=== PATIENT | male | born 1955 | race Caucasian/White ===

== ENCOUNTER 2023-02-15 09:54 | Inpatient (IN) | payer MEDICARE, MEDICAID, SELFPAY ==
[2023-02-15] VITALS (31 sets, daily range): BP systolic 85–123; BP diastolic 54–87; PULSE 64–79; RESP 14–20; TEMP 36.3–36.4; O2SAT 95–100; BMI 30.7
--- NOTE | ~2023-02-15 | CT_ITS ---
EXAMINATION: CT abdomen pelvis w con DATE: 02/15/2023 12:35 INDICATION: Sacral decubitus ulcer. TECHNIQUE: Computed tomography (CT) of the abdomen and pelvis was performed with 100 mL Omnipaque 350 intravenous contrast. Automated exposure control and iterative reconstruction technique were employe d. The dose-length product was 895.47 mGy-cm. COMPARISON: None. FINDINGS: The visualized portions of the lung bases demonstrate mild atelectasis. No pleural effusion . The heart size is normal. There are coronary artery calcifications. No pericardial effusion. There is bilateral gynecomastia. Calcifications in the liver and spleen are consistent with old granulomato us disease. The gallbladder, pancreas, and adrenal glands are normal. There is cortical thinning of t he kidneys. There are two 3 mm stones in right kidney. There is diffuse bladder wall thickening. The bladder is compressed by a Gardiner catheter. The prostate is mildly enlarged. There is a sacral decubit us ulcer. There are erosions of the sacrum, consistent with osteomyelitis. There are chronic compress ion fractures of L1, L2, on L3. There is mild lumbar spondylosis. IMPRESSION: 1. Sacral decubitus ulcer. Sacral osteomyelitis. 2. Diffuse bladder wall thickening, consistent with cystitis. Reviewed, dictated and finalized at location A.
--- NOTE | ~2023-02-15 | XR_ITS ---
EXAMINATION: XR tibia fibula LT 2V, XR tibia fibula RT 2V DATE: 02/15/2023 11:35 INDICATION: Stump wound and a left msaca-lde-yakz amputation TECHNIQUE: 1. Anteroposterior and lateral views of the left tibia and fibula were obtained. 2. Anteroposterior and lateral views of the right tibia and fibula were obtained. COMPARISON: None. FINDINGS: Diffuse osteopenia. Bilateral hcyvp-nsl-gpmo amputations. On the right there is a wound with irregula r margins overlying the distal tibial osteotomy margin. A portion of the anteromedial margin of the t ibial osteotomy appears exposed, projecting beyond the overlying soft tissues. There is a lucent gas tracking deeper into the soft tissues along the osteotomy. The osteotomy margins appear to remain rel atively sharp with no evident erosion/osteolysis. On the left the osteotomy margin projects to within 2-3 mm of the surface of the overlying soft tissu es. There appears be a small focus of osteolysis along the surface of the immediately underlying the anteromedial margin of the osteotomy which is suspicious for developing osteomyelitis. IMPRESSION: 1. Left ypykw-xxp-yomn amputation with small region of osteolysis along the anteromedial margin of th e left tibial osteotomy suspicious for developing osteomyelitis. 2. Right ulbwl-cwm-khjz amputation with likely exposure of a small portion of the anteromedial tibial osteotomy margin which raises concern for osteomyelitis however no definitive erosion/osteolysis jaimie dent to more specifically suggest this. Reviewed, dictated and finalized at location A. IMPRESSION: 1. Left chnis-hqh-tkze amputation with small region of osteolysis along the ant eromedial margin of the left tibial osteotomy suspicious for developing osteomy elitis. 2. Right gjnen-kgq-ggxt amputation with likely exposure of a small portion of t he anteromedial tibial osteotomy margin which raises concern for osteomyelitis however no definitive erosion/osteolysis evident to more specifically suggest t his. IMPRESSION: 1. Left utiks-uqp-ldgg amputation with small region of osteolysis along the ant eromedial margin of the left tibial osteotomy suspicious for developing osteomy elitis. 2. Right oythc-ioz-pbnt amputation with likely exposure of a small portion of t [place] anteromedial tibial osteotomy margin which raises concern for osteomyelitis however no definitive erosion/osteolysis evident to more specifically suggest t his.
--- NOTE | ~2023-02-15 | XR_ITS ---
EXAMINATION: XR chest 1V portable DATE: 02/15/2023 11:35 INDICATION: Weakness. TECHNIQUE: A single frontal view of the chest was obtained on 2 radiographs. COMPARISON: None. FINDINGS: The patient is rotated to his left. There is no pneumonia, pleural effusion, or pneumothora x. The heart size is normal. There are changes of posterior fusion procedure in cervicothoracic spine . IMPRESSION: 1. No acute cardiopulmonary disease. Reviewed, dictated and finalized at location A.
--- NOTE | 2023-02-15 11:10 | PC.NURSE ---
Pt catheter bag emptied to be able to obtain fresh urine sample.
[2023-02-15 11:17] LABS: Basophils Percent Auto 0.3 % (0.2-1.2); Eosinophils Absolute Auto 0.3 K/mm3 (0-0.3); Hematocrit 34.9 % (42.0-52.0); Hemoglobin 11.1 g/dL (14.0-18.0); Immature Granulocyte Absolute 0.04 K/mm3 (0.00-0.031); Immature Granulocyte Percent A 0.4 % (0-0.5); Lymphocytes Absolute Auto 1.91 K/mm3 (0.9-3.2); Lymphocytes Percent Auto 18.1 % (18.3-44.2); Mean Corpuscular HGB Conc 31.8 g/dl (32-36); Mean Corpuscular Hemoglobin 30.1 pg (26-34); Mean Corpuscular Volume 94.6 fl (80-100); Mean Platelet Volume 9.6 fl (7.4-10.4); Monocytes Absolute Auto 0.9 K/mm3 (0.1-0.6); Monocytes Percent Auto 8.4 % (2.6-8.5); Neutrophils Absolute Auto 7.4 K/mm3 (1.3-6.7); Neutrophils Percent Auto 69.8 % (45.5-73.1); Platelet Count Result 297 k/mm3 (150-375); Red Blood Count 3.69 M/mm3 (4.6-6.20); Red Cell Distribution Width 14.2 % (11.5-14.5); White Blood Count 10.5 K/mm3 (4.5-10.0)
[2023-02-15 11:26] LABS: Lactic Acid Reflex 1.2 mmol/L (0.7-2.0)
[2023-02-15 11:30] LABS: Alanine Aminotransferase 29 U/L (6-50); Albumin Level 3.9 g/dL (3.5-5.1); Alkaline Phosphatase 57 U/L (38-126); Anion Gap 9 mmol/L (8-16); Aspartate Amino Transferase 39 U/L (17-59); Bilirubin,Total 1.1 mg/dL (0.2-1.3); Blood Urea Nitrogen 33 mg/dL (9-20); CRP 8.4 mg/dL (<1.0); Calcium 9.5 mg/dL (8.4-10.2); Carbon Dioxide 26 mmol/L (22-30); Chloride 97 mmol/L (98-107); Estimated CRCL calculation 74 ml/min; Estimated Glomerular Filt Rate > 60; Glucose 76 mg/dL (65-110); Potassium 4.7 mmol/L (3.4-5.0); Sodium 132 mmol/L (137-145)
[2023-02-15 11:33] LABS: INR 1.3; Prothrombin Time 16.6 Seconds (11.1-14.7)
[2023-02-15 12:06] LABS: Appearance Urine Turbid (Clear); Bacteria Urine 4+ /hpf; Bilirubin Urine Negative (Negative); Blood Urine 2+ (Negative); Color Urine Yellow (Yellow); Glucose Urine UA Negative (Negative); Ketones Urine Negative (Negative); Leukocyte Esterase Ur 3+ LEU/UL (Negative); Need Manual Microscopic Reviewed; Nitrate Urine Negative (Negative); Protein Urine 1+ mg/dL (Negative); RBC Urine 21-50 /hpf (0-2); Specific Grav Ur 1.018 (1.001-1.035); Squamous Epithelial Cell Urine None seen /hpf (Few); WBC Urine >100 /hpf
[2023-02-15 12:08] LABS: Add Urine Microscopic? YES
[2023-02-15] MEDS: PIPERACILLN/TAZ 3.375GM/NS50ML 3.375 GM/50 ML BAG IVPB ×2 (12:09→19:17)
[2023-02-15] MEDS: SODIUM CHLORIDE 0.9% IV 1,000 ML 999 ML IV CONT ×2 (12:10→15:13)
--- NOTE | 2023-02-15 13:45 | ED.WOUNDLAC ---
HPI - Wound/Laceration General Chief Complaint: Wound/Laceration Stated Complaint: wounds to bilat BKA Time Seen by Provider: 02/15/23 10:03 Source: patient, EMS, RN notes reviewed and old records reviewed Mode of arrival: EMS Limitations: no limitations History of Present Illness HPI narrative: This is a 67 year old male who presents from [facility] [facility] for evaluation of sacral decubitus wounds and bilateral BKA wounds. Patient is oriented x 4 but he is unsure of when he had his surgeries and where. According to his records, he was admitted to hospital November 23, 2022. He had bilateral below the knee amputations on December 04 for osteomyelitis. He completed 2 weeks of IV antibiotics. Patient 's son got patient discharged to him so he could bring him to shelter care facility in [place] 1 months. Today EMS reports, his nurses reports odor from his sacral decubits and wounds so he was sent to ER for evaluation. Patient denies chest pain, shortness of breath, nausea, vomiting or fever. She reports pain at site of his wounds on his legs and his decubitus ulcer on his sacrum Related Data Allergies Allergy/AdvReac Type Severity Reaction Status Date / Time No Known Allergies Allergy Verified 02/15/23 10:13 Review of Systems Constitutional: Constitutional: Denies weakness Cardiovascular: Cardiovascular: Denies syncope, Denies rapid heart rate, Denies irregular heart rhythm, Denies leg edema and Denies dyspnea Respiratory: Respiratory: Denies chest congestion, Denies hemoptysis, Denies excessive phlegm production and Denies dyspnea Gastrointestinal: Gastrointestinal: Denies abdominal pain, Denies hematochezia, Denies diarrhea and Denies vomiting Genitourinary: Genitourinary: Denies hematuria, Denies dysuria, Denies penile discharge and Denies testicular pain Musculoskeletal: Musculoskeletal: Denies joint swelling, Denies loss of height and Denies muscle weakness Integumentary/Breasts: Skin/Breast: Reports skin ulcer Neurologic: Denies syncope, Denies focal weakness and Denies weakness PMFSH Past Medical History Medical History Anxiety Chronic indwelling Gardiner catheter Gastroesophageal reflux disease Heart failure with preserved ejection fraction Echo 12/19 showed an EF of 55 to 65%. Hypotension On midodrine. Mild cognitive impairment Osteomyelitis Peripheral arterial disease CT angiogram for 11/17/2022 showed occlusion of anterior tibial arteries bilaterally. Schizoaffective disorder Traumatic brain injury Surgical History Surgical History (Updated 02/15/23 @ 16:23 by Daina Cho PA-C) History of below-knee amputation of both lower extremities (12/04/22) For osteomyelitis. Family History Family History (Updated 02/15/23 @ 16:23 by Daina Cho PA-C) Other Family history unknown Social History Social History Social History: Recently moved to the area from a long-time care facility in [place]. Served in the during [place]. Denies alcohol, tobacco, illicit substance use. Healthcare power of tax associate attorney: Jose Enrique Barba, son. Code status: Full code. Exam Const: General: no acute distress and alert Nutritional Appearance: well nourished Orientation/consciousness: patient oriented x3 HENMT: Head: normal to inspection Mouth: Yes Normal oral and palatal mucosa present, Yes lip normal and Yes moist mucous membranes Eyes: EOM: EOMs intact bilaterally Chest: Chest palpation & inspection: normal inspection of the chest Resp: Effort & Inspection: normal respiratory effort Auscultation: clear to auscultation bilaterally Cardio: Rate: regular rate Rhythm: regular rhythm Heart sounds: no murmurs GI: GI Palp: Yes Soft to palpation, No Tenderness to palpation present (GI), No Guarding due to palpation present (GI) and No Rigid due to palpation Auscultation: normal
--- NOTE | 2023-02-15 15:55 | PM.IMHP ---
H&P: HPI History of Present Illness Date/Time: 02/15/23 13:45 Chief Complaint: Concerns for wound infection. Narrative: This is a 67-year-old male with history of traumatic brain injury with cognitive impairment, congestive heart failure, peripheral arterial disease, schizoaffective disorder, anxiety, and osteomyelitis status post bilateral sjhhb-hhk-qyst amputation who presented to the emergency department via EMS from [facility] with concerns for wound infection. The patient is alert and oriented x4 however he is not a great historian due to the fact that he deviates off task quite frequently to share stories. As such, a majority of the following history is supplemented via a review of the triage in ED physician noted as well as review of paperwork that accompanied him. This is his 1st visit to this facility and is my understanding that he was recently moved to the area from [place] to be closer to family. According to a recent discharge summary, he was admitted to an outside facility on November 23, 2022 with encephalopathy and wound infections of the lower extremities and sacrum. He underwent bilateral uhqkv-ifx-zogk amputations on January 03 for osteomyelitis treated with long-term antibiotics. He was admitted to [facility] on 01/18/2023. He was sent in today as staff members were concerned for new wound infections. On arrival to the ED his blood pressures were a bit soft but he is on midodrine and this is likely a chronic finding. He was afebrile. Blood cell count was a bit elevated 10.5 and CRP was 8.4. Urine was abnormal with 3+ leukocyte esterase, greater than 100 WBC, and 4+ bacteria though he does have an indwelling Gardiner catheter. CT of the abdomen and pelvis showed a sacral decubitus ulcer with underlying osteomyelitis and diffuse bladder wall thickening consistent with cystitis. Radiographs of the lower legs showed finding suspicious for osteomyelitis at the site of bilateral dnyyh-glo-ugep amputations. In addition to IV fluids he was given a dose of vancomycin and Zosyn in the ED and he is being admitted in this setting for further treatment and surgery consultation. Review of Systems Review of Systems: Twelve systems were reviewed. No headache or neck ache. He denies fever, chills, and sweats. His appetite has not been great but he is hungry for a turkey sandwich at this time. No sinus congestion, sore throat, or cough. He denies chest pain shortness a breath. No abdominal pain, nausea, vomiting, or diarrhea. Denies low back pain but does complain of discomfort in the sacrum at the site of an ulcer. He does not have any pain in his legs at rest is but complains of pain with movement of the legs. Except as documented, all other systems were reviewed and are negative PMFSH Past Medical History Medical History (Updated 02/15/23 @ 16:36 by Daina Cho PA-C) Anxiety Chronic indwelling Gardiner catheter Gastroesophageal reflux disease Heart failure with preserved ejection fraction Echo 12/19 showed an EF of 55 to 65%. Hypotension On midodrine. Mild cognitive impairment Osteomyelitis Peripheral arterial disease CT angiogram for 11/17/2022 showed occlusion of anterior tibial arteries bilaterally. Schizoaffective disorder Traumatic brain injury Surgical History Surgical History (Updated 02/15/23 @ 16:23 by Daina Cho PA-C) History of below-knee amputation of both lower extremities (12/04/22) For osteomyelitis. Family History Family History (Updated 02/15/23 @ 16:23 by Daina Cho PA-C) Other Family history unknown Social History Social History (Updated 02/15/23 @ 16:26 by Daina Cho PA-C) Social History: Recently moved to the area from a long-time care facility in [place]. Served in the during [place]. Denies alcohol, tobacco, illicit substance use. Healthcare power of prosthetic assistant: Jose Enrique Barba, son. Code status: Full code. Meds Home Medications and Aller
--- NOTE | 2023-02-15 16:34 | PC.NURSE ---
Reg dinner diet ordered
--- NOTE | 2023-02-15 17:16 | PC.NURSE ---
Patient asked this RN to help him get a drink with a straw. I attempted to assist patient with getting a drink and he states put the straw in deeper and he then said that is what the girls say . I told patient that that kind of talk was not going to be tolerated and it was inappropriate. This RN left the room and spoke with chargeback specialist about situation.
[2023-02-15] MEDS: MIDODRINE HCL 10 MG TABLET PO (19:05)
--- NOTE | 2023-02-15 20:55 | ADMGEN ---
This patient, Jose Barba, was admitted to IMU Room 203-01. Patient/family oriented to hospital policies and general routines including ID bracelet, bed and alarms, visiting hours, pain management, procedures, bathroom and other care routines, personal items, smoking policy, room service/diet, and visiting hours. Information on how to activate the Rapid Response Team has been discussed. Patient/Family are encouraged to report perceived risks to care and to ask questions if they do not understand what they are told or what they should do.
[2023-02-15] MEDS: SODIUM CHLORIDE 0.9% IV 1,000 ML 125 ML IV CONT (21:51)
[2023-02-16] VITALS (12 sets, daily range): BP systolic 83–109; BP diastolic 42–60; PULSE 57–80; RESP 20; TEMP 36–37.2; O2SAT 94–100
[2023-02-16] MEDS: PIPERACILLN/TAZ 3.375GM/NS50ML 3.375 GM/50 ML BAG IVPB ×5 (00:32→23:38)
[2023-02-16] MEDS: oxyCODONE HCL (*CRX) 5 MG TAB IR PO ×2 (01:52→09:26)
[2023-02-16 05:13] LABS: Basophils Percent Auto 0.2 % (0.2-1.2); Eosinophils Absolute Auto 0.4 K/mm3 (0-0.3); Hematocrit 28.9 % (42.0-52.0); Hemoglobin 9.1 g/dL (14.0-18.0); Immature Granulocyte Absolute 0.03 K/mm3 (0.00-0.031); Immature Granulocyte Percent A 0.3 % (0-0.5); Lymphocytes Absolute Auto 1.53 K/mm3 (0.9-3.2); Lymphocytes Percent Auto 16.9 % (18.3-44.2); Mean Corpuscular HGB Conc 31.5 g/dl (32-36); Mean Corpuscular Hemoglobin 29.3 pg (26-34); Mean Corpuscular Volume 92.9 fl (80-100); Mean Platelet Volume 9.6 fl (7.4-10.4); Monocytes Absolute Auto 0.8 K/mm3 (0.1-0.6); Monocytes Percent Auto 8.3 % (2.6-8.5); Neutrophils Absolute Auto 6.4 K/mm3 (1.3-6.7); Neutrophils Percent Auto 70.3 % (45.5-73.1); Platelet Count Result 276 k/mm3 (150-375); Red Blood Count 3.11 M/mm3 (4.6-6.20); Red Cell Distribution Width 14.3 % (11.5-14.5); White Blood Count 9.1 K/mm3 (4.5-10.0)
[2023-02-16 05:25] LABS: Alanine Aminotransferase 23 U/L (6-50); Albumin Level 2.9 g/dL (3.5-5.1); Alkaline Phosphatase 48 U/L (38-126); Anion Gap 10 mmol/L (8-16); Aspartate Amino Transferase 28 U/L (17-59); Bilirubin,Total 0.6 mg/dL (0.2-1.3); Blood Urea Nitrogen 23 mg/dL (9-20); Calcium 8.1 mg/dL (8.4-10.2); Carbon Dioxide 19 mmol/L (22-30); Chloride 101 mmol/L (98-107); Estimated Glomerular Filt Rate > 60; Glucose 102 mg/dL (65-110); Magnesium 1.6 mg/dL (1.6-2.3); Potassium 3.9 mmol/L (3.4-5.0); Sodium 130 mmol/L (137-145)
[2023-02-16] MEDS: HEPARIN SODIUM 5,000 UNITS/ML VIAL 5000 UNITS SUB-Q ×3 (05:57→21:06)
[2023-02-16] MEDS: VANCOMYCIN 1,250 MG/NS 250 ML 1,250 MG/250 ML BAG 166.67 MG IVPB (06:28)
[2023-02-16 08:18] LABS: Glucose Point of Care 93 mg/dl (65-105)
--- NOTE | 2023-02-16 09:20 | PM.IMPN ---
Progress Note: A&P Assessment and Plan (1) Sacral osteomyelitis: Code(s): M46.28 - Osteomyelitis of vertebra, sacral and sacrococcygeal region Status: Acute (2) Osteomyelitis of tibia: Code(s): M86.9 - Osteomyelitis, unspecified Status: Acute (3) Mild dehydration: Code(s): E86.0 - Dehydration Status: Acute (4) Abnormal urinalysis: Code(s): R82.90 - Unspecified abnormal findings in urine Status: Acute (5) Chronic indwelling Gardiner catheter: Code(s): Z97.8 - Presence of other specified devices Status: Acute (6) Heart failure with preserved ejection fraction: Code(s): I50.30 - Unspecified diastolic (congestive) heart failure Status: Acute (7) Psychiatric illness: Code(s): F99 - Mental disorder, not otherwise specified Status: Acute Plan Tibia osteomyelitis And sacral osteomyelitis The patient presented to the emergency department for evaluation of suspected wound infection He is status post bilateral zajrt-dxc-amof amputations in November 2022 and he has open wounds at the stump as well as an open wound on the sacrum. CT reveals Sacral decubitus ulcer. Sacral osteomyelitis. XR reveals 1. Left nkupl-gkg-jshz amputation with small region of osteolysis along the anteromedial margin of the left tibial osteotomy suspicious for developing osteomyelitis. 2. Right caxfy-iug-jgri amputation with likely exposure of a small portion of the anteromedial tibial osteotomy margin which raises concern for osteomyelitis however no definitive erosion/osteolysis evident to more specifically suggest this. started on empiric Zosyn and vancomycin. Surgery has been consulted for their opinion. Complicated UTI CT reveals ?Diffuse bladder wall thickening, consistent with cystitis. His urine is abnormal has indwelling Gardiner catheter abx see above UTI. Urine culture is pending Hypovolemic hypotension, hyponatremia Likely secondary to dehydration Sodium 130, BUN 33/cr 0.8 . He does not appear toxic or septic though blood cultures have been obtained. Start fluid resuscitation with normal saline Sepsis Patient has hypothermia, leukocytosis, tachycardia tachypnea Antibiotics see above Continue fluid resuscitation Blood culture grew Gram-positive cocci Psychiatric disorders history of schizoaffective disorder, anxiety, and cognitive impair from prior traumatic brain injury. c/w home medications . Subjective Date/time seen: 02/16/23 09:20 Interval history: I saw and examined patient today. Patient still has uncontrolled pain bilateral lower extremities at amputation stumps. Blood culture grows Gram-positive cocci cluster. Patient has hypothermia, leukocytosis, tachycardia tachypnea Exam Narrative: General: Chronically ill-appearing gentleman supine in bed. Weight: 69.3 kg. BMI: 21.3. HEENT: PERRL, EOMI. Sclera anicteric. Tacky mucous membranes. Poor dental hygiene and dentition. Neck: Supple. Respiratory: Lungs are clear to auscultation anteriorly. Cardiovascular: Regular rate and rhythm with S1-S2. Gastrointestinal: Abdomen is soft, nontender, and nondistended with positive bowel sounds. Skin: Warm and dry. There are areas of breakdown on the stumps. The stage 5 sacral ulcer with erythema, some devitalized tissue with slough, and purulent, malodorous drainage. Extremities: No cyanosis or clubbing. Status post bilateral ulraz-ctr-xbhc amputation without edema. Radial pulses intact. Neurological: Alert and oriented x4. Cranial nerves 2-12 are grossly intact. Speech is clear. No facial asymmetry. Noted to move upper extremities without obvious limitations. He made no attempts to move his legs as he reports pain with that. Psychiatric: Pleasant and in good spirits, likes to share stories. Cooperative. Circumstantial speech. Objective Data Vital Signs Vital Signs: Vital Signs - 24 hr 02/15/23 09:54 02/15/23 11:27 02/15/23 12:10 Temperature
[2023-02-16] MEDS: ZINC SULFATE 220 MG CAPSULE PO (09:23)
[2023-02-16] MEDS: polyethylene glycoL 3350 17 GM POWD.PACK PO (09:23)
[2023-02-16] MEDS: SPIRONOLACTONE 25 MG TABLET PO (09:23)
[2023-02-16] MEDS: metroNIDAZOLE 250 MG TABLET 1000 MG XX (09:24)
[2023-02-16] MEDS: lisinopriL 2.5 MG TABLET PO (09:24)
[2023-02-16] MEDS: THERAPEUTIC MULTIVITAMINS/MINERALS TAB (*BKC) 1 TABLET PO (09:24)
[2023-02-16] MEDS: PARoxetine 20 MG TABLET PO (09:24)
[2023-02-16] MEDS: LORATADINE 10 MG TABLET PO (09:24)
[2023-02-16] MEDS: PANTOPRAZOLE 40 MG TABLET PO (09:24)
[2023-02-16] MEDS: CLOPIDOGREL BISULFATE 75 MG TABLET PO (09:25)
[2023-02-16] MEDS: carvediloL 3.125 MG TABLET PO (09:25)
[2023-02-16] MEDS: ASCORBIC ACID 500 MG TABLET 1000 MG PO (09:25)
[2023-02-16] MEDS: BACLOFEN 5 MG TABLET PO ×2 (09:25→17:43)
[2023-02-16] MEDS: ASPIRIN 81 MG CHEWABLE TABLET PO (09:25)
[2023-02-16] MEDS: GABAPENTIN 100 MG CAPSULE PO ×3 (09:25→17:43)
[2023-02-16] MEDS: FLUTICASONE PROPIONATE 0.05% NA SPR 16 GM BTL (*BKC) 1 SPRAY NASAL ×2 (09:25→17:43)
[2023-02-16 13:47] LABS: Glucose Point of Care 101 mg/dl (65-105)
--- NOTE | 2023-02-16 16:47 | PM.CNGS ---
Assessment and Plan Assessment and plan (1) Below-knee amputation of left lower extremity with complication: Code(s): S88.112A - Complete traumatic amputation at level between knee and ankle, left lower leg, initial encounter Status: Chronic Assessment and Plan: Both BK amputations have complications of the stump due to severe flexion contractures of each knee. Below-knee amputations will never heal appropriately with flexion contracture of the knee. There is no salvaging either of these amputations with anything less than bilateral above knee amputation being performed. I explained this to the patient. He seemed to understand but he also is confused. At present, he is agreeable to proceeding with bilateral above knee amputations. He expressed interest in a prosthesis but I explained to him that he cannot move his legs and therefore cannot walk. I will stop his clopidogrel. If proper consent can be obtained, we could go ahead with this sometime this week. There is no sepsis associated with this. The surgery will also alleviate any osteomyelitis associated with the existing tibial stumps. Long-term antibiotic treatment will not be needed. (2) Below-knee amputation of right lower extremity with complication: Code(s): S88.111A - Complete traumatic amputation at level between knee and ankle, right lower leg, initial encounter Status: Chronic Assessment and Plan: Please see above. (3) Sacral decubitus ulcer, stage IV: Code(s): L89.154 - Pressure ulcer of sacral region, stage 4 Status: Chronic Assessment and Plan: The sacral decubitus is pink and granulating. It is healing well. Will add silver gel to the wound care. Imaging always suggests osteomyelitis for these deep decubiti. Continued local care will be all that is needed, no long-term IV antibiotic use. 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 (5) Flexion contracture of joint of right lower leg: Code(s): M24.561 - Contracture, right knee Status: Chronic (6) Psychiatric illness: Code(s): F99 - Mental disorder, not otherwise specified Status: Chronic History of Present Illness Consult details Consult date: 02/16/23 Reason for consult: other (Wounds and possible osteomyelitis bilateral BKA and sacrum) Requesting physician: Genoveva Luz MD Narrative: The patient is a 67-year-old man who has a history of mental illness and traumatic brain injury. He came to our emergency room yesterday due to possible wound infections of bilateral below knee amputations as well as a sacral decubitus. Patient is really not a historian and thinks he is in an automobile repair facility. He would not believe me that this was a hospital. He states he had the amputations done 3 years ago at [facility] in [place]. Records suggest that he had the bilateral below knee amputations done January 03. At the [facility] there was noted to be a large sacral decubitus as well as open wounds at the end of each amputation. He was sent to the emergency room due to these concerns. There is no history of fever chills. Records suggest the amputations were done in response to osteomyelitis and peripheral vascular disease of both lower extremities. He is seen now in consultation regarding his sacral decubitus as well as bilateral below-knee amputations and wounds associated with each amputation. Plain films of the amputation wounds suggest incisional breakdown on 1 limb and osteomyelitis on the other limb. Sacral osteomyelitis was also suggested. Review of Systems Review of Systems: ROS unobtainable: Yes unobtainable due to mental status PMFSH Past Medical History Medical History Anxiety Chronic indwelling Gardiner catheter Gastroesophageal ref
[2023-02-16 17:23] LABS: Glucose Point of Care 137 mg/dl (65-105)
[2023-02-16] MEDS: MIDODRINE HCL 10 MG TABLET PO (17:45)
[2023-02-16 20:17] LABS: Glucose Point of Care 134 mg/dl (65-105)
[2023-02-16] MEDS: SIMVASTATIN 20 MG TABLET PO (21:06)
[2023-02-16] MEDS: QUEtiapine FUMARATE 25 MG TABLET PO (21:06)
[2023-02-17] VITALS (10 sets, daily range): BP systolic 89–110; BP diastolic 48–70; PULSE 55–77; RESP 16–22; TEMP 36–36.9; O2SAT 95–100
[2023-02-17 00:25] LABS: Vancomycin Trough 17.7 ug/mL (10.0-20.0)
[2023-02-17] MEDS: VANCOMYCIN 1,250 MG/NS 250 ML 1,250 MG/250 ML BAG 166.67 MG IVPB (00:58)
[2023-02-17] MEDS: oxyCODONE HCL (*CRX) 5 MG TAB IR PO (02:09)
[2023-02-17 05:58] LABS: Estimated Glomerular Filt Rate > 60
[2023-02-17] MEDS: HEPARIN SODIUM 5,000 UNITS/ML VIAL 5000 UNITS SUB-Q ×3 (06:09→21:48)
[2023-02-17] MEDS: PIPERACILLN/TAZ 3.375GM/NS50ML 3.375 GM/50 ML BAG IVPB ×3 (06:09→17:53)
[2023-02-17 08:38] LABS: Glucose Point of Care 105 mg/dl (65-105)
--- NOTE | 2023-02-17 09:00 | PM.IMPN ---
Progress Note: A&P Assessment and Plan (1) Sacral osteomyelitis: Code(s): M46.28 - Osteomyelitis of vertebra, sacral and sacrococcygeal region Status: Acute (2) Osteomyelitis of tibia: Code(s): M86.9 - Osteomyelitis, unspecified Status: Acute (3) Mild dehydration: Code(s): E86.0 - Dehydration Status: Acute (4) Abnormal urinalysis: Code(s): R82.90 - Unspecified abnormal findings in urine Status: Acute (5) Chronic indwelling Gardiner catheter: Code(s): Z97.8 - Presence of other specified devices Status: Acute (6) Heart failure with preserved ejection fraction: Code(s): I50.30 - Unspecified diastolic (congestive) heart failure Status: Acute (7) Psychiatric illness: Code(s): F99 - Mental disorder, not otherwise specified Status: Chronic Plan Tibia osteomyelitis And sacral osteomyelitis The patient presented to the emergency department for evaluation of suspected wound infection He is status post bilateral lrayj-auv-bxdr amputations in November 2022 and he has open wounds at the stump as well as an open wound on the sacrum. CT reveals Sacral decubitus ulcer. Sacral osteomyelitis. XR reveals 1. Left sngbv-qlt-gshx amputation with small region of osteolysis along the anteromedial margin of the left tibial osteotomy suspicious for developing osteomyelitis. 2. Right fobnh-kmq-pkzh amputation with likely exposure of a small portion of the anteromedial tibial osteotomy margin which raises concern for osteomyelitis however no definitive erosion/osteolysis evident to more specifically suggest this. started on empiric Zosyn and vancomycin. Surgery has been consulted for their opinion. Appreciate general surgical consultation. Plan above knee amputation, the patient is agreeable to proceeding with bilateral above knee amputations. Hx of PVD hold plavis now for the scheduled scheduled procedure Complicated UTI CT reveals ?Diffuse bladder wall thickening, consistent with cystitis. His urine is abnormal has indwelling Gardiner catheter abx see above UTI. Urine culture grows Pseudomonas aeruginosa, patient is on Zosyn, follow-up with susceptibility Hypovolemic hypotension, hyponatremia Likely secondary to dehydration Sodium 130, BUN 33/cr 0.8 He does not appear toxic or septic though blood cultures have been obtained. 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 c/w home medications . Subjective Date/time seen: 02/17/23 09:00 Interval history: I saw and examined patient today. Patient feels pain is controlled, patient is afebrile, hemodynamically stable, no new events or issue over the night. Urine culture grows Pseudomonas aeruginosa Exam Narrative: General: Chronically ill-appearing gentleman supine in bed. Weight: 69.3 kg. BMI: 21.3. HEENT: PERRL, EOMI. Sclera anicteric. Tacky mucous membranes. Poor dental hygiene and dentition. Neck: Supple. Respiratory: Lungs are clear to auscultation anteriorly. Cardiovascular: Regular rate and rhythm with S1-S2. Gastrointestinal: Abdomen is soft, nontender, and nondistended with positive bowel sounds. Skin: Warm and dry. There are areas of breakdown on the stumps. The stage 5 sacral ulcer with erythema, some devitalized tissue with slough, and purulent, malodorous drainage. Extremities: No cyanosis or clubbing. Status post bilateral zseof-fab-lngp amputation without edema. Radial pulses intact. Neurological: Alert and oriented x4. Cranial nerves 2-12 are grossly intact. Speech is clear. No facial asymmetry. Noted to move upper extremities without ob
[2023-02-17] MEDS: ZINC SULFATE 220 MG CAPSULE PO (09:50)
[2023-02-17] MEDS: SPIRONOLACTONE 25 MG TABLET PO (09:50)
[2023-02-17] MEDS: carvediloL 3.125 MG TABLET PO (09:51)
[2023-02-17] MEDS: polyethylene glycoL 3350 17 GM POWD.PACK PO (09:51)
[2023-02-17] MEDS: PANTOPRAZOLE 40 MG TABLET PO (09:51)
[2023-02-17] MEDS: FLUTICASONE PROPIONATE 0.05% NA SPR 16 GM BTL (*BKC) 1 SPRAY NASAL ×2 (09:51→17:16)
[2023-02-17] MEDS: SILVERGEL (ELTA) 45 ML 1 APPLIC TOPICAL (09:51)
[2023-02-17] MEDS: GABAPENTIN 100 MG CAPSULE PO ×3 (09:51→17:16)
[2023-02-17] MEDS: THERAPEUTIC MULTIVITAMINS/MINERALS TAB (*BKC) 1 TABLET PO (09:51)
[2023-02-17] MEDS: LORATADINE 10 MG TABLET PO (09:51)
[2023-02-17] MEDS: PARoxetine 20 MG TABLET PO (09:51)
[2023-02-17] MEDS: ASPIRIN 81 MG CHEWABLE TABLET PO (09:52)
[2023-02-17] MEDS: ASCORBIC ACID 500 MG TABLET 1000 MG PO (09:52)
[2023-02-17] MEDS: BACLOFEN 5 MG TABLET PO ×2 (09:52→17:54)
[2023-02-17 09:57] LABS: Basophils Percent Auto 0.5 % (0.2-1.2); Eosinophils Absolute Auto 0.5 K/mm3 (0-0.3); Eosinophils Percent Auto 6.1 % (0-4.4); Hematocrit 30.8 % (42.0-52.0); Hemoglobin 9.7 g/dL (14.0-18.0); Immature Granulocyte Absolute 0.02 K/mm3 (0.00-0.031); Immature Granulocyte Percent A 0.2 % (0-0.5); Mean Corpuscular HGB Conc 31.5 g/dl (32-36); Mean Corpuscular Volume 95.4 fl (80-100); Mean Platelet Volume 10.1 fl (7.4-10.4); Monocytes Absolute Auto 0.7 K/mm3 (0.1-0.6); Neutrophils Absolute Auto 5.1 K/mm3 (1.3-6.7); Neutrophils Percent Auto 62.2 % (45.5-73.1); Platelet Count Result 269 k/mm3 (150-375); Red Blood Count 3.23 M/mm3 (4.6-6.20); Red Cell Distribution Width 14.5 % (11.5-14.5); White Blood Count 8.3 K/mm3 (4.5-10.0)
[2023-02-17 10:08] LABS: Anion Gap 8 mmol/L (8-16); Blood Urea Nitrogen 21 mg/dL (9-20); Calcium 8.4 mg/dL (8.4-10.2); Carbon Dioxide 21 mmol/L (22-30); Chloride 104 mmol/L (98-107); Estimated Glomerular Filt Rate > 60; Glucose 111 mg/dL (65-110); Sodium 133 mmol/L (137-145)
[2023-02-17] MEDS: VANCOMYCIN 1,250 MG/NS 250 ML 1,250 MG/250 ML BAG 250 MG IVPB (17:16)
[2023-02-17] MEDS: SIMVASTATIN 20 MG TABLET PO (21:48)
[2023-02-17] MEDS: QUEtiapine FUMARATE 25 MG TABLET PO (21:48)
[2023-02-18] MEDS: PIPERACILLN/TAZ 3.375GM/NS50ML 3.375 GM/50 ML BAG IVPB ×2 (00:26→06:28)
[2023-02-18 05:55] VITALS: BP 92/77; PULSE 79; RESP 18; TEMP 36; O2SAT 99
[2023-02-18] MEDS: HEPARIN SODIUM 5,000 UNITS/ML VIAL 5000 UNITS SUB-Q ×3 (06:28→21:35)
[2023-02-18 07:05] LABS: Basophils Percent Auto 0.3 % (0.2-1.2); Eosinophils Absolute Auto 0.4 K/mm3 (0-0.3); Eosinophils Percent Auto 5.8 % (0-4.4); Hematocrit 31.7 % (42.0-52.0); Hemoglobin 9.7 g/dL (14.0-18.0); Immature Granulocyte Absolute 0.03 K/mm3 (0.00-0.031); Immature Granulocyte Percent A 0.4 % (0-0.5); Lymphocytes Absolute Auto 1.65 K/mm3 (0.9-3.2); Mean Corpuscular HGB Conc 30.6 g/dl (32-36); Mean Corpuscular Volume 94.9 fl (80-100); Mean Platelet Volume 9.7 fl (7.4-10.4); Monocytes Absolute Auto 0.5 K/mm3 (0.1-0.6); Monocytes Percent Auto 6.8 % (2.6-8.5); Neutrophils Absolute Auto 4.6 K/mm3 (1.3-6.7); Neutrophils Percent Auto 63.7 % (45.5-73.1); Platelet Count Result 262 k/mm3 (150-375); Red Blood Count 3.34 M/mm3 (4.6-6.20); Red Cell Distribution Width 14.4 % (11.5-14.5); White Blood Count 7.2 K/mm3 (4.5-10.0)
[2023-02-18 07:17] LABS: Anion Gap 11 mmol/L (8-16); Blood Urea Nitrogen 19 mg/dL (9-20); Calcium 8.7 mg/dL (8.4-10.2); Carbon Dioxide 18 mmol/L (22-30); Chloride 104 mmol/L (98-107); Estimated Glomerular Filt Rate > 60; Glucose 159 mg/dL (65-110); Potassium 3.5 mmol/L (3.4-5.0); Sodium 133 mmol/L (137-145)
--- NOTE | 2023-02-18 07:43 | PCWOUND ---
WOCN NOTE Received a nurse driven consult dated 02-16-23. patient is being followed by a surgeon and has wound care orders for sacrum wound and plain for surgery for both stump wounds.
--- NOTE | 2023-02-18 08:32 | PM.IMPN ---
Progress Note: A&P Assessment and Plan (1) Sacral osteomyelitis: Code(s): M46.28 - Osteomyelitis of vertebra, sacral and sacrococcygeal region Status: Acute (2) Osteomyelitis of tibia: Code(s): M86.9 - Osteomyelitis, unspecified Status: Acute (3) Mild dehydration: Code(s): E86.0 - Dehydration Status: Acute (4) Abnormal urinalysis: Code(s): R82.90 - Unspecified abnormal findings in urine Status: Acute (5) Chronic indwelling Gardiner catheter: Code(s): Z97.8 - Presence of other specified devices Status: Acute (6) Heart failure with preserved ejection fraction: Code(s): I50.30 - Unspecified diastolic (congestive) heart failure Status: Acute (7) Psychiatric illness: Code(s): F99 - Mental disorder, not otherwise specified Status: Chronic Plan Tibia osteomyelitis And sacral osteomyelitis The patient presented to the emergency department for evaluation of suspected wound infection He is status post bilateral nhnfa-url-qxlv amputations in November 2022 and he has open wounds at the stump as well as an open wound on the sacrum. CT reveals Sacral decubitus ulcer. Sacral osteomyelitis. XR reveals 1. Left bdcyr-dcs-jopc amputation with small region of osteolysis along the anteromedial margin of the left tibial osteotomy suspicious for developing osteomyelitis. 2. Right qnipb-oeb-vhnj amputation with likely exposure of a small portion of the anteromedial tibial osteotomy margin which raises concern for osteomyelitis however no definitive erosion/osteolysis evident to more specifically suggest this. started on empiric Zosyn and vancomycin. Surgery has been consulted for their opinion. Appreciate general surgical consultation. Plan above knee amputation, the patient is agreeable to proceeding with bilateral above knee amputations. Hx of PVD hold plavis now for the scheduled scheduled procedure Complicated UTI CT reveals ?Diffuse bladder wall thickening, consistent with cystitis. His urine is abnormal has indwelling Gardiner catheter abx see above UTI. Urine culture grows Pseudomonas aeruginosa, patient is on Zosyn, follow-up with susceptibility Hypovolemic hypotension, hyponatremia Likely secondary to dehydration Sodium 130, BUN 33/cr 0.8 He does not appear toxic or septic though blood cultures have been obtained. 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 c/w home medications . Subjective Date/time seen: 02/18/23 08:32 Interval history: I saw and examined patient today. Patient has no complaints, patient is afebrile, hemodynamically stable, no new events or issue over the night. I reviewed labs today Exam Narrative: GENERAL: Ill-appearing in no acute distress. Well-nourished. - EYES: EOMI. Anicteric. - HENT: Moist mucous membranes. - LUNGS: Clear to auscultation bilaterally, no wheezing, rhonchi, or rales. - CARDIOVASCULAR: Regular rate and rhythm. No murmur. No JVD. - ABDOMEN: Soft, non-tender and non-distended. No palpable masses. - EXTREMITIES: No edema. Peripheral pulses 2+. Non-tender. - NEUROLOGIC: No focal neurological deficits. CN II-XII grossly intact. - PSYCHIATRIC: Awake, Alert and oriented x 3. Appropriate mood and affect. - SKIN: No rashes or lesions. Warm. - LYMPH: No cervical lymphadenopathy. Objective Data Vital Signs Vital Signs: Vital Signs - 24 hr 02/17/23 09:51 02/17/23 12:00 02/17/23 10:00 Temperature 97.4 F L Pulse Rate 61 66 65 Respiratory Rate 16 Bloo
[2023-02-18] MEDS: THERAPEUTIC MULTIVITAMINS/MINERALS TAB (*BKC) 1 TABLET PO (08:41)
[2023-02-18] MEDS: SPIRONOLACTONE 25 MG TABLET PO (08:41)
[2023-02-18] MEDS: BACLOFEN 5 MG TABLET PO ×2 (08:41→16:48)
[2023-02-18] MEDS: PARoxetine 20 MG TABLET PO (08:41)
[2023-02-18] MEDS: SILVERGEL (ELTA) 45 ML 1 APPLIC TOPICAL (08:41)
[2023-02-18] MEDS: ASCORBIC ACID 500 MG TABLET 1000 MG PO (08:41)
[2023-02-18] MEDS: GABAPENTIN 100 MG CAPSULE PO ×3 (08:42→16:48)
[2023-02-18] MEDS: ZINC SULFATE 220 MG CAPSULE PO (08:42)
[2023-02-18] MEDS: LORATADINE 10 MG TABLET PO (08:42)
[2023-02-18] MEDS: polyethylene glycoL 3350 17 GM POWD.PACK PO (08:42)
[2023-02-18] MEDS: PANTOPRAZOLE 40 MG TABLET PO (08:42)
[2023-02-18] MEDS: FLUTICASONE PROPIONATE 0.05% NA SPR 16 GM BTL (*BKC) 1 SPRAY NASAL ×2 (08:42→16:48)
[2023-02-18] MEDS: ASPIRIN 81 MG CHEWABLE TABLET PO (08:42)
--- NOTE | 2023-02-18 10:10 | P.CDI_ITS ---
CDI Query Clarification Request Urine culture from 02/15/23 grew > 100,000 pseudomonas aeruginosa. Chronic indwelling Frank catheter documented. Patient started on Zosyn 3.375 gm Q 6 hours IV. Clarification request - UTI has been documented, chronic indwelling frank catheter documented. Please clarify if UTI is: * due to/associated with chronic indwelling frank catheter * not due to/associated with chronic indwelling frank catheter * unable to determine <Shweta Edgar RN - Last Filed: 02/18/23 10:14> Clarified Diagnosis Clarified Diagnosis: UTI has been documented, chronic indwelling frank catheter UTI is associated with chronic indwelling frank catheter <Keysha Tavares MD - Last Filed: 02/18/23 13:11>
[2023-02-18 11:12] VITALS: BMI 32.6
[2023-02-18] MEDS: VANCOMYCIN 1,250 MG/NS 250 ML 1,250 MG/250 ML BAG 166 MG IVPB (12:03)
[2023-02-18] MEDS: metroNIDAZOLE 500 MG/ISO 100ML 500 MG/100 ML BAG 100 MG IVPB ×2 (12:25→21:35)
[2023-02-18] MEDS: CEFEPIME 2 GM/NS 50 ML 2 GM/50 ML BAG IVPB ×2 (12:25→23:48)
[2023-02-18] MEDS: oxyCODONE HCL (*CRX) 5 MG TAB IR PO ×2 (12:25→16:57)
[2023-02-18 14:00] VITALS: BP 126/80; PULSE 87; RESP 16; TEMP 36.9; O2SAT 100
[2023-02-18] MEDS: QUEtiapine FUMARATE 25 MG TABLET PO (21:30)
[2023-02-18] MEDS: SIMVASTATIN 20 MG TABLET PO (21:35)
[2023-02-18 22:00] VITALS: BP 120/81; PULSE 100; RESP 12; TEMP 36; O2SAT 91
[2023-02-19] MEDS: MELATONIN 3 MG TABLET PO ×2 (00:19→21:26)
[2023-02-19] MEDS: oxyCODONE HCL (*CRX) 5 MG TAB IR PO ×3 (00:19→19:56)
[2023-02-19] MEDS: metroNIDAZOLE 500 MG/ISO 100ML 500 MG/100 ML BAG 100 MG IVPB ×3 (05:28→21:26)
[2023-02-19] MEDS: HEPARIN SODIUM 5,000 UNITS/ML VIAL 5000 UNITS SUB-Q ×3 (05:28→21:26)
[2023-02-19 06:00] VITALS: BP 135/91; PULSE 90; RESP 14; TEMP 36.1; O2SAT 97
[2023-02-19] MEDS: VANCOMYCIN 1,250 MG/NS 250 ML 1,250 MG/250 ML BAG 166 MG IVPB (06:18)
[2023-02-19 06:23] LABS: Basophils Percent Auto 0.3 % (0.2-1.2); Eosinophils Absolute Auto 0.2 K/mm3 (0-0.3); Eosinophils Percent Auto 1.6 % (0-4.4); Hematocrit 33.4 % (42.0-52.0); Hemoglobin 10.3 g/dL (14.0-18.0); Immature Granulocyte Absolute 0.05 K/mm3 (0.00-0.031); Immature Granulocyte Percent A 0.4 % (0-0.5); Lymphocytes Absolute Auto 1.73 K/mm3 (0.9-3.2); Lymphocytes Percent Auto 14.7 % (18.3-44.2); Mean Corpuscular HGB Conc 30.8 g/dl (32-36); Mean Corpuscular Hemoglobin 28.9 pg (26-34); Mean Corpuscular Volume 93.6 fl (80-100); Mean Platelet Volume 9.5 fl (7.4-10.4); Monocytes Absolute Auto 0.6 K/mm3 (0.1-0.6); Monocytes Percent Auto 5.3 % (2.6-8.5); Neutrophils Absolute Auto 9.2 K/mm3 (1.3-6.7); Neutrophils Percent Auto 77.7 % (45.5-73.1); Platelet Count Result 301 k/mm3 (150-375); Red Blood Count 3.57 M/mm3 (4.6-6.20); Red Cell Distribution Width 14.4 % (11.5-14.5); White Blood Count 11.8 K/mm3 (4.5-10.0)
[2023-02-19 06:34] LABS: Anion Gap 10 mmol/L (8-16); Blood Urea Nitrogen 18 mg/dL (9-20); Calcium 8.8 mg/dL (8.4-10.2); Carbon Dioxide 21 mmol/L (22-30); Chloride 103 mmol/L (98-107); Estimated Glomerular Filt Rate > 60; Glucose 115 mg/dL (65-110); Potassium 3.5 mmol/L (3.4-5.0); Sodium 134 mmol/L (137-145)
[2023-02-19] MEDS: THERAPEUTIC MULTIVITAMINS/MINERALS TAB (*BKC) 1 TABLET PO (08:08)
[2023-02-19] MEDS: GABAPENTIN 100 MG CAPSULE PO ×3 (08:08→18:17)
[2023-02-19] MEDS: SPIRONOLACTONE 25 MG TABLET PO (08:08)
[2023-02-19] MEDS: BACLOFEN 5 MG TABLET PO ×2 (08:08→18:17)
[2023-02-19] MEDS: ASPIRIN 81 MG CHEWABLE TABLET PO (08:08)
[2023-02-19] MEDS: ZINC SULFATE 220 MG CAPSULE PO (08:08)
[2023-02-19] MEDS: ASCORBIC ACID 500 MG TABLET 1000 MG PO (08:08)
[2023-02-19] MEDS: FLUTICASONE PROPIONATE 0.05% NA SPR 16 GM BTL (*BKC) 1 SPRAY NASAL ×2 (08:09→18:17)
[2023-02-19] MEDS: PARoxetine 20 MG TABLET PO (08:09)
[2023-02-19] MEDS: LORATADINE 10 MG TABLET PO (08:10)
[2023-02-19] MEDS: PANTOPRAZOLE 40 MG TABLET PO (08:10)
[2023-02-19] MEDS: SILVERGEL (ELTA) 45 ML 1 APPLIC TOPICAL (08:12)
[2023-02-19] MEDS: polyethylene glycoL 3350 17 GM POWD.PACK PO (08:17)
[2023-02-19] MEDS: CEFEPIME 2 GM/NS 50 ML 2 GM/50 ML BAG IVPB (11:51)
--- NOTE | 2023-02-19 13:54 | PM.IMPN ---
Progress Note: A&P Assessment and Plan (1) Sacral osteomyelitis: Code(s): M46.28 - Osteomyelitis of vertebra, sacral and sacrococcygeal region Status: Acute (2) Osteomyelitis of tibia: Code(s): M86.9 - Osteomyelitis, unspecified Status: Acute (3) Mild dehydration: Code(s): E86.0 - Dehydration Status: Acute (4) Abnormal urinalysis: Code(s): R82.90 - Unspecified abnormal findings in urine Status: Acute (5) Chronic indwelling Gardiner catheter: Code(s): Z97.8 - Presence of other specified devices Status: Acute (6) Heart failure with preserved ejection fraction: Code(s): I50.30 - Unspecified diastolic (congestive) heart failure Status: Acute (7) Psychiatric illness: Code(s): F99 - Mental disorder, not otherwise specified Status: Chronic Plan Tibia osteomyelitis And sacral osteomyelitis The patient presented to the emergency department for evaluation of suspected wound infection He is status post bilateral wzihv-awv-qcuq amputations in November 2022 and he has open wounds at the stump as well as an open wound on the sacrum. CT reveals Sacral decubitus ulcer. Sacral osteomyelitis. XR reveals 1. Left kwqfa-ajm-yeyu amputation with small region of osteolysis along the anteromedial margin of the left tibial osteotomy suspicious for developing osteomyelitis. 2. Right mvcjw-xaj-hsoi amputation with likely exposure of a small portion of the anteromedial tibial osteotomy margin which raises concern for osteomyelitis however no definitive erosion/osteolysis evident to more specifically suggest this. started on empiric Zosyn and vancomycin. Surgery has been consulted for their opinion. Appreciate general surgical consultation. Plan above knee amputation, the patient is agreeable to proceeding with bilateral above knee amputations. Hx of PVD hold plavis now for the scheduled scheduled procedure Complicated UTI CT reveals ?Diffuse bladder wall thickening, consistent with cystitis. His urine is abnormal has indwelling Gardiner catheter abx see above UTI. Urine culture grows Pseudomonas aeruginosa, patient is on Zosyn, follow-up with susceptibility Hypovolemic hypotension, hyponatremia Likely secondary to dehydration Sodium 130, BUN 33/cr 0.8 He does not appear toxic or septic though blood cultures have been obtained. 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 c/w home medications . Subjective Date/time seen: 02/19/23 13:54 Interval history: 67-year-old male with history of traumatic brain injury with cognitive impairment, congestive heart failure, peripheral arterial? disease, schizoaffective disorder, anxiety, and osteomyelitis status post bilateral kvavh-kce-thgs amputation who presented to the emergency department via EMS from [facility] with concerns for wound infection.? Pt needs BL revision of stumps and most likely above knee amputations Some bleeding from a heparin injection site Review of Systems Review of Systems: No specific complaints Exam Narrative: GENERAL: Ill-appearing in no acute distress. Well-nourished. - EYES: EOMI. Anicteric. - HENT: Moist mucous membranes. - LUNGS: Clear to auscultation bilaterally, no wheezing, rhonchi, or rales. - CARDIOVASCULAR: Regular rate and rhythm. No murmur. No JVD. - ABDOMEN: Soft, non-tender and non-distended. No palpable masses. - EXTREMITIES: No edema. Peripheral pulses 2+. Non-tender. - NEUROLOGIC: No focal neurological defic
[2023-02-19 15:45] VITALS: BP 94/66; PULSE 87; RESP 18; TEMP 36.2; O2SAT 94
[2023-02-19] MEDS: ACETAMINOPHEN 325 MG TABLET 650 MG PO (19:57)
[2023-02-19] MEDS: QUEtiapine FUMARATE 25 MG TABLET PO (21:26)
[2023-02-19] MEDS: SIMVASTATIN 20 MG TABLET PO (21:26)
[2023-02-19 21:34] VITALS: BP 99/74; PULSE 90; RESP 16; TEMP 35.9; O2SAT 100
[2023-02-19 21:44] VITALS: BMI 48.7
[2023-02-20 00:05] LABS: Vancomycin Trough 27.8 ug/mL (10.0-20.0)
[2023-02-20] MEDS: CEFEPIME 2 GM/NS 50 ML 2 GM/50 ML BAG IVPB ×2 (00:11→11:50)
[2023-02-20] MEDS: oxyCODONE HCL (*CRX) 5 MG TAB IR PO ×2 (02:04→20:20)
[2023-02-20 05:15] VITALS: BP 95/64; PULSE 84; RESP 16; TEMP 36.1; O2SAT 98
[2023-02-20] MEDS: metroNIDAZOLE 500 MG/ISO 100ML 500 MG/100 ML BAG 100 MG IVPB ×3 (05:36→20:57)
[2023-02-20] MEDS: HEPARIN SODIUM 5,000 UNITS/ML VIAL 5000 UNITS SUB-Q ×3 (05:41→20:56)
[2023-02-20 06:40] LABS: Hematocrit 29.4 % (42.0-52.0); Mean Corpuscular HGB Conc 30.6 g/dl (32-36); Mean Corpuscular Hemoglobin 29.2 pg (26-34); Mean Corpuscular Volume 95.5 fl (80-100); Mean Platelet Volume 9.8 fl (7.4-10.4); Platelet Count Result 280 k/mm3 (150-375); Red Blood Count 3.08 M/mm3 (4.6-6.20); Red Cell Distribution Width 14.4 % (11.5-14.5); White Blood Count 9.5 K/mm3 (4.5-10.0)
[2023-02-20 06:54] LABS: Anion Gap 7 mmol/L (8-16); Blood Urea Nitrogen 21 mg/dL (9-20); Carbon Dioxide 22 mmol/L (22-30); Chloride 103 mmol/L (98-107); Potassium 3.8 mmol/L (3.4-5.0); Sodium 132 mmol/L (137-145)
[2023-02-20 06:55] LABS: Calcium 8.4 mg/dL (8.4-10.2); Estimated Glomerular Filt Rate > 60; Glucose 120 mg/dL (65-110)
[2023-02-20 08:00] VITALS: PULSE 99; RESP 17; O2SAT 96
[2023-02-20] MEDS: PARoxetine 20 MG TABLET PO (08:31)
[2023-02-20] MEDS: THERAPEUTIC MULTIVITAMINS/MINERALS TAB (*BKC) 1 TABLET PO (08:31)
[2023-02-20] MEDS: ASCORBIC ACID 500 MG TABLET 1000 MG PO (08:31)
[2023-02-20] MEDS: LORATADINE 10 MG TABLET PO (08:31)
[2023-02-20] MEDS: BACLOFEN 5 MG TABLET PO ×2 (08:31→17:19)
[2023-02-20] MEDS: VANCOMYCIN 1,000 MG/NS 250 ML 1,000 MG/250 ML BAG 250 MG IVPB (08:31)
[2023-02-20] MEDS: ZINC SULFATE 220 MG CAPSULE PO (08:31)
[2023-02-20] MEDS: ASPIRIN 81 MG CHEWABLE TABLET PO (08:31)
[2023-02-20] MEDS: PANTOPRAZOLE 40 MG TABLET PO (08:31)
[2023-02-20] MEDS: SPIRONOLACTONE 25 MG TABLET PO (08:31)
[2023-02-20] MEDS: GABAPENTIN 100 MG CAPSULE PO ×3 (08:31→17:19)
[2023-02-20] MEDS: FLUTICASONE PROPIONATE 0.05% NA SPR 16 GM BTL (*BKC) 1 SPRAY NASAL ×2 (08:32→17:19)
[2023-02-20] MEDS: polyethylene glycoL 3350 17 GM POWD.PACK PO (08:32)
[2023-02-20] MEDS: SILVERGEL (ELTA) 45 ML 1 APPLIC TOPICAL (08:32)
[2023-02-20 09:30] VITALS: O2SAT 95
[2023-02-20 14:00] VITALS: BP 123/67; PULSE 99; RESP 17; TEMP 36.3; O2SAT 96
--- NOTE | 2023-02-20 15:36 | PM.IMPN ---
Progress Note: A&P Assessment and Plan (1) Sacral osteomyelitis: Code(s): M46.28 - Osteomyelitis of vertebra, sacral and sacrococcygeal region Status: Acute (2) Osteomyelitis of tibia: Code(s): M86.9 - Osteomyelitis, unspecified Status: Acute (3) Mild dehydration: Code(s): E86.0 - Dehydration Status: Acute (4) Abnormal urinalysis: Code(s): R82.90 - Unspecified abnormal findings in urine Status: Acute (5) Chronic indwelling Gardiner catheter: Code(s): Z97.8 - Presence of other specified devices Status: Acute (6) Heart failure with preserved ejection fraction: Code(s): I50.30 - Unspecified diastolic (congestive) heart failure Status: Acute (7) Psychiatric illness: Code(s): F99 - Mental disorder, not otherwise specified Status: Chronic Plan Tibia osteomyelitis And sacral osteomyelitis The patient presented to the emergency department for evaluation of suspected wound infection He is status post bilateral qofzs-vqi-czey amputations in November 2022 and he has open wounds at the stump as well as an open wound on the sacrum. CT reveals Sacral decubitus ulcer. Sacral osteomyelitis. XR reveals 1. Left auyiw-vlb-jmdo amputation with small region of osteolysis along the anteromedial margin of the left tibial osteotomy suspicious for developing osteomyelitis. 2. Right ozcde-cuu-sxnn amputation with likely exposure of a small portion of the anteromedial tibial osteotomy margin which raises concern for osteomyelitis however no definitive erosion/osteolysis evident to more specifically suggest this. started on empiric Zosyn and vancomycin. Surgery has been consulted for their opinion. Appreciate general surgical consultation. Plan above knee amputation, the patient is agreeable to proceeding with bilateral above knee amputations. Hx of PVD hold plavis now for the scheduled scheduled procedure Complicated UTI CT reveals ?Diffuse bladder wall thickening, consistent with cystitis. His urine is abnormal has indwelling Gardiner catheter abx see above UTI. Urine culture grows Pseudomonas aeruginosa, patient is on Zosyn, follow-up with susceptibility Hypovolemic hypotension, hyponatremia Likely secondary to dehydration Sodium 130, BUN 33/cr 0.8 He does not appear toxic or septic though blood cultures have been obtained. 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 c/w home medications . Subjective Date/time seen: 02/20/23 15:36 Interval history: 67-year-old male with history of traumatic brain injury with cognitive impairment, congestive heart failure, peripheral arterial? disease, schizoaffective disorder, anxiety, and osteomyelitis status post bilateral bumec-nqy-yqox amputation who presented to the emergency department via EMS from [facility] with concerns for wound infection.? Pt needs BL revision of stumps and most likely above knee amputations on Review of Systems Review of Systems: No specific complaints Exam Narrative: GENERAL: Ill-appearing in no acute distress. Well-nourished. - EYES: EOMI. Anicteric. - HENT: Moist mucous membranes. - LUNGS: Clear to auscultation bilaterally, no wheezing, rhonchi, or rales. - CARDIOVASCULAR: Regular rate and rhythm. No murmur. No JVD. - ABDOMEN: Soft, non-tender and non-distended. No palpable masses. - EXTREMITIES: No edema. Peripheral pulses 2+. Non-tender. - NEUROLOGIC: No focal neurological deficits. CN II-XII grossly intact.
[2023-02-20] MEDS: SIMVASTATIN 20 MG TABLET PO (20:20)
[2023-02-20] MEDS: QUEtiapine FUMARATE 25 MG TABLET PO (20:20)
[2023-02-20] MEDS: MELATONIN 3 MG TABLET PO (20:21)
[2023-02-20 22:00] VITALS: BP 126/74; PULSE 96; RESP 18; TEMP 36.8; O2SAT 97
[2023-02-21] VITALS (14 sets, daily range): BP systolic 107–138; BP diastolic 57–87; PULSE 67–94; RESP 10–20; TEMP 36.1–37.1; O2SAT 97–100
[2023-02-21] MEDS: CEFEPIME 2 GM/NS 50 ML 2 GM/50 ML BAG IVPB ×2 (00:28→12:00)
[2023-02-21] MEDS: oxyCODONE HCL (*CRX) 5 MG TAB IR PO ×2 (00:30→04:28)
[2023-02-21] MEDS: HEPARIN SODIUM 5,000 UNITS/ML VIAL 5000 UNITS SUB-Q (06:17)
[2023-02-21] MEDS: metroNIDAZOLE 500 MG/ISO 100ML 500 MG/100 ML BAG 100 MG IVPB ×3 (06:18→22:36)
--- NOTE | 2023-02-21 06:52 | PC.NURSE ---
Called [facility] to verify when catheter was changed, per their protocol there is no longer a 30 day requirement of changes, he was admitted january 18, 2023, and it hasnt been changed there.
[2023-02-21] MEDS: VANCOMYCIN 1,000 MG/NS 250 ML 1,000 MG/250 ML BAG 250 MG IVPB (08:15)
[2023-02-21] MEDS: SILVERGEL (ELTA) 45 ML 1 APPLIC TOPICAL (10:12)
--- NOTE | 2023-02-21 11:00 | PC.NURSE ---
To OR via bed. Patient states he can't lay on white sheets it wheeler his skin.
--- NOTE | 2023-02-21 11:21 | WPDANESEPPF ---
Anes - Initial Pre Proc Eval Procedure: Operation Date: 02/21/23 12:00 Proposed Procedures p Bilateral Above Knee Amputation - Leandro Dwyer MD Date/Time: 02/21/23 11:21 Surgeon: Giovanni Bonilla MD Pre Op Diagnosis: Sacral Osteomyelitis/Tibial Osteomyelitis/Infected Patient Data Age: 67 Gender: M Height: 1.22 m Weight: 76.3 kg Last Vital Signs Temp 36.7 C 02/21/23 06:00 Pulse 94 02/21/23 06:00 Resp 16 02/21/23 06:00 BP 130/76 02/21/23 06:00 Pulse Ox 97 02/21/23 06:00 O2 Del Method Room Air 02/21/23 08:15 Allergies Allergy/AdvReac Type Severity Reaction Status Date / Time codeine Allergy Unknown Verified 02/15/23 22:42 lidocaine Allergy Unknown Verified 02/15/23 22:42 Home Medications Medication Instructions Recorded Confirmed Type acetaminophen 325 mg tablet 650 mg PO Q4H PRN Pain (Scale 02/15/23 02/15/23 History Score 1-3) albuterol sulfate 2.5 mg/3 mL 2.5 mg inhalation Q6H PRN sob 02/15/23 02/15/23 History (0.083 %) solution for nebulization ascorbic acid (vitamin C) 1,000 mg 1 g PO DAILY 02/15/23 02/15/23 History tablet aspirin 81 mg chewable tablet 81 mg PO DAILY 02/15/23 02/15/23 History (Katelyn Chewable Low Dose Aspirin) baclofen 5 mg tablet 5 mg PO BID 02/15/23 02/15/23 History carvedilol 3.125 mg tablet 3.125 mg PO DAILY 02/15/23 02/15/23 History clopidogrel 75 mg tablet 75 mg PO DAILY 02/15/23 02/15/23 History fluticasone propionate 50 1 spray intranasal BID 02/15/23 02/15/23 History mcg/actuation nasal spray,suspension gabapentin 100 mg capsule 100 mg PO TID 02/15/23 02/15/23 History heparin (porcine) 5,000 unit/mL 5,000 unit subcut Q8H 02/15/23 02/15/23 History injection solution lisinopril 2.5 mg tablet 2.5 mg PO DAILY 02/15/23 02/15/23 History loratadine 10 mg tablet (Claritin) 10 mg PO DAILY 02/15/23 02/15/23 History melatonin 3 mg tablet 3 mg PO HS PRN Sleep 02/15/23 02/15/23 History metronidazole 500 mg tablet See Rx Instructions .Route .COMPLEX 02/15/23 02/15/23 History midodrine 10 mg tablet 10 mg PO BID PRN Hypotension 02/15/23 02/15/23 History wmaotboh-fxi-SP 200 mcg-vit K 100 1 cap PO DAILY 02/15/23 02/15/23 History mcg-lycop 500 [id number] capsule (Daily Multivitamin) ondansetron 4 mg disintegrating 4 mg PO Q4H PRN Nausea 02/15/23 02/15/23 History tablet oxycodone 5 mg tablet 5 mg PO Q4H PRN Pain (Scale Score 02/15/23 02/15/23 History 4-6) pantoprazole 40 mg tablet,delayed 40 mg PO QAM 02/15/23 02/15/23 History release paroxetine HCl 20 mg tablet 20 mg PO DAILY 02/15/23 02/15/23 History polyethylene glycol 3350 17 gram 17 g PO DAILY 02/15/23 02/15/23 History oral powder packet (Miralax) quetiapine 25 mg tablet 25 mg PO QHS 02/15/23 02/15/23 History simvastatin 20 mg tablet 20 mg PO QHS 02/15/23 02/15/23 History spironolactone 25 mg tablet 25 mg PO DAILY 02/15/23 02/15/23 History zinc gluconate 50 mg tablet 50 mg PO DAILY 02/15/23 02/15/23 History Patient hx anesthesia problems: none Family hx anesthesia problems: none Results Review: All pre-operative results and documents have been reviewed as part of the pre-operative evaluation. [facility] Past Medical History Medical History Anxiety Chronic indwelling Gardiner catheter Gastroesophageal reflux disease Heart failure with preserved ejection fraction Echo 12/19 showed an EF of 55 to 65%. Hypotension On midodrine. Mild cognitive impairment Osteomyelitis Peripheral arterial disease CT angiogram for 11/17/2022 showed occlusion of anterior tibial arteries bilaterally. Schizoaffective disorder Traumatic brain injury Surgical History Surgical History History of below-knee amputation of both lower extremities (12/04/22) For osteomyelitis. Family History Family History Other
--- NOTE | 2023-02-21 11:45 | WPDHPUPDATE1 ---
History and Physical Update Update Date/Time: 02/21/23 11:45 History and Physical has been reviewed, including an updated exam of the patient. There are NO changes in the patient's condition. Risks, benefits, and alternatives have been discussed and questions answered. Patient agrees to proceed with procedure.
[2023-02-21] MEDS: LACTATED RINGERS 1,000 ML 30 ML IV CONT ×2 (12:00→14:59)
--- NOTE | 2023-02-21 13:08 | PC.NURSE ---
To OR via bed. Patient states can not lie on white sheets it wheeler his skin.
--- NOTE | 2023-02-21 14:45 | PM.IMPN ---
Progress Note: A&P Assessment and Plan (1) Sacral osteomyelitis: Code(s): M46.28 - Osteomyelitis of vertebra, sacral and sacrococcygeal region Status: Acute (2) Osteomyelitis of tibia: Code(s): M86.9 - Osteomyelitis, unspecified Status: Acute (3) Mild dehydration: Code(s): E86.0 - Dehydration Status: Acute (4) Abnormal urinalysis: Code(s): R82.90 - Unspecified abnormal findings in urine Status: Acute (5) Chronic indwelling Gardiner catheter: Code(s): Z97.8 - Presence of other specified devices Status: Acute (6) Heart failure with preserved ejection fraction: Code(s): I50.30 - Unspecified diastolic (congestive) heart failure Status: Acute (7) Psychiatric illness: Code(s): F99 - Mental disorder, not otherwise specified Status: Chronic Plan Tibia osteomyelitis And sacral osteomyelitis The patient presented to the emergency department for evaluation of suspected wound infection He is status post bilateral gajsn-jpk-bswk amputations in November 2022 and he has open wounds at the stump as well as an open wound on the sacrum. CT reveals Sacral decubitus ulcer. Sacral osteomyelitis. XR reveals 1. Left qlrpx-auf-hook amputation with small region of osteolysis along the anteromedial margin of the left tibial osteotomy suspicious for developing osteomyelitis. 2. Right zynmd-xcx-mlcj amputation with likely exposure of a small portion of the anteromedial tibial osteotomy margin which raises concern for osteomyelitis however no definitive erosion/osteolysis evident to more specifically suggest this. started on empiric cefepime and vancomycin. Surgery has been consulted for their opinion. Appreciate general surgical consultation. Plan above knee amputation, the patient is agreeable to proceeding with bilateral above knee amputations. Hx of PVD hold plavis now for the scheduled scheduled procedure Complicated UTI CT reveals ?Diffuse bladder wall thickening, consistent with cystitis. His urine is abnormal has indwelling Gardinre catheter abx see above UTI. Urine culture grows Pseudomonas aeruginosa, patient is on cefepime and metronidazole Hypovolemic hypotension, hyponatremia Likely secondary to dehydration Sodium 130, BUN 33/cr 0.8 He does not appear toxic or septic though blood cultures have been obtained. Start fluid resuscitation with normal saline History of hypertension cont lisinopril and carvedilol Sepsis Patient has hypothermia, leukocytosis, tachycardia tachypnea Antibiotics see above Continue fluid resuscitation Blood culture grew Gram-positive cocci Patient is afebrile, blood pressure stable now, hypothermia resolves Psychiatric disorders history of schizoaffective disorder, anxiety, and cognitive impair from prior traumatic brain injury. c/w home medications . Subjective Date/time seen: 02/21/23 14:46 Interval history: 67-year-old male with history of traumatic brain injury with cognitive impairment, congestive heart failure, peripheral arterial? disease, schizoaffective disorder, anxiety, and osteomyelitis status post bilateral irjbk-mno-unkx amputation who presented to the emergency department via EMS from [facility] with concerns for wound infection.? Pt needs BL revision of stumps and most likely above knee amputations today pt is ready Review of Systems Review of Systems: No specific complaints Exam Narrative: GENERAL: Ill-appearing in no acute distress. Well-nourished. - EYES: EOMI. Anicteric. - HENT: Moist mucous membranes. - LUNGS: Clear to auscultation bilaterally, no wheezing, rhonchi, or rales. - CARDIOVASCULAR: Regular rate and rhythm. No murmur. No JVD. - ABDOMEN: Soft, non-tender and non-distended. No palpable masses. - EXTREMITIES: No edema. Peripheral pulses 2+. Non-tender. - NEUROLOGIC: No focal neurological deficits. CN II-XII grossly intact. - PSYCHIATRIC: Awake, Alert and
[2023-02-21] MEDS: fentaNYL CITRATE INJ (*CRX) 100 MCG/2 ML VIAL 25 MCG IV PUSH ×4 (16:06→16:26)
--- NOTE | 2023-02-21 16:34 | W.PM.PROC2 ---
Procedure Note - Detailed Date of Procedure 02/21/23 Pre-op Diagnosis Flexion contractures, tibial osteomyelitis bilateral below knee amputations Post-op Diagnosis Same Procedure Performed Bilateral above knee amputations Surgeon Leandro Dwyer MD [employer] Shweta Davila, [facility] Anesthesia General Indications Patient is a 67-year-old man with cognitive impairment and schizophrenia. He had bilateral below-knee amputations apparently for peripheral vascular disease at an outside hospital. He presented here with severe flexion contractures of both knees as well as evidence of tibial osteomyelitis at the amputation wounds of both legs. He is taken to surgery now for bilateral above knee amputations. Findings Patient had excellent blood supply to both the right and the left leg. He had excessive oozing most likely from a affect of Plavix. Both amputation wounds are expected to heal well. Patient had quite a bit of oozing of blood and blood loss was 600 cc. 2 units of packed red blood cells were transfused during the surgery. Description of Procedure Patient was taken to surgery and induced into general anesthesia. Both the right and the left legs including the amputation stump wounds were prepped and draped. The amputation wounds were wrapped so that the wounds were not in the field but the entire leg was sterile unable to be moved. We started with the patient's right leg. A fishmouth type incision was marked on the skin. Incision was then made and dissection was carried down through the subcutaneous. It was immediately evident that there was excessive small vessel oozing almost certainly due to the anti thrombotic affects of having taken Plavix before. Cautery was used and hemostasis was achieved to adequate degree. We continued dissection through the musculature on each side. Larger vessels were doubly clamped divided and ligated. The superficial femoral artery and vein were dissected and each were doubly clamped divided and ligated with 2-0 Vicryl. There was a lot of muscular oozing of blood even using cautery for dissection. The procedure took longer as we had to stop and cauterize over and over to achieve adequate hemostasis. This was true of the left leg later in the surgery as well. With the patient being anemic prior to the surgery and the blood loss we were experiencing, I ordered a transfusion of 2 units of packed cells during the surgery. We dissected down to the femur. I then dissected around the femur. We used the periosteal elevator to expose the bone of the femur. I then used the oscillating saw and divided the femur. We then divided the posterior flap with the amputation knife. The lower leg was passed off as a specimen. We exposed both of the flaps and used cautery to achieve hemostasis particularly on the posterior flap. In putting the 2 flaps together, it seemed we had more femur than would be suitable. I used the periosteal elevator and exposed additional, more proximal, femur. I then used the oscillating saw again and divided the femur more proximally. I then use the rasp and dull the edges of the bone all around the femur. With the femur having been shortened, the flaps came together easily with no protrusion of the femoral stump. We irrigated both flaps and inspected for hemostasis which was now adequate. Interrupted 2-0 Vicryl suture were used to suture the subcutaneous fascia of the posterior and anterior flaps together. These were placed such that there was no more than a cm between suture. The skin was then closed with vertical mattress sutures of 3-0 Prolene. All looked good on the right side. We turned our attention to the left side. Similarly a fishmouth type incision was drawn on the skin. Incision was made through the skin down into the subcutaneous over the area that had been drawn. I dissected in the anterior aspect and divided the lower thigh musculature down to the femur again. This was done
--- NOTE | 2023-02-21 16:45 | PC.NURSE ---
Back from OR via bed.
[2023-02-21] MEDS: FLUTICASONE PROPIONATE 0.05% NA SPR 16 GM BTL (*BKC) 1 SPRAY NASAL (17:15)
[2023-02-21] MEDS: PARoxetine 20 MG TABLET PO (17:16)
[2023-02-21] MEDS: GABAPENTIN 100 MG CAPSULE PO ×2 (17:16→20:31)
[2023-02-21] MEDS: PANTOPRAZOLE 40 MG TABLET PO (17:16)
[2023-02-21] MEDS: SPIRONOLACTONE 25 MG TABLET PO (17:16)
[2023-02-21] MEDS: BACLOFEN 5 MG TABLET PO (17:16)
[2023-02-21] MEDS: oxyCODONE/ACETAMINOPHEN (*CRX) 5-325 MG TABLET 1 TABLET PO (17:21)
[2023-02-21] MEDS: MORPHINE SULFATE (*CRX) 2 MG/ML INJ IV PUSH (18:54)
[2023-02-21] MEDS: SIMVASTATIN 20 MG TABLET PO (20:31)
[2023-02-21] MEDS: QUEtiapine FUMARATE 25 MG TABLET PO (20:31)
[2023-02-21] MEDS: oxyCODONE/ACETAMINOPHEN (*CRX) 10-325 MG TABLET 1 TAB PO (20:32)
[2023-02-22] MEDS: CEFEPIME 2 GM/NS 50 ML 2 GM/50 ML BAG IVPB ×2 (00:14→12:11)
[2023-02-22 02:23] VITALS: BP 112/62; PULSE 99; RESP 16; TEMP 36.4; O2SAT 97
[2023-02-22] MEDS: metroNIDAZOLE 500 MG/ISO 100ML 500 MG/100 ML BAG 100 MG IVPB ×2 (05:45→13:43)
[2023-02-22 06:14] LABS: Hematocrit 31.6 % (42.0-52.0); Hemoglobin 9.5 g/dL (14.0-18.0); Mean Corpuscular HGB Conc 30.1 g/dl (32-36); Mean Corpuscular Hemoglobin 29.1 pg (26-34); Mean Corpuscular Volume 96.9 fl (80-100); Mean Platelet Volume 9.7 fl (7.4-10.4); Platelet Count Result 227 k/mm3 (150-375); Red Blood Count 3.26 M/mm3 (4.6-6.20); Red Cell Distribution Width 14.6 % (11.5-14.5); White Blood Count 12.4 K/mm3 (4.5-10.0)
[2023-02-22 06:23] LABS: Anion Gap 2 mmol/L (8-16); Blood Urea Nitrogen 17 mg/dL (9-20); Calcium 8.1 mg/dL (8.4-10.2); Carbon Dioxide 24 mmol/L (22-30); Chloride 105 mmol/L (98-107); Estimated Glomerular Filt Rate > 60; Glucose 86 mg/dL (65-110); Sodium 131 mmol/L (137-145)
[2023-02-22] MEDS: oxyCODONE/ACETAMINOPHEN (*CRX) 10-325 MG TABLET 1 TAB PO ×3 (06:25→20:54)
[2023-02-22 07:00] VITALS: BP 91/55; PULSE 82; RESP 16; TEMP 36.4; O2SAT 100
--- NOTE | 2023-02-22 07:29 | PM.PNGS ---
Progress Note: A&P Assessment and Plan (1) Status post bilateral above knee amputation: Code(s): Z89.611 - Acquired absence of right leg above knee; Z89.612 - Acquired absence of left leg above knee Status: Acute Assessment and Plan: Dressings dry and intact. Okay for patient to be up in chair. Pain well controlled. Leave dressings in place. (2) Below-knee amputation of right lower extremity with complication: Code(s): S88.111A - Complete traumatic amputation at level between knee and ankle, right lower leg, initial encounter Status: Chronic (3) Below-knee amputation of left lower extremity with complication: Code(s): S88.112A - Complete traumatic amputation at level between knee and ankle, left lower leg, initial encounter Status: Chronic Subjective Subjective Date/Time Seen: 02/22/23 07:29 Post Op day: 1 Patient reports: no new complaints and pain is less Exam Extrem: General: other (Dressings dry and intact to bilateral above knee amputation stumps.) Objective Data Vital Signs Vital Signs: Vital Signs - 24 hr 02/21/23 08:15 02/21/23 14:59 02/21/23 15:10 Temperature 37.1 C Pulse Rate 91 91 Respiratory Rate 12 12 Blood Pressure 130/87 135/77 Pulse Oximetry 100 100 Oxygen Delivery Room Air Simple Face Mask Simple Face Mask Oxygen Flow Rate 6 8 02/21/23 15:15 02/21/23 15:30 02/21/23 15:45 Temperature Pulse Rate 88 86 84 Respiratory Rate 12 10 L 12 Blood Pressure 137/77 117/86 125/87 Pulse Oximetry 100 97 100 Oxygen Delivery Simple Face Mask Room Air Room Air Oxygen Flow Rate 8 02/21/23 16:00 02/21/23 16:15 02/21/23 16:30 Temperature Pulse Rate 82 81 75 Respiratory Rate 12 12 14 Blood Pressure 107/78 138/82 109/76 Pulse Oximetry 98 97 100 Oxygen Delivery Room Air Room Air Room Air Oxygen Flow Rate 02/21/23 16:45 02/21/23 17:00 02/21/23 17:30 Temperature 36.4 C 36.5 C 36.6 C Pulse Rate 76 74 84 Respiratory Rate 18 18 20 Blood Pressure 126/80 136/79 115/80 Pulse Oximetry 100 100 100 Oxygen Delivery Oxygen Flow Rate 02/21/23 18:30 02/21/23 22:23 02/22/23 02:23 Temperature 36.1 C L 36.7 C 36.4 C L Pulse Rate 75 67 99 Respiratory Rate 20 18 16 Blood Pressure 115/59 L 118/57 L 112/62 Pulse Oximetry 100 100 97 Oxygen Delivery Oxygen Flow Rate Intake/Output Intake/Output: Intake & Output 02/19/23 02/20/23 02/21/23 02/22/23 23:59 23:59 23:59 23:59 Intake Total 2510 1983 2950 150 Output Total 9063 552 5474 950 Balance 1460 1333 1925 -800 Meds/Results Medications: Active Medications Generic Name Dose Route Start Last Admin Trade Name Freq PRN Reason Stop Dose Admin Acetaminophen 500 mg 02/21/23 16:38 Acetaminophen 500 Mg Tablet PO Q6H PRN Mild Pain (1-3) or Fever Albuterol 2.5 mg 02/16/23 00:08 Albuterol Sulfate Neb 2.5 Mg/3 Ml Inh INHALATION Q6H PRN sob Ascorbic Acid 1,000 mg 02/16/23 09:00 02/21/23 09:00 Ascorbic Acid 500 Mg Tablet PO Not Given DAILY BAKARI Aspirin 81 mg 02/16/23 09:00 02/21/23 09:00 Aspirin 81 Mg Chewable Tablet PO Not Given DAILY BAKARI Baclofen 5 mg 02/16/23 09:00 02/21/23 17:16 Baclofen 5 Mg Tablet PO 5 mg BID BAKARI Administration Carvedilol 3.125 mg 02/16/23 09:00 02/17/23 09:51 Carvedilol 3.125 Mg Tablet PO 3.125 mg DAILY BAKARI Administration Enoxaparin Sodium 40 mg 02/22/23 09:00 Enoxaparin 40 Mg/0.4 Ml Syringe SUB-Q DAILY BAKARI Fluticasone Propionate 1 spray 02/16/23 09:00 02/21/23 17:15 Fluticasone Propionate 0.05% Na Spr 16 Gm Btl (*Bkc) NASAL 1 spray BID BAKARI Administration Gabapentin 100 mg 02/16/23 09:00 02/21/23 20:31 Gabapentin 100 Mg Capsule PO 100 mg TID BAKARI Administration Metronidazole 500 mg in 100 mls @ 100 mls/hr 02/18/23 14:00 02/22/23 05:45 Flagyl 500 Mg/Iso Soln 100 Ml IVPB 100 mls/hr Q8HR BAKARI Administration Cefepime HCl 2 gm in 5
[2023-02-22] MEDS: FLUTICASONE PROPIONATE 0.05% NA SPR 16 GM BTL (*BKC) 1 SPRAY NASAL ×2 (08:42→16:56)
[2023-02-22] MEDS: ASCORBIC ACID 500 MG TABLET 1000 MG PO (08:49)
[2023-02-22] MEDS: LORATADINE 10 MG TABLET PO (08:50)
[2023-02-22] MEDS: THERAPEUTIC MULTIVITAMINS/MINERALS TAB (*BKC) 1 TABLET PO (08:50)
[2023-02-22] MEDS: PARoxetine 20 MG TABLET PO (08:50)
[2023-02-22] MEDS: ZINC SULFATE 220 MG CAPSULE PO (08:50)
[2023-02-22] MEDS: PANTOPRAZOLE 40 MG TABLET PO (08:50)
[2023-02-22] MEDS: BACLOFEN 5 MG TABLET PO ×2 (08:50→16:56)
[2023-02-22] MEDS: SPIRONOLACTONE 25 MG TABLET PO (08:50)
[2023-02-22] MEDS: ASPIRIN 81 MG CHEWABLE TABLET PO (08:51)
[2023-02-22] MEDS: polyethylene glycoL 3350 17 GM POWD.PACK PO (08:51)
[2023-02-22] MEDS: SILVERGEL (ELTA) 45 ML 1 APPLIC TOPICAL (08:52)
[2023-02-22] MEDS: ENOXAPARIN 40 MG/0.4 ML SYRINGE SUB-Q (08:56)
--- NOTE | 2023-02-22 09:12 | PM.IMPN ---
Progress Note: A&P Assessment and Plan (1) Sacral osteomyelitis: Code(s): M46.28 - Osteomyelitis of vertebra, sacral and sacrococcygeal region Status: Acute Assessment and Plan: Antibiotics transitioned to PO Daily dressing changes with silver gel Surgery consulted and rec's appreciated (2) Osteomyelitis of tibia: Code(s): M86.9 - Osteomyelitis, unspecified Status: Acute Assessment and Plan: POD 1 bilateral AKA Source control achieved (3) Abnormal urinalysis: Code(s): R82.90 - Unspecified abnormal findings in urine Status: Acute Assessment and Plan: Urine culture with MRSA and pseudomonas Continue doxycycline and Levaquin through 03/07 chronic frank last exchanged January 18. Bedside nurse Meaghan will exchange today. (4) Heart failure with preserved ejection fraction: Qualifiers: Heart failure chronicity: chronic Qualified Code(s): I50.32 - Chronic diastolic (congestive) heart failure Code(s): I50.30 - Unspecified diastolic (congestive) heart failure Status: Acute Assessment and Plan: stable. Continue home medications (5) Psychiatric illness: Code(s): F99 - Mental disorder, not otherwise specified Status: Chronic Assessment and Plan: history of schizoaffective disorder, anxiety, and cognitive impair from prior traumatic brain injury. c/w home medications . Plan Will plan [facility]-2 days Subjective Date/time seen: 02/22/23 09:12 Interval history: 67-year-old male with history of traumatic brain injury with cognitive impairment, congestive heart failure, peripheral arterial? disease, schizoaffective disorder, anxiety, and osteomyelitis status post bilateral etovu-gge-rwyh amputation in 12/2022 who presented to the emergency department via EMS from [facility] with concerns for wound infection.?Imaging shows acute osteomyelitis to bilateral tibial osteotomy as well as sacral osteomyelitis. General surgery is consulted and preformed bilateral AKA on 02/21. Interval history: 02/22: Patient seen in bed eating lunch. He frequently goes off on tangents but says that his pain to his bilateral lower sometimes is well controlled. He has some lower back pain which he says it improves with position changes. He is complaining of pain to the back of his head and per his bedside nurse says he does have concerns were pressure injury to his occiput. Wound care consult was done in the note areas blanchable then dried. It appears this is a chronic issue with various stages of healing. Recommendation was to offload with a towel. Patient lost IV access and he is a difficult stick. Surgery was completed yesterday for source control. Will transition to p.o. antibiotics today. Continue wound care to the coccyx with Santyl dressing daily and p.r.n. as needed. Review of Systems Review of Systems: All systems reviewed & are unremarkable except as noted in HPI and below Exam Narrative: General: well-nourished, well-appearing 67-year-old male, sitting up in bed, comfortable, NARD Neuro: awake, alert and oriented x3, speech clear, no focal neuro deficits noted HEENMT: normocephalic, atraumatic, EOMI, sclerae anicteric, moist oral mucosa, pink and tender area to occiput Respiratory: Clear to auscultation bilaterally without crackles, rhonchi or wheezes, nonlabored breathing Cardio: regular rate, regular rhythm with S1-S2 Abdomen: nondistended, normoactive bowel sounds, soft, nontender to palpation Extremities: Bilateral AKA with CHASITY wraps clean, dry, and intact. Stumps elevated without edema. Femoral pulses +2 Skin: flushed, dry, and surgical incisions to bilateral stumps present but unable to visualize due to CHASITY bandage. Also has coccyx ulcer which is being dressed daily with santyl. Psych: Mood and affect seem appropriate, tangental with conversation Objective Data
[2023-02-22] MEDS: VANCOMYCIN 1,000 MG/NS 250 ML 1,000 MG/250 ML BAG 250 MG IVPB (09:26)
[2023-02-22 12:00] VITALS: BP 92/56; PULSE 82; RESP 16; TEMP 36.4; O2SAT 100
[2023-02-22] MEDS: GABAPENTIN 100 MG CAPSULE PO ×2 (12:11→16:56)
--- NOTE | 2023-02-22 13:46 | WPDANESPN ---
Anes - Prog Note Post-Op Date/Time: 02/22/23 13:46 Cardiovascular status: normal Respiratory status: normal Airway patency: baseline Mental status: baseline Post-Op hydration status: normal Vital Signs: Last Vital Signs Temp 97.6 F 02/22/23 07:00 Pulse 82 02/22/23 07:00 Resp 16 02/22/23 07:00 BP 91/55 L 02/22/23 07:00 Pulse Ox 100 02/22/23 07:00 O2 Del Method Room Air 02/21/23 16:30 O2 Flow Rate 8 02/21/23 15:15 Pain Score (VAS): denies I/O: Intake & Output 02/21/23 02/22/23 02/22/23 23:59 07:59 15:59 Intake Total 600 250 240 Output Total 950 Balance 600 -700 240 Laboratory Tests 02/22/23 05:45 02/22/23 05:45 02/19/23 02/22/23 07:49 05:45 WBC 12.4 H RBC 3.26 L Hgb 9.5 L Hct 31.6 L MCV 96.9 MCH 29.1 MCHC 30.1 L RDW 14.6 H Plt Count 227 MPV 9.7 Sodium 131 L Potassium 5.0 Chloride 105 Carbon Dioxide 24 Anion Gap 2 L BUN 17 Creatinine 0.80 Estim Creat Clear Calc Not Reportable Estimated GFR > 60 Glucose 86 Calcium 8.1 L Crossmatch See Detail Microbiology 02/15/23 11:08 Blood Blood Culture - Final Staphylococcus epidermidis 02/15/23 11:08 Blood Blood Culture - Final Staphylococcus haemolytics Post-procedural complaints: none Patient Feedback: Patient satisfied with anesthetic care.
--- NOTE | 2023-02-22 15:08 | PCNFU ---
Nutrition Follow-Up: Last recorded weight is 77.2 kg. Weight up 7.9 kg x 1 week. Bowel Motility: BM: 02/21/23. GI: WNL. Labs Reviewed: Hgb 9.5, Hct 31.6, Na 131 Meds Noted: vitamin C, Flagyl, morphine, MVI with Ca, Zofran, Percocet, Protonix, MiraLAX, Aldactone Skin: posterior head wound, coccyx pressure ulcer unstageable, bilateral leg surgical incisions Edema: none noted; on Aldactone Additional Notes: Patient POD #1 s/p bilateral above the knee amputation. Patient reports a fair appetite. He reports nausea/vomiting this am 2/2 too much Pepsi. Intake has been variable ranging from 10-90% of meals. Patient denies diarrhea/constipation. Poor dentition noted. Patient ok with Ensure Compact but prefers cold. Communicated preference to nursing. Patient reported weight loss; however, per UBW of 160 lbs, patient is up 10 lbs. Pt current nutrition is regular diet/ONS - Ensure Compact/Mil[place] BID. Increased nutrient needs related to altered skin integrity as evidenced by pressure injuries. (Continue) Goal: PO intake 75% of meals and supplements Nutrition recommendation: 1. Continue with a regular diet. 2. Ensure compact/Milan BID. 3. Daily weights. 4. Monitor need for 1500mL fluid. Monitor intake, weight, labs, skin status. Follow up in 5 days
[2023-02-22 16:00] VITALS: BP 94/58; PULSE 84; RESP 16; TEMP 36.4; O2SAT 100
[2023-02-22] MEDS: QUEtiapine FUMARATE 25 MG TABLET PO (20:54)
[2023-02-22] MEDS: DOXYCYCLINE HYCLATE 100 MG TABLET PO (20:54)
[2023-02-22] MEDS: levoFLOXacin 750 MG TABLET PO (20:55)
[2023-02-22] MEDS: SIMVASTATIN 20 MG TABLET PO (20:55)
[2023-02-22] MEDS: MELATONIN 3 MG TABLET PO (20:55)
[2023-02-22 22:50] VITALS: TEMP 36.4
[2023-02-22 23:00] VITALS: BP 95/59; PULSE 94; RESP 18; TEMP 37.1; O2SAT 99
[2023-02-23] MEDS: oxyCODONE/ACETAMINOPHEN (*CRX) 10-325 MG TABLET 1 TAB PO ×3 (05:23→22:52)
[2023-02-23 05:59] LABS: Basophils Percent Auto 0.2 % (0.2-1.2); Eosinophils Absolute Auto 0.3 K/mm3 (0-0.3); Eosinophils Percent Auto 2.3 % (0-4.4); Hematocrit 26.6 % (42.0-52.0); Hemoglobin 8.3 g/dL (14.0-18.0); Immature Granulocyte Absolute 0.06 K/mm3 (0.00-0.031); Immature Granulocyte Percent A 0.5 % (0-0.5); Lymphocytes Absolute Auto 1.78 K/mm3 (0.9-3.2); Lymphocytes Percent Auto 13.8 % (18.3-44.2); Mean Corpuscular HGB Conc 31.2 g/dl (32-36); Mean Corpuscular Hemoglobin 29.3 pg (26-34); Mean Platelet Volume 9.6 fl (7.4-10.4); Monocytes Absolute Auto 1.4 K/mm3 (0.1-0.6); Monocytes Percent Auto 10.8 % (2.6-8.5); Neutrophils Absolute Auto 9.3 K/mm3 (1.3-6.7); Neutrophils Percent Auto 72.4 % (45.5-73.1); Platelet Count Result 206 k/mm3 (150-375); Red Blood Count 2.83 M/mm3 (4.6-6.20); Red Cell Distribution Width 14.7 % (11.5-14.5); White Blood Count 12.9 K/mm3 (4.5-10.0)
[2023-02-23 06:00] VITALS: BP 86/52; PULSE 85; RESP 18; TEMP 37.6; O2SAT 97
[2023-02-23 06:12] LABS: Alanine Aminotransferase 16 U/L (6-50); Albumin Level 2.5 g/dL (3.5-5.1); Alkaline Phosphatase 34 U/L (38-126); Anion Gap 1 mmol/L (8-16); Aspartate Amino Transferase 18 U/L (17-59); Bilirubin,Total 0.5 mg/dL (0.2-1.3); Blood Urea Nitrogen 15 mg/dL (9-20); Calcium 7.5 mg/dL (8.4-10.2); Carbon Dioxide 23 mmol/L (22-30); Chloride 101 mmol/L (98-107); Estimated Glomerular Filt Rate > 60; Glucose 117 mg/dL (65-110); Magnesium 1.7 mg/dL (1.6-2.3); Potassium 3.7 mmol/L (3.4-5.0); Sodium 125 mmol/L (137-145)
--- NOTE | 2023-02-23 08:49 | PM.IMPN ---
Progress Note: A&P Assessment and Plan (1) Sacral osteomyelitis: Code(s): M46.28 - Osteomyelitis of vertebra, sacral and sacrococcygeal region Status: Acute Assessment and Plan: Antibiotics transitioned to PO Daily dressing changes with silver gel Surgery consulted and rec's appreciated (2) Osteomyelitis of tibia: Code(s): M86.9 - Osteomyelitis, unspecified Status: Acute Assessment and Plan: POD 2 bilateral AKA Source control achieved (3) Abnormal urinalysis: Code(s): R82.90 - Unspecified abnormal findings in urine Status: Acute Assessment and Plan: Urine culture with MRSA and pseudomonas Continue doxycycline and Levaquin through 03/07 chronic frank last exchanged January 18. Bedside nurse Meaghan will exchange today(02/22). (4) Heart failure with preserved ejection fraction: Qualifiers: Heart failure chronicity: chronic Qualified Code(s): I50.32 - Chronic diastolic (congestive) heart failure Code(s): I50.30 - Unspecified diastolic (congestive) heart failure Status: Acute Assessment and Plan: stable. Continue home medications (5) Psychiatric illness: Code(s): F99 - Mental disorder, not otherwise specified Status: Chronic Assessment and Plan: history of schizoaffective disorder, anxiety, and cognitive impair from prior traumatic brain injury. c/w home medications . Plan Continue postoperative care. Monitor H and H and blood pressure. Patient was tearful whenever I told him that his family is planning for him to return to [facility]. He wishes to speak with his children about this decision. Subjective Date/time seen: 02/23/23 08:49 Interval history: 67-year-old male with history of traumatic brain injury with cognitive impairment, congestive heart failure, peripheral arterial? disease, schizoaffective disorder, anxiety, and osteomyelitis status post bilateral gotmj-bnu-qpny amputation in 12/2022 who presented to the emergency department via EMS from [facility] with concerns for wound infection.?Imaging shows acute osteomyelitis to bilateral tibial osteotomy as well as sacral osteomyelitis. General surgery is consulted and preformed bilateral AKA on 02/21. Interval history: 02/22: Patient seen in bed eating lunch. He frequently goes off on tangents but says that his pain to his bilateral lower sometimes is well controlled. He has some lower back pain which he says it improves with position changes. He is complaining of pain to the back of his head and per his bedside nurse says he does have concerns were pressure injury to his occiput. Wound care consult was done in the note areas blanchable then dried. It appears this is a chronic issue with various stages of healing. Recommendation was to offload with a towel. Patient lost IV access and he is a difficult stick. Surgery was completed yesterday for source control. Will transition to p.o. antibiotics today. Continue wound care to the coccyx with Santyl dressing daily and p.r.n. as needed. 02/23: No acute events overnight. Slightly elevated temperature of 99.7? and white count remains at 12. Could be related to the potential atelectasis, will write for IS. Otherwise he seems to be recovering as expected. He denies pain to his bilateral stumps and says that most of his pain is to his lower back. It is controlled with his p.o. Percocet. His documented blood pressures were low overnight the patient denies dizziness or lightheadedness. He did receive 10 mg of p.o. Percocet twice through the mouth evening this could be responsible. Blood pressure this morning 100/60 mm hg. Slight decrease in his hemoglobin from 9.5 and 8.3, related to surgery. Will transfuse if less than 7. Review of Systems Review of Systems: All systems reviewed & are unremarkable except as noted in HPI and below Exam Narrative: General: well-nourish
--- NOTE | 2023-02-23 08:56 | PCPTNOTE ---
Attempted to see for physical therapy evaluation, pt states to transfer in/out of bed the nursing staff use a mechanical lift or use multiple people to lift him OOB. Going to d/c orders as physical therapy is not a skilled need.
--- NOTE | 2023-02-23 09:05 | PCOTNOTE ---
Attempted to see for occupational therapy evaluation, pt states to transfer in/out of bed the nursing staff use a mechanical lift or use multiple people to lift him OOB. Pt states [facility], they complete for him. Going to d/c orders as occupational therapy is not a skilled need.
--- NOTE | 2023-02-23 09:17 | PM.PNGS ---
Progress Note: A&P Assessment and Plan (1) Status post bilateral above knee amputation: Code(s): Z89.611 - Acquired absence of right leg above knee; Z89.612 - Acquired absence of left leg above knee Status: Acute Assessment and Plan: Patient is doing well. Both amputation stumps will need to be evaluated prior to discharge from the hospital to care facility. Will not plan on taking the dressings down until Saturday morning. Continue supportive management. Subjective Subjective Date/Time Seen: 02/23/23 09:17 Post Op day: 2 (Status post bilateral above knee amputations.) Interval history: Patient clinically stable. No new complaints. Sitting up and eating breakfast. Denies have any significant pain in the bilateral amputation stumps. Exam Extrem: Other: Bilateral lower extremity amputation stumps above the knee are dressed in both dressings are dry. Objective Data Vital Signs Vital Signs: Vital Signs - 24 hr 02/22/23 12:00 02/22/23 16:00 02/22/23 22:50 Temperature 36.4 C 36.4 C 36.4 C Pulse Rate 82 84 Respiratory Rate 16 16 Blood Pressure 92/56 L 94/58 L Pulse Oximetry 100 100 02/22/23 23:00 02/23/23 06:00 Temperature 37.1 C 37.6 C H Pulse Rate 94 85 Respiratory Rate 18 18 Blood Pressure 95/59 L 86/52 L Pulse Oximetry 99 97 Intake/Output Intake/Output: Intake & Output 02/20/23 02/21/23 02/22/23 02/23/23 23:59 23:59 23:59 23:59 Intake Total 1983 2950 2290 880 Output Total 650 1025 1750 1850 Balance 1333 1925 540 -970 Meds/Results Medications: Active Medications Generic Name Dose Route Start Last Admin Trade Name Freq PRN Reason Stop Dose Admin Acetaminophen 500 mg 02/21/23 16:38 Acetaminophen 500 Mg Tablet PO Q6H PRN Mild Pain (1-3) or Fever Albuterol 2.5 mg 02/16/23 00:08 Albuterol Sulfate Neb 2.5 Mg/3 Ml Inh INHALATION Q6H PRN sob Ascorbic Acid 1,000 mg 02/16/23 09:00 02/22/23 08:49 Ascorbic Acid 500 Mg Tablet PO 1,000 mg DAILY BAKRAI Administration Aspirin 81 mg 02/16/23 09:00 02/22/23 08:51 Aspirin 81 Mg Chewable Tablet PO 81 mg DAILY BAKARI Administration Baclofen 5 mg 02/16/23 09:00 02/22/23 16:56 Baclofen 5 Mg Tablet PO 5 mg BID BAKARI Administration Carvedilol 3.125 mg 02/16/23 09:00 02/17/23 09:51 Carvedilol 3.125 Mg Tablet PO 3.125 mg DAILY BAKARI Administration Doxycycline Hyclate 100 mg 02/22/23 21:00 02/22/23 20:54 Doxycycline Hyclate 100 Mg Tablet PO 03/07/23 23:59 100 mg Q12HR BAKARI Administration Enoxaparin Sodium 40 mg 02/22/23 09:00 02/22/23 08:56 Enoxaparin 40 Mg/0.4 Ml Syringe SUB-Q 40 mg DAILY BAKARI Administration Fluticasone Propionate 1 spray 02/16/23 09:00 02/22/23 16:56 Fluticasone Propionate 0.05% Na Spr 16 Gm Btl (*Bkc) NASAL 1 spray BID BAKARI Administration Gabapentin 100 mg 02/16/23 09:00 02/22/23 16:56 Gabapentin 100 Mg Capsule PO 100 mg TID BAKARI Administration Sodium Chloride 1,000 mls @ 999 mls/hr 02/23/23 08:55 Normal Saline Iv IV CONT 02/23/23 09:55 .Q1H1M ONE Levofloxacin 750 mg 02/22/23 21:00 02/22/23 20:55 Levofloxacin 750 Mg Tablet PO 03/07/23 23:59 750 mg DAILY@2100 BAKARI Administration Lisinopril 2.5 mg 02/16/23 09:00 02/16/23 09:24 Lisinopril 2.5 Mg Tablet PO 2.5 mg DAILY BAKARI Administration Loratadine 10 mg 02/16/23 09:00 02/22/23 08:50 Loratadine 10 Mg Tablet PO 10 mg DAILY BAKARI Administration Melatonin 3 mg 02/16/23 00:08 02/22/23 20:55 Melatonin 3 Mg Tablet PO 3 mg HS PRN Administration Sleep Midodrine 10 mg 02/16/23 00:08 02/16/23 17:45 Midodrine Hcl 10 Mg Tablet PO 10 mg BID PRN Administration Hypotension Morphine Sulfate 2 mg 02/21/23 16:38 02/21/23 18:54 Morphine Sulfate (*Crx) 2 Mg/Ml Inj IV PUSH 2 mg Q2H PRN Administration Pain Rated 4-6 Morphine Sulfate 4 mg 02/21/23 16:38 Morphine Sulfate (*Crx)
[2023-02-23 09:23] VITALS: BP 100/60; PULSE 95; RESP 16; TEMP 37; O2SAT 98
[2023-02-23] MEDS: polyethylene glycoL 3350 17 GM POWD.PACK PO (09:25)
[2023-02-23] MEDS: ZINC SULFATE 220 MG CAPSULE PO (09:25)
[2023-02-23] MEDS: ASCORBIC ACID 500 MG TABLET 1000 MG PO (09:25)
[2023-02-23] MEDS: FLUTICASONE PROPIONATE 0.05% NA SPR 16 GM BTL (*BKC) 1 SPRAY NASAL ×2 (09:25→17:09)
[2023-02-23] MEDS: GABAPENTIN 100 MG CAPSULE PO ×3 (09:26→17:09)
[2023-02-23] MEDS: BACLOFEN 5 MG TABLET PO ×2 (09:26→17:09)
[2023-02-23] MEDS: THERAPEUTIC MULTIVITAMINS/MINERALS TAB (*BKC) 1 TABLET PO (09:28)
[2023-02-23] MEDS: PANTOPRAZOLE 40 MG TABLET PO (09:29)
[2023-02-23] MEDS: LORATADINE 10 MG TABLET PO (09:29)
[2023-02-23] MEDS: DOXYCYCLINE HYCLATE 100 MG TABLET PO ×2 (09:29→21:00)
[2023-02-23] MEDS: ASPIRIN 81 MG CHEWABLE TABLET PO (09:29)
[2023-02-23] MEDS: PARoxetine 20 MG TABLET PO (09:29)
[2023-02-23] MEDS: ENOXAPARIN 40 MG/0.4 ML SYRINGE SUB-Q (09:29)
[2023-02-23] MEDS: SILVERGEL (ELTA) 45 ML 1 APPLIC TOPICAL (09:31)
[2023-02-23 14:00] VITALS: BP 104/55; PULSE 104; RESP 20; TEMP 36.7; O2SAT 99
[2023-02-23] MEDS: levoFLOXacin 750 MG TABLET PO (21:00)
[2023-02-23] MEDS: SIMVASTATIN 20 MG TABLET PO (21:00)
[2023-02-23] MEDS: QUEtiapine FUMARATE 25 MG TABLET PO (21:00)
[2023-02-23] MEDS: MORPHINE SULFATE (*CRX) 2 MG/ML INJ IV PUSH (21:06)
[2023-02-23 21:30] VITALS: BP 103/54; PULSE 89; RESP 14; TEMP 36.3; O2SAT 98
[2023-02-23] MEDS: MELATONIN 3 MG TABLET PO (22:53)
[2023-02-24] VITALS (7 sets, daily range): BP systolic 90–124; BP diastolic 52–79; PULSE 83–91; RESP 14–18; TEMP 32.7–37.2; O2SAT 100
[2023-02-24 05:59] LABS: Basophils Percent Auto 0.2 % (0.2-1.2); Eosinophils Absolute Auto 0.3 K/mm3 (0-0.3); Eosinophils Percent Auto 2.4 % (0-4.4); Hemoglobin 7.8 g/dL (14.0-18.0); Immature Granulocyte Absolute 0.09 K/mm3 (0.00-0.031); Immature Granulocyte Percent A 0.7 % (0-0.5); Lymphocytes Absolute Auto 2.52 K/mm3 (0.9-3.2); Lymphocytes Percent Auto 19.8 % (18.3-44.2); Mean Corpuscular HGB Conc 31.2 g/dl (32-36); Mean Corpuscular Hemoglobin 29.5 pg (26-34); Mean Corpuscular Volume 94.7 fl (80-100); Monocytes Absolute Auto 1.4 K/mm3 (0.1-0.6); Monocytes Percent Auto 10.7 % (2.6-8.5); Neutrophils Absolute Auto 8.4 K/mm3 (1.3-6.7); Neutrophils Percent Auto 66.2 % (45.5-73.1); Platelet Count Result 219 k/mm3 (150-375); Red Blood Count 2.64 M/mm3 (4.6-6.20); Red Cell Distribution Width 15.2 % (11.5-14.5); White Blood Count 12.7 K/mm3 (4.5-10.0)
[2023-02-24 06:05] LABS: Alanine Aminotransferase 14 U/L (6-50); Albumin Level 2.5 g/dL (3.5-5.1); Alkaline Phosphatase 35 U/L (38-126); Anion Gap 0 mmol/L (8-16); Aspartate Amino Transferase 19 U/L (17-59); Bilirubin,Total 0.4 mg/dL (0.2-1.3); Blood Urea Nitrogen 18 mg/dL (9-20); Calcium 7.6 mg/dL (8.4-10.2); Carbon Dioxide 26 mmol/L (22-30); Chloride 99 mmol/L (98-107); Estimated Glomerular Filt Rate > 60; Glucose 83 mg/dL (65-110); Magnesium 1.9 mg/dL (1.6-2.3); Phosphorus 2.1 mg/dL (2.5-4.5); Potassium 4.2 mmol/L (3.4-5.0); Sodium 125 mmol/L (137-145)
--- NOTE | 2023-02-24 06:59 | PM.IMPN ---
Progress Note: A&P Assessment and Plan (1) Sacral osteomyelitis: Code(s): M46.28 - Osteomyelitis of vertebra, sacral and sacrococcygeal region Status: Acute Assessment and Plan: Antibiotics transitioned to PO Daily dressing changes with silver gel Surgery consulted and rec's appreciated (2) Osteomyelitis of tibia: Code(s): M86.9 - Osteomyelitis, unspecified Status: Acute Assessment and Plan: POD 3 bilateral AKA Source control achieved WBC continues to remain at 12.7 (3) Abnormal urinalysis: Code(s): R82.90 - Unspecified abnormal findings in urine Status: Acute Assessment and Plan: Urine culture with MRSA and pseudomonas Continue doxycycline and Levaquin through 03/07 chronic frank last exchanged January 18. Bedside nurse Meaghan will exchange today(02/22). (4) Heart failure with preserved ejection fraction: Qualifiers: Heart failure chronicity: chronic Qualified Code(s): I50.32 - Chronic diastolic (congestive) heart failure Code(s): I50.30 - Unspecified diastolic (congestive) heart failure Status: Acute Assessment and Plan: stable. Continue home medications (5) Psychiatric illness: Code(s): F99 - Mental disorder, not otherwise specified Status: Chronic Assessment and Plan: history of schizoaffective disorder, anxiety, and cognitive impair from prior traumatic brain injury. c/w home medications . Plan Continue postoperative care. Monitor H and H and blood pressure. Patient was tearful whenever I told him that his family is planning for him to return to [facility]. He wishes to speak with his children about this decision. Subjective Date/time seen: 02/24/23 06:59 Interval history: 67-year-old male with history of traumatic brain injury with cognitive impairment, congestive heart failure, peripheral arterial? disease, schizoaffective disorder, anxiety, and osteomyelitis status post bilateral [id number] amputation in 12/2022 who presented to the emergency department via EMS from [facility] with concerns for wound infection.?Imaging shows acute osteomyelitis to bilateral tibial osteotomy as well as sacral osteomyelitis. General surgery is consulted and preformed bilateral AKA on 02/21. Interval history: 02/22: Patient seen in bed eating lunch. He frequently goes off on tangents but says that his pain to his bilateral lower sometimes is well controlled. He has some lower back pain which he says it improves with position changes. He is complaining of pain to the back of his head and per his bedside nurse says he does have concerns were pressure injury to his occiput. Wound care consult was done in the note areas blanchable then dried. It appears this is a chronic issue with various stages of healing. Recommendation was to offload with a towel. Patient lost IV access and he is a difficult stick. Surgery was completed yesterday for source control. Will transition to p.o. antibiotics today. Continue wound care to the coccyx with Santyl dressing daily and p.r.n. as needed. 02/23: No acute events overnight. Slightly elevated temperature of 99.7? and white count remains at 12. Could be related to the potential atelectasis, will write for IS. Otherwise he seems to be recovering as expected. He denies pain to his bilateral stumps and says that most of his pain is to his lower back. It is controlled with his p.o. Percocet. His documented blood pressures were low overnight the patient denies dizziness or lightheadedness. He did receive 10 mg of p.o. Percocet twice through the mouth evening this could be responsible. Blood pressure this morning 100/60 mm hg. Slight decrease in his hemoglobin from 9.5 and 8.3, related to surgery. Will transfuse if less than 7. 02/24: NAEON. Resting comfortably this morning. His sodium remains low at 125. Will add salt tablets BID. His WBC continues to
--- NOTE | 2023-02-24 11:54 | PC.NURSE ---
Patient awakes to touch and name but wants to sleep more.
[2023-02-24] MEDS: SODIUM CHLORIDE 1 GM TABLET PO ×2 (12:37→20:37)
[2023-02-24] MEDS: BACLOFEN 5 MG TABLET PO (12:37)
[2023-02-24] MEDS: DOXYCYCLINE HYCLATE 100 MG TABLET PO ×2 (12:37→20:37)
[2023-02-24] MEDS: PANTOPRAZOLE 40 MG TABLET PO (12:38)
[2023-02-24] MEDS: GABAPENTIN 100 MG CAPSULE PO ×2 (12:38→17:04)
[2023-02-24] MEDS: PARoxetine 20 MG TABLET PO (12:38)
[2023-02-24] MEDS: ENOXAPARIN 40 MG/0.4 ML SYRINGE SUB-Q (12:38)
[2023-02-24] MEDS: ASPIRIN 81 MG CHEWABLE TABLET PO (12:43)
[2023-02-24] MEDS: ASCORBIC ACID 500 MG TABLET 1000 MG PO (12:43)
[2023-02-24] MEDS: ZINC SULFATE 220 MG CAPSULE PO (12:44)
[2023-02-24] MEDS: LORATADINE 10 MG TABLET PO (12:44)
[2023-02-24] MEDS: THERAPEUTIC MULTIVITAMINS/MINERALS TAB (*BKC) 1 TABLET PO (12:44)
[2023-02-24] MEDS: FLUTICASONE PROPIONATE 0.05% NA SPR 16 GM BTL (*BKC) 1 SPRAY NASAL ×2 (12:44→20:37)
[2023-02-24] MEDS: SILVERGEL (ELTA) 45 ML 1 APPLIC TOPICAL (13:00)
[2023-02-24] MEDS: SIMVASTATIN 20 MG TABLET PO (20:36)
[2023-02-24] MEDS: levoFLOXacin 750 MG TABLET PO (20:37)
[2023-02-24] MEDS: ACETAMINOPHEN 500 MG TABLET PO (20:42)
--- NOTE | 2023-02-24 21:17 | PC.NURSE ---
pt continue to display inappropriate behaviors to female staff. Informed insulation cupola charger Chana of patient behavior. Pt did not want this RN in room due to asking patient not to talk sexually or inappropriate to female staff and to use call light correctly and not yell out.
--- NOTE | 2023-02-24 21:36 | PC.NURSE ---
Jason Littlejohn AIRPLANE DISPATCHER to assess and review pt chart
[2023-02-24] MEDS: SULFAMETHOXAZOLE/TRIMETHOPRIM 800/160 MG DS TABLET 1 TAB PO (22:36)
[2023-02-24] MEDS: SODIUM CHLORIDE 0.9% IV 500 ML 100 ML IV CONT (22:36)
[2023-02-24] MEDS: KETOROLAC 15 MG/ML VIAL (*BKC) IV PUSH (22:37)
--- NOTE | 2023-02-24 23:12 | PC.NURSE ---
sepsis alert reported to MAURILIO Littlejohn pt started on Bactrim PO q12hr and continued on other po abt by provider. NS 500ml ordered at 100ml/hr x1 bag r/t soft bp's 90/52. Toradol given 15 mg IV given for pain x1 dose per MAURILIO Littlejohn.
[2023-02-24] MEDS: MIDODRINE HCL 10 MG TABLET PO (23:50)
--- NOTE | 2023-02-25 00:04 | P.PNCROSS_ITS ---
Event Note Event Note Event Note: I was notified that patient triggered a sepsis alert based on blood pressure, h eart rate and WBC count. RN stated patient complained of pain all over but BP was too low for pain medication. I reviewed prior cultures. Patient on doxycycline and levofloxacin oral currently. Through combination of cultured infections, some would be covered by levofloxacin, some by doxycycline but MRSA in urine as well. Added Bactrim to complete coverage of already cultured organisms. Patient noted to run 90-100/50-60 BPs since surgery for bilateral AKA. Ordered 500 mL NS over 5 hours to support blood pressure. Also ordered single dose of ketorolac for pain.
[2023-02-25 01:45] VITALS: BP 98/60; PULSE 88; RESP 18; TEMP 36.6; O2SAT 100
--- NOTE | 2023-02-25 01:45 | PC.NURSE ---
pt c/o itching Benadryl ordered po 25mg once
[2023-02-25 01:52] VITALS: BP 98/60
[2023-02-25] MEDS: diphenhydrAMINE HCl CAP 25 MG CAPSULE PO (01:57)
[2023-02-25] MEDS: MORPHINE SULFATE (*CRX) 4 MG/ML INJ IV PUSH (01:58)
[2023-02-25 06:00] VITALS: BP 98/62; PULSE 63; RESP 20; TEMP 36.5; O2SAT 100
[2023-02-25 06:35] LABS: Basophils Percent Auto 0.3 % (0.2-1.2); Eosinophils Absolute Auto 0.6 K/mm3 (0-0.3); Eosinophils Percent Auto 4.6 % (0-4.4); Hemoglobin 7.5 g/dL (14.0-18.0); Immature Granulocyte Absolute 0.09 K/mm3 (0.00-0.031); Immature Granulocyte Percent A 0.8 % (0-0.5); Lymphocytes Absolute Auto 2.55 K/mm3 (0.9-3.2); Lymphocytes Percent Auto 21.5 % (18.3-44.2); Mean Corpuscular HGB Conc 31.3 g/dl (32-36); Mean Corpuscular Hemoglobin 29.5 pg (26-34); Mean Corpuscular Volume 94.5 fl (80-100); Monocytes Absolute Auto 1.1 K/mm3 (0.1-0.6); Neutrophils Absolute Auto 7.6 K/mm3 (1.3-6.7); Neutrophils Percent Auto 63.8 % (45.5-73.1); Platelet Count Result 254 k/mm3 (150-375); Red Blood Count 2.54 M/mm3 (4.6-6.20); Red Cell Distribution Width 15.2 % (11.5-14.5); White Blood Count 11.9 K/mm3 (4.5-10.0)
[2023-02-25 06:48] LABS: Alanine Aminotransferase 15 U/L (6-50); Albumin Level 2.5 g/dL (3.5-5.1); Alkaline Phosphatase 37 U/L (38-126); Anion Gap 3 mmol/L (8-16); Aspartate Amino Transferase 23 U/L (17-59); Bilirubin,Total 0.4 mg/dL (0.2-1.3); Blood Urea Nitrogen 15 mg/dL (9-20); Calcium 7.4 mg/dL (8.4-10.2); Carbon Dioxide 25 mmol/L (22-30); Chloride 98 mmol/L (98-107); Estimated Glomerular Filt Rate > 60; Glucose 76 mg/dL (65-110); Magnesium 1.7 mg/dL (1.6-2.3); Potassium 4.3 mmol/L (3.4-5.0); Sodium 126 mmol/L (137-145)
--- NOTE | 2023-02-25 08:35 | PM.IMPN ---
Progress Note: A&P Assessment and Plan (1) Sacral osteomyelitis: Code(s): M46.28 - Osteomyelitis of vertebra, sacral and sacrococcygeal region Status: Acute Assessment and Plan: Antibiotics transitioned to PO Daily dressing changes with silver gel Surgery consulted and rec's appreciated (2) Osteomyelitis of tibia: Code(s): M86.9 - Osteomyelitis, unspecified Status: Acute Assessment and Plan: POD 3 bilateral AKA Source control achieved WBC continues to remain at 12.7 (3) Abnormal urinalysis: Code(s): R82.90 - Unspecified abnormal findings in urine Status: Acute Assessment and Plan: Urine culture with MRSA and pseudomonas On Bactrim an Blood cultures with Staph epidermidis and staph haemolytics present. chronic frank last exchanged January 18. Bedside nurse Meaghan will exchange today(02/22). (4) Heart failure with preserved ejection fraction: Qualifiers: Heart failure chronicity: chronic Qualified Code(s): I50.32 - Chronic diastolic (congestive) heart failure Code(s): I50.30 - Unspecified diastolic (congestive) heart failure Status: Acute Assessment and Plan: stable. Continue home medications Blood pressures have been on the lower side since surgery. 500 ml bolus given overnight with no change. Antibiotic coverage has been adjusted. scheduled midodrine 10 mg t.i.d. (5) Psychiatric illness: Code(s): F99 - Mental disorder, not otherwise specified Status: Chronic Assessment and Plan: history of schizoaffective disorder, anxiety, and cognitive impair from prior traumatic brain injury. c/w home medications . Plan Continue postoperative care. Monitor H and H and blood pressure. Patient was tearful whenever I told him that his family is planning for him to return to [facility]. He wishes to speak with his children about this decision. Subjective Date/time seen: 02/25/23 08:35 Interval history: 67-year-old male with history of traumatic brain injury with cognitive impairment, congestive heart failure, peripheral arterial? disease, schizoaffective disorder, anxiety, and osteomyelitis status post bilateral [id number] amputation in 12/2022 who presented to the emergency department via EMS from [facility] with concerns for wound infection.?Imaging shows acute osteomyelitis to bilateral tibial osteotomy as well as sacral osteomyelitis. General surgery is consulted and preformed bilateral AKA on 02/21. Interval history: 02/22: Patient seen in bed eating lunch. He frequently goes off on tangents but says that his pain to his bilateral lower sometimes is well controlled. He has some lower back pain which he says it improves with position changes. He is complaining of pain to the back of his head and per his bedside nurse says he does have concerns were pressure injury to his occiput. Wound care consult was done in the note areas blanchable then dried. It appears this is a chronic issue with various stages of healing. Recommendation was to offload with a towel. Patient lost IV access and he is a difficult stick. Surgery was completed yesterday for source control. Will transition to p.o. antibiotics today. Continue wound care to the coccyx with Santyl dressing daily and p.r.n. as needed. 02/23: No acute events overnight. Slightly elevated temperature of 99.7? and white count remains at 12. Could be related to the potential atelectasis, will write for IS. Otherwise he seems to be recovering as expected. He denies pain to his bilateral stumps and says that most of his pain is to his lower back. It is controlled with his p.o. Percocet. His documented blood pressures were low overnight the patient denies dizziness or lightheadedness. He did receive 10 mg of p.o. Percocet twice through the mouth evening this could be responsible. Blood pressure this morning 100/60 mm hg. Slight decre
[2023-02-25] MEDS: GABAPENTIN 100 MG CAPSULE PO ×3 (09:35→16:55)
[2023-02-25] MEDS: polyethylene glycoL 3350 17 GM POWD.PACK PO (09:35)
[2023-02-25] MEDS: LORATADINE 10 MG TABLET PO (09:35)
[2023-02-25] MEDS: BACLOFEN 5 MG TABLET PO ×2 (09:35→16:55)
[2023-02-25] MEDS: SODIUM CHLORIDE 1 GM TABLET PO ×2 (09:36→16:55)
[2023-02-25] MEDS: THERAPEUTIC MULTIVITAMINS/MINERALS TAB (*BKC) 1 TABLET PO (09:36)
[2023-02-25] MEDS: ASPIRIN 81 MG CHEWABLE TABLET PO (09:36)
[2023-02-25] MEDS: ZINC SULFATE 220 MG CAPSULE PO (09:36)
[2023-02-25] MEDS: ASCORBIC ACID 500 MG TABLET 1000 MG PO (09:37)
[2023-02-25] MEDS: PANTOPRAZOLE 40 MG TABLET PO (09:37)
[2023-02-25] MEDS: SULFAMETHOXAZOLE/TRIMETHOPRIM 800/160 MG DS TABLET 1 TAB PO ×2 (09:37→21:33)
[2023-02-25] MEDS: PARoxetine 20 MG TABLET PO (09:37)
[2023-02-25] MEDS: FLUTICASONE PROPIONATE 0.05% NA SPR 16 GM BTL (*BKC) 1 SPRAY NASAL (09:38)
[2023-02-25] MEDS: ENOXAPARIN 40 MG/0.4 ML SYRINGE SUB-Q (09:39)
[2023-02-25] MEDS: SILVERGEL (ELTA) 45 ML 1 APPLIC TOPICAL (09:39)
[2023-02-25] MEDS: oxyCODONE/ACETAMINOPHEN (*CRX) 10-325 MG TABLET 1 TAB PO (09:41)
[2023-02-25] MEDS: MIDODRINE HCL 10 MG TABLET PO ×2 (12:09→16:55)
[2023-02-25 14:00] VITALS: BP 121/65; PULSE 83; RESP 16; TEMP 36.4; O2SAT 100
--- NOTE | 2023-02-25 16:27 | PM.PNGS ---
Progress Note: A&P Assessment and Plan (1) Status post bilateral above knee amputation: Code(s): Z89.611 - Acquired absence of right leg above knee; Z89.612 - Acquired absence of left leg above knee Status: Acute Assessment and Plan: Patient overall doing well. Dressings removed today and both stumps appear to be healing well with no signs of infection. His blood pressures have been slightly low and he was started on midodrine scheduled. He is surgically stable to discharge back to [facility] once medically stable. We will have him follow-up with Dr. Dwyer for suture removal after discharge. Plan I have discussed the patient's case and plan of care with Dr. Sevilla. Subjective Subjective Date/Time Seen: 02/25/23 10:27 Post Op day: 4 (Bilateral above knee amputations) Patient reports: no new complaints and afebrile Interval history: This is a 67-year-old man with cognitive impairment and schizophrenia, has had bilateral below-knee amputations previously for peripheral vascular disease at an outside hospital. He presented here with severe flexion contractures of both knees as well as evidence of tibial osteomyelitis at the amputation wounds of both legs. He was taken for bilateral above knee amputations on 02/21/2023. Patient now seen with nurse at the bedside. He appears comfortable. His white blood cell count is down slightly to 11,000 today. He is afebrile. He has been transitioned to oral antibiotics. Review of Systems Review of Systems: ROS unobtainable: Yes unobtainable due to mental status Exam Const: General: comfortable and no acute distress Urinary Catheter: Urinary Catheter: patent and draining Extrem: General: amputation noted Above the knee: bilateral Other: Right AKA stump with sutures in place, healing well with some swelling of the distal stump, no erythema or purulent drainage, edges well approximated. Left AKA stump also healing well with some swelling of the distal stump and two small clear fluid-filled blisters on the mid anterior distal stump, no erythema or purulent drainage, edges well approximated. Objective Data Vital Signs Vital Signs: Vital Signs - 24 hr 02/24/23 20:40 02/24/23 20:42 02/24/23 23:19 Temperature 99.0 F 99.0 F Pulse Rate 91 Respiratory Rate 18 Blood Pressure 90/52 L 94/60 L Pulse Oximetry 100 Oxygen Delivery 02/24/23 20:00 02/25/23 01:52 02/25/23 01:45 Temperature 97.8 F Pulse Rate 88 Respiratory Rate 18 Blood Pressure 98/60 L 98/60 L Pulse Oximetry 100 100 Oxygen Delivery Room Air Room Air 02/24/23 21:17 02/25/23 06:00 02/25/23 08:00 Temperature 91 F L 97.7 F Pulse Rate 88 63 Respiratory Rate 18 20 Blood Pressure 90/52 L 98/62 L Pulse Oximetry 100 100 Oxygen Delivery Room Air Room Air 02/25/23 14:00 Temperature 97.5 F L Pulse Rate 83 Respiratory Rate 16 Blood Pressure 121/65 Pulse Oximetry 100 Oxygen Delivery Intake/Output Intake/Output: Intake & Output 02/22/23 02/23/23 02/24/23 02/25/23 23:59 23:59 23:59 23:59 Intake Total 2290 1820 1490 920 Output Total 1750 3250 2400 200 Balance 540 -0536 -100 720 Meds/Results Medications: Active Medications Generic Name Dose Route Start Last Admin Trade Name Freq PRN Reason Stop Dose Admin Acetaminophen 500 mg 02/21/23 16:38 02/24/23 20:42 Acetaminophen 500 Mg Tablet PO 500 mg Q6H PRN Administration Mild Pain (1-3) or Fever Albuterol 2.5 mg 02/16/23 00:08 Albuterol Sulfate Neb 2.5 Mg/3 Ml Inh INHALATION Q6H PRN sob Ascorbic Acid 1,000 mg 02/16/23 09:00 02/25/23 09:37 Ascorbic Acid 500 Mg Tablet PO 1,000 mg DAILY BAKARI Administration Aspirin 81 mg 02/16/23 09:00 02/25/23 09:36 Aspirin 81 Mg Chewable Tablet PO 81 mg DAILY BAKARI Administration Baclofen 5 mg 02/16/23 09:00 02/25/23 09:35 Baclofen 5 Mg Tablet PO 5 mg BID BAKARI Administration Carvedilol 3.125 mg
[2023-02-25] MEDS: QUEtiapine FUMARATE 25 MG TABLET PO (21:33)
[2023-02-25] MEDS: levoFLOXacin 750 MG TABLET PO (21:33)
[2023-02-25] MEDS: SIMVASTATIN 20 MG TABLET PO (21:33)
[2023-02-25] MEDS: oxyCODONE/ACETAMINOPHEN (*CRX) 5-325 MG TABLET 1 TABLET PO (21:33)
[2023-02-25] MEDS: MELATONIN 3 MG TABLET PO (21:35)
[2023-02-25 22:00] VITALS: BP 105/82; PULSE 69; RESP 16; TEMP 36.6; O2SAT 100
[2023-02-26] MEDS: oxyCODONE/ACETAMINOPHEN (*CRX) 5-325 MG TABLET 1 TABLET PO ×2 (05:54→12:17)
[2023-02-26 06:00] VITALS: BP 110/77; PULSE 81; RESP 16; TEMP 36.2; O2SAT 99
[2023-02-26 06:32] LABS: Basophils Percent Auto 0.2 % (0.2-1.2); Eosinophils Absolute Auto 0.6 K/mm3 (0-0.3); Eosinophils Percent Auto 5.4 % (0-4.4); Hematocrit 25.9 % (42.0-52.0); Hemoglobin 8.1 g/dL (14.0-18.0); Immature Granulocyte Absolute 0.05 K/mm3 (0.00-0.031); Immature Granulocyte Percent A 0.5 % (0-0.5); Lymphocytes Percent Auto 20.4 % (18.3-44.2); Mean Corpuscular HGB Conc 31.3 g/dl (32-36); Mean Corpuscular Hemoglobin 29.9 pg (26-34); Mean Corpuscular Volume 95.6 fl (80-100); Mean Platelet Volume 9.9 fl (7.4-10.4); Monocytes Absolute Auto 0.9 K/mm3 (0.1-0.6); Monocytes Percent Auto 8.7 % (2.6-8.5); Neutrophils Absolute Auto 6.7 K/mm3 (1.3-6.7); Neutrophils Percent Auto 64.8 % (45.5-73.1); Platelet Count Result 306 k/mm3 (150-375); Red Blood Count 2.71 M/mm3 (4.6-6.20); Red Cell Distribution Width 15.5 % (11.5-14.5); White Blood Count 10.3 K/mm3 (4.5-10.0)
[2023-02-26 06:44] LABS: Alanine Aminotransferase 18 U/L (6-50); Albumin Level 2.7 g/dL (3.5-5.1); Alkaline Phosphatase 48 U/L (38-126); Anion Gap 23 mmol/L (8-16); Aspartate Amino Transferase 30 U/L (17-59); Bilirubin,Total 0.3 mg/dL (0.2-1.3); Blood Urea Nitrogen 19 mg/dL (9-20); Calcium 7.8 mg/dL (8.4-10.2); Carbon Dioxide 24 mmol/L (22-30); Chloride 85 mmol/L (98-107); Estimated Glomerular Filt Rate > 60; Glucose 99 mg/dL (65-110); Potassium 4.6 mmol/L (3.4-5.0); Sodium 132 mmol/L (137-145)
--- NOTE | 2023-02-26 08:53 | PM.DS ---
DS: Admitting Diagnosis Discharge Date SaturdayFebruary 26 Admitting Diagnosis Osteomyelitis DS: Discharge Diagnosis Discharge Diagnosis (1) Sacral osteomyelitis: Code(s): M46.28 - Osteomyelitis of vertebra, sacral and sacrococcygeal region Status: Acute Assessment and Plan: Antibiotics transitioned to PO Daily dressing changes with silver gel Surgery consulted and rec's appreciated (2) Osteomyelitis of tibia: Code(s): M86.9 - Osteomyelitis, unspecified Status: Acute Assessment and Plan: POD 3 bilateral AKA Source control achieved WBC continues to remain at 12.7 (3) Abnormal urinalysis: Code(s): R82.90 - Unspecified abnormal findings in urine Status: Acute Assessment and Plan: Urine culture with MRSA and pseudomonas On Bactrim an Blood cultures with Staph epidermidis and staph haemolytics present. chronic frank last exchanged January 18. Bedside nurse Meaghan will exchange today(02/22). (4) Heart failure with preserved ejection fraction: Qualifiers: Heart failure chronicity: chronic Qualified Code(s): I50.32 - Chronic diastolic (congestive) heart failure Code(s): I50.30 - Unspecified diastolic (congestive) heart failure Status: Acute Assessment and Plan: stable. Continue home medications Blood pressures have been on the lower side since surgery. 500 ml bolus given overnight with no change. Antibiotic coverage has been adjusted. scheduled midodrine 10 mg t.i.d. (5) Psychiatric illness: Code(s): F99 - Mental disorder, not otherwise specified Status: Chronic Assessment and Plan: history of schizoaffective disorder, anxiety, and cognitive impair from prior traumatic brain injury. c/w home medications . Plan Continue postoperative care. Monitor H and H and blood pressure. Patient was tearful whenever I told him that his family is planning for him to return to [facility]. He wishes to speak with his children about this decision. DS: Summary Hospital Course Hospital Course: 67-year-old male with history of traumatic brain injury with cognitive impairment, congestive heart failure, peripheral arterial? disease, schizoaffective disorder, anxiety, and osteomyelitis status post bilateral [id number] amputation in 12/2022 who presented to the emergency department via EMS from [facility] with concerns for wound infection.?Imaging shows acute osteomyelitis to bilateral tibial osteotomy as well as sacral osteomyelitis. General surgery is consulted and preformed bilateral AKA on 02/21. Interval history: 02/22:? Patient seen in bed eating lunch.? He frequently goes off on tangents but says that his pain to his bilateral lower sometimes is well controlled.? He has some lower back pain which he says it improves with position changes.? He is complaining of pain to the back of his head and per his bedside nurse says he does have concerns were pressure injury to his occiput.? Wound care consult was done in the note areas blanchable then dried.? It appears this is a chronic issue with various stages of healing.? Recommendation was to offload with a towel.? Patient lost IV access and he is a difficult stick.? Surgery was completed yesterday for source control.? Will transition to p.o. antibiotics today.? Continue wound care to the coccyx with Santyl dressing daily and p.r.n. as needed. 02/23:? No acute events overnight. Slightly elevated temperature of 99.7? and white count remains at 12.? Could be related to the potential atelectasis, will write for IS.? Otherwise he seems to be recovering as expected.? He denies pain to his bilateral stumps and says that most of his pain is to his lower back.? It is controlled with his p.o. Percocet.? His documented blood pressures were low overnight the patient denies dizziness or lightheadedness.? He did receive 10 mg of p.o. Percocet twice through the mouth evening th
[2023-02-26] MEDS: BACLOFEN 5 MG TABLET PO (09:28)
[2023-02-26] MEDS: ENOXAPARIN 40 MG/0.4 ML SYRINGE SUB-Q (09:28)
[2023-02-26] MEDS: MIDODRINE HCL 10 MG TABLET PO ×2 (09:28→12:15)
[2023-02-26] MEDS: SODIUM CHLORIDE 1 GM TABLET PO (09:28)
[2023-02-26] MEDS: polyethylene glycoL 3350 17 GM POWD.PACK PO (09:28)
[2023-02-26] MEDS: ASCORBIC ACID 500 MG TABLET 1000 MG PO (09:29)
[2023-02-26] MEDS: SULFAMETHOXAZOLE/TRIMETHOPRIM 800/160 MG DS TABLET 1 TAB PO (09:29)
[2023-02-26] MEDS: FLUTICASONE PROPIONATE 0.05% NA SPR 16 GM BTL (*BKC) 1 SPRAY NASAL (09:29)
[2023-02-26] MEDS: GABAPENTIN 100 MG CAPSULE PO ×2 (09:29→12:15)
[2023-02-26] MEDS: THERAPEUTIC MULTIVITAMINS/MINERALS TAB (*BKC) 1 TABLET PO (09:29)
[2023-02-26] MEDS: PANTOPRAZOLE 40 MG TABLET PO (09:30)
[2023-02-26] MEDS: PARoxetine 20 MG TABLET PO (09:30)
[2023-02-26] MEDS: ZINC SULFATE 220 MG CAPSULE PO (09:30)
[2023-02-26] MEDS: LORATADINE 10 MG TABLET PO (09:30)
[2023-02-26] MEDS: ASPIRIN 81 MG CHEWABLE TABLET PO (09:30)
[2023-02-26] MEDS: SILVERGEL (ELTA) 45 ML 1 APPLIC TOPICAL (09:31)
[2023-02-26 11:23] LABS: SARS-CoV-2 RNA PCR Negative (Negative)
--- NOTE | 2023-02-26 12:40 | PCNFU ---
Nutrition Follow-Up Complete: Increased nutrient needs related to altered skin integrity as evidenced by pressure injuries Goal:PO intake 75% of meals and supplements Pt current nutrition is Regular, Ensure compact BID. Nutrition recommendation: continue with current plan of care Last recorded weight is 66.6 kg. Bowel Motility: +BM 02/22 Labs Reviewed: Hgb:8.1, CHT:25.6, Alb:2.7, NA:132 Meds Noted: zofran, protonix Skin: unstageable to coccyx, surgical wounds BLE s/p Gabriel BKAs Additional Notes: Pt continues on a regular diet, intake 50-100%, Ensure compact BID in place. Discharge possible today. Monitor intake, wt, labs, skin. Follow up in 7 days
[2023-02-26 14:00] VITALS: BP 120/69; PULSE 84; RESP 17; TEMP 36.8; O2SAT 99
--- NOTE | 2023-02-26 14:38 | PM.PNGS ---
Progress Note: A&P Assessment and Plan (1) Status post bilateral above knee amputation: Code(s): Z89.611 - Acquired absence of right leg above knee; Z89.612 - Acquired absence of left leg above knee Status: Acute Assessment and Plan: Patient healing well status post bilateral above knee amputation. Incisions healing well. Will switch to 4 x 4 gauze dressings and have the wound care nurses get the patient's stump socks to be applied over bilateral stumps instead of the Jet wraps. Okay from our standpoint for discharge today back to [facility]. Follow-up with Dr. Dwyer in 2 weeks for suture removal. Plan I have discussed the patient's case and plan of care with Dr. Sevilla. Subjective Subjective Date/Time Seen: 02/26/23 12:38 Post Op day: 5 (bilateral AKA) Patient reports: no new complaints and afebrile Interval history: Patient seen with the nurse at the bedside. He appears comfortable and no specific complaints at this time. Review of Systems Review of Systems: ROS unobtainable: Yes unobtainable due to mental status Exam Narrative: Bilateral above-knee amputation stumps with incision healing well, sutures in place and edges well approximated, no drainage or erythema. Small serous-filled blister just above the midportion of the left AKA incision unchanged from yesterday. Mild distal edema, but no proximal edema. Objective Data Vital Signs Vital Signs: Vital Signs - 24 hr 02/25/23 20:00 02/25/23 22:00 02/26/23 06:00 Temperature 97.8 F 97.2 F L Pulse Rate 69 81 Respiratory Rate 16 16 Blood Pressure 105/82 110/77 Pulse Oximetry 100 99 Oxygen Delivery Room Air 02/26/23 09:30 Temperature Pulse Rate Respiratory Rate Blood Pressure Pulse Oximetry Oxygen Delivery Room Air Intake/Output Intake/Output: Intake & Output 02/23/23 02/24/23 02/25/23 02/26/23 23:59 23:59 23:59 23:59 Intake Total 1820 1490 1280 1837 Output Total 3250 2400 800 1700 Balance -1430 -910 480 137 Meds/Results Medications: Active Medications Generic Name Dose Route Start Last Admin Trade Name Freq PRN Reason Stop Dose Admin Acetaminophen 500 mg 02/21/23 16:38 02/24/23 20:42 Acetaminophen 500 Mg Tablet PO 500 mg Q6H PRN Administration Mild Pain (1-3) or Fever Albuterol 2.5 mg 02/16/23 00:08 Albuterol Sulfate Neb 2.5 Mg/3 Ml Inh INHALATION Q6H PRN sob Ascorbic Acid 1,000 mg 02/16/23 09:00 02/26/23 09:29 Ascorbic Acid 500 Mg Tablet PO 1,000 mg DAILY BAKARI Administration Aspirin 81 mg 02/16/23 09:00 02/26/23 09:30 Aspirin 81 Mg Chewable Tablet PO 81 mg DAILY BAKARI Administration Baclofen 5 mg 02/16/23 09:00 02/26/23 09:28 Baclofen 5 Mg Tablet PO 5 mg BID BAKARI Administration Carvedilol 3.125 mg 02/16/23 09:00 02/17/23 09:51 Carvedilol 3.125 Mg Tablet PO 3.125 mg DAILY BAKARI Administration Enoxaparin Sodium 40 mg 02/22/23 09:00 02/26/23 09:28 Enoxaparin 40 Mg/0.4 Ml Syringe SUB-Q 40 mg DAILY BAKARI Administration Fluticasone Propionate 1 spray 02/16/23 09:00 02/26/23 09:29 Fluticasone Propionate 0.05% Na Spr 16 Gm Btl (*Bkc) NASAL 1 spray BID BAKARI Administration Gabapentin 100 mg 02/16/23 09:00 02/26/23 12:15 Gabapentin 100 Mg Capsule PO 100 mg TID BAKARI Administration Levofloxacin 750 mg 02/22/23 21:00 02/25/23 21:33 Levofloxacin 750 Mg Tablet PO 03/07/23 23:59 750 mg DAILY@2100 BAKARI Administration Lisinopril 2.5 mg 02/16/23 09:00 02/16/23 09:24 Lisinopril 2.5 Mg Tablet PO 2.5 mg DAILY BAKARI Administration Loratadine 10 mg 02/16/23 09:00 02/26/23 09:30 Loratadine 10 Mg Tablet PO 10 mg DAILY BAKARI Administration Melatonin 3 mg 02/16/23 00:08 02/25/23 21:35 Melatonin 3 Mg Tablet PO 3 mg HS PRN Administration Sleep Midodrine 10 mg 02/25/23 13:00 02/26/23 12:15 Midodrine Hcl 10 Mg Tablet PO 10 mg TID BAKARI Admini
== END 2023-02-26 15:40 | DRG 982 ==
LOC: ANHED 11:07 → ANHIMU 19:26 → ANH3MEDSUR 02-17 16:22
PROVIDERS: Family Medicine; Hospitalist; Surgery; Admitting Provider Internal Medicine; Emergency Provider General Practice; Visit Provider Nurse Practitioner Acute Care
PROC: 0Y6D0Z1 Detachment at Left Upper Leg, High, Open Approach (ICD-10-PCS; CPT 27590; principal; 2023-02-21 12:00)
DX: T83.518A Infection and inflammatory reaction due to other urinary catheter, initial encounter (principal); E87.1 Hypo-osmolality and hyponatremia; M46.28 Osteomyelitis of vertebra, sacral and sacrococcygeal region; N39.0 Urinary tract infection, site not specified; I50.32 Chronic diastolic (congestive) heart failure; T87.44 Infection of amputation stump, left lower extremity; T87.43 Infection of amputation stump, right lower extremity; M86.162 Other acute osteomyelitis, left tibia and fibula; M86.161 Other acute osteomyelitis, right tibia and fibula; L89.150 Pressure ulcer of sacral region, unstageable; M24.562 Contracture, left knee; M24.561 Contracture, right knee; B96.5 Pseudomonas (aeruginosa) (mallei) (pseudomallei) as the cause of diseases classified elsewhere; B95.62 Methicillin resistant Staphylococcus aureus infection as the cause of diseases classified elsewhere; Z20.822 Contact with and (suspected) exposure to COVID-19; D64.9 Anemia, unspecified; E86.0 Dehydration; F25.9 Schizoaffective disorder, unspecified; F41.9 Anxiety disorder, unspecified; I73.9 Peripheral vascular disease, unspecified; I95.9 Hypotension, unspecified; K21.9 Gastro-esophageal reflux disease without esophagitis; M54.59 Other low back pain; Z87.820 Personal history of traumatic brain injury; Z89.512 Acquired absence of left leg below knee; Z89.511 Acquired absence of right leg below knee; B96.89 Other specified bacterial agents as the cause of diseases classified elsewhere; Z79.02 Long term (current) use of antithrombotics/antiplatelets
CPT/HCPCS: 36415; 36430; 71045; 73590; 74177; 80048; 80053; 80202; 81001; 82565; 82948; 83605; 83735; 84100; 85025; 85027; 85610; 85730; 86140; 86850; 86900; 86901; 86923; 87040; 87077; 87086; 87088; 87186; 87635; 88307; 88311; 96361; 96365; 96367; 99285; A9270; J0692; J1170; J1644; J1650; J1836; J1885; J2270; J2405; J2543; J2704; J3010; J3370; J7030; J7040; J7120; P9016; Q9967

== ENCOUNTER 2023-08-01 13:42 | Inpatient (IN) | payer MEDICARE, MEDICAID, SELFPAY ==
[2023-08-01] VITALS (14 sets, daily range): BP systolic 100–119; BP diastolic 60–76; PULSE 69–89; RESP 12–20; TEMP 36.3–36.7; O2SAT 95–99; BMI 55.3
--- NOTE | ~2023-08-01 | CT_ITS ---
EXAMINATION: CT abdomen pelvis w con DATE: 08/04/2023 14:18 INDICATION: ileus vs bowel obstruction TECHNIQUE: Computed tomography (CT) of the abdomen and pelvis was performed with 100 mL Omnipaque-350 intravenous contrast. Automated exposure control and iterative reconstruction technique were employe d. The dose-length product was 938.91 mGy-cm. COMPARISON: 08/01/2023 and 02/15/2023. FINDINGS: Lower thorax: Minimal bibasilar scar/atelectasis. Coronary artery calcification. Symmetric bilateral gynecomastia. Liver: Normal. Biliary/Gallbladder: Dependent sludge. No inflammatory change. No bile duct dilation. Pancreas: No mass or duct dilation. Spleen: Multiple granulomatous calcifications. Small perisplenic fluid collection. Adrenals:No mass. Kidneys: No suspicious mass, obstructing stone, or hydronephrosis. Bilateral cortical atrophy and sca rring. Nonobstructing right upper pole calcification. GI tract: Moderate distal esophageal and gastric wall edema. Small dependant gas collections that judy ear to be located within the posterior wall of the gastric fundus (rather than trapped in gastric rug ae). No portal venous gas. No pneumoperitoneum. No small or large bowel dilation. The appendix is not confidently visualized. Mesentery/Peritoneum: No ascites, mass, or free air. Retroperitoneum: No mass. Atherosclerotic abdominal aortic and/or arterial calcifications. Pelvis: The bladder is decompressed by Gardiner catheter. Bladder wall thickening and inflammation. Pros tatomegaly with calcification. Soft Tissues: Soft tissues and body wall unremarkable. Bones: No acute osseous finding. IMPRESSION: Moderate esophagitis/gastritis. Small focus of possible gastric emphysema in the gastric fundus with irregularity of the gastric wall in this area and a small perisplenic fluid collection. Consider gastric perforation in the different ial. Urinary bladder wall thickening and inflammation as can be seen with cystitis. Results reported telephonically to Elma Reid RN by Dr. Hernandez at 9:53 PM on 08/04/2023. Reviewed, dictated and finalized at location K. MET MAN IMPRESSION: Moderate esophagitis/gastritis. Small focus of possible gastric emphysema in the gastric fundus with irregulari ty of the gastric wall in this area and a small perisplenic fluid collection. C onsider gastric perforation in the differential. Urinary bladder wall thickening and inflammation as can be seen with cystitis. Results reported telephonically to Elma Reid RN by Dr. Hernandez at 9:53 PM on 08/04/2023.
--- NOTE | ~2023-08-01 | CT_ITS ---
EXAMINATION: CT pelvis w con DATE: 08/01/2023 15:28 INDICATION: Urinary tract infection. TECHNIQUE: Computed tomography (CT) of the abdomen and pelvis was performed with 100 mL Omnipaque-350 intravenous contrast. Automated exposure control and iterative reconstruction technique were employe d. The dose-length product was 845.41 mGy-cm. COMPARISON: CT abdomen and pelvis dated 02/15/2023 FINDINGS: Visualized lower poles of the kidneys appear normal with symmetric enhancement. Moderate amount of st ool throughout the visualized colon including a 7.6 cm ball of stool at the rectum. The appendix and visualized portions of the small bowel are normal. There is prominent wall thickening of the bladder which is decompressed around a Gardiner catheter which could be consistent with provided history of urin rene tract infection. Prostatomegaly measuring 5.0 x 3.9 cm. No abscess or free intraperitoneal gas or fluid in the pelvis or visualized lower abdomen. No pathologically enlarged pelvic or inguinal lymph adenopathy. Status post bilateral qzbhd-[id number]-[id number] amputations. There is secondary fatty atrophy of the musculature in the pelvis and proximal thighs. There is packing material within a deep decubitus ulc er which extends to contact the posterior margin of the left side of the sacrum and coccyx were there is chronic osteolysis consistent with osteomyelitis. The osteolysis does not appear have significant ly progressed since study dated 02/15/2023. IMPRESSION: 1. Wall thickening of the bladder which is decompressed around a Gardiner catheter and likely related to reported history of urinary tract infection. 2. Persistent large sacral decubitus ulcer with no progression in chronic osteolysis involving the un derlying left posterior margin of the distal sacrum and coccyx consistent with chronic osteomyelitis. 3. Bilateral [id number] amputations. Reviewed, dictated and finalized at location A. ICIAN OFFICE REP IMPRESSION: 1. Wall thickening of the bladder which is decompressed around a Gardiner catheter and likely related to reported history of urinary tract infection. 2. Persistent large sacral decubitus ulcer with no progression in chronic osteo lysis involving the underlying left posterior margin of the distal sacrum and c occyx consistent with chronic osteomyelitis. 3. Bilateral [id number] amputations.
--- NOTE | ~2023-08-01 | XR_ITS ---
XR chest 1V portable DATE: 08/01/2023 14:41 INDICATION: Altered mental state. History of hypertension, heart failure. TECHNIQUE: Portable upright AP chest on August 01, 2023 at 1436 hours COMPARISON: February 15, 2023 portable AP chest FINDINGS: Cardiomegaly. Aortic calcification and tortuosity. No hilar or mediastinal enlargement. Increased retrocardiac density on the left suggests left lower lobe infiltrate and/or atelectasis. Mi ld infiltrate or atelectasis at the right lung base. The lungs otherwise appear clear. No pleural effusion or pulmonary vascular congestion or pneumothorax. Status post posterior cervical thoracic spine surgical fusion. Osteopenia. Bilateral chronic rotator cuff atrophy. Degenerative change at the acromioclavicular joints. Degenera tive spurring at the exit scoliosis of the thoracic spine. IMPRESSION: Mild infiltrate or atelectasis is suggested in the lower lung zones, left greater than ri ght Cardiomegaly, aortic atherosclerosis Reviewed, dictated and finalized at location L. RVISORY INVESTIGATIVE SPECIALIST IMPRESSION: Mild infiltrate or atelectasis is suggested in the lower lung zones , left greater than right Cardiomegaly, aortic atherosclerosis
--- NOTE | ~2023-08-01 | CT_ITS ---
. EXAMINATION: CT brain wo con DATE: 08/01/2023 14:57 INDICATION: Altered mental state TECHNIQUE: Computed tomography (CT) of the head was performed without intravenous contrast. The mA wa s adjusted according to patient size. Iterative reconstruction technique was employed. Exam dose: 60 5.33 mGy-cm total exam DLP. COMPARISON: None FINDINGS: Chronic left anterior temporal, left frontal, left basal ganglia and lesser right basal maricruz glia chronic infarcts. The anterior limbs of the internal capsules appear to be involved. There is central and cortical cerebral and cerebellar atrophy. Right vertebral artery, basilar artery and prominent bilateral carotid siphon internal carotid artery calcifications. No intracranial mass lesion or hemorrhage, midline shift or mass effect. No subdural or epidural jo-ann jodi. No fracture or bone destruction of the cranial vault. Partial opacification of left mastoid air cells . The right mastoid air cells are well-developed and aerated. The paranasal sinuses are unremarkable. IMPRESSION: Bilateral old infarcts Cerebral atherosclerosis Cerebral and cerebellar atrophy No acute intracranial finding Reviewed, dictated and finalized at Location A. Reviewed, dictated and finalized at location L. DDED LINUX ENGINEER
--- NOTE | ~2023-08-01 | XR_ITS ---
EXAMINATION: XR abdomen/kub 1V INDICATION: Emesis TECHNIQUE: Supine views of the abdomen were obtained on 2 radiographs. COMPARISON: 08/03/2023 FINDINGS: There are multiple gas-filled loops of mildly distended small bowel in the left abdomen. No free intraperitoneal gas is identified. Gas and stool are present in the colon. The visualized lung bases are clear. Punctate calcifications in the left upper quadrant are consistent with old granuloma tous disease of the spleen. IMPRESSION: 1. Mildly dilated small bowel in left abdomen, consistent with ileus versus partial obstruction. Reviewed, dictated and finalized at location F. CLEANER IMPRESSION: 1. Mildly dilated small bowel in left abdomen, consistent with ileus versus par tial obstruction.
--- NOTE | ~2023-08-01 | MR_ITS ---
EXAMINATION: MR brain/brain stem wo/w con DATE: 08/02/2023 14:50 INDICATION: Altered mental status. Encephalopathy. TECHNIQUE: Magnetic resonance imaging (MRI) of the brain and brainstem was performed without and with 13 mL MultiHance intravenous contrast. COMPARISON: Head CT 08/01/2023 FINDINGS: There is chronic encephalomalacia in the anteroinferior aspects of the left frontal and lef t temporal lobes, which is a distribution typical of traumatic brain injury. There are old infarcts i nvolving the bilateral basal ganglia and anterior horns of the bilateral internal capsules. There is a small old infarct in right cerebellum. There is no intracranial hemorrhage, acute infarction, or ab normal intracranial mass lesion. There is ex vacuo dilatation of the frontal horns of the lateral kadie tricles. The orbits are normal. There is a left mastoid effusion. There is a trace right mastoid effu scott. There is mild mucosal thickening in the ethmoid sinuses. IMPRESSION: 1. Old infarcts in the brain. 2. Chronic encephalomalacia involving the anteroinferior aspects of the left frontal and left tempora l lobes, which is a distribution typical of traumatic brain injury. Reviewed, dictated and finalized at location A. NTEER SERVICES MANAGER IMPRESSION: 1. Old infarcts in the brain. 2. Chronic encephalomalacia involving the anteroinferior aspects of the left fr ontal and left temporal lobes, which is a distribution typical of traumatic bra in injury.
--- NOTE | ~2023-08-01 | XR_ITS ---
EXAMINATION: XR abdomen/kub 1V INDICATION: Emesis TECHNIQUE: Supine views of the abdomen were obtained on three radiographs. COMPARISON: None FINDINGS: There are no dilated loops of bowel. No free intraperitoneal gas is identified. The visuali zed lung bases are clear. Punctate calcifications of the left upper quadrant are consistent with old granulomatous disease of the spleen. IMPRESSION: 1. No radiographic correlate for the patient's symptoms. Reviewed, dictated and finalized at location F. [place] EQUIPMENT ASSOCIATE
--- NOTE | 2023-08-01 13:46 | ECG_ITS ---
Measurements Intervals [place] Rate: 87 P: 37 OK: 172 QRS: 35 QRSD: 97 T: 77 QT: 365 QTc: 441 Interpretive Statements SINUS RHYTHM ANTEROSEPTAL MYOCARDIAL INFARCTION , OF INDETERMINATE AGE [40+ ms Q WAVE IN V1-V4] NO PREVIOUS ECG AVAILABLE FOR COMPARISON Electronically Signed On 08-01-2023 14:08:58 WRAPPING CHECKER by Alexander Duvall M.D.
[2023-08-01 13:57] LABS: Basophils Percent Auto 0.5 % (0.2-1.2); Eosinophils Absolute Auto 0.6 K/mm3 (0-0.3); Eosinophils Percent Auto 6.6 % (0-4.4); Hematocrit 38.2 % (42.0-52.0); Hemoglobin 11.6 g/dL (14.0-18.0); Immature Granulocyte Absolute 0.02 K/mm3 (0.00-0.031); Immature Granulocyte Percent A 0.2 % (0-0.5); Lymphocytes Absolute Auto 1.84 K/mm3 (0.9-3.2); Mean Corpuscular HGB Conc 30.4 g/dl (32-36); Mean Corpuscular Hemoglobin 28.6 pg (26-34); Mean Corpuscular Volume 94.3 fl (80-100); Mean Platelet Volume 9.5 fl (7.4-10.4); Monocytes Absolute Auto 0.6 K/mm3 (0.1-0.6); Monocytes Percent Auto 6.8 % (2.6-8.5); Neutrophils Absolute Auto 5.3 K/mm3 (1.3-6.7); Neutrophils Percent Auto 63.9 % (45.5-73.1); Platelet Count Result 235 k/mm3 (150-375); Red Blood Count 4.05 M/mm3 (4.6-6.20); White Blood Count 8.4 K/mm3 (4.5-10.0)
[2023-08-01 14:08] LABS: INR 1.1
[2023-08-01 14:09] LABS: Partial Thromboplastin Time 36.3 SECONDS (22.3-36.8)
[2023-08-01 14:10] LABS: Alanine Aminotransferase 20 U/L (6-50); Albumin Level 3.8 g/dL (3.5-5.1); Alkaline Phosphatase 71 U/L (38-126); Anion Gap 9 mmol/L (8-16); Aspartate Amino Transferase 27 U/L (17-59); Bilirubin,Total 0.6 mg/dL (0.2-1.3); Blood Urea Nitrogen 28 mg/dL (9-20); Carbon Dioxide 28 mmol/L (22-30); Chloride 104 mmol/L (98-107); Estimated CRCL calculation 76 ml/min; Estimated Glomerular Filt Rate > 60; Glucose 95 mg/dL (65-110); Potassium 4.3 mmol/L (3.4-5.0); Sodium 141 mmol/L (137-145)
[2023-08-01 14:38] LABS: Appearance Urine Cloudy (Clear); pH Urine 8.5 (5.0-9.0)
[2023-08-01 14:39] LABS: Blood Urine 3+ (Negative); Glucose Urine UA Negative (Negative); Ketones Urine Negative (Negative); Nitrate Urine Positive (Negative); Protein Urine 3+ mg/dL (Negative)
[2023-08-01 14:40] LABS: Add Urine Microscopic? YES; Bilirubin Urine Negative (Negative); Color Urine Yellow (Yellow); Leukocyte Esterase Ur 3+ LEU/UL (Negative); Urobilinogen Urine 0.2 mg/dL (<2.0)
[2023-08-01 14:43] LABS: Lactic Acid Reflex 0.8 mmol/L (0.7-2.0)
[2023-08-01 14:46] LABS: RBC Urine >100 /hpf (0-2); WBC Clumps Urine Present /hpf; WBC Urine >100 /hpf (0-3)
[2023-08-01 14:47] LABS: Squamous Epithelial Cell Urine Few /hpf (Few)
[2023-08-01 14:48] LABS: Bacteria Urine 3+ /hpf
[2023-08-01] MEDS: CEFEPIME 2 GM/NS 50 ML 2 GM/50 ML BAG IVPB ×2 (15:38→21:36)
[2023-08-01] MEDS: VANCOMYCIN 2,000 MG/NS 500 ML 2,000 MG/500 ML BAG 250 MG IVPB (16:25)
--- NOTE | 2023-08-01 17:45 | ADMGEN ---
This patient, Jose Barba, was admitted to Medical Room 249-01. Patient/family oriented to hospital policies and general routines including ID bracelet, bed and alarms, visiting hours, pain management, procedures, bathroom and other care routines, personal items, smoking policy, room service/diet, and visiting hours. Information on how to activate the Rapid Response Team has been discussed. Patient/Family are encouraged to report perceived risks to care and to ask questions if they do not understand what they are told or what they should do.
--- NOTE | 2023-08-01 18:21 | ED.AMS ---
HPI - Altered Mental Status General Chief Complaint: Altered Mental Status Stated Complaint: Altered Mental Status Time Seen by Provider: 08/01/23 13:51 History of Present Illness HPI narrative: prison noted that the patient was not responding when he was collected for physical therapy today. Patient is only complaining that he is feeling thirsty or hungry, denies any other complaints. Related Data Home Medications Medication Instructions Recorded Confirmed acetaminophen 325 mg tablet 650 mg PO Q4H PRN Pain (Scale 02/15/23 08/01/23 Score 1-3) albuterol sulfate 2.5 mg/3 mL 2.5 mg inhalation Q6H PRN sob 02/15/23 08/01/23 (0.083 %) solution for nebulization ascorbic acid (vitamin C) 1,000 mg 1 g PO DAILY 02/15/23 08/01/23 tablet aspirin 81 mg chewable tablet 81 mg PO DAILY 02/15/23 08/01/23 (Katelyn Chewable Low Dose Aspirin) baclofen 5 mg tablet 5 mg PO BID 02/15/23 08/01/23 clopidogrel 75 mg tablet 75 mg PO DAILY 02/15/23 08/01/23 fluticasone propionate 50 1 spray intranasal BID 02/15/23 08/01/23 mcg/actuation nasal spray,suspension gabapentin 100 mg capsule 100 mg PO TID 02/15/23 08/01/23 heparin (porcine) 5,000 unit/mL 5,000 unit subcut Q8H 02/15/23 08/01/23 injection solution loratadine 10 mg tablet (Claritin) 10 mg PO DAILY 02/15/23 08/01/23 melatonin 3 mg tablet 3 mg PO HS Sleep 02/15/23 08/01/23 [id number] 200 mcg-vit K 100 1 cap PO DAILY 02/15/23 08/01/23 mcg-lycop 500 [id number] capsule (Daily Multivitamin) ondansetron 4 mg disintegrating 4 mg PO Q4H PRN Nausea 02/15/23 08/01/23 tablet oxycodone 5 mg tablet 5 mg PO Q4H PRN Pain (Scale Score 02/15/23 08/01/23 4-6) paroxetine HCl 20 mg tablet 20 mg PO DAILY 02/15/23 08/01/23 polyethylene glycol 3350 17 gram 17 g PO DAILY 02/15/23 08/01/23 oral powder packet (Miralax) quetiapine 25 mg tablet 25 mg PO BID 02/15/23 08/01/23 simvastatin 20 mg tablet 20 mg PO QHS 02/15/23 08/01/23 zinc gluconate 50 mg tablet 50 mg PO DAILY 02/15/23 08/01/23 Silver Alginate 1 applic topical DAILY 08/01/23 08/01/23 collagenase clostridium histo. 250 1 applic topical DAILY 08/01/23 08/01/23 unit/gram topical ointment (Santyl) pantoprazole 20 mg tablet,delayed 20 mg PO QAM 08/01/23 08/01/23 release sennosides 8.6 mg-docusate sodium 1 tab-cap PO BID 08/01/23 08/01/23 50 mg tablet (Senna Plus) Allergies Allergy/AdvReac Type Severity Reaction Status Date / Time codeine Allergy Unknown Verified 02/15/23 22:42 lidocaine Allergy Unknown Verified 02/15/23 22:42 Review of Systems Review of Systems: ROS unobtainable: Yes unobtainable due to mental status PMFSH Past Medical History Medical History Anxiety Chronic indwelling Gardiner catheter Gastroesophageal reflux disease Heart failure with preserved ejection fraction Echo 12/19 showed an EF of 55 to 65%. Hypotension On midodrine. Mild cognitive impairment Osteomyelitis Peripheral arterial disease CT angiogram for 11/17/2022 showed occlusion of anterior tibial arteries bilaterally. Schizoaffective disorder Traumatic brain injury Surgical History Surgical History History of below-knee amputation of both lower extremities (12/04/22) For osteomyelitis. Family History Family History Other Family history unknown Social History Social History Social History: Recently moved to the area from a long-time care facility in [place]. Served in the during [place]. Denies alcohol, tobacco, illicit substance use. Healthcare power of city attorney: Jose Enrique Barba, son. Code status: Full code. Smoking status: Never smoker Spiritual care concerns: No Exam Narrative: EXAMINATION OF ORGAN SYSTEMS/BODY AREAS: Constitutional: Vital signs
--- NOTE | 2023-08-01 20:51 | PM.IMHP ---
H&P: HPI History of Present Illness Date/Time: 08/01/23 15:30 Chief Complaint: Altered mental status. Narrative: This is a 67-year-old male with history of traumatic brain injury with cognitive impairment, congestive heart failure, peripheral arterial disease, schizoaffective disorder, anxiety, and osteomyelitis status post bilateral [id number] amputations who presented to the emergency department via EMS from [facility] for evaluation of altered mental status. While he does have some cognitive impairment he is typically alert and oriented. At this time he is confused and is unable to provide an accurate history at this time and thus a majority the following is obtained via a review of his electronic medical records. He was supposed to go to physical therapy today and when staff came to get him ready he was confused and he was instead sent to the ER. He was noted to have dry blood on the bridge of his nose and in the mouth but there were no reports of falls or seizure activity. Head CT done on arrival showed old infarcts, atrophy, and atherosclerosis but no acute findings. He was afebrile on arrival with stable vital signs. CMP and CBC were pretty consistent with baseline labs. Urinalysis obtained from Gardiner catheter was positive for 3+ protein, 3+ blood, nitrates, 3+ leukocyte esterase, WBC clumps, 3+ bacteria, and greater than [address] showed wall thickening of the bladder and a persistent large sacral decubitus ulcer with no progression in chronic osteolysis and findings consistent with chronic osteomyelitis. He was started on cefepime and vancomycin in the ED and he is being admitted in this setting for workup of altered mental status and treatment of possible active urinary tract infection. He will arouse to stimuli and open his eyes but he does not answer questions or follow commands. Review of Systems Review of Systems: Unable to be obtained given clinical condition as above. [facility] Past Medical History Medical History Anxiety Chronic indwelling Gardiner catheter Gastroesophageal reflux disease Heart failure with preserved ejection fraction Echo 12/19 showed an EF of 55 to 65%. Hypotension On midodrine. Mild cognitive impairment Osteomyelitis Peripheral arterial disease CT angiogram for 11/17/2022 showed occlusion of anterior tibial arteries bilaterally. Schizoaffective disorder Traumatic brain injury Surgical History Surgical History (Updated 08/01/23 @ 20:58 by Daina Cho PA-C) History of above-knee amputation of both lower extremities (12/04/22) For osteomyelitis. Family History Family History Other Family history unknown Social History Social History Social History: Recently moved to the area from a long-time care facility in [place]. Served in the during [place]. Denies alcohol, tobacco, illicit substance use. Healthcare power of prosecuting attorney: Jose Enrique Barba, son. Code status: Full code. Smoking status: Never smoker Alcohol intake: unknown Substance use type: does not use Spiritual care concerns: No Meds Home Medications and Allergies Home Medications Medication Instructions Recorded Confirmed Type acetaminophen 325 mg tablet 650 mg PO Q4H PRN Pain (Scale 02/15/23 08/01/23 History Score 1-3) albuterol sulfate 2.5 mg/3 mL 2.5 mg inhalation Q6H PRN sob 02/15/23 08/01/23 History (0.083 %) solution for nebulization ascorbic acid (vitamin C) 1,000 mg 1 g PO DAILY 02/15/23 08/01/23 History tablet aspirin 81 mg chewable tablet 81 mg PO DAILY 02/15/23 08/01/23 History (Katelyn Chewable Low Dose Aspirin) baclofen 5 mg tablet 5 mg PO BID 02/15/23 08/01/23 History clopidogrel 75 mg tablet 75 mg PO DAILY 02/15/23 08/01/23 History fluticasone propionate 50
[2023-08-01] MEDS: MELATONIN 3 MG TABLET PO (21:34)
[2023-08-01] MEDS: SIMVASTATIN 20 MG TABLET PO (21:35)
[2023-08-01] MEDS: SODIUM CHLORIDE 0.9% IV 1,000 ML 100 ML IV CONT (21:35)
[2023-08-01] MEDS: HEPARIN SODIUM 5,000 UNITS/ML VIAL 5000 UNITS SUB-Q (21:36)
[2023-08-01 21:41] LABS: Ammonia < 9 umol/L (9-30)
[2023-08-02] VITALS (9 sets, daily range): BP systolic 105–141; BP diastolic 61–69; PULSE 74–93; RESP 16–18; TEMP 36.4–36.8; O2SAT 99–100; BMI 55.5
[2023-08-02 00:28] LABS: Amphetamine Screen Urine Negative (Negative); Barbiturate Screen Urine Negative (Negative); Benzodiazepines Screen Urine Negative (Negative); Cannabinoid Screen Urine Negative (Negative); Cocaine Screen Urine Negative (Negative); Methadone Screen Urine Negative (Negative); Opiate Screen Urine Negative (Negative); Phencyclidine Screen Urine Negative (Negative)
[2023-08-02] MEDS: HEPARIN SODIUM 5,000 UNITS/ML VIAL 5000 UNITS SUB-Q ×3 (05:14→21:07)
[2023-08-02] MEDS: CEFEPIME 2 GM/NS 50 ML 2 GM/50 ML BAG IVPB ×3 (05:14→21:07)
[2023-08-02 05:26] LABS: Hematocrit 36.7 % (42.0-52.0); Hemoglobin 11.1 g/dL (14.0-18.0); Mean Corpuscular HGB Conc 30.2 g/dl (32-36); Mean Corpuscular Hemoglobin 28.5 pg (26-34); Mean Corpuscular Volume 94.3 fl (80-100); Mean Platelet Volume 9.6 fl (7.4-10.4); Platelet Count Result 208 k/mm3 (150-375); Red Blood Count 3.89 M/mm3 (4.6-6.20); Red Cell Distribution Width 14.9 % (11.5-14.5); White Blood Count 7.3 K/mm3 (4.5-10.0)
[2023-08-02 05:37] LABS: Anion Gap 9 mmol/L (8-16); Blood Urea Nitrogen 30 mg/dL (9-20); Calcium 8.9 mg/dL (8.4-10.2); Carbon Dioxide 24 mmol/L (22-30); Chloride 107 mmol/L (98-107); Estimated Glomerular Filt Rate > 60; Glucose 78 mg/dL (65-110); Potassium 4.3 mmol/L (3.4-5.0); Sodium 140 mmol/L (137-145)
--- NOTE | 2023-08-02 09:22 | PM.IMPN ---
Progress Note: A&P Assessment and Plan (1) Altered mental status: Code(s): R41.82 - Altered mental status, unspecified Status: Acute Assessment and Plan: prior TBI, patient now wakens to voice and answers questions appropriately. Suspect possible infection as cause of altered mental status. MRI appears chronic infarcts and chronic TBI findings but nothing acute appearing today. (2) Abnormal urinalysis: Code(s): R82.90 - Unspecified abnormal findings in urine Status: Acute Assessment and Plan: Patient on IV antibiotics pending cultures. (3) Sacral decubitus ulcer, stage IV: Code(s): L89.154 - Pressure ulcer of sacral region, stage 4 Status: Chronic Assessment and Plan: Wound care per wound clinic staff, does not appear acutely infected. Small pressure ulcer noted back of head as well. (4) Heart failure with preserved ejection fraction: Qualifiers: Heart failure chronicity: chronic Qualified Code(s): I50.32 - Chronic diastolic (congestive) heart failure Code(s): I50.30 - Unspecified diastolic (congestive) heart failure Status: Acute Assessment and Plan: No signs of acute fluid overload. Time Spent With Patient Time with patient: 25 - 35 minutes Subjective Date/time seen: 08/02/23 09:22 Interval history: Patient admitted for altered mental status of unknown origin. IV antibiotics started in ER to cover MRSA and pseudomonas as previously cultured from his urine. Patient is answering questions better today. MRI obtained to assess for acute CVA. Review of Systems Review of Systems: Unable to be obtained given clinical condition as above. Exam Narrative: General: Chronically ill-appearing male supine in bed. He is asleep but does arouse to verbal stimuli. HEENT:?Pupils are approximately 3 to 4 mm and are reactive. Mucous membranes are tacky. Poor dentition and dental hygiene. Neck:??Supple. Respiratory:?Respirations are nonlabored. Lungs clear Cardiovascular:??Regular rate and rhythm with S1-S2. Occasional ectopy. Systolic murmur at the upper sternal border. Gastrointestinal:??Abdomen is soft, nontender, and nondistended with positive bowel sounds. Genitourinary: Catheter draining orange-yellow, cloudy urine. Skin:??Warm and dry. Chronic stage 5 sacral ulcer with no significant odor or drainage to suggest infection. Extremities:??No cyanosis or clubbing. 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 Radial pulses intact. Neurological:??answers questions slowly. Cranial nerves 2-12 are grossly intact. No gross facial asymmetry. He was noted to move his extremities without obvious limitation. Psychiatric:?normal mood and flat affect Objective Data Vital Signs Vital Signs: Vital Signs - 24 hr 08/01/23 13:47 08/01/23 16:25 08/01/23 13:45 Temperature 36.6 C 36.7 C Pulse Rate 89 80 80 Respiratory Rate 15 16 Blood Pressure 118/76 100/62 Pulse Oximetry 95 99 Oxygen Delivery Room Air 08/01/23 16:00 08/01/23 17:08 08/01/23 16:30 Temperature Pulse Rate 83 73 76 Respiratory Rate 14 Blood Pressure 104/64 Pulse Oximetry 99 Oxygen Delivery 08/01/23 17:00 08/01/23 17:15 08/01/23 17:33 Temperature 36.6 C 36.5 C Pulse Rate 79 72 77 Respiratory Rate 20 12 17 Blood Pressure 111/75 111/65 Pulse Oximetry 96 98 95 Oxygen Delivery 08/01/23 18:18 08/01/23 18:32 08/01/23 19:31 Temperature 36.3 C L 36.7 C Pulse Rate 75 69 71 Respiratory Rate 18 16 Blood Pressure 109/60 119/66 Pulse Oximetry 95 95 Oxygen Delivery 08/01/23 20:00 08/01/23 20:03 08/02/23 00:02 Temperature Pulse Rate 71 74 76 Respiratory Rate 16 Blood Pressure Pulse Oximetry 95 Oxygen Delivery Room Air 08/02/23 04:03 08/02/23 04:45 Temperature 36.8 C Pulse Rate 93 93 Respiratory Rate 16 Blood Pressure 105/66 Pulse Oximetry 99 Oxygen Delivery Intake/Output Intake/Output
[2023-08-02] MEDS: LORATADINE 10 MG TABLET PO (09:41)
[2023-08-02] MEDS: SENNA/DOCUSATE SODIUM TABLET 1 TAB PO ×2 (09:41→16:36)
[2023-08-02] MEDS: PANTOPRAZOLE SOD SESQUIHYDRATE 20 MG TAB PO (09:41)
[2023-08-02] MEDS: PARoxetine 20 MG TABLET PO (09:41)
[2023-08-02] MEDS: ASPIRIN 81 MG CHEWABLE TABLET PO (09:41)
[2023-08-02] MEDS: CLOPIDOGREL BISULFATE 75 MG TABLET PO (09:41)
[2023-08-02] MEDS: THERAPEUTIC MULTIVITAMINS/MINERALS TAB (*BKC) 1 TABLET PO (09:41)
[2023-08-02] MEDS: MIDODRINE HCL 10 MG TABLET PO ×3 (09:41→16:36)
[2023-08-02] MEDS: polyethylene glycoL 3350 17 GM POWD.PACK PO (09:42)
[2023-08-02] MEDS: GABAPENTIN 100 MG CAPSULE PO ×3 (09:42→16:36)
[2023-08-02 09:49] LABS: Hemoglobin A1C 4.6 % (<5.7)
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
[2023-08-02] MEDS: ASCORBIC ACID 500 MG TABLET 1000 MG PO (12:55)
[2023-08-02] MEDS: VANCOMYCIN 1,500 MG/NS 500 ML 1,500 MG/500 ML BAG 250 MG IVPB (12:55)
[2023-08-02] MEDS: FLUTICASONE PROPIONATE 0.05% NA SPR 16 GM BTL (*BKC) 1 SPRAY NASAL ×2 (12:56→21:07)
[2023-08-02] MEDS: MELATONIN 3 MG TABLET PO (21:07)
[2023-08-02] MEDS: SIMVASTATIN 20 MG TABLET PO (21:07)
[2023-08-03] VITALS (9 sets, daily range): BP systolic 119–135; BP diastolic 75–89; PULSE 66–123; RESP 16; TEMP 36.3–37; O2SAT 94–100
[2023-08-03 04:18] LABS: Basophils Percent Auto 0.4 % (0.2-1.2); Eosinophils Absolute Auto 0.8 K/mm3 (0-0.3); Eosinophils Percent Auto 10.9 % (0-4.4); Hematocrit 32.7 % (42.0-52.0); Immature Granulocyte Absolute 0.02 K/mm3 (0.00-0.031); Immature Granulocyte Percent A 0.3 % (0-0.5); Lymphocytes Absolute Auto 1.89 K/mm3 (0.9-3.2); Lymphocytes Percent Auto 26.4 % (18.3-44.2); Mean Corpuscular HGB Conc 30.6 g/dl (32-36); Mean Corpuscular Hemoglobin 28.8 pg (26-34); Mean Corpuscular Volume 94.2 fl (80-100); Mean Platelet Volume 9.6 fl (7.4-10.4); Monocytes Absolute Auto 0.5 K/mm3 (0.1-0.6); Monocytes Percent Auto 7.6 % (2.6-8.5); Neutrophils Absolute Auto 3.9 K/mm3 (1.3-6.7); Neutrophils Percent Auto 54.4 % (45.5-73.1); Platelet Count Result 210 k/mm3 (150-375); Red Blood Count 3.47 M/mm3 (4.6-6.20); Red Cell Distribution Width 14.6 % (11.5-14.5); White Blood Count 7.2 K/mm3 (4.5-10.0)
[2023-08-03 04:40] LABS: Alanine Aminotransferase 20 U/L (6-50); Albumin Level 3.4 g/dL (3.5-5.1); Alkaline Phosphatase 58 U/L (38-126); Anion Gap 9 mmol/L (8-16); Aspartate Amino Transferase 30 U/L (17-59); Blood Urea Nitrogen 24 mg/dL (9-20); CRP 1.4 mg/dL (<1.0); Calcium 8.5 mg/dL (8.4-10.2); Carbon Dioxide 20 mmol/L (22-30); Chloride 104 mmol/L (98-107); Estimated Glomerular Filt Rate > 60; Glucose 95 mg/dL (65-110); Magnesium 2.2 mg/dL (1.6-2.3); Potassium 4.2 mmol/L (3.4-5.0); Sodium 133 mmol/L (137-145)
[2023-08-03 05:02] LABS: Procalcitonin 0.1 ng/mL
[2023-08-03 05:06] LABS: Vancomycin Trough 20.4 ug/mL (10.0-20.0)
[2023-08-03] MEDS: HEPARIN SODIUM 5,000 UNITS/ML VIAL 5000 UNITS SUB-Q ×3 (05:28→21:18)
[2023-08-03] MEDS: CEFEPIME 2 GM/NS 50 ML 2 GM/50 ML BAG IVPB ×3 (06:30→21:08)
[2023-08-03 07:01] LABS: Erythrocyte Sedimentation Rate 61 mm/hr (0-20)
[2023-08-03] MEDS: ASCORBIC ACID 500 MG TABLET 1000 MG PO (08:55)
[2023-08-03] MEDS: CLOPIDOGREL BISULFATE 75 MG TABLET PO (08:55)
[2023-08-03] MEDS: LORATADINE 10 MG TABLET PO (08:55)
[2023-08-03] MEDS: MIDODRINE HCL 10 MG TABLET PO ×3 (08:55→17:02)
[2023-08-03] MEDS: GABAPENTIN 100 MG CAPSULE PO ×3 (08:55→17:02)
[2023-08-03] MEDS: PARoxetine 20 MG TABLET PO (08:55)
[2023-08-03] MEDS: PANTOPRAZOLE SOD SESQUIHYDRATE 20 MG TAB PO (08:55)
[2023-08-03] MEDS: ASPIRIN 81 MG CHEWABLE TABLET PO (08:55)
[2023-08-03] MEDS: THERAPEUTIC MULTIVITAMINS/MINERALS TAB (*BKC) 1 TABLET PO (08:55)
[2023-08-03] MEDS: SENNA/DOCUSATE SODIUM TABLET 1 TAB PO ×2 (08:55→17:02)
[2023-08-03] MEDS: polyethylene glycoL 3350 17 GM POWD.PACK PO (08:56)
[2023-08-03] MEDS: FLUTICASONE PROPIONATE 0.05% NA SPR 16 GM BTL (*BKC) 1 SPRAY NASAL ×2 (08:56→21:08)
--- NOTE | 2023-08-03 10:16 | PM.IMPN ---
Progress Note: A&P Assessment and Plan (1) Altered mental status: Code(s): R41.82 - Altered mental status, unspecified Status: Acute Assessment and Plan: prior TBI, patient now wakens to voice and answers questions appropriately. Suspect possible infection as cause of altered mental status. MRI appears chronic infarcts and chronic TBI findings but nothing acute appearing. (2) Abnormal urinalysis: Code(s): R82.90 - Unspecified abnormal findings in urine Status: Acute Assessment and Plan: Patient on IV antibiotics pending cultures. 08/03: Urine culture with mixed faina however patient is improving so we will continue antibiotics for 3-5 days (3) Sacral decubitus ulcer, stage IV: Code(s): L89.154 - Pressure ulcer of sacral region, stage 4 Status: Chronic Assessment and Plan: Wound care per wound clinic staff, does not appear acutely infected. Small pressure ulcer noted back of head as well. (4) Heart failure with preserved ejection fraction: Qualifiers: Heart failure chronicity: chronic Qualified Code(s): I50.32 - Chronic diastolic (congestive) heart failure Code(s): I50.30 - Unspecified diastolic (congestive) heart failure Status: Acute Assessment and Plan: No signs of acute fluid overload. Time Spent With Patient Time with patient: 25 - 35 minutes Subjective Date/time seen: 08/03/23 10:16 Interval history: 08/02/23: Patient admitted for altered mental status of unknown origin. IV antibiotics started in ER to cover MRSA and pseudomonas as previously cultured from his urine. Patient is answering questions better today. MRI obtained to assess for acute CVA. 08/03/23: Patient was taking a nap but awakens to verbal. No significant change since yesterday. Urine culture mixed faina. CRP minimally elevated but quite unimpressive whereas ESR is elevated over 60. Patient is improving on current therapy. We will continue this at this time. Review of Systems Review of Systems: Unable to be obtained given clinical condition as above. Exam Narrative: General: Chronically ill-appearing male supine in bed. He is asleep but does arouse to verbal stimuli. HEENT:?Pupils are approximately 3 to 4 mm and are reactive. Mucous membranes are moist. Poor dentition and dental hygiene. Neck:??Supple. Respiratory:?Respirations are nonlabored. Lungs clear Cardiovascular:??Regular rate and rhythm with S1-S2. Occasional ectopy. Systolic murmur at the upper sternal border. Gastrointestinal:??Abdomen is soft, nontender, and nondistended with positive bowel sounds. Genitourinary: Catheter draining orange-yellow, cloudy urine. Skin:??Warm and dry. Chronic stage 5 sacral ulcer with no significant odor or drainage to suggest infection. Extremities:??No cyanosis or clubbing. Status post bilateral [id number]-fpc-mehm amputation without edema. Radial pulses intact. Neurological:??answers questions slowly. Cranial nerves 2-12 are grossly intact. No gross facial asymmetry. He was noted to move his extremities without obvious limitation. Psychiatric:?normal mood and flat affect Objective Data Vital Signs Vital Signs: Vital Signs - 24 hr 08/02/23 12:00 08/02/23 15:57 08/02/23 16:00 Temperature 36.4 C Pulse Rate 74 80 76 Respiratory Rate 18 Blood Pressure 141/69 H Pulse Oximetry 100 Oxygen Delivery 08/02/23 19:29 08/02/23 20:50 08/02/23 20:03 Temperature 36.4 C Pulse Rate 76 74 Respiratory Rate 18 Blood Pressure 107/61 Pulse Oximetry 100 Oxygen Delivery Room Air 08/03/23 00:02 08/03/23 04:04 08/03/23 04:51 Temperature 36.4 C Pulse Rate 75 69 66 Respiratory Rate 16 Blood Pressure 123/77 Pulse Oximetry 100 Oxygen Delivery 08/03/23 09:37 Temperature Pulse Rate Respiratory Rate Blood Pressure Pulse Oximetry 99 Oxygen Delivery Room Air Intake/Output Intake/Output: Intake & Output 07/31/23 02
--- NOTE | 2023-08-03 11:15 | PC.NURSE ---
Patient eating breakfast during morning assessment. Patient very talkative but pleasant and cooperative. Patient cleaned up as he had syrup every where. Patient friendly but not sure how reliable his memory is.
[2023-08-03] MEDS: ONDANSETRON INJ 4 MG/2 ML VIAL IV PUSH (20:28)
[2023-08-03] MEDS: SIMVASTATIN 20 MG TABLET PO (21:07)
[2023-08-03] MEDS: MELATONIN 3 MG TABLET PO (21:08)
[2023-08-03] MEDS: PROMETHAZINE HCL 25 MG/ML AMPUL IM (22:46)
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
[2023-08-04] MEDS: DOCUSATE SODIUM 400 MG/400 ML ENEMA RECTAL (00:50)
[2023-08-04] MEDS: CEFEPIME 2 GM/NS 50 ML 2 GM/50 ML BAG IVPB ×3 (05:39→20:58)
[2023-08-04] MEDS: HEPARIN SODIUM 5,000 UNITS/ML VIAL 5000 UNITS SUB-Q ×3 (05:41→21:08)
[2023-08-04 05:46] VITALS: BP 117/69; PULSE 105; RESP 16; TEMP 36.6; O2SAT 95
[2023-08-04 06:04] LABS: Basophils Percent Auto 0.1 % (0.2-1.2); Eosinophils Absolute Auto 0.2 K/mm3 (0-0.3); Eosinophils Percent Auto 2.4 % (0-4.4); Hematocrit 34.6 % (42.0-52.0); Hemoglobin 10.8 g/dL (14.0-18.0); Immature Granulocyte Absolute 0.02 K/mm3 (0.00-0.031); Immature Granulocyte Percent A 0.3 % (0-0.5); Lymphocytes Absolute Auto 1.33 K/mm3 (0.9-3.2); Lymphocytes Percent Auto 17.7 % (18.3-44.2); Mean Corpuscular HGB Conc 31.2 g/dl (32-36); Mean Corpuscular Hemoglobin 28.8 pg (26-34); Mean Corpuscular Volume 92.3 fl (80-100); Mean Platelet Volume 10.1 fl (7.4-10.4); Monocytes Absolute Auto 0.3 K/mm3 (0.1-0.6); Monocytes Percent Auto 3.6 % (2.6-8.5); Neutrophils Absolute Auto 5.7 K/mm3 (1.3-6.7); Neutrophils Percent Auto 75.9 % (45.5-73.1); Platelet Count Result 212 k/mm3 (150-375); Red Blood Count 3.75 M/mm3 (4.6-6.20); Red Cell Distribution Width 14.6 % (11.5-14.5); White Blood Count 7.5 K/mm3 (4.5-10.0)
[2023-08-04 06:26] LABS: Alanine Aminotransferase 18 U/L (6-50); Albumin Level 3.4 g/dL (3.5-5.1); Alkaline Phosphatase 70 U/L (38-126); Anion Gap 7 mmol/L (8-16); Aspartate Amino Transferase 26 U/L (17-59); Bilirubin,Total 1.2 mg/dL (0.2-1.3); Blood Urea Nitrogen 20 mg/dL (9-20); Calcium 8.8 mg/dL (8.4-10.2); Carbon Dioxide 26 mmol/L (22-30); Chloride 105 mmol/L (98-107); Estimated CRCL calculation 64 ml/min; Estimated Glomerular Filt Rate > 60; Glucose 109 mg/dL (65-110); Magnesium 2.1 mg/dL (1.6-2.3); Potassium 4.1 mmol/L (3.4-5.0); Sodium 138 mmol/L (137-145)
[2023-08-04 06:41] LABS: Erythrocyte Sedimentation Rate 57 mm/hr (0-20)
--- NOTE | 2023-08-04 07:49 | PM.IMPN ---
Progress Note: A&P Assessment and Plan (1) Ileus: Code(s): K56.7 - Ileus, unspecified Status: Acute Assessment and Plan: 08/04: Ileus versus bowel obstruction. Intractable nausea and vomiting overnight. Enema given with multiple large stool balls removed. Imaging shows dilated bowel loops, CT scan ordered. NPO except medications. (2) Altered mental status: Code(s): R41.82 - Altered mental status, unspecified Status: Acute Assessment and Plan: 08/01: prior TBI, patient now wakens to voice and answers questions appropriately. Suspect possible infection as cause of altered mental status. MRI appears chronic infarcts and chronic TBI findings but nothing acute appearing. 08/04: Patient has been having paranoid delusions which is consistent with his history of schizoaffective disorder. He is drowsy today status post IM Phenergan and multiple emesis episodes overnight. (3) Abnormal urinalysis: Code(s): R82.90 - Unspecified abnormal findings in urine Status: Acute Assessment and Plan: 08/01: Patient on IV antibiotics pending cultures. 08/03: Urine culture with mixed faina however patient is improving so we will continue antibiotics for 3-5 days (4) Sacral decubitus ulcer, stage IV: Code(s): L89.154 - Pressure ulcer of sacral region, stage 4 Status: Chronic Assessment and Plan: 08/01: Wound care per wound clinic staff, does not appear acutely infected. Small pressure ulcer noted back of head as well. (5) Heart failure with preserved ejection fraction: Qualifiers: Heart failure chronicity: chronic Qualified Code(s): I50.32 - Chronic diastolic (congestive) heart failure Code(s): I50.30 - Unspecified diastolic (congestive) heart failure Status: Acute Assessment and Plan: 08/01: No signs of acute fluid overload. 08/04: Continue to monitor closely after the initiation of IV fluids due to NPO status. Subjective Date/time seen: 08/04/23 07:49 Interval history: Patient had an episode intractable nausea and vomiting yesterday with imaging findings concerning for ileus verses obstruction. Patient made NPO and given IM Phenergan which seemed to help. This morning bowel sounds hypoactive to nearly absent. Patient is still drowsy from the Phenergan. Patient remains NPO except medications and we will obtain CT scan abdomen pelvis with IV contrast for further assessment possible bowel obstruction. If obstruction is likely we will insert NG tube and consult surgery. Otherwise we will keep patient NPO overnight again tonight. IV fluids ordered due to NPO status. Treatment otherwise continues as previous. Review of Systems Review of Systems: Unable to be obtained given clinical condition as above. ROS unobtainable: Yes unobtainable due to mental status Exam Narrative: General: Chronically ill-appearing male supine in bed. He is asleep but does arouse to verbal stimuli. HEENT:?Pupils are approximately 3 to 4 mm and are reactive. Mucous membranes are moist. Poor dentition and dental hygiene. Neck:??Supple. Respiratory:?Respirations are nonlabored. Lungs clear Cardiovascular:??Regular rate and rhythm with S1-S2. Occasional ectopy. Systolic murmur at the upper sternal border. Gastrointestinal:?? abdomen is soft, nontender, minimally distended with significantly hypoactive to nearly absent bowel sounds Genitourinary: Catheter draining orange-yellow, cloudy urine. Skin:??Warm and dry. Chronic stage 5 sacral ulcer with no significant odor or drainage to suggest infection. Extremities:??No cyanosis or clubbing. Status post bilateral [id number] amputation without edema. Radial pulses intact. Neurological:??answers questions slowly. Cranial nerves 2-12 are grossly intact. No gross facial asymmetry. He was noted to move his extremities without obvious limitation. Psychiatric:?normal mood and flat affect , paranoid at times Objective Data Vital
[2023-08-04] MEDS: LACTATED RINGERS 1,000 ML 75 ML IV CONT ×2 (08:02→20:58)
[2023-08-04] MEDS: GABAPENTIN 100 MG CAPSULE PO ×3 (08:03→16:47)
[2023-08-04] MEDS: PANTOPRAZOLE SOD SESQUIHYDRATE 20 MG TAB PO (08:03)
[2023-08-04] MEDS: ASPIRIN 81 MG CHEWABLE TABLET PO (08:03)
[2023-08-04] MEDS: MIDODRINE HCL 10 MG TABLET PO ×3 (08:03→16:47)
[2023-08-04] MEDS: THERAPEUTIC MULTIVITAMINS/MINERALS TAB (*BKC) 1 TABLET PO (08:03)
[2023-08-04] MEDS: SENNA/DOCUSATE SODIUM TABLET 1 TAB PO ×2 (08:03→16:47)
[2023-08-04] MEDS: PARoxetine 20 MG TABLET PO (08:03)
[2023-08-04] MEDS: FLUTICASONE PROPIONATE 0.05% NA SPR 16 GM BTL (*BKC) 1 SPRAY NASAL ×2 (08:03→20:57)
[2023-08-04] MEDS: ASCORBIC ACID 500 MG TABLET 1000 MG PO (08:03)
[2023-08-04] MEDS: polyethylene glycoL 3350 17 GM POWD.PACK PO ×2 (08:03→16:47)
[2023-08-04] MEDS: LORATADINE 10 MG TABLET PO (08:03)
[2023-08-04] MEDS: CLOPIDOGREL BISULFATE 75 MG TABLET PO (08:03)
[2023-08-04] MEDS: VANCOMYCIN 1,500 MG/NS 500 ML 1,500 MG/500 ML BAG 250 MG IVPB (11:15)
[2023-08-04 13:56] VITALS: BP 126/65; PULSE 65; RESP 14; TEMP 36.6; O2SAT 99
[2023-08-04 20:00] VITALS: PULSE 106; RESP 18; O2SAT 98
[2023-08-04] MEDS: ACETAMINOPHEN 325 MG TABLET 650 MG PO (20:57)
[2023-08-04] MEDS: MELATONIN 3 MG TABLET PO (20:58)
[2023-08-04] MEDS: SIMVASTATIN 20 MG TABLET PO (20:58)
[2023-08-04 22:00] VITALS: BP 150/74; PULSE 106; RESP 18; TEMP 36.1; O2SAT 98
[2023-08-04 22:35] VITALS: BP 150/81; PULSE 106; RESP 18; TEMP 36.1; O2SAT 98
[2023-08-05] VITALS (7 sets, daily range): BP systolic 86–138; BP diastolic 43–77; PULSE 63–78; RESP 13–20; TEMP 36.3–36.6; O2SAT 98–100
--- NOTE | 2023-08-05 00:24 | PC.NURSE ---
This RN received a call from radiologist with CT results abd/pelvis. Radiologist stated: gastritis, esophagitis, air around the spleen, gastric emphysema, differential diagnosis gastric perforation. This RN called Dr Tejada and relayed the results. New orders received for pt to be strict NPO.
--- NOTE | 2023-08-05 03:32 | P.PNCROSS_ITS ---
Event Note Event Note Event Note: 08/04/2023 Nursing staff called me as the patient's CT results demonstrated possible small amount of emphysema and the gastric wall with associated small amount of air around the spleen suggestive of possible antral gastric ulcer with perforation. Patient was evaluated. Patient does not have evidence of acute abdomen. The patient's symptoms of vomiting and abdominal pain have resolved after he received a Colace enema yesterday. He had large bowel movements of 3 large ba lls of stool about the size of soft balls followed by some softer stool. Patient's was made NPO. The patient's case was discussed with General surgery who felt the patient could be evaluated by Gastroenterology for possible ulcer. No need for surgical and intervention given the patient's benign physical exam. Will place consult to Gastroenterology. Patient remains on IV fluids. Will switch patient's Protonix to IV formulatio Protonix 40 mg IV q.12h.
[2023-08-05 05:37] LABS: Basophils Percent Auto 0.2 % (0.2-1.2); Eosinophils Absolute Auto 0.6 K/mm3 (0-0.3); Eosinophils Percent Auto 11.5 % (0-4.4); Hematocrit 32.9 % (42.0-52.0); Hemoglobin 10.1 g/dL (14.0-18.0); Immature Granulocyte Absolute 0.01 K/mm3 (0.00-0.031); Immature Granulocyte Percent A 0.2 % (0-0.5); Lymphocytes Absolute Auto 1.82 K/mm3 (0.9-3.2); Lymphocytes Percent Auto 33.3 % (18.3-44.2); Mean Corpuscular HGB Conc 30.7 g/dl (32-36); Mean Corpuscular Hemoglobin 28.7 pg (26-34); Mean Corpuscular Volume 93.5 fl (80-100); Mean Platelet Volume 10.4 fl (7.4-10.4); Monocytes Absolute Auto 0.4 K/mm3 (0.1-0.6); Monocytes Percent Auto 6.9 % (2.6-8.5); Neutrophils Absolute Auto 2.6 K/mm3 (1.3-6.7); Neutrophils Percent Auto 47.9 % (45.5-73.1); Platelet Count Result 176 k/mm3 (150-375); Red Blood Count 3.52 M/mm3 (4.6-6.20); Red Cell Distribution Width 14.7 % (11.5-14.5); White Blood Count 5.5 K/mm3 (4.5-10.0)
[2023-08-05] MEDS: CEFEPIME 2 GM/NS 50 ML 2 GM/50 ML BAG IVPB ×2 (05:37→14:06)
[2023-08-05] MEDS: HEPARIN SODIUM 5,000 UNITS/ML VIAL 5000 UNITS SUB-Q ×3 (05:37→21:28)
[2023-08-05 05:53] LABS: Alanine Aminotransferase 13 U/L (6-50); Albumin Level 3.2 g/dL (3.5-5.1); Alkaline Phosphatase 64 U/L (38-126); Anion Gap 6 mmol/L (8-16); Aspartate Amino Transferase 22 U/L (17-59); Bilirubin,Total 1.1 mg/dL (0.2-1.3); Blood Urea Nitrogen 17 mg/dL (9-20); CRP 3.3 mg/dL (<1.0); Calcium 8.8 mg/dL (8.4-10.2); Carbon Dioxide 24 mmol/L (22-30); Chloride 105 mmol/L (98-107); Estimated CRCL calculation 73 ml/min; Estimated Glomerular Filt Rate > 60; Glucose 70 mg/dL (65-110); Magnesium 2.1 mg/dL (1.6-2.3); Potassium 3.8 mmol/L (3.4-5.0); Sodium 135 mmol/L (137-145)
[2023-08-05 06:26] LABS: Erythrocyte Sedimentation Rate 85 mm/hr (0-20)
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
[2023-08-05] MEDS: PANTOPRAZOLE SODIUM IV 40 MG VIAL IV PUSH ×2 (09:56→21:28)
[2023-08-05] MEDS: FLUTICASONE PROPIONATE 0.05% NA SPR 16 GM BTL (*BKC) 1 SPRAY NASAL ×2 (09:58→21:30)
--- NOTE | 2023-08-05 10:09 | WPDGICN ---
Assessment and Plan Assessment and plan (1) Ileus: Code(s): K56.7 - Ileus, unspecified Status: Acute Assessment and Plan: he has had hypoactive or nearly absent bowel sounds for several days. I do hear bowel sounds today (2) Abnormal CT scan, gastrointestinal tract: Code(s): R93.3 - Abnormal findings on diagnostic imaging of other parts of digestive tract Status: Acute Assessment and Plan: the CT scan findings included: Moderate esophagitis/gastritis. Small focus of possible gastric emphysema in the gastric fundus with irregularity of the gastric wall in this area and a small perisplenic fluid collection. Consider gastric perforation in the differential. I explained him that there is a possibility that he has a penetrating or perforated gastric ulcer. If the latter then it probably has sealed over. (3) Altered mental status: Code(s): R41.82 - Altered mental status, unspecified Status: Acute Assessment and Plan: He was confused on admission but is very lucid today, humerus, and recall my name at the in the interview. (4) Sacral decubitus ulcer, stage IV: Code(s): L89.154 - Pressure ulcer of sacral region, stage 4 Status: Chronic Assessment and Plan: This is chronic. He is currently on antibiotics. The antibiotics also will cover him in the event of a intra-abdominal infection. Plan EGD to be done today. I explained the patient that there is a potential for an asymptomatic gastric ulcer to be come more serious with more free air in the abdomen simply doing endoscopy. he understands at this point there is a possibility he would need surgery. He agrees to go ahead with the endoscopy to find out what the Heck is going on GI Consult Note Consult date/time: 08/05/23 10:09 HPI: Jose Barba is a 67 year old male Who was admitted a few days ago with vomiting and nausea. Studies have shown apparent ileus in fact bowel sounds were very hypoactive. He had a CT scan last evening that shows evidence suggesting perforation with some air in the gastric wall suggestive of a possible ulcer. There was also edema in the area as well as in the distal esophagus. The patient is not having abdominal pain. He has never had an ulcer in the past. I began to explain him that we may consider endoscopy in he actually you what I was talking about and he actuallydescribed procedure before I could. He was confused on admission but appears to be very lucid now. He does not use NSAIDs regularly. He is a nursing facility resident. He has had a prior traumatic brain injury and also has some cognitive impairment. On admission he was noted to have altered mental status which actually was the primary reason for him being transferred. 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 He has multiple medical issues. 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 Review of Systems Review of Systems: All systems reviewed & are unremarkable except as noted in HPI and below PMFSH Past Medical History Medical History Anxiety Chronic indwelling Gardiner catheter Gastroesophageal reflux disease Heart failure with preserved ejection fraction Echo 12/19 showed an EF of 55 to 65%. Hypotension On midodrine. Mild cognitive impairment Osteomyelitis Peripheral arterial disease CT angiogram for 11/17/2022 showed occlusion of anterior tibial arteries bilaterally. 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 Family History Family History (Reviewed 08/05/23 @ 10:17 by Erika Sy
[2023-08-05] MEDS: LACTATED RINGERS 1,000 ML 75 ML IV CONT (10:11)
[2023-08-05 10:41] LABS: Vancomycin Trough 16.3 ug/mL (10.0-20.0)
--- NOTE | 2023-08-05 11:40 | PC.NURSE ---
To GI Lab via [facility].
[2023-08-05] MEDS: LACTATED RINGERS 1,000 ML 150 ML IV CONT (12:01)
--- NOTE | 2023-08-05 12:22 | WPDANESEPPF ---
Anes - Initial Pre Proc Eval Procedure: Operation Date: 08/05/23 14:30 Proposed Procedures p Esophagogastroduodenoscopy - Chevy Sanchez MD Date/Time: 08/05/23 12:22 Surgeon: Austin Hernandez MD Pre Op Diagnosis: UTI, AMS Patient Data Age: 67 Gender: M Height: 1.91 m Weight: 67.7 kg Last Vital Signs Temp 97.4 F L 08/05/23 11:57 Pulse 74 08/05/23 11:57 Resp 20 08/05/23 11:57 BP 130/77 08/05/23 11:57 Pulse Ox 100 08/05/23 11:57 O2 Del Method Room Air 08/05/23 11:57 Allergies Allergy/AdvReac Type Severity Reaction Status Date / Time codeine Allergy Unknown Verified 08/01/23 18:52 lidocaine Allergy Unknown Verified 08/01/23 18:52 Home Medications Medication Instructions Recorded Confirmed Type acetaminophen 325 mg tablet 650 mg PO Q4H PRN Pain (Scale 02/15/23 08/01/23 History Score 1-3) albuterol sulfate 2.5 mg/3 mL 2.5 mg inhalation Q6H PRN sob 02/15/23 08/01/23 History (0.083 %) solution for nebulization ascorbic acid (vitamin C) 1,000 mg 1 g PO DAILY 02/15/23 08/01/23 History tablet aspirin 81 mg chewable tablet 81 mg PO DAILY 02/15/23 08/01/23 History (Katelyn Chewable Low Dose Aspirin) baclofen 5 mg tablet 5 mg PO BID 02/15/23 08/01/23 History clopidogrel 75 mg tablet 75 mg PO DAILY 02/15/23 08/01/23 History fluticasone propionate 50 1 spray intranasal BID 02/15/23 08/01/23 History mcg/actuation nasal spray,suspension gabapentin 100 mg capsule 100 mg PO TID 02/15/23 08/01/23 History heparin (porcine) 5,000 unit/mL 5,000 unit subcut Q8H 02/15/23 08/01/23 History injection solution loratadine 10 mg tablet (Claritin) 10 mg PO DAILY 02/15/23 08/01/23 History melatonin 3 mg tablet 3 mg PO HS Sleep 02/15/23 08/01/23 History [id number] 200 mcg-vit K 100 1 cap PO DAILY 02/15/23 08/01/23 History mcg-lycop 500 [id number] capsule (Daily Multivitamin) ondansetron 4 mg disintegrating 4 mg PO Q4H PRN Nausea 02/15/23 08/01/23 History tablet oxycodone 5 mg tablet 5 mg PO Q4H PRN Pain (Scale Score 02/15/23 08/01/23 History 4-6) paroxetine HCl 20 mg tablet 20 mg PO DAILY 02/15/23 08/01/23 History polyethylene glycol 3350 17 gram 17 g PO DAILY 02/15/23 08/01/23 History oral powder packet (Miralax) quetiapine 25 mg tablet 25 mg PO BID 02/15/23 08/01/23 History simvastatin 20 mg tablet 20 mg PO QHS 02/15/23 08/01/23 History zinc gluconate 50 mg tablet 50 mg PO DAILY 02/15/23 08/01/23 History midodrine 10 mg tablet 10 mg PO TID #90 tabs 02/26/23 08/01/23 Rx Silver Alginate 1 applic topical DAILY 08/01/23 08/01/23 History collagenase clostridium histo. 250 1 applic topical DAILY 08/01/23 08/01/23 History unit/gram topical ointment (Santyl) pantoprazole 20 mg tablet,delayed 20 mg PO QAM 08/01/23 08/01/23 History release sennosides 8.6 mg-docusate sodium 1 tab-cap PO BID 08/01/23 08/01/23 History 50 mg tablet (Senna Plus) Laboratory Tests 08/05/23 08/05/23 04:57 10:13 WBC 5.5 K/mm3 (4.5-10.0) RBC 3.52 L M/mm3 (4.6-6.20) Hgb 10.1 L g/dL (14.0-18.0) Hct 32.9 L % (42.0-52.0) MCV 93.5 fl (80-100) MCH 28.7 pg (26-34) MCHC 30.7 L g/dl (32-36) RDW 14.7 H % (11.5-14.5) Plt Count 176 k/mm3 (150-375) MPV 10.4 fl (7.4-10.4) Immature Gran % (Auto) 0.2 % (0-0.5) Neut % (Auto) 47.9 % (45.5-73.1) Lymph % (Auto) 33.3 % (18.3-44.2) [place] % (Auto) 6.9 % (2.6-8.5) Eos % (Auto) 11.5 H % (0-4.4) Baso % (Auto) 0.2 % (0.2-1.2) Lymph # (Auto) 1.82 K/mm3 (0.9-3.2) [place] # (Auto) 0.4 K/mm3 (0.1-0.6) Eos # (Auto) 0.6 H K/mm3 (0-0.3) Baso # (Auto) 0.0 K/mm3 (0.0-0.1) Abs Immat Gran (auto) 0.01 K/mm3 (0.00-0.031) Absolute Neuts (auto) 2.6 K/mm3 (1.3-6.7) Absolute Nucleated RBC 0.0 K/mm3 (0.0-0.012) Nucleated RBC % 0.0 % (0.0-0.2) ESR 85 H mm/hr
[2023-08-05] MEDS: GABAPENTIN 100 MG CAPSULE PO (16:30)
[2023-08-05] MEDS: MIDODRINE HCL 10 MG TABLET PO (16:30)
[2023-08-05] MEDS: BENZOCAINE/MENTHOL (*BKC) 18 EA LOZENGE 1 LOZENGE PO ×2 (16:31→23:42)
[2023-08-05] MEDS: PIPERACILLIN/TAZ 4.5G/NS 100ML 4.5 GM/100 ML BAG IVPB (21:27)
[2023-08-05] MEDS: SIMVASTATIN 20 MG TABLET PO (21:28)
[2023-08-05] MEDS: MELATONIN 3 MG TABLET PO (21:28)
[2023-08-06] MEDS: LACTATED RINGERS 1,000 ML 75 ML IV CONT (03:05)
[2023-08-06] MEDS: BENZOCAINE/MENTHOL (*BKC) 18 EA LOZENGE 1 LOZENGE PO ×3 (03:39→16:22)
[2023-08-06 04:09] VITALS: BP 135/78; PULSE 67; RESP 20; TEMP 36.3; O2SAT 99
[2023-08-06] MEDS: PIPERACILLIN/TAZ 4.5G/NS 100ML 4.5 GM/100 ML BAG IVPB ×4 (05:31→23:58)
[2023-08-06] MEDS: HEPARIN SODIUM 5,000 UNITS/ML VIAL 5000 UNITS SUB-Q ×3 (05:32→20:25)
[2023-08-06 05:37] LABS: Basophils Percent Auto 0.3 % (0.2-1.2); Eosinophils Absolute Auto 0.7 K/mm3 (0-0.3); Eosinophils Percent Auto 9.1 % (0-4.4); Hematocrit 31.5 % (42.0-52.0); Hemoglobin 10.4 g/dL (14.0-18.0); Immature Granulocyte Absolute 0.02 K/mm3 (0.00-0.031); Immature Granulocyte Percent A 0.3 % (0-0.5); Lymphocytes Absolute Auto 1.82 K/mm3 (0.9-3.2); Lymphocytes Percent Auto 23.8 % (18.3-44.2); Mean Corpuscular Hemoglobin 29.4 pg (26-34); Mean Platelet Volume 10.2 fl (7.4-10.4); Monocytes Absolute Auto 0.5 K/mm3 (0.1-0.6); Neutrophils Absolute Auto 4.6 K/mm3 (1.3-6.7); Neutrophils Percent Auto 59.5 % (45.5-73.1); Platelet Count Result 170 k/mm3 (150-375); Red Blood Count 3.54 M/mm3 (4.6-6.20); White Blood Count 7.7 K/mm3 (4.5-10.0)
[2023-08-06 05:54] LABS: Alanine Aminotransferase 15 U/L (6-50); Albumin Level 3.5 g/dL (3.5-5.1); Alkaline Phosphatase 61 U/L (38-126); Anion Gap 9 mmol/L (8-16); Aspartate Amino Transferase 30 U/L (17-59); Bilirubin,Total 1.5 mg/dL (0.2-1.3); Blood Urea Nitrogen 13 mg/dL (9-20); Carbon Dioxide 23 mmol/L (22-30); Chloride 101 mmol/L (98-107); Estimated CRCL calculation 67 ml/min; Estimated Glomerular Filt Rate > 60; Glucose 78 mg/dL (65-110); Magnesium 1.9 mg/dL (1.6-2.3); Potassium 3.6 mmol/L (3.4-5.0); Sodium 133 mmol/L (137-145)
--- NOTE | 2023-08-06 09:01 | WPDGIPROGNO ---
Progress Note: A&P Assessment and Plan (1) Ileus: Code(s): K56.7 - Ileus, unspecified Status: Acute Assessment and Plan: He has active bowel sounds today. I will advance his diet. From my perspective he can be discharged. (2) Abnormal CT scan, gastrointestinal tract: Code(s): R93.3 - Abnormal findings on diagnostic imaging of other parts of digestive tract Status: Acute Assessment and Plan: the CT scan findings included: Moderate esophagitis/gastritis. Small focus of possible gastric emphysema in the gastric fundus with irregularity of the gastric wall in this area and a small perisplenic fluid collection. Consider gastric perforation in the differential. I explained him that there is a possibility that he has a penetrating or perforated gastric ulcer. If the latter then it probably has sealed over. EGD done yesterday revealed severe focal gastritis in the fundus and an ulceration that did not appear to be deep enough to have Perforated. (3) Altered mental status: Code(s): R41.82 - Altered mental status, unspecified Status: Acute Assessment and Plan: He was confused on admission but is very lucid today, humerus, and recall my name at the in the interview. (4) Sacral decubitus ulcer, stage IV: Code(s): L89.154 - Pressure ulcer of sacral region, stage 4 Status: Chronic Assessment and Plan: This is chronic. He is currently on antibiotics. The antibiotics also will cover him in the event of a intra-abdominal infection. Plan EGD to be done today. I explained the patient that there is a potential for an asymptomatic gastric ulcer to be come more serious with more free air in the abdomen simply doing endoscopy. he understands at this point there is a possibility he would need surgery. He agrees to go ahead with the endoscopy to find out what the Heck is going on EGD results discussed with him. Focal gastritis with 1 ulcer unknown cause but probably due to the fact that he is always recumbent and taking medications they probably gris and in the fundus where they have caused some erosion . Biopsies are pending. H pylori is negative. Subjective Date/time seen: 08/06/23 09:01 he has no complaints today. He denies abdominal pain. He has not had a bowel movement. He is tolerating sips of water and is hungry. I told him we will advance his diet. Exam Const: General: cooperative and healthy appearing Orientation/consciousness: patient oriented x3 HENMT: Head: normal to inspection Ears: hearing grossly normal bilaterally Mouth: Yes Normal oral and palatal mucosa present Eyes: General: appearance normal, both eyes and all related structures Neck: Neck: normal visual inspection Chest: Chest palpation & inspection: normal inspection of the chest Resp: Effort & Inspection: normal respiratory effort Auscultation: clear to auscultation bilaterally Cardio: Rate: regular rate Rhythm: regular rhythm GI: Inspection: normal to inspection GI Palp: No abdominal tenderness, Yes Soft to palpation and No Guarding due to palpation present (GI) Auscultation: normal bowel sounds Skin: General skin exam: normal color and no jaundice Neuro: General: patient oriented x3 Speech: normal speech Extrem: Other: Bilateral above the knee amputation Objective Data Vital Signs Vital Signs: Vital Signs - 24 hr 08/05/23 11:57 08/05/23 13:40 08/05/23 13:47 Temperature 36.3 C L Pulse Rate 74 75 73 Respiratory Rate 20 18 13 Blood Pressure 130/77 86/43 L 107/64 Pulse Oximetry 100 100 98 Oxygen Delivery Room Air Room Air Room Air 08/05/23 14:22 08/05/23 20:15 08/06/23 04:09 Temperature 36.4 C 36.6 C 36.3 C L Pulse Rate 75 78 67 Respiratory Rate 17 20 20 Blood Pressure 112/67 135/75 135/78 Pulse Oximetry 100 98 99 Oxygen Delivery Intake/Output Intake/Output: Intake & Output 08/03/23 08/04/23 08/05/23 08/06/23
--- NOTE | 2023-08-06 09:06 | PM.IMPN ---
Progress Note: A&P Assessment and Plan (1) Abnormal CT scan, gastrointestinal tract: Code(s): R93.3 - Abnormal findings on diagnostic imaging of other parts of digestive tract Status: Acute Assessment and Plan: 08/05: Possible perforation the stomach due to ulcer. Gastroenterology consulted, plans EGD. 08/06: No evidence of current perforation on EGD, ulcer noted. Protonix ordered. IV abx continue. (2) Ileus: Code(s): K56.7 - Ileus, unspecified Status: Acute Assessment and Plan: 08/04: Ileus versus bowel obstruction. Intractable nausea and vomiting overnight. Enema given with multiple large stool balls removed. Imaging shows dilated bowel loops, CT scan ordered. NPO except medications. 08/06: No BM since enema. Clear liquid diet per GI today. (3) Altered mental status: Code(s): R41.82 - Altered mental status, unspecified Status: Acute Assessment and Plan: 08/01: prior TBI, patient now wakens to voice and answers questions appropriately. Suspect possible infection as cause of altered mental status. MRI appears chronic infarcts and chronic TBI findings but nothing acute appearing. 08/04: Patient has been having paranoid delusions which is consistent with his history of schizoaffective disorder. He is drowsy today status post IM Phenergan and multiple emesis episodes overnight. 08/05: Normal mental status awake alert interactive 08/06: Normal mental status awake alert interactive (4) Abnormal urinalysis: Code(s): R82.90 - Unspecified abnormal findings in urine Status: Acute Assessment and Plan: 08/01: Patient on IV antibiotics pending cultures. 08/03: Urine culture with mixed faina however patient is improving so we will continue antibiotics for 3-5 days (5) Sacral decubitus ulcer, stage IV: Code(s): L89.154 - Pressure ulcer of sacral region, stage 4 Status: Chronic Assessment and Plan: 08/01: Wound care per wound clinic staff, does not appear acutely infected. Small pressure ulcer noted back of head as well. (6) Heart failure with preserved ejection fraction: Qualifiers: Heart failure chronicity: chronic Qualified Code(s): I50.32 - Chronic diastolic (congestive) heart failure Code(s): I50.30 - Unspecified diastolic (congestive) heart failure Status: Acute Assessment and Plan: 2: No signs of acute fluid overload. 2: Continue to monitor closely after the initiation of IV fluids due to NPO status. Time Spent With Patient Time with patient: 25 - 35 minutes Subjective Date/time seen: 08/06/23 09:06 Interval history: 08/04: Patient had an episode intractable nausea and vomiting yesterday with imaging findings concerning for ileus verses obstruction. Patient made NPO and given IM Phenergan which seemed to help. This morning bowel sounds hypoactive to nearly absent. Patient is still drowsy from the Phenergan. Patient remains NPO except medications and we will obtain CT scan abdomen pelvis with IV contrast for further assessment possible bowel obstruction. If obstruction is likely we will insert NG tube and consult surgery. Otherwise we will keep patient NPO overnight again tonight. IV fluids ordered due to NPO status. Treatment otherwise continues as previous. 08/05: No further episodes nausea vomiting yesterday or overnight. CT abdomen pelvis was obtained for further evaluation ileus verses obstruction. Report was resulted after 9pm and showed possible perforation of stomach from ulcer. Overnight hospitalist was notified was continued NPO status and consult General surgery recommended consult Gastroenterology as patient's abdominal exam was benign. This morning upon evaluation patient's abdominal exam continues to be benign with no peritoneal signs. Patient is awake alert and interactive. No signs paranoid delusions at this time. He is very cognizant the plan of care Gastroenterology consult and EGD. 2
[2023-08-06] MEDS: LORATADINE 10 MG TABLET PO (09:57)
[2023-08-06] MEDS: PARoxetine 20 MG TABLET PO (09:57)
[2023-08-06] MEDS: GABAPENTIN 100 MG CAPSULE PO ×3 (09:57→16:22)
[2023-08-06] MEDS: PANTOPRAZOLE SODIUM IV 40 MG VIAL IV PUSH ×2 (09:57→20:25)
[2023-08-06] MEDS: MIDODRINE HCL 10 MG TABLET PO ×3 (09:57→16:22)
[2023-08-06] MEDS: CLOPIDOGREL BISULFATE 75 MG TABLET PO (09:57)
[2023-08-06 09:58] VITALS: RESP 20; O2SAT 99
[2023-08-06] MEDS: FLUTICASONE PROPIONATE 0.05% NA SPR 16 GM BTL (*BKC) 1 SPRAY NASAL ×2 (09:58→20:25)
[2023-08-06 14:57] VITALS: BP 142/86; PULSE 67; RESP 18; TEMP 36.7; O2SAT 99
[2023-08-06] MEDS: SIMVASTATIN 20 MG TABLET PO (20:24)
[2023-08-06] MEDS: MELATONIN 3 MG TABLET PO (20:25)
[2023-08-06 21:25] VITALS: BP 93/53; PULSE 67; RESP 18; TEMP 36.9; O2SAT 100
[2023-08-07] MEDS: HEPARIN SODIUM 5,000 UNITS/ML VIAL 5000 UNITS SUB-Q ×3 (05:24→20:38)
[2023-08-07] MEDS: PIPERACILLIN/TAZ 4.5G/NS 100ML 4.5 GM/100 ML BAG IVPB ×3 (05:24→17:40)
[2023-08-07 05:40] LABS: Basophils Percent Auto 0.3 % (0.2-1.2); Eosinophils Absolute Auto 0.7 K/mm3 (0-0.3); Eosinophils Percent Auto 4.8 % (0-4.4); Hematocrit 34.2 % (42.0-52.0); Immature Granulocyte Absolute 0.04 K/mm3 (0.00-0.031); Immature Granulocyte Percent A 0.3 % (0-0.5); Lymphocytes Percent Auto 11.1 % (18.3-44.2); Mean Corpuscular HGB Conc 32.2 g/dl (32-36); Mean Corpuscular Hemoglobin 29.1 pg (26-34); Mean Corpuscular Volume 90.5 fl (80-100); Mean Platelet Volume 10.1 fl (7.4-10.4); Monocytes Absolute Auto 0.7 K/mm3 (0.1-0.6); Monocytes Percent Auto 4.4 % (2.6-8.5); Neutrophils Absolute Auto 12.1 K/mm3 (1.3-6.7); Neutrophils Percent Auto 79.1 % (45.5-73.1); Platelet Count Result 174 k/mm3 (150-375); Red Blood Count 3.78 M/mm3 (4.6-6.20); Red Cell Distribution Width 14.4 % (11.5-14.5); White Blood Count 15.3 K/mm3 (4.5-10.0)
[2023-08-07 05:55] LABS: Alanine Aminotransferase 14 U/L (6-50); Albumin Level 3.4 g/dL (3.5-5.1); Alkaline Phosphatase 52 U/L (38-126); Anion Gap 8 mmol/L (8-16); Aspartate Amino Transferase 30 U/L (17-59); Bilirubin,Total 1.3 mg/dL (0.2-1.3); Blood Urea Nitrogen 12 mg/dL (9-20); Calcium 8.7 mg/dL (8.4-10.2); Carbon Dioxide 24 mmol/L (22-30); Chloride 105 mmol/L (98-107); Estimated CRCL calculation 60 ml/min; Estimated Glomerular Filt Rate > 60; Glucose 84 mg/dL (65-110); Potassium 3.2 mmol/L (3.4-5.0); Sodium 137 mmol/L (137-145)
[2023-08-07 06:00] VITALS: BP 120/63; PULSE 66; RESP 20; TEMP 36.2; O2SAT 96
[2023-08-07] MEDS: FLUTICASONE PROPIONATE 0.05% NA SPR 16 GM BTL (*BKC) 1 SPRAY NASAL ×2 (08:34→20:39)
[2023-08-07] MEDS: CLOPIDOGREL BISULFATE 75 MG TABLET PO (08:34)
[2023-08-07] MEDS: MIDODRINE HCL 10 MG TABLET PO ×3 (08:34→17:40)
[2023-08-07] MEDS: GABAPENTIN 100 MG CAPSULE PO ×3 (08:34→17:40)
[2023-08-07] MEDS: LORATADINE 10 MG TABLET PO (08:34)
[2023-08-07] MEDS: PARoxetine 20 MG TABLET PO (08:34)
[2023-08-07] MEDS: PANTOPRAZOLE SODIUM IV 40 MG VIAL IV PUSH (08:41)
--- NOTE | 2023-08-07 11:11 | PCNFU ---
Nutrition Follow-Up Complete: Increased nutrient needs related to altered skin integrity as evidenced by multiple pressure injuries Goal: PO intake 75% or greater for meals and supplements Patient is progressing towards goal. Pt current nutrition is Clear Liquids. Last recorded weight is 66.8 kg. Bowel Motility: +BM reported 2/4 Labs Reviewed:K 3.2, Alb 3.4,Hct 34.2, Hgb 11.0 Meds Noted:Protonix,Vit C, Plavix, MVI Skin: stage IV-sacral. Additional Notes: Patient consumed 100% of clear liquid diet. Nursing with going to speak with Hospitalist regarding diet advancement. Recommend adding [place] BID and Ensure compact BID for wound healing. Agree with diet orders. Monitor intake, wt, labs, skin. Follow up in 5 days.
--- NOTE | 2023-08-07 12:42 | PM.IMPN ---
Progress Note: A&P Assessment and Plan (1) Abnormal CT scan, gastrointestinal tract: Code(s): R93.3 - Abnormal findings on diagnostic imaging of other parts of digestive tract Status: Acute Assessment and Plan: 08/05: Possible perforation the stomach due to ulcer. Gastroenterology consulted, plans EGD. 08/06: No evidence of current perforation on EGD, ulcer noted. Protonix ordered. IV abx continue. 08/07: GI preformed EGD on 08/05, finding of gastritis no ulceration. Due to patient always in recumbent position. Diet advanced today- monitor if patient tolerates diet without issue. (2) Ileus: Code(s): K56.7 - Ileus, unspecified Status: Acute Assessment and Plan: 08/04: Ileus versus bowel obstruction. Intractable nausea and vomiting overnight. Enema given with multiple large stool balls removed. Imaging shows dilated bowel loops, CT scan ordered. NPO except medications. 08/06: No BM since enema. Clear liquid diet per GI today. 08/07: No BM charted today, patient is without abdominal discomfort/ distention. Active bowel sounds- Diet advanced- monitor for tolerating diet (3) Altered mental status: Code(s): R41.82 - Altered mental status, unspecified Status: Acute Assessment and Plan: 08/01: prior TBI, patient now wakens to voice and answers questions appropriately. Suspect possible infection as cause of altered mental status. MRI appears chronic infarcts and chronic TBI findings but nothing acute appearing. 08/04: Patient has been having paranoid delusions which is consistent with his history of schizoaffective disorder. He is drowsy today status post IM Phenergan and multiple emesis episodes overnight. 08/05: Normal mental status awake alert interactive 08/06: Normal mental status awake alert interactive 2: Alert and oriented today. Interactive (4) Abnormal urinalysis: Code(s): R82.90 - Unspecified abnormal findings in urine Status: Acute Assessment and Plan: 08/01: Patient on IV antibiotics pending cultures. 08/03: Urine culture with mixed faina however patient is improving so we will continue antibiotics for 3-5 days 08/07: IV zosyn cont. (5) Sacral decubitus ulcer, stage IV: Code(s): L89.154 - Pressure ulcer of sacral region, stage 4 Status: Chronic Assessment and Plan: 2/1: Wound care per wound clinic staff, does not appear acutely infected. Small pressure ulcer noted back of head as well. (6) Heart failure with preserved ejection fraction: Qualifiers: Heart failure chronicity: chronic Qualified Code(s): I50.32 - Chronic diastolic (congestive) heart failure Code(s): I50.30 - Unspecified diastolic (congestive) heart failure Status: Acute Assessment and Plan: 08/01: No signs of acute fluid overload. 08/04: Continue to monitor closely after the initiation of IV fluids due to NPO status. 08/07: IV fluids DC'd good PO intake. No signs of fluid overload. Time Spent With Patient Time with patient: 15 - 25 minutes Subjective Date/time seen: 08/07/23 0930 Interval history: 67 year old male seen today at bedside in interval assessment as he presented from [facility] for AMS his ER work up include, Chest x ray, CT head, CT pelvis with no acute finding and UA with possible UTI- Cultures show faina at this time. On 08/03 he had an overnight event of projectile vomiting- CT showed possible perforation of gastric ulcer. GI preformed EGD- found gastritis. GI note stated to increase diet, he was on clears this morning and will advance to soft and bite size. Continue to monitor that patient tolerates diet. Review of Systems Review of Systems: All systems reviewed & are unremarkable except as noted in HPI and below Exam Narrative: General: Chronically ill-appearing male supine in bed. Awake alert interactive and appropriate HEENT:?EOMI. Mucous membranes are moist. Poor dentition and dental hygien
[2023-08-07 17:40] VITALS: BP 119/65; PULSE 62; RESP 16; TEMP 36.2; O2SAT 100
[2023-08-07] MEDS: BENZOCAINE/MENTHOL (*BKC) 18 EA LOZENGE 1 LOZENGE PO (20:38)
[2023-08-07] MEDS: MELATONIN 3 MG TABLET PO (20:38)
[2023-08-07] MEDS: SIMVASTATIN 20 MG TABLET PO (20:38)
[2023-08-07 21:13] VITALS: BP 117/60; PULSE 65; RESP 16; TEMP 36.4; O2SAT 98
[2023-08-08] MEDS: PIPERACILLIN/TAZ 4.5G/NS 100ML 4.5 GM/100 ML BAG IVPB ×3 (00:03→11:47)
[2023-08-08] MEDS: HEPARIN SODIUM 5,000 UNITS/ML VIAL 5000 UNITS SUB-Q ×2 (05:13→13:46)
[2023-08-08 06:00] VITALS: BP 120/65; PULSE 67; RESP 16; TEMP 36.8; O2SAT 95
[2023-08-08 06:10] LABS: Basophils Percent Auto 0.3 % (0.2-1.2); Eosinophils Absolute Auto 0.7 K/mm3 (0-0.3); Eosinophils Percent Auto 6.2 % (0-4.4); Hematocrit 32.9 % (42.0-52.0); Hemoglobin 10.2 g/dL (14.0-18.0); Immature Granulocyte Absolute 0.04 K/mm3 (0.00-0.031); Immature Granulocyte Percent A 0.4 % (0-0.5); Lymphocytes Absolute Auto 1.83 K/mm3 (0.9-3.2); Lymphocytes Percent Auto 17.1 % (18.3-44.2); Mean Corpuscular Hemoglobin 28.9 pg (26-34); Mean Corpuscular Volume 93.2 fl (80-100); Mean Platelet Volume 10.6 fl (7.4-10.4); Monocytes Absolute Auto 0.5 K/mm3 (0.1-0.6); Monocytes Percent Auto 4.7 % (2.6-8.5); Neutrophils Absolute Auto 7.7 K/mm3 (1.3-6.7); Neutrophils Percent Auto 71.3 % (45.5-73.1); Platelet Count Result 164 k/mm3 (150-375); Red Blood Count 3.53 M/mm3 (4.6-6.20); Red Cell Distribution Width 14.6 % (11.5-14.5); White Blood Count 10.7 K/mm3 (4.5-10.0)
[2023-08-08 06:26] LABS: Alanine Aminotransferase 15 U/L (6-50); Albumin Level 3.1 g/dL (3.5-5.1); Alkaline Phosphatase 47 U/L (38-126); Anion Gap 11 mmol/L (8-16); Aspartate Amino Transferase 19 U/L (17-59); Blood Urea Nitrogen 9 mg/dL (9-20); Calcium 8.2 mg/dL (8.4-10.2); Carbon Dioxide 20 mmol/L (22-30); Chloride 104 mmol/L (98-107); Estimated CRCL calculation 58 ml/min; Estimated Glomerular Filt Rate > 60; Glucose 152 mg/dL (65-110); Magnesium 1.9 mg/dL (1.6-2.3); Potassium 2.7 mmol/L (3.4-5.0); Sodium 135 mmol/L (137-145)
[2023-08-08] MEDS: POTASSIUM CHLORIDE 20 MEQ ER TABLET 40 MEQ PO (06:35)
[2023-08-08] MEDS: PARoxetine 20 MG TABLET PO (09:19)
[2023-08-08] MEDS: GABAPENTIN 100 MG CAPSULE PO ×2 (09:20→13:47)
[2023-08-08] MEDS: LORATADINE 10 MG TABLET PO (09:20)
[2023-08-08] MEDS: CLOPIDOGREL BISULFATE 75 MG TABLET PO (09:20)
[2023-08-08] MEDS: PANTOPRAZOLE SOD SESQUIHYDRATE 20 MG TAB PO (09:20)
[2023-08-08] MEDS: MIDODRINE HCL 10 MG TABLET PO ×2 (09:20→13:47)
[2023-08-08] MEDS: FLUTICASONE PROPIONATE 0.05% NA SPR 16 GM BTL (*BKC) 1 SPRAY NASAL (09:21)
[2023-08-08] MEDS: POTASSIUM CHLORIDE INJ 40 MEQ in SODIUM CHLORIDE 0.9% IV 500 ML 130 MEQ IVPB (09:41)
[2023-08-08 14:00] VITALS: BP 105/66; PULSE 88; RESP 16; TEMP 37.2; O2SAT 98
--- NOTE | 2023-08-08 15:01 | PC.NURSE ---
On 08/08/23, the student, [Deborah Hernandez], provided care and [facility]. I have reviewed the student's documentation and agree with the findings.
[2023-08-08 16:30] LABS: Alanine Aminotransferase 13 U/L (6-50); Albumin Level 3.4 g/dL (3.5-5.1); Alkaline Phosphatase 46 U/L (38-126); Anion Gap 5 mmol/L (8-16); Aspartate Amino Transferase 26 U/L (17-59); Bilirubin,Total 1.2 mg/dL (0.2-1.3); Blood Urea Nitrogen 9 mg/dL (9-20); Calcium 8.2 mg/dL (8.4-10.2); Carbon Dioxide 25 mmol/L (22-30); Chloride 104 mmol/L (98-107); Estimated CRCL calculation 55 ml/min; Estimated Glomerular Filt Rate > 60; Glucose 114 mg/dL (65-110); Sodium 134 mmol/L (137-145)
--- NOTE | 2023-08-08 16:58 | PM.DS ---
DS: Admitting Diagnosis Discharge Date 08/08/23 Admitting Diagnosis AMS, UTI DS: Discharge Diagnosis Discharge Diagnosis (1) Abnormal CT scan, gastrointestinal tract: Code(s): R93.3 - Abnormal findings on diagnostic imaging of other parts of digestive tract Status: Acute Assessment and Plan: 08/05: Possible perforation the stomach due to ulcer. Gastroenterology consulted, plans EGD. 08/06: No evidence of current perforation on EGD, ulcer noted. Protonix ordered. IV abx continue. 08/07: GI preformed EGD on 08/05, finding of gastritis no ulceration. Due to patient always in recumbent position. Diet advanced today- monitor if patient tolerates diet without issue. 08/08: GI preformed EGD on 08/05, findings of gastritis, ulcer noted. Patient denies abdominal pain. Tolerated full diet well. OK to DC to ID per GI recommendations (2) Ileus: Code(s): K56.7 - Ileus, unspecified Status: Acute Assessment and Plan: 08/04: Ileus versus bowel obstruction. Intractable nausea and vomiting overnight. Enema given with multiple large stool balls removed. Imaging shows dilated bowel loops, CT scan ordered. NPO except medications. 08/06: No BM since enema. Clear liquid diet per GI today. 08/07: No BM charted today, patient is without abdominal discomfort/ distention. Active bowel sounds- Diet advanced- monitor for tolerating diet 08/08: GI preformed EGD. Pateint is without nausea or vomitting. Denies abdominal pain. Tolerating diet. OK to DC to ID facilty per GI reccomendations. (3) Altered mental status: Code(s): R41.82 - Altered mental status, unspecified Status: Acute Assessment and Plan: 08/01: prior TBI, patient now wakens to voice and answers questions appropriately. Suspect possible infection as cause of altered mental status. MRI appears chronic infarcts and chronic TBI findings but nothing acute appearing. 08/04: Patient has been having paranoid delusions which is consistent with his history of schizoaffective disorder. He is drowsy today status post IM Phenergan and multiple emesis episodes overnight. 08/05: Normal mental status awake alert interactive 08/06: Normal mental status awake alert interactive 08/07: Alert and oriented today. Interactive 08/08: Alert and oriented, pleasant affect. Able to recall event of this hospital admission. Will DC to ID facility (4) Abnormal urinalysis: Code(s): R82.90 - Unspecified abnormal findings in urine Status: Acute Assessment and Plan: 08/01: Patient on IV antibiotics pending cultures. 08/03: Urine culture with mixed faina however patient is improving so we will continue antibiotics for 3-5 days 08/07: IV zosyn cont. 08/08: Urine culture showed mixed faina, IV abx DC. No need for PO Abx at this time. Patient has chronic frank. Frank patent with no ongoing issues. Will DC to ID facility (5) Sacral decubitus ulcer, stage IV: Code(s): L89.154 - Pressure ulcer of sacral region, stage 4 Status: Chronic Assessment and Plan: 08/01: Wound care per wound clinic staff, does not appear acutely infected. Small pressure ulcer noted back of head as well. 08/08: No infection noted, area remains stable. Will DC to ID facility to continue care. (6) Heart failure with preserved ejection fraction: Qualifiers: Heart failure chronicity: chronic Qualified Code(s): I50.32 - Chronic diastolic (congestive) heart failure Code(s): I50.30 - Unspecified diastolic (congestive) heart failure Status: Acute Assessment and Plan: 08/01: No signs of acute fluid overload. 08/04: Continue to monitor closely after the initiation of IV fluids due to NPO status. 08/07: IV fluids DC'd good PO intake. No signs of fluid overload. 08/08: No signs of acute fluid overload. Denies pain, chest pain or SOB (7) Hypokalemia: Code(s): E87.6 - Hypokalemia Status: Acute Assessment and Plan: 08/08: Potassium level 2.9 this am, replaced wit
--- NOTE | 2023-08-09 07:31 | PCCCNOTE ---
08/08/23 1700 Several calls came in from [facility] regarding the doctor wanting to discharge the patient tonight. I called [facility] to confirm that pt is from there and is able to be discharged and come back tonight. Per Theresa she agreed. I called and spoke with patient's son, Song to notify him of the discharge. I brought packet up to [facility] and gave it to the charger tester.
== END 2023-08-08 18:40 | DRG 391 ==
LOC: ANHED 14:26 → ANH3MEDSUR 16:22 → ANH2MED 17:20
PROVIDERS: Emergency Medicine; Internal Medicine Gastroenterology; Nurse Practitioner; Physician Assistant; Admitting Provider Family Medicine; Emergency Provider Emergency Medicine; Visit Provider Nurse Practitioner Family
PROC: 0DJ08ZZ Inspection of Upper Intestinal Tract, Via Natural or Artificial Opening Endoscopic (ICD-10-PCS; CPT 43235; principal; 2023-08-05 14:30)
DX: K29.00 Acute gastritis without bleeding (principal); L89.154 Pressure ulcer of sacral region, stage 4; E46 Unspecified protein-calorie malnutrition; I50.32 Chronic diastolic (congestive) heart failure; Z68.1 Body mass index [BMI] 19.9 or less, adult; K56.7 Ileus, unspecified; M46.28 Osteomyelitis of vertebra, sacral and sacrococcygeal region; R41.82 Altered mental status, unspecified; F06.70 Mild neurocognitive disorder due to known physiological condition without behavioral disturbance; F25.9 Schizoaffective disorder, unspecified; K59.00 Constipation, unspecified; R11.2 Nausea with vomiting, unspecified; R82.90 Unspecified abnormal findings in urine; L89.819 Pressure ulcer of head, unspecified stage; I73.9 Peripheral vascular disease, unspecified; E87.6 Hypokalemia; S06.9XAS Unspecified intracranial injury with loss of consciousness status unknown, sequela; X95.9XXS Assault by unspecified firearm discharge, sequela; F41.9 Anxiety disorder, unspecified; K21.9 Gastro-esophageal reflux disease without esophagitis; Z79.82 Long term (current) use of aspirin; Z89.612 Acquired absence of left leg above knee; Z89.611 Acquired absence of right leg above knee; Z99.3 Dependence on wheelchair
CPT/HCPCS: 36415; 36600; 70450; 70553; 71045; 72193; 74018; 74177; 80048; 80053; 80202; 80307; 81001; 82140; 82607; 83036; 83605; 83735; 84145; 84443; 85025; 85027; 85610; 85652; 85730; 86140; 87040; 87081; 87086; 88305; 88342; 93005; 99285; A9270; A9577; C9113; J0692; J1644; J2405; J2543; J2550; J2704; J3370; J3480; J7030; J7040; J7120; Q9967

== ENCOUNTER 2023-09-03 15:19 | Emergency (ER) | payer MEDICARE, MEDICAID, SELFPAY ==
[2023-09-03] VITALS (23 sets, daily range): BP systolic 103–160; BP diastolic 66–90; PULSE 77–80; RESP 18–20; TEMP 36.6; O2SAT 91–100
--- NOTE | ~2023-09-03 | CT_ITS ---
EXAMINATION: CT brain wo con DATE: 09/03/2023 15:52 INDICATION: Fall with head injury TECHNIQUE: Computed tomography (CT) of the head was performed without intravenous contrast. Sagittal and coronal reconstructions were performed. The mA was adjusted according to patient size. Iterative reconstruction technique was employed. The dose-length product was 681.00 mGy-cm. COMPARISON: head CT dated 08/01/2023 and brain MR dated 08/02/2023 FINDINGS: No fracture. No acute intracranial hemorrhage, acute infarction or abnormal extra axial fluid collect ion. Moderate-sized regions of chronic encephalomalacia at the anterior left frontal and the left tem poral lobes which could be due to either chronic infarct or trauma. Additional relatively symmetric r egions of encephalomalacia involving the anterior basal ganglia, anterior limb of the internal capsul e and subinsular white matter, left more extensive than right consistent with chronic infarcts. There is ex vacuo dilation of the anterior horns of the left and right lateral ventricles. Orbits are norm al. Small left mastoid effusion. There is debris/cerumen at the bilateral external auditory canals. M inimal mucoperiosteal thickening the ethmoid sinuses. Intracranial calcified cerebral atherosclerosis is noted. IMPRESSION: 1. No fracture or acute intracranial process. 2. 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 3. Moderate-sized regions of encephalomalacia at the anterior inferior left frontal and temporal lobe s which could represent additional infarct but is also an distribution typical for traumatic brain in [facility]. Reviewed, dictated and finalized at location A. OR CONSTRUCTION PROJECT MANAGER IMPRESSION: 1. No fracture or acute intracranial process. 2. 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 3. Moderate-sized regions of encephalomalacia at the anterior inferior left fro ntal and temporal lobes which could represent additional infarct but is also an distribution typical for traumatic brain injury.
--- NOTE | ~2023-09-03 | XR_ITS ---
EXAMINATION: XR chest 1V INDICATION: Pain after fall TECHNIQUE: AP view of the chest is obtained. COMPARISON: 08/01/2023 FINDINGS: Cardiomegaly is noted. There is a small left pleural effusion. There are minimal associated airspace opacities of the left lung base. There is no pneumothorax. There are partially imaged walters es of cervicothoracic fusion. Osteoarthritis is noted in the shoulders. IMPRESSION: 1. Small left pleural effusion with associated left basilar airspace opacities, consistent with atele ctasis versus pneumonia. 2. Cardiomegaly. Reviewed, dictated and finalized at location L. BILITATION THERAPY TECHNICIAN IMPRESSION: 1. Small left pleural effusion with associated left basilar airspace opacities, consistent with atelectasis versus pneumonia. 2. Cardiomegaly.
--- NOTE | ~2023-09-03 | XR_ITS ---
EXAM: XR pelvis 1-2V DATE: 09/03/2023 16:04 HISTORY: fall;poor historian . COMPARISON: None available. FINDINGS: Severely decreased mineralization. No fracture or dislocation. No lytic or blastic lesion. Lumbar degenerative disc disease. Mild bilateral hip osteoarthritis. No erosion or periosteal change . The rectum is dilated to 8.2 cm by formed stool. IMPRESSION: No acute osseous finding in the pelvis. Possible fecal impaction. Reviewed, dictated and finalized at location K. E TANK TENDER
--- NOTE | ~2023-09-03 | XR_ITS ---
EXAM: XR shoulder LT min 2V DATE: 09/03/2023 16:04 HISTORY: trauma fall;poor historian . COMPARISON: None available. FINDINGS: Decreased mineralization. Acute mildly displaced left posterior seventh and eighth rib fra ctures. No lytic or blastic lesion. Moderate acromioclavicular and glenohumeral osteoarthritis. Super ior humeral head migration as can be seen with rotator cuff pathology. No erosion or periosteal walters e. Left basilar atelectasis/contusion and small effusion. IMPRESSION: No acute osseous finding in the right shoulder. Mildly displaced left posterior seventh a nd eighth rib fractures. Reviewed, dictated and finalized at location K. ALGEBRA TEACHER IMPRESSION: No acute osseous finding in the right shoulder. Mildly displaced le ft posterior seventh and eighth rib fractures.
--- NOTE | ~2023-09-03 | CT_ITS ---
EXAMINATION: CT cervical spine wo con DATE: 09/03/2023 15:52 INDICATION: Head injury TECHNIQUE: Computed tomography (CT) of the cervical spine was performed without intravenous contrast. The dose-length product (DLP) was 569.94 mGy-cm. Automated exposure control and iterative reconstruc tion technique were employed. COMPARISON: None FINDINGS: There are changes of posterior fusion from C1 through T2. Bone alignment is normal. There i s moderate loss of intervertebral disc space height at C5-6, C6-7, and C7-T1. There is multilevel sev ere facet joint osteoarthritis. There is transverse lucency in the body of C2 with slightly sclerotic margins. No significant surrounding prevertebral edema is identified. IMPRESSION: 1. Moderate to severe cervical spondylosis. 2. Transverse lucency in the body of C2 with mildly sclerotic margins without surrounding prevertebra l edema, suggestive of prior fracture. Reviewed, dictated and finalized at location L. E BOLT EQUALIZER IMPRESSION: 1. Moderate to severe cervical spondylosis. 2. Transverse lucency in the body of C2 with mildly sclerotic margins without s urrounding prevertebral edema, suggestive of prior fracture.
--- NOTE | 2023-09-03 15:40 | ED.FALL ---
HPI - Fall General Chief Complaint: Fall Stated Complaint: fall - blood thinners Time Seen by Provider: 09/03/23 15:30 History of Present Illness HPI Narrative: Patient is a 67-year-old male with history of chronic Gardiner, GERD, heart failure, peripheral artery disease, traumatic brain injury Here after a fall and head injury. Patient notes that he was sitting in a chair next to his bed at his facility eating breakfast when the tray hit his face and he fell backward out of the chair hitting the back of his head on the ground. He denies loss of consciousness. It does appear that he is on both heparin and Plavix. he is currently complaining of pain in the posterior aspect of his head as well as his left shoulder. Related Data Home Medications Medication Instructions Recorded Confirmed acetaminophen 325 mg tablet 650 mg PO Q4H PRN Pain (Scale 02/15/23 08/01/23 Score 1-3) albuterol sulfate 2.5 mg/3 mL 2.5 mg inhalation Q6H PRN sob 02/15/23 08/01/23 (0.083 %) solution for nebulization ascorbic acid (vitamin C) 1,000 mg 1 g PO DAILY 02/15/23 08/01/23 tablet clopidogrel 75 mg tablet 75 mg PO DAILY 02/15/23 08/01/23 fluticasone propionate 50 1 spray intranasal BID 02/15/23 08/01/23 mcg/actuation nasal spray,suspension gabapentin 100 mg capsule 100 mg PO TID 02/15/23 08/01/23 heparin (porcine) 5,000 unit/mL 5,000 unit subcut Q8H 02/15/23 08/01/23 injection solution loratadine 10 mg tablet (Claritin) 10 mg PO DAILY 02/15/23 08/01/23 melatonin 3 mg tablet 3 mg PO HS Sleep 02/15/23 08/01/23 [id number] 200 mcg-vit K 100 1 cap PO DAILY 02/15/23 08/01/23 mcg-lycop 500 [id number]-I99 capsule (Daily Multivitamin) ondansetron 4 mg disintegrating 4 mg PO Q4H PRN Nausea 02/15/23 08/01/23 tablet oxycodone 5 mg tablet 5 mg PO Q4H PRN Pain (Scale Score 08/18/23 02/01/24 4-6) paroxetine HCl 20 mg tablet 20 mg PO DAILY 02/15/23 08/01/23 polyethylene glycol 3350 17 gram 17 g PO DAILY 02/15/23 08/01/23 oral powder packet (Miralax) quetiapine 25 mg tablet 25 mg PO BID 02/15/23 08/01/23 simvastatin 20 mg tablet 20 mg PO QHS 02/15/23 08/01/23 zinc gluconate 50 mg tablet 50 mg PO DAILY 02/15/23 08/01/23 Silver Alginate 1 applic topical DAILY 08/01/23 08/01/23 collagenase clostridium histo. 250 1 applic topical DAILY 08/01/23 08/01/23 unit/gram topical ointment (Santyl) pantoprazole 20 mg tablet,delayed 20 mg PO QAM 08/01/23 08/01/23 release sennosides 8.6 mg-docusate sodium 1 tab-cap PO BID 08/01/23 08/01/23 50 mg tablet (Senna Plus) Allergies Allergy/AdvReac Type Severity Reaction Status Date / Time codeine Allergy Unknown Verified 09/03/23 15:30 lidocaine Allergy Unknown Verified 09/03/23 15:30 Review of Systems Review of Systems: All systems reviewed & are unremarkable except as noted in HPI and below PMFSH Past Medical History Medical History (Updated 09/03/23 @ 16:57 by Mariela Croft MD) Anxiety Chronic indwelling Gardiner catheter Gastroesophageal reflux disease Heart failure with preserved ejection fraction Echo 12/19 showed an EF of 55 to 65%. Hypokalemia Hypotension On midodrine. Mild cognitive impairment Osteomyelitis Peripheral arterial disease CT angiogram for 11/17/2022 showed occlusion of anterior tibial arteries bilaterally. 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 Family History Family History Other Family history unknown Social History Social History Social History: Recently moved to the area from a long-time care facility in [place]. Served in the during [place]. Denies alcohol, tobacco, illicit substance use. Healthcare power of data control clerk: Jose Enrique Barba, son.
[2023-09-03] MEDS: ACETAMINOPHEN 325 MG TABLET 650 MG PO (16:08)
[2023-09-03 19:27] LABS: Basophils Percent Auto 0.3 % (0.2-1.2); Eosinophils Absolute Auto 0.5 K/mm3 (0-0.3); Eosinophils Percent Auto 5.3 % (0-4.4); Hemoglobin 11.7 g/dL (14.0-18.0); Immature Granulocyte Absolute 0.03 K/mm3 (0.00-0.031); Immature Granulocyte Percent A 0.3 % (0-0.5); Lymphocytes Absolute Auto 2.07 K/mm3 (0.9-3.2); Lymphocytes Percent Auto 23.9 % (18.3-44.2); Mean Corpuscular HGB Conc 30.8 g/dl (32-36); Mean Corpuscular Hemoglobin 28.7 pg (26-34); Mean Corpuscular Volume 93.1 fl (80-100); Monocytes Absolute Auto 0.7 K/mm3 (0.1-0.6); Monocytes Percent Auto 8.1 % (2.6-8.5); Neutrophils Absolute Auto 5.4 K/mm3 (1.3-6.7); Neutrophils Percent Auto 62.1 % (45.5-73.1); Platelet Count Result 247 k/mm3 (150-375); Red Blood Count 4.08 M/mm3 (4.6-6.20); Red Cell Distribution Width 13.9 % (11.5-14.5); White Blood Count 8.7 K/mm3 (4.5-10.0)
[2023-09-03 19:37] LABS: Acetaminophen < 10 ug/mL (10-30); Alanine Aminotransferase 19 U/L (6-50); Albumin Level 3.8 g/dL (3.5-5.1); Alkaline Phosphatase 60 U/L (38-126); Anion Gap 7 mmol/L (8-16); Aspartate Amino Transferase 29 U/L (17-59); Bilirubin,Total 0.7 mg/dL (0.2-1.3); Blood Urea Nitrogen 27 mg/dL (9-20); Calcium 9.2 mg/dL (8.4-10.2); Carbon Dioxide 26 mmol/L (22-30); Chloride 101 mmol/L (98-107); Estimated Glomerular Filt Rate > 60; Ethanol < 10 mg/dL (<10); Glucose 114 mg/dL (65-110); Potassium 4.5 mmol/L (3.4-5.0); Salicylate < 1.0 mg/dL (2-20); Sodium 134 mmol/L (137-145)
[2023-09-03 20:03] LABS: Influenza A QL RT-PCR Negative (Negative); Influenza B QL RT-PCR Negative (Negative); RSV RNA, RT-PCR Negative (Negative); SARS-CoV-2 RNA PCR Negative (Negative)
[2023-09-03 20:34] LABS: Amphetamine Screen Urine Negative (Negative); Barbiturate Screen Urine Negative (Negative); Benzodiazepines Screen Urine Negative (Negative); Cannabinoid Screen Urine Negative (Negative); Cocaine Screen Urine Negative (Negative); Methadone Screen Urine Negative (Negative); Opiate Screen Urine Negative (Negative); Phencyclidine Screen Urine Negative (Negative)
--- NOTE | 2023-09-03 20:47 | PC.NURSE ---
At 1900 upon arrival of EMS to take patient back to facility, patient states to EMS he will kill himself if he goes back to that place . This RN spoke to patient and he states he wants to of old ago, but will kill himself if I go back to that place . Provider and charger made aware.
[2023-09-04 02:01] VITALS: BP 154/76; PULSE 68; RESP 15; O2SAT 99
--- NOTE | 2023-09-04 03:31 | PC.NURSE ---
[facility] continually telling me that EDP is in chart and not allowing me to chart medications. Medications verified with two RN's to be acetaminophen 650 and Colace 100mg. Administered at this time.
== END 2023-09-04 03:47 ==
PROVIDERS: Student in an Organized Health Care Education/Training Program; Emergency Provider Emergency Medicine
DX: S09.90XA Unspecified injury of head, initial encounter (principal); S22.42XA Multiple fractures of ribs, left side, initial encounter for closed fracture; R45.851 Suicidal ideations; Z11.52 Encounter for screening for COVID-19; I11.0 Hypertensive heart disease with heart failure; I50.9 Heart failure, unspecified; I73.9 Peripheral vascular disease, unspecified; K21.9 Gastro-esophageal reflux disease without esophagitis; G31.84 Mild cognitive impairment of uncertain or unknown etiology; F41.9 Anxiety disorder, unspecified; F25.9 Schizoaffective disorder, unspecified; Z87.820 Personal history of traumatic brain injury; Z89.612 Acquired absence of left leg above knee; Z89.611 Acquired absence of right leg above knee; Z79.899 Other long term (current) drug therapy; Z79.01 Long term (current) use of anticoagulants; G93.89 Other specified disorders of brain; M47.812 Spondylosis without myelopathy or radiculopathy, cervical region; R93.3 Abnormal findings on diagnostic imaging of other parts of digestive tract; W07.XXXA Fall from chair, initial encounter
CPT/HCPCS: 36415; 70450; 71045; 72125; 72170; 73030; 80053; 80307; 85025; 87637; 99284; A9270

== ENCOUNTER 2023-09-20 16:18 | Inpatient (IN) | payer MEDICARE, MEDICAID, SELFPAY ==
[2023-09-20] VITALS (18 sets, daily range): BP systolic 82–122; BP diastolic 44–67; PULSE 92–151; RESP 14–36; TEMP 36.7–38.8; O2SAT 92–98
--- NOTE | ~2023-09-20 | CT_ITS ---
EXAMINATION: CT abdomen pelvis w con INDICATION: GI bleed, coffee-ground emesis TECHNIQUE: Computed tomographic images of the abdomen and pelvis were obtained after the administrati on of 100 cc of Omnipaque 350 intravenous contrast. The dose-length product (DLP) was 945.08 mGy-cm. Automated exposure control and iterative reconstruction technique were employed. COMPARISON: 08/04/2023 FINDINGS: Minimal dependent atelectasis is present in the lung bases. The heart size is normal. Small nodule of the visualized lung bases likely reflect old granulomatous disease. There is moderate bila teral gynecomastia. Punctate calcifications in otherwise normal appearing liver and spleen likely rep resent healed granulomatous disease. The pancreas, gallbladder, and adrenal glands are normal. Right kidney stones measure up to 3 mm. There is cortical thinning of the kidneys. No pathologically enlarg ed abdominal or pelvic lymph nodes are identified. No free intraperitoneal gas or evidence of bowel o bstruction. A moderate volume of colonic stool is present. Gas in the urinary bladder likely reflects recent catheterization. Again noted is a sacral acute distress ulcer with erosions of the underlying sacrum, consistent with osteomyelitis. There is mild lumbar spondylosis. There are chronic lumbar co mpression fractures. IMPRESSION: 1. Constipation. Reviewed, dictated and finalized at location F. IMPRESSION: 1. Constipation.
--- NOTE | ~2023-09-20 | XR_ITS ---
EXAMINATION: XR chest PICC line DATE: 09/24/2023 13:12 INDICATION: Central line placement. TECHNIQUE: A single frontal view of the chest was obtained. COMPARISON: Chest single view 09/20/2023, CT abdomen and pelvis 09/20/2023 FINDINGS: There is mild atelectasis at left lung base. No pleural effusion or pneumothorax. The heart size is normal. There are changes of posterior fusion procedure in cervicothoracic spine. A left upp er extremity peripherally inserted central venous catheter (PICC) is seen with tip in proximal right atrium. IMPRESSION: 1. PICC tip in proximal right atrium. Reviewed, dictated and finalized at location E.
--- NOTE | ~2023-09-20 | XR_ITS ---
EXAMINATION: XR chest 1V portable INDICATION: Fever TECHNIQUE: Portable AP chest at 1722 hours COMPARISON: 09/03/2023 FINDINGS: Cardiomegaly is noted. There are persistent airspace opacities of the left lung base. No pl eural effusion or pneumothorax. There are partially imaged changes of cervicothoracic fusion. IMPRESSION: 1. Left basilar airspace opacity, consistent with atelectasis versus pneumonia. 2. Cardiomegaly. Reviewed, dictated and finalized at location F.
--- NOTE | 2023-09-20 16:26 | ECG_ITS ---
Measurements Intervals Prim Rate: 148 P: 65 ID: 151 QRS: 56 QRSD: 92 T: 71 QT: 273 QTc: 429 Interpretive Statements SINUS OR ECTOPIC ATRIAL TACHYCARDIA MISSING LEAD V3 VENTRICULAR PREMATURE COMPLEX CANNOT RULE OUT SEPTAL INFARCT, AGE INDETERMINATE BORDERLINE ST-T WAVE ABNORMALITY- HIGH LATERAL LEADS BASELINE ARTIFACT- I, AVR, AVL, V5-V6 ABNORMAL ECG COMPARED TO ECG 08/01/2023 13:54:21 SINUS OR ECTOPIC ATRIAL TACHYCARDIA NOW PRESENT Electronically Signed On 09-20-2023 20:07:40 CDT by Karthik Barbosa D.O.
[2023-09-20] MEDS: dilTIAZem HCl INJ 25 MG/5 ML VIAL (16:42)
[2023-09-20 16:43] LABS: Hematocrit 37.5 % (42.0-52.0); Mean Corpuscular Hemoglobin 28.9 pg (26-34); Mean Corpuscular Volume 90.4 fl (80-100); Mean Platelet Volume 10.2 fl (7.4-10.4); Platelet Count Result 162 k/mm3 (150-375); Red Blood Count 4.15 M/mm3 (4.6-6.20); Red Cell Distribution Width 14.4 % (11.5-14.5); White Blood Count 7.9 K/mm3 (4.5-10.0)
[2023-09-20] MEDS: ONDANSETRON INJ 4 MG/2 ML VIAL IV PUSH (16:52)
[2023-09-20] MEDS: dilTIAZem HCl INJ 25 MG/5 ML VIAL 5 MG IV PUSH (16:53)
[2023-09-20 16:54] LABS: INR 1.2; Prothrombin Time 15.5 Seconds (11.1-14.7)
[2023-09-20 16:55] LABS: Partial Thromboplastin Time 33.8 Seconds (22.3-36.8)
--- NOTE | 2023-09-20 16:57 | ED.GIBLEED ---
HPI - GI Bleed General Chief complaint: GI Bleed Stated complaint: gi bleed History of Present Illness HPI Narrative: This is a 67-year-old male, with recent history of gastritis and peptic ulcer, brought in by EMS from his [facility] for GI bleed, fever and tachycardia. EMS reports, nursing staff at the patient's [facility] reported he has been nauseous throughout the day with multiple episodes of coffee-ground emesis. On their arrival, the patient complained feeling cold. The patient was tachycardic with a systolic pressure in the 80s. IV fluids were started in route. The patient complains of dull buttock pain described as moderate to severe and nausea. Related Data Home Medications Medication Instructions Recorded Confirmed acetaminophen 325 mg tablet 650 mg PO Q4H PRN Pain (Scale 02/15/23 08/01/23 Score 1-3) albuterol sulfate 2.5 mg/3 mL 2.5 mg inhalation Q6H PRN sob 02/15/23 08/01/23 (0.083 %) solution for nebulization ascorbic acid (vitamin C) 1,000 mg 1 g PO DAILY 02/15/23 08/01/23 tablet clopidogrel 75 mg tablet 75 mg PO DAILY 02/15/23 08/01/23 fluticasone propionate 50 1 spray intranasal BID 02/15/23 08/01/23 mcg/actuation nasal spray,suspension gabapentin 100 mg capsule 100 mg PO TID 02/15/23 08/01/23 heparin (porcine) 5,000 unit/mL 5,000 unit subcut Q8H 02/15/23 08/01/23 injection solution loratadine 10 mg tablet (Claritin) 10 mg PO DAILY 02/15/23 08/01/23 melatonin 3 mg tablet 3 mg PO HS Sleep 02/15/23 08/01/23 luzhycty-oyb-XP 200 mcg-vit K 100 1 cap PO DAILY 02/15/23 08/01/23 mcg-lycop 500 [id number] capsule (Daily Multivitamin) ondansetron 4 mg disintegrating 4 mg PO Q4H PRN Nausea 02/15/23 08/01/23 tablet oxycodone 5 mg tablet 5 mg PO Q4H PRN Pain (Scale Score 02/15/23 08/01/23 4-6) paroxetine HCl 20 mg tablet 20 mg PO DAILY 02/15/23 08/01/23 polyethylene glycol 3350 17 gram 17 g PO DAILY 02/15/23 08/01/23 oral powder packet (Miralax) quetiapine 25 mg tablet 25 mg PO BID 02/15/23 08/01/23 simvastatin 20 mg tablet 20 mg PO QHS 02/15/23 08/01/23 zinc gluconate 50 mg tablet 50 mg PO DAILY 02/15/23 08/01/23 Silver Alginate 1 applic topical DAILY 08/01/23 08/01/23 collagenase clostridium histo. 250 1 applic topical DAILY 08/01/23 08/01/23 unit/gram topical ointment (Santyl) pantoprazole 20 mg tablet,delayed 20 mg PO QAM 08/01/23 08/01/23 release sennosides 8.6 mg-docusate sodium 1 tab-cap PO BID 08/01/23 08/01/23 50 mg tablet (Senna Plus) Allergies Allergy/AdvReac Type Severity Reaction Status Date / Time codeine Allergy Unknown Verified 09/20/23 16:23 lidocaine Allergy Unknown Verified 09/20/23 16:23 Review of Systems Review of Systems: CONSTITUTIONAL: Chills Denies fever, or sweats. CARDIOVASCULAR: Palpitations Denies chest pain, palpitations, or edema. RESPIRATORY: Denies cough or dyspnea. GASTROINTESTINAL: Buttock pain Denies abdominal pain, nausea, vomiting, or diarrhea. GENITOURINARY: Denies dysuria or hematuria. SKIN: Denies rash or itching. MUSCULOSKELETAL: Denies back pain, joint pain, or myalgia. NEUROLOGIC: Denies headache, numbness, dizziness, or weakness. PSYCHIATRIC: Denies anxiety or depression. [facility] Past Medical History Medical History Anxiety Chronic indwelling Gardiner catheter Gastroesophageal reflux disease Heart failure with preserved ejection fraction Echo 12/19 showed an EF of 55 to 65%. Hypokalemia Hypotension On midodrine. Mild cognitive impairment Osteomyelitis Peripheral arterial disease CT angiogram for 11/17/2022 showed occlusion of anterior tibial arteries bilaterally. 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 Family History Family History (Reviewed 09/20/23 @ 17:03 by Mg Mcdowell
[2023-09-20 16:58] LABS: Lactic Acid Reflex 3.3 mmol/L (0.7-2.0)
[2023-09-20] MEDS: PANTOPRAZOLE SODIUM IV 40 MG VIAL 80 MG IV PUSH (17:00)
[2023-09-20 17:01] LABS: Alanine Aminotransferase 17 U/L (6-50); Albumin Level 3.6 g/dL (3.5-5.1); Alkaline Phosphatase 72 U/L (38-126); Anion Gap 10 mmol/L (8-16); Aspartate Amino Transferase 29 U/L (17-59); Bilirubin,Total 0.8 mg/dL (0.2-1.3); Blood Urea Nitrogen 28 mg/dL (9-20); CRP 3.3 mg/dL (<1.0); Calcium 8.7 mg/dL (8.4-10.2); Carbon Dioxide 22 mmol/L (22-30); Chloride 106 mmol/L (98-107); Estimated Glomerular Filt Rate > 60; Glucose 75 mg/dL (65-110); Potassium 3.9 mmol/L (3.4-5.0); Sodium 138 mmol/L (137-145)
[2023-09-20] MEDS: PIPERACILLN/TAZ 3.375GM/NS50ML 3.375 GM/50 ML BAG IVPB (17:01)
[2023-09-20] MEDS: ACETAMINOPHEN 650 MG SUPPOSITORY RECTAL (17:02)
[2023-09-20] MEDS: LACTATED RINGERS 1,000 ML 999 ML IV CONT (17:08)
[2023-09-20 17:10] LABS: Bacteria Urine 4+ /hpf; RBC Urine >100 /hpf (0-2); Squamous Epithelial Cell Urine None Seen /hpf (Few); WBC Urine >100 /hpf (0-3)
[2023-09-20 17:15] LABS: Appearance Urine Turbid (Clear); Bilirubin Urine 1+ (Negative); Blood Urine 3+ (Negative); Glucose Urine UA Negative (Negative); Ketones Urine Negative (Negative); Leukocyte Esterase Ur 3+ LEU/UL (Negative); Nitrate Urine Negative (Negative); Protein Urine 2+ mg/dL (Negative); Specific Grav Ur 1.013 (1.001-1.035); Urobilinogen Urine 0.2 mg/dL (<2.0); pH Urine 5.5 (5.0-9.0)
[2023-09-20 17:20] LABS: Add Urine Microscopic? YES; Color Urine Red (Yellow)
[2023-09-20 17:26] LABS: Band Neutrophils Percent 9 % (0-6); Eosinophils Absolute Manual 0.15 K/mm3 (0.02-0.50); Eosinophils Percent Manual 2 % (0-4); Hypochromasia 1+; Lymphocytes Absolute Manual 0.39 K/mm3 (1.1-4.5); Neutrophils Absolute Manual 7.34 K/mm3 (1.3-6.7); Neutrophils Percent Manual 84 % (46-73); Platelet Estimate Adequate (Adequate); Schistocytes None Seen; Total Cells Counted 100
[2023-09-20] MEDS: VANCOMYCIN 1,750 MG/NS 500 ML 1,750 MG/500 ML BAG 250 MG IVPB (17:52)
--- NOTE | 2023-09-20 18:48 | PM.IMHP ---
H&P: HPI History of Present Illness Date/Time: 09/20/23 18:30 Chief Complaint: Coffee ground emesis. Narrative: This is a 67-year-old male with history of traumatic brain injury with cognitive impairment, congestive heart failure, peripheral arterial disease, schizoaffective disorder, anxiety, and osteomyelitis status post bilateral [id number] amputations who presented to the emergency department via EMS from [facility] for evaluation of coffee ground emesis. He is able to provide a fair history though some of the following is supplemented via a review of his electronic medical records. The patient is known to myself and the hospitalist service from an admission early last month at which time he had upper endoscopy per Dr. Sanchez for evaluation of an abnormal CT finding. EGD showed gastritis an unspecified gastric ulcer and he was told to avoid NSAIDs and continue taking pantoprazole. He has been doing okay in that regard until today when he developed nausea and reportedly had several episodes of coffee-ground emesis. He has absolutely no complaints at the time evaluation and denies headache, sinus congestion, sore throat, cough, chest pain, shortness of breath, epigastric and abdominal pain, current nausea, and diarrhea. In the ED: His temperature was 101.9? F on arrival. Blood pressure has been as low as 83/63 but has improved with IV fluids. Labs were significant for a WBC count of 7.6 with 9% bands on manual differential, hemoglobin 12.0, BUN 28, creatinine 1.00, lactic acid 3.3. Urine obtained from Gardiner catheter was turbid with 2+ protein, 3+ blood, 3+ leukocyte esterase, greater than 100 RBC and WBC, and 4+ bacteria. He tested negative for influenza, RSV, and COVID. Nasal MRSA was positive by PCR. Chest x-ray showed left basilar airspace opacity consistent with atelectasis versus pneumonia. CT of the abdomen and pelvis showed findings of constipation, minimal dependent atelectasis, and findings of osteomyelitis of a sacral ulcer which appears chronic. He was given a dose of Zosyn a L normal saline bolus and 80 mg IV pantoprazole he is being admitted in this setting for further treatment evaluation. Review of Systems Review of Systems: Twelve systems were reviewed and are negative except for as per HPI. [facility] Past Medical History Medical History (Updated 09/20/23 @ 23:36 by Daina Cho PA-C) Anxiety Chronic indwelling Gardiner catheter Chronic osteomyelitis of sacrum Gastric ulcer Gastroesophageal reflux disease Heart failure with preserved ejection fraction Echo 12/19 showed an EF of 55 to 65%. Hypotension On midodrine. Mild cognitive impairment Osteomyelitis Peripheral arterial disease CT angiogram for 11/17/2022 showed occlusion of anterior tibial arteries bilaterally. 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 Family History Family History Other Family history unknown Social History Social History Social History: Recently moved to the area from a long-time care facility in [place]. Served in the during [place]. Denies alcohol, tobacco, illicit substance use. Healthcare power of criminal defense attorney: Jose Enrique Barba, son. Code status: Full code. Smoking status: Never smoker Alcohol intake: unknown Substance use: unknown Substance use type: does not use Do You Feel Safe in your Home?: Yes Lack of Transportation: No Lack of Food: Never True Current Housing: I Have Housing Concerned About Future Housing: No Difficulty Paying Gas/Electric Bills: No Difficulty Paying for Meds: No Currently Unemployed: No Education: Bachelor's Degree Difficulty w/ Childcare or Fam
[2023-09-20 19:41] LABS: Reflex Lactic Acid Yes or No Add Lactic
[2023-09-20] MEDS: SODIUM CHLORIDE 0.9% IV 1,000 ML 999 ML IV CONT (20:19)
[2023-09-20 20:23] LABS: Lactic Acid 2.4 mmol/L (0.7-2.0)
[2023-09-20 20:32] LABS: Influenza A QL RT-PCR Negative (Negative); Influenza B QL RT-PCR Negative (Negative); RSV RNA, RT-PCR Negative (Negative); SARS-CoV-2 RNA PCR Negative (Negative)
--- NOTE | 2023-09-20 21:54 | ADMGEN ---
This patient, Jose Barba, was admitted to IMU Room 231-01. Patient/family oriented to hospital policies and general routines including ID bracelet, bed and alarms, visiting hours, pain management, procedures, bathroom and other care routines, personal items, smoking policy, room service/diet, and visiting hours. Information on how to activate the Rapid Response Team has been discussed. Patient/Family are encouraged to report perceived risks to care and to ask questions if they do not understand what they are told or what they should do.
[2023-09-20 22:27] LABS: Hematocrit 35.1 % (42.0-52.0); Hemoglobin 11.1 g/dL (14.0-18.0)
[2023-09-20 22:33] LABS: MRSA (PCR) DETECTED (NOT DETECTE)
[2023-09-21] VITALS (17 sets, daily range): BP systolic 72–100; BP diastolic 44–64; PULSE 78–102; RESP 16–28; TEMP 36.4–37.1; O2SAT 93–99
[2023-09-21] MEDS: SODIUM CHLORIDE 0.9% IV 1,000 ML 100 ML IV CONT (00:09)
[2023-09-21] MEDS: levoFLOXacin 750 MG/D5W 150 ML 750 MG/150 ML BAG 100 MG IVPB (01:30)
[2023-09-21 07:10] LABS: Hematocrit 31.9 % (42.0-52.0); Hemoglobin 10.2 g/dL (14.0-18.0)
[2023-09-21 07:21] LABS: Estimated Glomerular Filt Rate 60
[2023-09-21] MEDS: MUPIROCIN 2% OINT 22 GM TUBE 1 APPLIC EACH NARE ×2 (08:42→21:19)
[2023-09-21] MEDS: PANTOPRAZOLE SODIUM IV 40 MG VIAL IV PUSH ×2 (08:42→21:19)
--- NOTE | 2023-09-21 09:18 | PM.IMPN ---
Progress Note: A&P Assessment and Plan (1) Chronic osteomyelitis of sacrum: Code(s): M86.68 - Other chronic osteomyelitis, other site Status: Acute (2) MRSA carrier: Code(s): Z22.322 - Carrier or suspected carrier of Methicillin resistant Staphylococcus aureus Status: Acute (3) Complicated urinary tract infection: Code(s): N39.0 - Urinary tract infection, site not specified Status: Acute (4) Sepsis: Qualifiers: Sepsis acute organ dysfunction status: with acute organ dysfunction Sepsis type: sepsis due to unspecified organism Severe sepsis acute organ dysfunction type: unspecified Severe sepsis shock status: with septic shock Qualified Code(s): A41.9 - Sepsis, unspecified organism; R65.21 - Severe sepsis with septic shock Code(s): A41.9 - Sepsis, unspecified organism Status: Acute (5) Tachycardia: Code(s): R00.0 - Tachycardia, unspecified Status: Acute (6) Hematemesis: Qualifiers: Nausea presence: with nausea Qualified Code(s): K92.0 - Hematemesis Code(s): K92.0 - Hematemesis Status: Acute (7) Status post bilateral above knee amputation: Code(s): Z89.611 - Acquired absence of right leg above knee; Z89.612 - Acquired absence of left leg above knee Status: Acute (8) Gastroesophageal reflux disease: Code(s): K21.9 - Gastro-esophageal reflux disease without esophagitis Status: Acute (9) Hypertension: Code(s): I10 - Essential (primary) hypertension Status: Acute Plan 67-year-old male with a past medical history traumatic brain injury resultant cognitive impairment, peripheral artery disease, schizoaffective disorder, anxiety, osteomyelitis status post bilateral above knee amputations, chronic indwelling Gardiner catheter, chronic normocytic anemia, unspecified heart failure who resides at [facility] presents for evaluation of coffee-ground emesis. On the day of admission the patient developed nausea and several episodes of coffee-ground emesis. He had recent admission at [facility] and had an endoscopy which demonstrated gastritis gastric ulcer. Admitted on 09/20 for further eval and workup. Coffee-ground emesis with history of gastritis and gastric ulcer -GI has been consulted. His hemoglobin has been relatively stable and has not had further episodes of hemoptysis. -continue Protonix 40 mg IV q.a.m. -cycle hemoglobin levels Chronic normocytic anemia -relatively stable compared to his previous values. Check iron studies and ferritin. Chronic lumbar compression fractures -monitor Sacral ulcer with erosions consistent with osteomyelitis -this appears to be chronic. However with blood cultures on 09/19 demonstrating Gram-negative bacilli if the UTI is not concordant with this than the sacrum the likely source and the patient will need transfer to infectious disease consultants elsewhere. -wound care consulted UTI -complicated UTI due to swelling Gardiner catheter -Gardiner catheter change on 09/19 per nursing reports. Continue cefepime and vancomycin -follow-up urine cultures Sepsis -MRSA nares positive. Continue mupirocin and vancomycin until further sensitivities result -patient received fluid resuscitation in the ER and did ties them for tachycardia. Blood pressures are better and tachycardia resolved. -lactic acidosis downtrending. Continue to trend white count and procalcitonin Bacteremia -gram-negative bacilli. Levofloxacin has been changed to cefepime. continue vancomycin given his MRSA nares positive. Peripheral artery disease -start Plavix soon Unspecified heart failure -hold off on fluids for now. He received fluid resuscitation in the ER. He appears on the dry side FEN: Saline lock IV. NPO with ice chips pending GI consultation GI prophylaxis: Protonix 40 mg IV q.day DVT prophylaxis: Hold for now Lines: Peripheral IV, chronic indwelling Fol
[2023-09-21] MEDS: CEFEPIME 2 GM/NS 50 ML 2 GM/50 ML BAG IVPB ×2 (11:17→21:18)
[2023-09-21] MEDS: BENZOCAINE/MENTHOL (*BKC) 18 EA LOZENGE 1 LOZENGE PO ×7 (11:39→21:20)
--- NOTE | 2023-09-21 12:21 | WPDGICN ---
Assessment and Plan Assessment and plan (1) Coffee ground emesis: Code(s): K92.0 - Hematemesis Status: Acute Assessment and Plan: no more episodes and had normal BM EGD few weeks ago showed ulcerative gastritis continue with iv protonix twice daily ok to advance diet as tolerated, plan is EGD Saturday given presentation and previous history of gastric ulcer (did not required endoscopic intervention last time) monitor for more signs of bleeding (2) Gastritis: Code(s): K29.70 - Gastritis, unspecified, without bleeding Status: Acute Assessment and Plan: iv protonix egd saturday (3) Sepsis: Qualifiers: Sepsis acute organ dysfunction status: with acute organ dysfunction Sepsis type: sepsis due to unspecified organism Severe sepsis acute organ dysfunction type: unspecified Severe sepsis shock status: with septic shock Qualified Code(s): A41.9 - Sepsis, unspecified organism; R65.21 - Severe sepsis with septic shock Code(s): A41.9 - Sepsis, unspecified organism Status: Acute Assessment and Plan: on abx (4) Chronic anemia: Code(s): D64.9 - Anemia, unspecified Status: Acute Assessment and Plan: monitor (5) Chronic osteomyelitis of sacrum: Code(s): M86.68 - Other chronic osteomyelitis, other site Status: Acute (6) Complicated urinary tract infection: Code(s): N39.0 - Urinary tract infection, site not specified Status: Acute (7) Status post bilateral above knee amputation: Code(s): Z89.611 - Acquired absence of right leg above knee; Z89.612 - Acquired absence of left leg above knee Status: Acute (8) Psychiatric illness: Code(s): F99 - Mental disorder, not otherwise specified Status: Chronic (9) Schizoaffective disorder: Code(s): F25.9 - Schizoaffective disorder, unspecified Status: Acute GI Consult Note Consult date/time: 09/21/23 12:21 Reason for consult: coffee ground emesis, ulcerative gastritis HPI: Jose Barba is a 67 year old male with history of traumatic brain injury with cognitive impairment, congestive heart failure, peripheral arterial disease, schizoaffective disorder, and osteomyelitis status post bilateral [id number] amputations who presented to the emergency department via EMS from [facility] for evaluation of coffee ground emesis. He is not best historian. He was in the hospital 1.5 month ago and had EGD that showed ulcerative gastritis but no active bleeding, this was done by Dr Sanchez. He is here after new onset of nausea and several episodes of coffee-ground emesis. He already had 2 normal BM, no signs of melena and he is comfortable, no abdominal pain. ER evaluation had fever with temperature 101.9? F also low blood pressure 83/63 but improved since with treatment. Labs were significant for a WBC count of 7.6 with 9% bands, hemoglobin 12.0, BUN 28, creatinine 1.00, lactic acid 3.3. Urine obtained from Gardiner catheter was turbid with 2+ protein, 3+ blood, 3+ leukocyte esterase, greater than 100 RBC and WBC, and 4+ bacteria. He tested negative for influenza, RSV, and COVID. Nasal MRSA was positive by PCR. Chest x-ray showed left basilar airspace opacity consistent with atelectasis versus pneumonia. CT of the abdomen and pelvis showed findings of constipation, minimal dependent atelectasis, and findings of osteomyelitis of a sacral ulcer which appears chronic.? Started on iv protonix. Review of Systems Constitutional: Comments: fever Eyes: Eyes: Denies blurry vision ENT: Reports Normal hearing present Cardiovascular: Cardiovascular: Denies chest pain Respiratory: Respiratory: Denies dyspnea Gastrointestinal: Gastrointestinal: Reports nausea and Reports vomiting Musculoskeletal: Comments: h/o osteomyelitis Integumentary/Breasts: Skin/Breast: Reports rash Neurologic: Denies Abnormal speech present Psychiatric: Comments
[2023-09-21] MEDS: SODIUM CHLORIDE 0.9% IV 1,000 ML 500 ML IV CONT (13:42)
[2023-09-21] MEDS: FLUTICASONE PROPIONATE 0.05% NA SPR 16 GM BTL (*BKC) 1 SPRAY NASAL ×2 (13:44→21:24)
[2023-09-21] MEDS: MIDODRINE HCL 10 MG TABLET PO ×2 (13:44→16:45)
[2023-09-21] MEDS: GABAPENTIN 100 MG CAPSULE 200 MG PO ×2 (13:45→16:45)
[2023-09-21] MEDS: SENNA/DOCUSATE SODIUM TABLET 1 TAB PO (16:45)
[2023-09-21] MEDS: QUEtiapine FUMARATE 25 MG TABLET PO (16:45)
[2023-09-21 20:20] LABS: Hematocrit 31.7 % (42.0-52.0); Hemoglobin 10.2 g/dL (14.0-18.0)
[2023-09-21] MEDS: SIMVASTATIN 20 MG TABLET PO (21:20)
[2023-09-21] MEDS: MELATONIN 3 MG TABLET PO (21:20)
[2023-09-22] VITALS (12 sets, daily range): BP systolic 93–116; BP diastolic 50–78; PULSE 71–100; RESP 12–20; TEMP 36.2–37.1; O2SAT 95–99
[2023-09-22 05:32] LABS: Basophils Percent Auto 0.1 % (0.2-1.2); Eosinophils Absolute Auto 0.4 K/mm3 (0-0.3); Eosinophils Percent Auto 1.9 % (0-4.4); Hematocrit 31.9 % (42.0-52.0); Hemoglobin 9.9 g/dL (14.0-18.0); Immature Granulocyte Absolute 0.25 K/mm3 (0.00-0.031); Immature Granulocyte Percent A 1.2 % (0-0.5); Lymphocytes Absolute Auto 1.17 K/mm3 (0.9-3.2); Lymphocytes Percent Auto 5.7 % (18.3-44.2); Mean Corpuscular Hemoglobin 28.4 pg (26-34); Mean Corpuscular Volume 91.7 fl (80-100); Mean Platelet Volume 10.7 fl (7.4-10.4); Monocytes Absolute Auto 0.8 K/mm3 (0.1-0.6); Monocytes Percent Auto 3.8 % (2.6-8.5); Neutrophils Absolute Auto 17.9 K/mm3 (1.3-6.7); Neutrophils Percent Auto 87.3 % (45.5-73.1); Platelet Count Result 143 k/mm3 (150-375); Red Blood Count 3.48 M/mm3 (4.6-6.20); Red Cell Distribution Width 14.9 % (11.5-14.5); White Blood Count 20.5 K/mm3 (4.5-10.0)
[2023-09-22 05:46] LABS: Anion Gap 9 mmol/L (8-16); Blood Urea Nitrogen 24 mg/dL (9-20); Calcium 7.5 mg/dL (8.4-10.2); Carbon Dioxide 18 mmol/L (22-30); Chloride 103 mmol/L (98-107); Estimated Glomerular Filt Rate 60; Glucose 112 mg/dL (65-110); Lactic Acid Reflex 1.7 mmol/L (0.7-2.0); Magnesium 1.6 mg/dL (1.6-2.3); Potassium 3.1 mmol/L (3.4-5.0); Sodium 130 mmol/L (137-145)
[2023-09-22 05:51] LABS: Platelet Estimate Decreased (Adequate)
[2023-09-22 05:52] LABS: Anisocytosis 1+; Burr Cells 1+; Schistocytes None Seen
[2023-09-22 06:05] LABS: Iron 15 ug/dL (49-181)
[2023-09-22 06:22] LABS: Procalcitonin > 100.0 ng/mL
[2023-09-22] MEDS: VANCOMYCIN 1,250 MG/NS 250 ML 1,250 MG/250 ML BAG 166.67 MG IVPB (07:09)
[2023-09-22 08:01] LABS: Percent Iron Saturation 5 % (20-50)
[2023-09-22] MEDS: polyethylene glycoL 3350 17 GM POWD.PACK PO (10:23)
[2023-09-22] MEDS: PANTOPRAZOLE SODIUM IV 40 MG VIAL IV PUSH ×2 (10:23→20:49)
[2023-09-22] MEDS: GABAPENTIN 100 MG CAPSULE 200 MG PO ×3 (10:23→16:00)
[2023-09-22] MEDS: THERAPEUTIC MULTIVITAMINS/MINERALS TAB (*BKC) 1 TABLET PO (10:23)
[2023-09-22] MEDS: MIDODRINE HCL 10 MG TABLET PO ×3 (10:24→16:00)
[2023-09-22] MEDS: LORATADINE 10 MG TABLET PO (10:24)
[2023-09-22] MEDS: SENNA/DOCUSATE SODIUM TABLET 1 TAB PO ×2 (10:24→15:59)
[2023-09-22] MEDS: PARoxetine 20 MG TABLET PO (10:24)
[2023-09-22] MEDS: CLOPIDOGREL BISULFATE 75 MG TABLET PO (10:24)
[2023-09-22] MEDS: MUPIROCIN 2% OINT 22 GM TUBE 1 APPLIC EACH NARE ×2 (10:26→20:49)
[2023-09-22] MEDS: CEFEPIME 2 GM/NS 50 ML 2 GM/50 ML BAG IVPB ×2 (10:26→20:47)
[2023-09-22] MEDS: QUEtiapine FUMARATE 25 MG TABLET PO ×2 (10:26→16:00)
[2023-09-22] MEDS: FLUTICASONE PROPIONATE 0.05% NA SPR 16 GM BTL (*BKC) 1 SPRAY NASAL ×2 (10:27→20:49)
--- NOTE | 2023-09-22 10:45 | WPDGIPROGNO ---
Progress Note: A&P Assessment and Plan (1) Coffee ground emesis: Code(s): K92.0 - Hematemesis Status: Acute Assessment and Plan: no more gib, on protonix ppi egd in am, had gastritis with ulcers few weeks ago (2) Gastritis: Code(s): K29.70 - Gastritis, unspecified, without bleeding Status: Acute (3) Chronic anemia: Code(s): D64.9 - Anemia, unspecified Status: Acute (4) Chronic osteomyelitis of sacrum: Code(s): M86.68 - Other chronic osteomyelitis, other site Status: Acute Subjective Date/time seen: 09/22/23 10:45 Interval history: he is eating, no more report of n/v Review of Systems Review of Systems: All systems reviewed & are unremarkable except as noted in HPI and below Exam Const: General: comfortable and no acute distress HENMT: Face/Nose/Sinus: Normal nares present Eyes: Pupils: Equal, round and reactive pupils present Neck: Neck: supple Resp: Effort & Inspection: normal respiratory effort Auscultation: clear to auscultation bilaterally Cardio: Rate: regular rate Rhythm: regular rhythm GI: GI Palp: Yes Soft to palpation and No Tenderness to palpation present (GI) Auscultation: normal bowel sounds Skin: General skin exam: normal color Neuro: Speech: normal speech Extrem: General: no edema Other: No edema in his stumps Psych: Other: pleasant Objective Data Vital Signs Vital Signs: Vital Signs - 24 hr 09/21/23 12:00 09/21/23 12:00 09/21/23 14:00 Temperature 98.6 F Pulse Rate 85 88 87 Respiratory Rate 28 H Blood Pressure 86/58 L Pulse Oximetry 95 Oxygen Delivery 09/21/23 14:52 09/21/23 15:13 09/21/23 16:00 Temperature 98.2 F Pulse Rate 84 82 Respiratory Rate 20 Blood Pressure 92/64 L Pulse Oximetry 93 96 Oxygen Delivery Room Air 09/21/23 12:00 09/21/23 16:00 09/21/23 18:00 Temperature Pulse Rate 92 Respiratory Rate Blood Pressure Pulse Oximetry Oxygen Delivery Room Air Room Air 09/21/23 20:00 09/21/23 20:00 09/21/23 20:00 Temperature 98.1 F Pulse Rate 92 86 92 Respiratory Rate 16 16 Blood Pressure 91/61 L Pulse Oximetry 99 99 Oxygen Delivery Room Air 09/21/23 22:00 09/22/23 00:00 09/22/23 00:00 Temperature Pulse Rate 98 100 100 Respiratory Rate 16 Blood Pressure Pulse Oximetry 99 Oxygen Delivery Room Air 09/22/23 00:00 09/22/23 02:00 09/22/23 04:00 Temperature 97.8 F 98.8 F Pulse Rate 93 93 88 Respiratory Rate 12 20 Blood Pressure 93/50 L 96/50 L Pulse Oximetry 95 96 Oxygen Delivery 09/22/23 04:00 09/22/23 04:00 09/22/23 06:00 Temperature Pulse Rate 92 92 90 Respiratory Rate 20 Blood Pressure Pulse Oximetry 96 Oxygen Delivery Room Air 09/22/23 08:28 Temperature 98.8 F Pulse Rate 93 Respiratory Rate 20 Blood Pressure 98/64 L Pulse Oximetry 95 Oxygen Delivery Intake/Output Intake/Output: Intake & Output 09/19/23 09/20/23 09/21/23 09/22/23 23:59 23:59 23:59 23:59 Intake Total 1550 2430 1100 Output Total 950 800 Balance 1550 1480 300 Meds/Results Medications: Active Medications Generic Name Dose Route Start Last Admin Trade Name Freq PRN Reason Stop Dose Admin Benzocaine 1 lozenge 09/21/23 11:13 09/21/23 21:20 Benzocaine/Menthol (*Bkc) 18 Ea Lozenge PO 1 lozenge PRN PRN Administration Sore Throat Clopidogrel Bisulfate 75 mg 09/22/23 09:00 09/22/23 10:24 Clopidogrel Bisulfate 75 Mg Tablet PO 75 mg DAILY BAKARI Administration Fluticasone Propionate 1 spray 09/21/23 13:30 09/22/23 10:27 Fluticasone Propionate 0.05% Na Spr 16 Gm Btl (*Bkc) NASAL 1 spray Q12HR BAKARI Administration Gabapentin 200 mg 09/21/23 13:00 09/22/23 10:23 Gabapentin 100 Mg Capsule PO 200 mg TID BAKARI Administration Vancomycin HCl 1,250 mg in 250 mls @ 166.667 mls/hr 09/22/23 06:00 09/22/23 07:09 Vancomycin 1,250 Mg/Ns 250 Ml IVP
--- NOTE | 2023-09-22 12:45 | PM.IMPN ---
Progress Note: A&P Assessment and Plan (1) Chronic osteomyelitis of sacrum: Code(s): M86.68 - Other chronic osteomyelitis, other site Status: Acute (2) MRSA carrier: Code(s): Z22.322 - Carrier or suspected carrier of Methicillin resistant Staphylococcus aureus Status: Acute (3) Complicated urinary tract infection: Code(s): N39.0 - Urinary tract infection, site not specified Status: Acute (4) Sepsis: Qualifiers: Sepsis acute organ dysfunction status: with acute organ dysfunction Sepsis type: sepsis due to unspecified organism Severe sepsis acute organ dysfunction type: unspecified Severe sepsis shock status: with septic shock Qualified Code(s): A41.9 - Sepsis, unspecified organism; R65.21 - Severe sepsis with septic shock Code(s): A41.9 - Sepsis, unspecified organism Status: Acute (5) Tachycardia: Code(s): R00.0 - Tachycardia, unspecified Status: Acute (6) Hematemesis: Qualifiers: Nausea presence: with nausea Qualified Code(s): K92.0 - Hematemesis Code(s): K92.0 - Hematemesis Status: Acute (7) Status post bilateral above knee amputation: Code(s): Z89.611 - Acquired absence of right leg above knee; Z89.612 - Acquired absence of left leg above knee Status: Acute (8) Gastroesophageal reflux disease: Code(s): K21.9 - Gastro-esophageal reflux disease without esophagitis Status: Acute (9) Hypertension: Code(s): I10 - Essential (primary) hypertension Status: Acute Plan 67-year-old male with a past medical history traumatic brain injury resultant cognitive impairment, peripheral artery disease, schizoaffective disorder, anxiety, osteomyelitis status post bilateral above knee amputations, chronic indwelling Gardiner catheter, chronic normocytic anemia, unspecified heart failure who resides at [facility] presents for evaluation of coffee-ground emesis. On the day of admission the patient developed nausea and several episodes of coffee-ground emesis. He had recent admission at [facility] and had an endoscopy which demonstrated gastritis gastric ulcer. Admitted on 09/20 for further eval and workup. Coffee-ground emesis with history of gastritis and gastric ulcer -His hemoglobin has been relatively stable and has not had further episodes of hemoptysis. -continue Protonix 40 mg IV q.a.m. -GI consulted. Pending endoscopy Saturday Chronic normocytic anemia -relatively stable compared to his previous values. Iron studies suggestive of iron deficiency Chronic lumbar compression fractures -monitor Sacral ulcer with erosions consistent with osteomyelitis -this appears to be chronic. Blood cultures demonstrating Gram-negative bacilli. The most likely source of this is chronic sacral osteomyelitis. His sacral decubital ulcer appear superficially infected. Will treat as osteomyelitis. Continue IV cefepime and vancomycin. -blood cultures demonstrating Klebsiella pneumonia. Sensitivities -wound care consulted UTI -complicated UTI due to swelling Gardiner catheter -Gardiner catheter change on 09/19 per nursing reports. Continue cefepime and vancomycin -urine culture with mixed faina Sepsis -MRSA nares positive. Continue mupirocin and vancomycin until further sensitivities result -patient received fluid resuscitation in the ER and did ties them for tachycardia. Blood pressures are better and tachycardia resolved. -lactic acidosis downtrending. -procalcitonin greater than 100. This is likely due to his bacteremia Bacteremia -gram-negative bacilli. Levofloxacin has been changed to cefepime. continue vancomycin given his MRSA nares positive. Peripheral artery disease -continue Plavix Unspecified heart failure -hold off on fluids for now. He received fluid resuscitation in the ER. He appears on the dry side FEN: Saline lock IV. Diet per GI. NPO midnight for endoscopy GI prop
[2023-09-22] MEDS: MELATONIN 3 MG TABLET PO (20:48)
[2023-09-22] MEDS: SIMVASTATIN 20 MG TABLET PO (20:48)
[2023-09-23] VITALS (12 sets, daily range): BP systolic 99–116; BP diastolic 53–80; PULSE 67–86; RESP 14–23; TEMP 36.4–37.3; O2SAT 94–98; BMI 49.6
--- NOTE | 2023-09-23 04:52 | PC.NURSE ---
This patient, Jose Barba, was transferred to [facility] on 09/23/23 at 0445. Personal belongings sent with patient. Report given to Roxanne LIRIANO. Appropriate documentation sent with patient.
[2023-09-23 05:12] LABS: Basophils Percent Auto 0.3 % (0.2-1.2); Eosinophils Absolute Auto 0.7 K/mm3 (0-0.3); Eosinophils Percent Auto 4.9 % (0-4.4); Hematocrit 34.2 % (42.0-52.0); Hemoglobin 10.6 g/dL (14.0-18.0); Immature Granulocyte Absolute 0.16 K/mm3 (0.00-0.031); Immature Granulocyte Percent A 1.1 % (0-0.5); Lymphocytes Absolute Auto 1.14 K/mm3 (0.9-3.2); Lymphocytes Percent Auto 7.7 % (18.3-44.2); Mean Corpuscular Hemoglobin 28.3 pg (26-34); Mean Corpuscular Volume 91.4 fl (80-100); Mean Platelet Volume 10.8 fl (7.4-10.4); Monocytes Absolute Auto 0.7 K/mm3 (0.1-0.6); Monocytes Percent Auto 4.9 % (2.6-8.5); Neutrophils Percent Auto 81.1 % (45.5-73.1); Platelet Count Result 146 k/mm3 (150-375); Red Blood Count 3.74 M/mm3 (4.6-6.20); Red Cell Distribution Width 14.8 % (11.5-14.5); White Blood Count 14.8 K/mm3 (4.5-10.0)
[2023-09-23 05:26] LABS: Anion Gap 6 mmol/L (8-16); Blood Urea Nitrogen 19 mg/dL (9-20); Calcium 8.3 mg/dL (8.4-10.2); Carbon Dioxide 21 mmol/L (22-30); Chloride 107 mmol/L (98-107); Estimated Glomerular Filt Rate > 60; Glucose 80 mg/dL (65-110); Magnesium 1.9 mg/dL (1.6-2.3); Potassium 3.7 mmol/L (3.4-5.0); Sodium 134 mmol/L (137-145)
[2023-09-23 06:05] LABS: Procalcitonin 55.7 ng/mL
--- NOTE | 2023-09-23 07:49 | P.PNINF_ITS ---
Pharmacy ID Consult - Stewardship Interventions Type of Interventions: De-escalation Pharmacy ID Note: Subjective Pharmacy was consulted by Jakub Cho regarding infectious diseases for Jose Barba. Jose Barba is a 67 year old M with concerns regarding Osteomyelitis / Bacteremia 2/2 K. Pneumoniae. Background The patient is currently receiving Cefepime (day 3) and Vancomycin IV (day 4). The patient's PMH includes bilateral AKA and a chronic osteomyelitis. Additionally, cultures are as below. Microbiology 09/22/23 05:16 Blood Blood Culture - Preliminary 09/22/23 05:16 Blood Blood Culture - Preliminary 09/20/23 16:51 Blood Blood Culture - Preliminary Klebsiella pneumoniae 09/20/23 16:56 Urine Catheterized Urine Culture - Final 09/20/23 16:49 Blood Blood Culture - Final Klebsiella pneumoniae Laboratory Tests 09/20/23 17:37 Nasal MRSA (PCR) Detected A* Assessment/Recommendation/Discussion Spoke briefly with Yolanda Mills, current hospitalist for patient from consulting provider's service, regarding this patient. Goal will be to treat this osteomyelitis and appears that no complete source control nor culturing of infected tissue will occur. Likely will need senior care therapy and, per provider, will guide therapy towards the isolate in the blood culture. Given GNR, discontinue vancomycin as the MRSA PCR positivity has lower PPV. Will continue to follow and follow for culture results. Thank you for the interesting consult. Rashid Duvall, PharmD Infectious Disease/Antimicrobial Stewardship Pharmacist 09/23/23; 0749 WBC 14.8 K/mm3 (4.5-10.0) H 09/23/23 04:32 Creatinine 1.00 mg/dL (0.7-1.3) 09/23/23 04:32 Estim Creat Clear Calc Not Reportable 09/23/23 04:32
--- NOTE | 2023-09-23 07:56 | PC.NURSE ---
off floor for procedure.
[2023-09-23] MEDS: LACTATED RINGERS 1,000 ML 150 ML IV CONT (08:02)
--- NOTE | 2023-09-23 08:56 | WPDANESEPPF ---
Anes - Initial Pre Proc Eval Procedure: Operation Date: 09/23/23 15:30 Proposed Procedures p Esophagogastroduodenoscopy - Kenneth Ronquillo MD Date/Time: 09/23/23 08:56 Surgeon: Genie Bond MD Pre Op Diagnosis: GI Bleed Patient Data Age: 67 Gender: M Height: 1.22 m Weight: 73.7 kg Last Vital Signs Temp 97.5 F L 09/23/23 08:13 Pulse 78 09/23/23 08:13 Resp 18 09/23/23 08:13 BP 111/80 09/23/23 08:13 Pulse Ox 98 09/23/23 08:13 O2 Del Method Room Air 09/23/23 08:13 Allergies Allergy/AdvReac Type Severity Reaction Status Date / Time codeine Allergy Unknown Verified 09/20/23 16:23 lidocaine Allergy Unknown Verified 09/20/23 16:23 Home Medications Medication Instructions Recorded Confirmed Type acetaminophen 325 mg tablet 650 mg PO Q4H PRN Pain (Scale 02/15/23 09/20/23 History Score 1-3) albuterol sulfate 2.5 mg/3 mL 2.5 mg inhalation Q6H PRN sob 02/15/23 09/20/23 History (0.083 %) solution for nebulization ascorbic acid (vitamin C) 1,000 mg 1 g PO DAILY 02/15/23 09/20/23 History tablet clopidogrel 75 mg tablet 75 mg PO DAILY 02/15/23 09/20/23 History fluticasone propionate 50 1 spray intranasal Q12H 02/15/23 09/20/23 History mcg/actuation nasal spray,suspension gabapentin 100 mg capsule 200 mg PO TID 02/15/23 09/20/23 History heparin (porcine) 5,000 unit/mL 5,000 unit subcut Q8H 02/15/23 09/20/23 History injection solution loratadine 10 mg tablet (Claritin) 10 mg PO DAILY 02/15/23 09/20/23 History melatonin 3 mg tablet 3 mg PO HS Sleep 02/15/23 09/20/23 History [id number] 200 mcg-vit K 100 1 cap PO DAILY 02/15/23 09/20/23 History mcg-lycop 500 [id number] capsule (Daily Multivitamin) ondansetron 4 mg disintegrating 4 mg PO Q4H PRN Nausea 02/15/23 09/20/23 History tablet oxycodone 5 mg tablet 5 mg PO Q4H PRN Pain (Scale Score 02/15/23 09/20/23 History 4-6) paroxetine HCl 20 mg tablet 20 mg PO DAILY 02/15/23 09/20/23 History polyethylene glycol 3350 17 gram 17 g PO DAILY 02/15/23 09/20/23 History oral powder packet (Miralax) quetiapine 25 mg tablet 25 mg PO BID 02/15/23 09/20/23 History simvastatin 20 mg tablet 20 mg PO QHS 02/15/23 09/20/23 History zinc gluconate 50 mg tablet 50 mg PO DAILY 02/15/23 09/20/23 History Silver Alginate 1 applic topical DAILY 08/01/23 09/20/23 History collagenase clostridium histo. 250 1 applic topical DAILY 08/01/23 09/20/23 History unit/gram topical ointment (Santyl) pantoprazole 20 mg tablet,delayed 20 mg PO QAM 08/01/23 09/20/23 History release sennosides 8.6 mg-docusate sodium 1 tab-cap PO BID 08/01/23 09/20/23 History 50 mg tablet (Senna Plus) midodrine 10 mg tablet 10 mg PO Q8H 09/20/23 09/20/23 History Laboratory Tests 09/23/23 04:32 WBC 14.8 H K/mm3 (4.5-10.0) RBC 3.74 L M/mm3 (4.6-6.20) Hgb 10.6 L g/dL (14.0-18.0) Hct 34.2 L % (42.0-52.0) MCV 91.4 fl (80-100) MCH 28.3 pg (26-34) MCHC 31.0 L g/dl (32-36) RDW 14.8 H % (11.5-14.5) Plt Count 146 L k/mm3 (150-375) MPV 10.8 H fl (7.4-10.4) Immature Gran % (Auto) 1.1 H % (0-0.5) Neut % (Auto) 81.1 H % (45.5-73.1) Lymph % (Auto) 7.7 L % (18.3-44.2) Gentry % (Auto) 4.9 % (2.6-8.5) Eos % (Auto) 4.9 H % (0-4.4) Baso % (Auto) 0.3 % (0.2-1.2) Lymph # (Auto) 1.14 K/mm3 (0.9-3.2) Gentry # (Auto) 0.7 H K/mm3 (0.1-0.6) Eos # (Auto) 0.7 H K/mm3 (0-0.3) Baso # (Auto) 0.0 K/mm3 (0.0-0.1) Abs Immat Gran (auto) 0.16 H K/mm3 (0.00-0.031) Absolute Neuts (auto) 12.0 H K/mm3 (1.3-6.7) Absolute Nucleated RBC 0.000 K/mm3 (0.0-0.012) Nucleated RBC % 0.0 % (0.0-0.2) Sodium 134 L mmol/L (137-145) Potassium 3.7 mmol/L (3.4-5.0) Chloride 107 mmol/L (98-107) Carbon Dioxide 21 L mmol/L (22-30) Anion Gap 6 L mmol/L (8-16) BUN 19 mg/dL (9-20) Creatinine 1.00 mg/dL
--- NOTE | 2023-09-23 09:53 | PC.NURSE ---
pt back in room at this time.
[2023-09-23] MEDS: CEFEPIME 2 GM/NS 50 ML 2 GM/50 ML BAG IVPB (10:00)
[2023-09-23] MEDS: FLUTICASONE PROPIONATE 0.05% NA SPR 16 GM BTL (*BKC) 1 SPRAY NASAL ×2 (10:01→20:13)
[2023-09-23] MEDS: GABAPENTIN 100 MG CAPSULE 200 MG PO ×3 (10:01→16:26)
[2023-09-23] MEDS: MUPIROCIN 2% OINT 22 GM TUBE 1 APPLIC EACH NARE ×2 (10:01→20:14)
[2023-09-23] MEDS: SENNA/DOCUSATE SODIUM TABLET 1 TAB PO ×2 (10:01→16:26)
[2023-09-23] MEDS: QUEtiapine FUMARATE 25 MG TABLET PO ×2 (10:01→16:26)
[2023-09-23] MEDS: THERAPEUTIC MULTIVITAMINS/MINERALS TAB (*BKC) 1 TABLET PO (10:01)
[2023-09-23] MEDS: LORATADINE 10 MG TABLET PO (10:01)
[2023-09-23] MEDS: MIDODRINE HCL 10 MG TABLET PO ×3 (10:01→16:25)
[2023-09-23] MEDS: polyethylene glycoL 3350 17 GM POWD.PACK PO (10:02)
[2023-09-23] MEDS: PARoxetine 20 MG TABLET PO (10:02)
[2023-09-23] MEDS: CLOPIDOGREL BISULFATE 75 MG TABLET PO (10:02)
--- NOTE | 2023-09-23 16:24 | PM.IMPN ---
Progress Note: A&P Assessment and Plan (1) Chronic osteomyelitis of sacrum: Code(s): M86.68 - Other chronic osteomyelitis, other site Status: Acute (2) MRSA carrier: Code(s): Z22.322 - Carrier or suspected carrier of Methicillin resistant Staphylococcus aureus Status: Acute (3) Complicated urinary tract infection: Code(s): N39.0 - Urinary tract infection, site not specified Status: Acute (4) Sepsis: Qualifiers: Sepsis acute organ dysfunction status: with acute organ dysfunction Sepsis type: sepsis due to unspecified organism Severe sepsis acute organ dysfunction type: unspecified Severe sepsis shock status: with septic shock Qualified Code(s): A41.9 - Sepsis, unspecified organism; R65.21 - Severe sepsis with septic shock Code(s): A41.9 - Sepsis, unspecified organism Status: Acute (5) Tachycardia: Code(s): R00.0 - Tachycardia, unspecified Status: Acute (6) Hematemesis: Qualifiers: Nausea presence: with nausea Qualified Code(s): K92.0 - Hematemesis Code(s): K92.0 - Hematemesis Status: Acute (7) Status post bilateral above knee amputation: Code(s): Z89.611 - Acquired absence of right leg above knee; Z89.612 - Acquired absence of left leg above knee Status: Acute (8) Gastroesophageal reflux disease: Code(s): K21.9 - Gastro-esophageal reflux disease without esophagitis Status: Acute (9) Hypertension: Code(s): I10 - Essential (primary) hypertension Status: Acute Plan 67-year-old male with a past medical history traumatic brain injury resultant cognitive impairment, peripheral artery disease, schizoaffective disorder, anxiety, osteomyelitis status post bilateral above knee amputations, chronic indwelling Gardiner catheter, chronic normocytic anemia, unspecified heart failure who resides at [facility] presents for evaluation of coffee-ground emesis. On the day of admission the patient developed nausea and several episodes of coffee-ground emesis. He had recent admission at [facility] and had an endoscopy which demonstrated gastritis gastric ulcer. Admitted on 09/20 for further eval and workup. Coffee-ground emesis with history of gastritis and gastric ulcer -His hemoglobin has been relatively stable and has not had further episodes of hemoptysis. -continue Protonix 40 mg IV q.a.m. -GI consulted. Endoscopy on 09/22 demonstrating normal findings. Nothing further, continue to monitor. Chronic normocytic anemia -relatively stable compared to his previous values. Iron studies suggestive of iron deficiency Chronic lumbar compression fractures -monitor Sacral ulcer with erosions consistent with osteomyelitis -in January of 2023 patient had osteomyelitis of the bilateral lower extremities and sacral osteomyelitis. It was determined source control was achieved as the patient underwent bilateral AKA. On this admission CT scan demonstrating chronic osteomyelitis. Blood cultures demonstrating some negative bacilli with Klebsiella pneumonia essentially pansensitive. Since the only obvious source the osteomyelitis he will need full length treatment. Placement of PICC line prior to discharge. Discussion held with Dante the ID pharmacist and we have agreed on ceftriaxone at 2 g IV q.day. the length is yet to be determined however ID consultation and MRI further down the line can help to delineate. Cefepime and vancomycin have been discontinued. -repeat blood cultures on 09/21 so far negative. -wound care consulted UTI -complicated UTI due indwelling Gardiner catheter -Gardiner catheter change on 09/19 per nursing reports. -urine culture with mixed faina Sepsis without shock -MRSA nares positive. Continue mupirocin. -patient received fluid resuscitation in the ER. Hypotension and tachycardia improved. -lactic acidosis cleared. -procalcitonin greater than 100 although now downtrending.
[2023-09-23] MEDS: BENZOCAINE/MENTHOL (*BKC) 18 EA LOZENGE 1 LOZENGE PO (16:40)
[2023-09-23] MEDS: cefTRIAXone 2 GM/NS 100 ML 2 GM/100 ML BAG IVPB (20:11)
[2023-09-23] MEDS: SIMVASTATIN 20 MG TABLET PO (20:11)
[2023-09-23] MEDS: MELATONIN 3 MG TABLET PO (20:12)
[2023-09-24] MEDS: oxyCODONE HCL (*CRX) 5 MG TAB IR PO ×2 (00:05→09:46)
[2023-09-24] MEDS: BENZOCAINE/MENTHOL (*BKC) 18 EA LOZENGE 1 LOZENGE PO (00:06)
[2023-09-24 05:45] VITALS: BP 104/72; PULSE 86; RESP 18; TEMP 37.2; O2SAT 97
[2023-09-24 05:56] LABS: Basophils Percent Auto 0.2 % (0.2-1.2); Eosinophils Absolute Auto 0.6 K/mm3 (0-0.3); Eosinophils Percent Auto 6.5 % (0-4.4); Hematocrit 33.2 % (42.0-52.0); Hemoglobin 10.4 g/dL (14.0-18.0); Immature Granulocyte Absolute 0.04 K/mm3 (0.00-0.031); Immature Granulocyte Percent A 0.4 % (0-0.5); Lymphocytes Absolute Auto 1.61 K/mm3 (0.9-3.2); Lymphocytes Percent Auto 17.9 % (18.3-44.2); Mean Corpuscular HGB Conc 31.3 g/dl (32-36); Mean Corpuscular Hemoglobin 28.3 pg (26-34); Mean Corpuscular Volume 90.5 fl (80-100); Mean Platelet Volume 10.8 fl (7.4-10.4); Monocytes Absolute Auto 0.8 K/mm3 (0.1-0.6); Monocytes Percent Auto 9.1 % (2.6-8.5); Neutrophils Absolute Auto 5.9 K/mm3 (1.3-6.7); Neutrophils Percent Auto 65.9 % (45.5-73.1); Platelet Count Result 161 k/mm3 (150-375); Red Blood Count 3.67 M/mm3 (4.6-6.20); Red Cell Distribution Width 14.8 % (11.5-14.5)
[2023-09-24 06:09] LABS: Alanine Aminotransferase 15 U/L (6-50); Alkaline Phosphatase 49 U/L (38-126); Anion Gap 7 mmol/L (8-16); Aspartate Amino Transferase 20 U/L (17-59); Bilirubin,Total 0.7 mg/dL (0.2-1.3); Blood Urea Nitrogen 20 mg/dL (9-20); Calcium 8.4 mg/dL (8.4-10.2); Carbon Dioxide 22 mmol/L (22-30); Chloride 104 mmol/L (98-107); Estimated Glomerular Filt Rate > 60; Glucose 118 mg/dL (65-110); Magnesium 1.8 mg/dL (1.6-2.3); Potassium 3.3 mmol/L (3.4-5.0); Sodium 133 mmol/L (137-145)
[2023-09-24 07:16] LABS: Procalcitonin 29.1 ng/mL
[2023-09-24 09:36] LABS: Phosphorus 2.7 mg/dL (2.5-4.5)
[2023-09-24] MEDS: GABAPENTIN 100 MG CAPSULE 200 MG PO ×3 (09:38→16:41)
[2023-09-24] MEDS: SENNA/DOCUSATE SODIUM TABLET 1 TAB PO ×2 (09:38→16:41)
[2023-09-24] MEDS: THERAPEUTIC MULTIVITAMINS/MINERALS TAB (*BKC) 1 TABLET PO (09:39)
[2023-09-24] MEDS: POTASSIUM CHLORIDE 20 MEQ ER TABLET 40 MEQ PO (09:39)
[2023-09-24] MEDS: CLOPIDOGREL BISULFATE 75 MG TABLET PO (09:39)
[2023-09-24] MEDS: QUEtiapine FUMARATE 25 MG TABLET PO ×2 (09:39→16:40)
[2023-09-24] MEDS: MIDODRINE HCL 10 MG TABLET PO ×3 (09:39→16:40)
[2023-09-24] MEDS: LORATADINE 10 MG TABLET PO (09:39)
[2023-09-24] MEDS: PANTOPRAZOLE 40 MG TABLET PO (09:39)
[2023-09-24] MEDS: polyethylene glycoL 3350 17 GM POWD.PACK PO (09:39)
[2023-09-24] MEDS: PARoxetine 20 MG TABLET PO (09:39)
[2023-09-24] MEDS: MUPIROCIN 2% OINT 22 GM TUBE 1 APPLIC EACH NARE ×2 (09:41→21:48)
[2023-09-24] MEDS: FLUTICASONE PROPIONATE 0.05% NA SPR 16 GM BTL (*BKC) 1 SPRAY NASAL ×2 (09:42→21:47)
--- NOTE | 2023-09-24 10:58 | PHA.ABX.ID ---
Pharmacy ID Consult - Stewardship Interventions Type of Interventions: Discharge Recommendation Pharmacy ID Note: Spke briefly with provider Patient on Ceftriaxone 2g IV q24h for K pneumoniae BSI with presumptive source of sacral osteomyelitis. Plan is to do 6 weeks of treatment from September 21 ( 11/04/2023) per discussion with provider. Will sign off at this time. Rashid Duvall, PharmD Infectious Disease/Antimicrobial Stewardship Pharmacist 09/24/23; 1058 Subjective Pharmacy was consulted by Jakub Cho regarding infectious diseases for Jose Barba. Jose Barba is a 67 year old M with concerns regarding Osteomyelitis / Bacteremia 2/2 K. Pneumoniae. Background The patient is currently receiving Cefepime (day 3) and Vancomycin IV (day 4). The patient's PMH includes bilateral AKA and a chronic osteomyelitis. Additionally, cultures are as below. Microbiology 09/22/23 05:16 Blood Blood Culture - Preliminary 09/22/23 05:16 Blood Blood Culture - Preliminary 09/20/23 16:51 Blood Blood Culture - Preliminary Klebsiella pneumoniae 09/20/23 16:56 Urine Catheterized Urine Culture - Final 09/20/23 16:49 Blood Blood Culture - Final Klebsiella pneumoniae Laboratory Tests 09/20/23 17:37 Nasal MRSA (PCR) Detected A* Assessment/Recommendation/Discussion Spoke briefly with Yolanda Mills, current hospitalist for patient from consulting provider's service, regarding this patient. Goal will be to treat this osteomyelitis and appears that no complete source control nor culturing of infected tissue will occur. Likely will need long-term therapy and, per provider, will guide therapy towards the isolate in the blood culture. Given GNR, discontinue vancomycin as the MRSA PCR positivity has lower PPV. Will continue to follow and follow for culture results. Thank you for the interesting consult. WBC 9.0 K/mm3 (4.5-10.0) 09/24/23 05:44 Creatinine 1.00 mg/dL (0.7-1.3) 09/24/23 05:44 Estim Creat Clear Calc Not Reportable 09/24/23 05:44
--- NOTE | 2023-09-24 12:12 | PCCCNOTE ---
On 09/24/23, the student, [Sil Chamberlain], provided care and completed [facility] documentation on this patient. I have reviewed the student's documentation and agree with the findings.
[2023-09-24] MEDS: SODIUM CHLORIDE 0.9% XX (12:25)
[2023-09-24] MEDS: DIPHENHYDRAMINE HCL 50 MG XX (12:25)
--- NOTE | 2023-09-24 15:21 | PM.IMPN ---
Progress Note: A&P Assessment and Plan (1) Chronic osteomyelitis of sacrum: Code(s): M86.68 - Other chronic osteomyelitis, other site Status: Acute (2) MRSA carrier: Code(s): Z22.322 - Carrier or suspected carrier of Methicillin resistant Staphylococcus aureus Status: Acute (3) Complicated urinary tract infection: Code(s): N39.0 - Urinary tract infection, site not specified Status: Acute (4) Sepsis: Qualifiers: Sepsis acute organ dysfunction status: with acute organ dysfunction Sepsis type: sepsis due to unspecified organism Severe sepsis acute organ dysfunction type: unspecified Severe sepsis shock status: with septic shock Qualified Code(s): A41.9 - Sepsis, unspecified organism; R65.21 - Severe sepsis with septic shock Code(s): A41.9 - Sepsis, unspecified organism Status: Acute (5) Tachycardia: Code(s): R00.0 - Tachycardia, unspecified Status: Acute (6) Hematemesis: Qualifiers: Nausea presence: with nausea Qualified Code(s): K92.0 - Hematemesis Code(s): K92.0 - Hematemesis Status: Acute (7) Status post bilateral above knee amputation: Code(s): Z89.611 - Acquired absence of right leg above knee; Z89.612 - Acquired absence of left leg above knee Status: Acute (8) Gastroesophageal reflux disease: Code(s): K21.9 - Gastro-esophageal reflux disease without esophagitis Status: Acute (9) Hypertension: Code(s): I10 - Essential (primary) hypertension Status: Acute Plan 67-year-old male with a past medical history traumatic brain injury resultant cognitive impairment, peripheral artery disease, schizoaffective disorder, anxiety, osteomyelitis status post bilateral above knee amputations, chronic indwelling Gardiner catheter, chronic normocytic anemia, unspecified heart failure who resides at [facility] presents for evaluation of coffee-ground emesis. On the day of admission the patient developed nausea and several episodes of coffee-ground emesis. He had recent admission at [facility] and had an endoscopy which demonstrated gastritis gastric ulcer. Admitted on 09/20 for further eval and workup. Coffee-ground emesis with history of gastritis and gastric ulcer -His hemoglobin has been relatively stable and has not had further episodes of hemoptysis. -continue Protonix 40 mg IV q.a.m. -GI consulted. Endoscopy on 09/22 demonstrating normal findings. Nothing further, continue to monitor. Chronic normocytic anemia -relatively stable compared to his previous values -Iron studies suggestive of iron deficiency -IV Venofer 3 mg daily ordered for 3 days Chronic lumbar compression fractures -monitor Sacral ulcer with erosions consistent with osteomyelitis -in January of 2023 patient had osteomyelitis of the bilateral lower extremities and sacral osteomyelitis. It was determined source control was achieved as the patient underwent bilateral AKA. On this admission CT scan demonstrating chronic osteomyelitis. Blood cultures demonstrating some negative bacilli with Klebsiella pneumonia essentially pansensitive. Since the only obvious source the osteomyelitis he will need full length treatment. Placement of PICC line prior to discharge. Discussion held with Dante the ID pharmacist and we have agreed on ceftriaxone at 2 g IV q.day. the length is yet to be determined however ID consultation and MRI further down the line can help to delineate. Cefepime and vancomycin have been discontinued. -repeat blood cultures on 09/21 so far negative. -wound care consulted -PICC line placement ordered UTI -complicated UTI due indwelling Gardiner catheter -Gardiner catheter change on 09/19 per nursing reports. -urine culture with mixed faina Sepsis without shock -MRSA nares positive. Continue mupirocin. -patient received fluid resuscitation in the ER. Hypotension and tachycardia improved. -lactic acid
[2023-09-24 16:00] VITALS: BP 118/69; PULSE 85; RESP 18; TEMP 36.7; O2SAT 100
[2023-09-24] MEDS: IRON SUCROSE COMPLEX 300 MG in SODIUM CHLORIDE 0.9% IV 250 ML 177 MG IVPB (16:41)
[2023-09-24 21:39] VITALS: BP 118/60; PULSE 72; RESP 18; TEMP 36.6; O2SAT 94
[2023-09-24] MEDS: SIMVASTATIN 20 MG TABLET PO (21:45)
[2023-09-24] MEDS: MELATONIN 3 MG TABLET PO (21:45)
[2023-09-24] MEDS: cefTRIAXone 2 GM/NS 100 ML 2 GM/100 ML BAG IVPB (21:45)
[2023-09-24] MEDS: CENTRAL LINE FLUSH 10 ML IV PUSH (21:48)
[2023-09-25] MEDS: CENTRAL LINE FLUSH 10 ML IV PUSH ×2 (06:14→15:27)
[2023-09-25 06:23] LABS: Basophils Percent Auto 0.3 % (0.2-1.2); Eosinophils Absolute Auto 0.7 K/mm3 (0-0.3); Eosinophils Percent Auto 7.2 % (0-4.4); Hematocrit 32.9 % (42.0-52.0); Hemoglobin 10.4 g/dL (14.0-18.0); Immature Granulocyte Absolute 0.07 K/mm3 (0.00-0.031); Immature Granulocyte Percent A 0.7 % (0-0.5); Lymphocytes Absolute Auto 1.64 K/mm3 (0.9-3.2); Lymphocytes Percent Auto 17.5 % (18.3-44.2); Mean Corpuscular HGB Conc 31.6 g/dl (32-36); Mean Corpuscular Hemoglobin 28.7 pg (26-34); Mean Corpuscular Volume 90.6 fl (80-100); Mean Platelet Volume 10.5 fl (7.4-10.4); Monocytes Percent Auto 10.8 % (2.6-8.5); Neutrophils Absolute Auto 5.9 K/mm3 (1.3-6.7); Neutrophils Percent Auto 63.5 % (45.5-73.1); Platelet Count Result 156 k/mm3 (150-375); Red Blood Count 3.63 M/mm3 (4.6-6.20); Red Cell Distribution Width 14.9 % (11.5-14.5); White Blood Count 9.4 K/mm3 (4.5-10.0)
[2023-09-25 06:52] LABS: Anion Gap 5 mmol/L (4-12); Blood Urea Nitrogen 20 mg/dL (9-20); Calcium 8.3 mg/dL (8.4-10.2); Carbon Dioxide 26 mmol/L (22-30); Chloride 101 mmol/L (98-107); Estimated Glomerular Filt Rate > 60; Glucose 89 mg/dL (65-110); Sodium 132 mmol/L (137-145)
[2023-09-25 06:59] VITALS: BP 100/59; PULSE 78; RESP 16; TEMP 36.4; O2SAT 94
[2023-09-25] MEDS: IRON SUCROSE COMPLEX 300 MG in SODIUM CHLORIDE 0.9% IV 250 ML 177 MG IVPB (09:07)
[2023-09-25] MEDS: polyethylene glycoL 3350 17 GM POWD.PACK PO (09:10)
[2023-09-25] MEDS: QUEtiapine FUMARATE 25 MG TABLET PO (09:10)
[2023-09-25] MEDS: PANTOPRAZOLE 40 MG TABLET PO (09:10)
[2023-09-25] MEDS: THERAPEUTIC MULTIVITAMINS/MINERALS TAB (*BKC) 1 TABLET PO (09:10)
[2023-09-25] MEDS: PARoxetine 20 MG TABLET PO (09:10)
[2023-09-25] MEDS: MIDODRINE HCL 10 MG TABLET PO ×2 (09:10→14:16)
[2023-09-25] MEDS: CLOPIDOGREL BISULFATE 75 MG TABLET PO (09:10)
[2023-09-25] MEDS: SENNA/DOCUSATE SODIUM TABLET 1 TAB PO (09:10)
[2023-09-25] MEDS: LORATADINE 10 MG TABLET PO (09:10)
[2023-09-25] MEDS: GABAPENTIN 100 MG CAPSULE 200 MG PO ×2 (09:10→14:16)
[2023-09-25] MEDS: MUPIROCIN 2% OINT 22 GM TUBE 1 APPLIC EACH NARE (09:11)
[2023-09-25] MEDS: FLUTICASONE PROPIONATE 0.05% NA SPR 16 GM BTL (*BKC) 1 SPRAY NASAL (09:11)
[2023-09-25 14:32] LABS: SARS-CoV-2 RNA PCR Negative (Negative)
--- NOTE | 2023-09-25 14:35 | PM.DS ---
DS: Admitting Diagnosis Discharge Date 09/25/2023: Admitting Diagnosis (1) Sepsis: ?Qualifiers: ?Sepsis acute organ dysfunction status:?with acute organ dysfunction??Sepsis type:?sepsis due to unspecified organism??Severe sepsis acute organ dysfunction type:?unspecified??Severe sepsis shock status:?with septic shock? Qualified Code(s):?A41.9 - Sepsis, unspecified organism; R65.21 - Severe sepsis with septic shock ?Code(s): A41.9 - Sepsis, unspecified organism ?Status:?Acute (2) Complicated urinary tract infection: ?Code(s): N39.0 - Urinary tract infection, site not specified ?Status:?Acute (3) Hematemesis: ?Qualifiers: ?Nausea presence:?with nausea? Qualified Code(s):?K92.0 - Hematemesis ?Code(s): K92.0 - Hematemesis ?Status:?Acute (4) MRSA carrier: ?Code(s): Z22.322 - Carrier or suspected carrier of Methicillin resistant Staphylococcus aureus ?Status:?Acute (5) Chronic osteomyelitis of sacrum: ?Code(s): M86.68 - Other chronic osteomyelitis, other site ?Status:?Acute (6) Heart failure with preserved ejection fraction: ?Qualifiers: ?Heart failure chronicity:?chronic? Qualified Code(s):?I50.32 - Chronic diastolic (congestive) heart failure ?Code(s): I50.30 - Unspecified diastolic (congestive) heart failure ?Status:?Acute (7) Gastroesophageal reflux disease: ?Code(s): K21.9 - Gastro-esophageal reflux disease without esophagitis ?Status:?Acute (8) Psychiatric illness: ?Code(s): F99 - Mental disorder, not otherwise specified ?Status:?Chronic DS: Discharge Diagnosis Discharge Diagnosis (1) Chronic anemia: Code(s): D64.9 - Anemia, unspecified Status: Acute (2) Gastritis: Code(s): K29.70 - Gastritis, unspecified, without bleeding Status: Acute (3) Coffee ground emesis: Code(s): K92.0 - Hematemesis Status: Acute (4) Chronic osteomyelitis of sacrum: Code(s): M86.68 - Other chronic osteomyelitis, other site Status: Acute (5) MRSA carrier: Code(s): Z22.322 - Carrier or suspected carrier of Methicillin resistant Staphylococcus aureus Status: Acute (6) Complicated urinary tract infection: Code(s): N39.0 - Urinary tract infection, site not specified Status: Acute (7) Sepsis: Qualifiers: Sepsis acute organ dysfunction status: with acute organ dysfunction Sepsis type: sepsis due to unspecified organism Severe sepsis acute organ dysfunction type: unspecified Severe sepsis shock status: with septic shock Qualified Code(s): A41.9 - Sepsis, unspecified organism; R65.21 - Severe sepsis with septic shock Code(s): A41.9 - Sepsis, unspecified organism Status: Acute (8) Tachycardia: Code(s): R00.0 - Tachycardia, unspecified Status: Acute (9) Hematemesis: Qualifiers: Nausea presence: with nausea Qualified Code(s): K92.0 - Hematemesis Code(s): K92.0 - Hematemesis Status: Acute (10) Hypokalemia: Code(s): E87.6 - Hypokalemia Status: Acute (11) Abnormal CT scan, gastrointestinal tract: Code(s): R93.3 - Abnormal findings on diagnostic imaging of other parts of digestive tract Status: Acute (12) Ileus: Code(s): K56.7 - Ileus, unspecified Status: Acute (13) Altered mental status: Code(s): R41.82 - Altered mental status, unspecified Status: Acute (14) Status post bilateral above knee amputation: Code(s): Z89.611 - Acquired absence of right leg above knee; Z89.612 - Acquired absence of left leg above knee Status: Acute (15) Flexion contracture of joint of right lower leg: Code(s): M24.561 - Contracture, right knee Status: Chronic (16) Flexion contracture of joint of left lower leg: Code(s): M24.562 - Contracture, left knee Status: Chronic (17) Sacral decubitus ulcer, stage IV: Code(s):
[2023-09-25] MEDS: cefTRIAXone 2 GM/NS 100 ML 2 GM/100 ML BAG IVPB (15:22)
[2023-09-25 15:34] VITALS: BP 107/61; PULSE 80; RESP 16; TEMP 36.2; O2SAT 99
== END 2023-09-25 17:30 | DRG 871 ==
LOC: ANHED 18:51 → ANHIMU 20:44 → ANH2MED 09-23 04:47
PROVIDERS: General Practice; Internal Medicine Gastroenterology; Physician Assistant; Admitting Provider Internal Medicine; Emergency Provider Preventive Medicine Aerospace Medicine; Visit Provider Family Medicine
PROC: 0DJ08ZZ Inspection of Upper Intestinal Tract, Via Natural or Artificial Opening Endoscopic (ICD-10-PCS; CPT 43235; principal; 2023-09-23 15:30)
DX: A41.9 Sepsis, unspecified organism (principal); R65.21 Severe sepsis with septic shock; N39.0 Urinary tract infection, site not specified; T83.511A Infection and inflammatory reaction due to indwelling urethral catheter, initial encounter; I50.32 Chronic diastolic (congestive) heart failure; K92.0 Hematemesis; M86.68 Other chronic osteomyelitis, other site; Z22.322 Carrier or suspected carrier of Methicillin resistant Staphylococcus aureus; B96.1 Klebsiella pneumoniae [K. pneumoniae] as the cause of diseases classified elsewhere; D50.9 Iron deficiency anemia, unspecified; E87.5 Hyperkalemia; K21.9 Gastro-esophageal reflux disease without esophagitis; F25.9 Schizoaffective disorder, unspecified; F41.9 Anxiety disorder, unspecified; I73.9 Peripheral vascular disease, unspecified; I95.9 Hypotension, unspecified; K59.00 Constipation, unspecified; K29.70 Gastritis, unspecified, without bleeding; Z11.52 Encounter for screening for COVID-19; Z79.02 Long term (current) use of antithrombotics/antiplatelets; Z87.820 Personal history of traumatic brain injury; Z89.612 Acquired absence of left leg above knee; Z89.611 Acquired absence of right leg above knee; Z79.01 Long term (current) use of anticoagulants
CPT/HCPCS: 36415; 36569; 71045; 74177; 80048; 80053; 81001; 82565; 82728; 83540; 83550; 83605; 83735; 84100; 84145; 85014; 85018; 85025; 85610; 85730; 86140; 86850; 86900; 86901; 87040; 87077; 87086; 87088; 87186; 87635; 87637; 87641; 93005; 96365; 96366; 96367; 96375; 99285; A9270; C9113; G0378; J0692; J0696; J1756; J1956; J2405; J2543; J2704; J3370; J7030; J7050; J7120; Q9967

== ENCOUNTER 2023-12-07 18:16 | Inpatient (IN) | payer OTHER, SELFPAY ==
[2023-12-07] VITALS (39 sets, daily range): BP systolic 70–200; BP diastolic 40–185; PULSE 84–157; RESP 16–41; TEMP 37.2–37.3; O2SAT 91–100
--- NOTE | ~2023-12-07 | CT_ITS ---
EXAMINATION: CT abdomen pelvis wo con DATE: 12/08/2023 02:21 INDICATION: Constipation. Sepsis. TECHNIQUE: Computed tomography (CT) of the abdomen and pelvis was performed without intravenous contr ast. The dose-length product was 1128.54 mGy-cm. Automated exposure control and iterative reconstruct ion technique were employed. COMPARISON: CT dated 12/07/2023. FINDINGS: Mild diffuse subcutaneous edema. There is dependent atelectasis. Cardiomegaly. There is ath erosclerosis of the aorta and coronary arteries. There are gallstones. There is fecal impaction of th e rectum. Gardiner catheter present in the bladder. There are decubitus ulcers of the sacrum and fascia. Nonobstructive bowel gas pattern. There are chronic compression fractures of L1-L5. IMPRESSION: 1. Cholelithiasis. 2: Fecal impaction of the rectum. 3: Bibasilar dependent atelectasis. Consider superimposed pneumonia in the appropriate clinical sett ing. Reviewed, dictated and finalized at location B. IMPRESSION: 1. Cholelithiasis. 2: Fecal impaction of the rectum. 3: Bibasilar dependent atelectasis. Consider superimposed pneumonia in the judy ropriate clinical setting.
--- NOTE | ~2023-12-07 | CT_ITS ---
EXAMINATION: CT abdomen pelvis w con DATE: 12/07/2023 20:19 INDICATION: Lower abdominal pain and constipation. TECHNIQUE: Computed tomography (CT) of the abdomen and pelvis was performed with 100 cc Omnipaque 350 intravenous contrast. The dose-length product was 917.72 mGy-cm. Automated exposure control and iter ative reconstruction technique were employed. COMPARISON: CT dated 09/20/2023. FINDINGS: There is bilateral lower lobe atelectasis. Borderline heart size. No significant pleural or pericardial effusion. Small hiatal hernia. There are nonobstructing right renal stones. There is dependent high density mat erial in the gallbladder which may represent sludge or stones. There is fatty infiltration of the shlomo er. There are calcified granulomas of the spleen. Nonobstructive bowel gas pattern. Moderate colonic fecal loading of the distal colon and rectum. Gardiner catheter present with the catheter balloon inflat ed in the urethra. There is moderate-severe osteoarthritis of the hips. There are chronic compression fractures of the superior endplates L1, L2 and L5. There is a new compression fracture of L4 at the superior endplate. IMPRESSION: 1. Gardiner catheter balloon inflated in the urethra. Recommend repositioning. 2: Nonobstructing right nephrolithiasis. 3: New age-indeterminate compression fracture of L4 involving the superior endplate. This is new comp ared with CT dated 09/20/2023. 4: Nonobstructing right nephrolithiasis. 5: High density dependent material in the gallbladder lumen which may represent sludge or stones. Reviewed, dictated and finalized at location B. IMPRESSION: 1. Gardiner catheter balloon inflated in the urethra. Recommend repositioning. 2: Nonobstructing right nephrolithiasis. 3: New age-indeterminate compression fracture of L4 involving the superior endp late. This is new compared with CT dated 09/20/2023. 4: Nonobstructing right nephrolithiasis. 5: High density dependent material in the gallbladder lumen which may represent sludge or stones.
--- NOTE | ~2023-12-07 | XR_ITS ---
XR chest 1V portable 12/07/2023 18:50 Indication: PICC line placement Procedure: AP portable chest Comparison: Comparison to multiple prior studies sequentially, with oldest reviewed study dated 07/2023. Findings: PICC line tip in the SVC. Cardiomegaly. No focal air space disease, pulmonary edema, pleura l effusion or suspected pneumothorax. There are surgical changes consistent with fusion of the cervic al spine and cervicothoracic junction. Impression: 1: PICC line tip in the SVC. Reviewed, dictated and finalized at location B. Impression: 1: PICC line tip in the SVC.
--- NOTE | ~2023-12-07 | XR_ITS ---
XR chest 2V 12/12/2023 13:41 Indication: Shortness of breath. MRSA. Procedure: AP and lateral views of the chest Comparison: Comparison to multiple prior studies sequentially, with oldest reviewed study dated 10/2023. Findings: Lateral view is inadequate. Heart size normal. Left basilar infiltrates may represent atele ctasis or pneumonia. No significant effusion. No edema. No pneumothorax. Impression: 1: Left basilar infiltrates may represent atelectasis or developing pneumonia. Reviewed, dictated and finalized at location B. Impression: 1: Left basilar infiltrates may represent atelectasis or developing pneumonia.
--- NOTE | 2023-12-07 18:37 | ED.ABDPAIN ---
HPI - Abdominal Pain General Chief Complaint: Abdominal Pain <MARZENA Zimmer Last Filed: 12/09/23 14:00> Stated Complaint: abd pain/constipation <MARZENA Zimmer Last Filed: 12/09/23 14:00> Time Seen by Provider: 12/07/23 18:20 <MARZENA Zimmer Last Filed: 12/09/23 14:00> Source: patient <MARZENA Zimmer Last Filed: 12/09/23 14:00> Mode of arrival: EMS <MARZENA Zimmer Last Filed: 12/09/23 14:00> Limitations: no limitations <MARZENA Zimmer Last Filed: 12/09/23 14:00> History of Present Illness HPI narrative: Patient is a 67 y/o male, with PMH of bilateral BKA, CHF, sacral osteomyelitis, TBI, cognitive impairment, schizoaffective disorder, who presents to the ED via EMS with report of rectal pain and constipation. Patient reports he has been constipated for the past 4-5 days. He states he has a baseball sized piece of stool that is trying to come out. He c/o pain to his butthole and is demanding numbing cream for his butthole. He does also report pain throughout his lower abdomen. Denies N/V, fevers, difficulty urinating. Has indwelling Gardiner catheter. <MARZENA Zimmer Last Filed: 12/09/23 14:00> Related Data Home Medications: Home Medications Medication Instructions Recorded Confirmed acetaminophen 325 mg tablet 650 mg PO Q4H PRN Pain (Scale 02/15/23 12/08/23 Score 1-3) albuterol sulfate 2.5 mg/3 mL 2.5 mg inhalation Q6H PRN sob 02/15/23 12/08/23 (0.083 %) solution for nebulization ascorbic acid (vitamin C) 1,000 mg 1 g PO DAILY 02/15/23 12/08/23 tablet clopidogrel 75 mg tablet 75 mg PO DAILY 02/15/23 12/08/23 fluticasone propionate 50 1 spray intranasal Q12H 02/15/23 12/08/23 mcg/actuation nasal spray,suspension gabapentin 100 mg capsule 200 mg PO TID 02/15/23 12/08/23 loratadine 10 mg tablet (Claritin) 10 mg PO DAILY 02/15/23 12/08/23 melatonin 3 mg tablet 3 mg PO HS Sleep 02/15/23 12/08/23 [id number]-[id number] 200 mcg-vit K 100 1 cap PO DAILY 02/15/23 12/08/23 mcg-lycop 500 [id number] capsule (Daily Multivitamin) ondansetron 4 mg disintegrating 4 mg PO Q4H PRN Nausea 02/15/23 12/08/23 tablet oxycodone 5 mg tablet 5 mg PO Q4H PRN Pain (Scale Score 02/15/23 12/08/23 4-6) polyethylene glycol 3350 17 gram 17 g PO DAILY 02/15/23 12/08/23 oral powder packet (Miralax) quetiapine 25 mg tablet 25 mg PO BID 02/15/23 12/08/23 simvastatin 20 mg tablet 20 mg PO QHS 02/15/23 12/08/23 zinc gluconate 50 mg tablet 50 mg PO DAILY 02/15/23 12/08/23 Silver Alginate 1 applic topical DAILY 08/01/23 12/08/23 collagenase clostridium histo. 250 1 applic topical DAILY 08/01/23 12/08/23 unit/gram topical ointment (Santyl) sennosides 8.6 mg-docusate sodium 1 tab-cap PO BID 08/01/23 12/08/23 50 mg tablet (Senna Plus) midodrine 10 mg tablet 10 mg PO Q8H 09/20/23 12/08/23 apixaban 2.5 mg tablet (Eliquis) 2.5 mg PO BID 12/08/23 12/08/23 hydrocortisone 1 % lotion 1 applic topical DAILY 12/08/23 12/08/23 miconazole nitrate 2 % topical 1 applic topical DAILY 12/08/23 12/08/23 cream <Chanel Galvan PA-C - Last Filed: 12/09/23 14:00> Allergies/Adverse Reactions: Allergies Allergy/AdvReac Type Severity Reaction Status Date / Time codeine Allergy Unknown Verified 09/20/23 16:23 lidocaine Allergy Unknown Verified 09/20/23 16:23 <Chanel Galvan PA-C - Last Filed: 12/09/23 14:00> Review of Systems Review of Systems: CONSTITUTIONAL: Denies fever, chills, or sweats. GASTROINTESTINAL: See HPI GENITOURINARY: Denies dysuria or hematuria. <Chanel Galvan PA-C - Last Filed: 12/09/23 14:00> All systems reviewed & are unremarkable except as noted in HPI and below <Chanel Galvan PA-C - Last Filed: 12/09/23 14:00> [facility] Past Medical History Medical History: Medical History Anxiety Chronic
[2023-12-07] MEDS: HYDROCORTISONE 2.5% CREAM 30 GM TUBE 1 APPLIC RECTAL (19:25)
[2023-12-07 19:38] LABS: Basophils Percent Auto 0.3 % (0.2-1.2); Eosinophils Absolute Auto 0.6 K/mm3 (0-0.3); Eosinophils Percent Auto 5.4 % (0-4.4); Hematocrit 37.5 % (42.0-52.0); Hemoglobin 11.9 g/dL (14.0-18.0); Immature Granulocyte Absolute 0.02 K/mm3 (0.00-0.031); Immature Granulocyte Percent A 0.2 % (0-0.5); Lymphocytes Absolute Auto 2.05 K/mm3 (0.9-3.2); Mean Corpuscular HGB Conc 31.7 g/dl (32-36); Mean Corpuscular Hemoglobin 28.7 pg (26-34); Mean Corpuscular Volume 90.4 fl (80-100); Mean Platelet Volume 9.8 fl (7.4-10.4); Monocytes Absolute Auto 0.8 K/mm3 (0.1-0.6); Monocytes Percent Auto 7.3 % (2.6-8.5); Neutrophils Absolute Auto 7.8 K/mm3 (1.3-6.7); Neutrophils Percent Auto 68.8 % (45.5-73.1); Platelet Count Result 391 k/mm3 (150-375); Red Blood Count 4.15 M/mm3 (4.6-6.20); Red Cell Distribution Width 15.6 % (11.5-14.5); White Blood Count 11.4 K/mm3 (4.5-10.0)
[2023-12-07 19:47] LABS: Lactic Acid Reflex 1.1 mmol/L (0.7-2.0)
[2023-12-07 19:52] LABS: Alanine Aminotransferase 15 U/L (6-50); Albumin Level 3.9 g/dL (3.5-5.1); Alkaline Phosphatase 56 U/L (38-126); Anion Gap 9 mmol/L (4-12); Aspartate Amino Transferase 24 U/L (17-59); Bilirubin,Total 0.9 mg/dL (0.2-1.3); Blood Urea Nitrogen 37 mg/dL (9-20); CRP 6.1 mg/dL (<1.0); Calcium 8.9 mg/dL (8.4-10.2); Carbon Dioxide 21 mmol/L (22-30); Chloride 103 mmol/L (98-107); Estimated Glomerular Filt Rate > 60; Glucose 105 mg/dL (65-110); Potassium 4.5 mmol/L (3.4-5.0); Sodium 133 mmol/L (137-145)
[2023-12-07 20:12] LABS: Appearance Urine Turbid (Clear); Bacteria Urine 4+ /hpf; Bilirubin Urine Negative (Negative); Blood Urine 1+ (Negative); Color Urine Yellow (Yellow); Glucose Urine UA Negative (Negative); Ketones Urine Negative (Negative); Leukocyte Esterase Ur 3+ LEU/UL (Negative); Nitrate Urine Negative (Negative); Non Pathogenic Casts 0-2; Protein Urine 1+ mg/dL (Negative); Specific Grav Ur 1.014 (1.001-1.035); Squamous Epithelial Cell Urine None Seen /hpf (Few); Urobilinogen Urine 0.2 mg/dL (<2.0); WBC Urine >100 /hpf (0-3); pH Urine 5.5 (5.0-9.0)
[2023-12-07 20:15] LABS: Erythrocyte Sedimentation Rate 87 mm/hr (0-20)
[2023-12-07 20:20] LABS: Add Urine Microscopic? YES
[2023-12-07] MEDS: PIPERACILLN/TAZ 3.375GM/NS50ML 3.375 GM/50 ML BAG IVPB (22:09)
[2023-12-07] MEDS: SODIUM CHLORIDE 0.9% IV 1,000 ML 999 ML IV CONT ×2 (22:16→22:48)
[2023-12-07] MEDS: dilTIAZem HCl INJ 25 MG/5 ML VIAL 10 MG IV PUSH (22:17)
--- NOTE | 2023-12-07 22:17 | ECG_ITS ---
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 Measurements Intervals [place] Rate: 132 P: 26 MA: 160 QRS: 42 QRSD: 92 T: 74 QT: 318 QTc: 472 Interpretive Statements SINUS TACHYCARDIA EVIDENCE OF PREVIOUS ANTERIOR INFARCTION ABNORMAL ECG COMPARED WITH EARLIER TODAY MILDLY REDUCED HEART RATE, NO OTHER DIFFERENCE Electronically Signed On 12-08-2023 07:52:23 CDT by Neil Alas M.D.
[2023-12-07] MEDS: dilTIAZem HCl INJ 25 MG/5 ML VIAL 15 MG IV PUSH (22:24)
--- NOTE | 2023-12-07 22:25 | ECG_ITS ---
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 Measurements Intervals [place] Rate: 136 P: 48 [place]: 159 QRS: 61 QRSD: 93 T: 81 QT: 287 QTc: 433 Interpretive Statements SINUS TACHYCARDIA POOR R-WAVE PROGRESSION NONSPECIFIC T-WAVE ABNORMALITY No previous ECG available for comparison Electronically Signed On 12-09-2023 07:56:45 CDT by Neil Alas M.D.
[2023-12-07] MEDS: VANCOMYCIN 1,750 MG/NS 500 ML 1,750 MG/500 ML BAG 250 MG IVPB (23:16)
[2023-12-07] MEDS: ADENOSINE IV SOLN 6 MG/2 ML VIAL IV PUSH (23:26)
--- NOTE | 2023-12-07 23:26 | ECG_ITS ---
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 Measurements Intervals [place] Rate: 140 P: 28 MS: 160 QRS: 54 QRSD: 87 T: 78 QT: 300 QTc: 459 Interpretive Statements SINUS TACHYCARDIA, POSSIBLE ATRIAL FLUTTER POSSIBLE ANTERIOR MYOCARDIAL INFARCTION , OF INDETERMINATE AGE [30 ms Q WAVE IN V3/V4, OR R < 0.2 mV IN V4] ABNORMAL ECG INTERPRETATION BASED ON A DEFAULT AGE OF 40 YEARS No previous ECG available for comparison Electronically Signed On 12-08-2023 07:51:25 CDT by Neil Alas M.D.
--- NOTE | 2023-12-07 23:40 | PM.IMHP ---
H&P: HPI History of Present Illness Date/Time: 12/07/23 23:40 Chief Complaint: Patient sent to the ER for evaluation for abdominal pain and constipation from [facility] Narrative: Very unfortunate 67 years old white male with traumatic brain injury, bilateral lower leg AKAs and chronic medical issues who is well known to our hospital secondary to multiple admissions, was sent to the ER for evaluation from [facility] with complaints of constipation for the last 5 days and abdominal pain. He was found to have a large baseball sized turd in the anus that he was trying to pass through. Patient was digitally disimpacted in the ER, and after the turd was removed, patient had huge bowel movements and his constipation and abdominal pain got completely resolved. He also has chronic sacral osteomyelitis for which he has completed treatment with IV antibiotics for 6 weeks. On examination in the ER, he had open wound with grade 3 decubitus ulcer in the sacral region for which he was started on IV Zosyn and Vancomycin. While in the patient continued to have increased heart rate in 140s/150s. He had multiple rounds of IV adenosine and diltiazem, his heart rate is slowly improving but blood pressure is persistently with his systolic blood pressure persistently below 100. Cardiology and the assistant sales manager were consulted and they recommended patient transfer to ICU for IV phenylephrine, close critical care monitoring, further evaluation, workup and management. Review of Systems Review of Systems: Unable to be obtained. Patient is pleasantly confused ROS unobtainable: Yes unobtainable due to mental status PMFSH Past Medical History Medical History (Updated 12/08/23 @ 01:42 by Austin Hernandez MD) Anxiety Chronic anemia Chronic indwelling Gardiner catheter Chronic osteomyelitis of sacrum Coffee ground emesis Gastric ulcer Gastritis Gastroesophageal reflux disease Heart failure with preserved ejection fraction Echo 12/19 showed an EF of 55 to 65%. Hypotension On midodrine. Mild cognitive impairment Osteomyelitis Peripheral arterial disease CT angiogram for 11/17/2022 showed occlusion of anterior tibial arteries bilaterally. 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 Family History Family History Other Family history unknown Social History Social History Social History: Recently moved to the area from a long-time care facility in [place]. Served in the during [place]. Denies alcohol, tobacco, illicit substance use. Healthcare power of trust and estates attorney: Jose Enrique Barba, ken. Code status: Full code. Smoking status: Never smoker Alcohol intake: unknown Substance use: unknown Substance use type: does not use Do You Feel Safe in your Home?: Yes Lack of Transportation: No Lack of Food: Never True Current Housing: I Have Housing Concerned About Future Housing: No Difficulty Paying Gas/Electric Bills: No Difficulty Paying for Meds: No Currently Unemployed: No Education: Bachelor's Degree Difficulty w/ Childcare or Family Care: No Spiritual care concerns: No Meds Home Medications and Allergies Home Medications Medication Instructions Recorded Confirmed Type acetaminophen 325 mg tablet 650 mg PO Q4H PRN Pain (Scale 02/15/23 09/20/23 History Score 1-3) albuterol sulfate 2.5 mg/3 mL 2.5 mg inhalation Q6H PRN sob 02/15/23 09/20/23 History (0.083 %) solution for nebulization ascorbic acid (vitamin C) 1,000 mg 1 g PO DAILY 02/15/23 09/20/23 History tablet clopidogrel 75 mg tablet 75 mg PO DAILY 02/15/23 09/20/23 History fluticasone propionate 50 1 spray intranasal Q12H 02/15/23 09/20/23 History mcg/actuation
[2023-12-07] MEDS: SODIUM CHLORIDE 0.9% IV 1,000 ML 999 ML (23:53)
[2023-12-07] MEDS: ADENOSINE IV SOLN 6 MG/2 ML VIAL 12 MG IV PUSH (23:53)
[2023-12-08] VITALS (59 sets, daily range): BP systolic 56–110; BP diastolic 33–76; PULSE 82–128; RESP 16–40; TEMP 36.7–38.3; O2SAT 76–97; BMI 56.9
[2023-12-08] MEDS: ALBUMIN HUMAN 5% 25 GM/500 ML BTL IV CONT (01:21)
[2023-12-08 01:27] LABS: Glucose Point of Care 90 mg/dl (65-105)
[2023-12-08] MEDS: ACETAMINOPHEN 500 MG TABLET 1000 MG PO (01:28)
--- NOTE | 2023-12-08 03:08 | ADMGEN ---
This patient, Jose Barba, was admitted to Intensive Care Unit-6 at 0220. Patient/family oriented to hospital policies and general routines including ID bracelet, bed and alarms, visiting hours, pain management, procedures, bathroom and other care routines, personal items, smoking policy, room service/diet, and visiting hours. Information on how to activate the Rapid Response Team has been discussed. Patient/Family are encouraged to report perceived risks to care and to ask questions if they do not understand what they are told or what they should do.
[2023-12-08] MEDS: PIPERACILLN/TAZ 3.375GM/NS50ML 3.375 GM/50 ML BAG IVPB (04:20)
[2023-12-08 05:05] LABS: Basophils Absolute Auto 0.1 K/mm3 (0.0-0.1); Basophils Percent Auto 0.3 % (0.2-1.2); Eosinophils Absolute Auto 0.1 K/mm3 (0-0.3); Eosinophils Percent Auto 0.5 % (0-4.4); Hematocrit 34.1 % (42.0-52.0); Hemoglobin 10.9 g/dL (14.0-18.0); Immature Granulocyte Absolute 0.21 K/mm3 (0.00-0.031); Immature Granulocyte Percent A 0.8 % (0-0.5); Lymphocytes Absolute Auto 0.36 K/mm3 (0.9-3.2); Lymphocytes Percent Auto 1.4 % (18.3-44.2); Mean Corpuscular Hemoglobin 29.4 pg (26-34); Mean Corpuscular Volume 91.9 fl (80-100); Mean Platelet Volume 9.6 fl (7.4-10.4); Monocytes Absolute Auto 0.6 K/mm3 (0.1-0.6); Monocytes Percent Auto 2.1 % (2.6-8.5); Neutrophils Absolute Auto 24.5 K/mm3 (1.3-6.7); Neutrophils Percent Auto 94.9 % (45.5-73.1); Platelet Count Result 292 k/mm3 (150-375); Red Blood Count 3.71 M/mm3 (4.6-6.20); Red Cell Distribution Width 15.9 % (11.5-14.5); White Blood Count 25.8 K/mm3 (4.5-10.0)
[2023-12-08] MEDS: MIDODRINE HCL 10 MG TABLET PO ×3 (05:13→21:02)
[2023-12-08 05:19] LABS: Anion Gap 10 mmol/L (4-12); Blood Urea Nitrogen 34 mg/dL (9-20); Calcium 7.8 mg/dL (8.4-10.2); Carbon Dioxide 15 mmol/L (22-30); Chloride 109 mmol/L (98-107); Estimated Glomerular Filt Rate 55; Glucose 91 mg/dL (65-110); Magnesium 1.8 mg/dL (1.6-2.3); Phosphorus 2.6 mg/dL (2.5-4.5); Potassium 3.3 mmol/L (3.4-5.0); Sodium 134 mmol/L (137-145)
[2023-12-08 05:34] LABS: Large Platelets Present; Platelet Clumps Present; Platelet Estimate Adequate (Adequate)
[2023-12-08 05:35] LABS: Anisocytosis 1+; Ovalocytes 1+; Procalcitonin 60.5 ng/mL; Schistocytes None Seen
[2023-12-08] MEDS: SODIUM CHLORIDE 0.9% IV 1,000 ML 999 ML IV CONT (05:50)
[2023-12-08] MEDS: NOREPINEPHRINE 8 MG/D5W 250 ML 8 MG/250 ML BAG 9.38 MG IV CONT (06:20)
[2023-12-08 08:02] LABS: MRSA (PCR) DETECTED (NOT DETECTE)
--- NOTE | 2023-12-08 08:30 | WPDCNINT ---
Assessment and Plan Assessment and plan (1) Septic shock: Code(s): A41.9 - Sepsis, unspecified organism; R65.21 - Severe sepsis with septic shock Status: Acute Assessment and Plan: patient presented with septic shock which appears to be multifactorial with multiple possible causes. he has indwelling Gardiner which was replaced. UA suggestive of UTI he has a sacral decubitus ulcer with osteomyelitis and received 6 weeks of treatment with IV Rocephin which finished in October. will consult Wound Care for evaluation there is some infiltrate on the chest could be atelectasis versus pneumonia his WBC is 25.8 with elevated procalcitonin blood urine cultures have been sent his nasal MRSA screen is positive he has received more than 3 L of IV fluid. Will continue with IV fluid infusion continue Levophed infusion patient has a single-lumen PICC line in left. I do not have information when it was placed unable to obtain consent from any family as patient is unable to consent himself and no family's is available. I will place a central venous catheter remove the PICC line as medical necessity at this time. Continue vancomycin. change Zosyn to meropenem to cover for ESBL (2) Sacral decubitus ulcer: Qualifiers: Pressure injury stage: stage 3 Qualified Code(s): L89.153 - Pressure ulcer of sacral region, stage 3 Code(s): L89.159 - Pressure ulcer of sacral region, unspecified stage Status: Acute Assessment and Plan: see above (3) Constipation: Qualifiers: Constipation type: unspecified constipation type Qualified Code(s): K59.00 - Constipation, unspecified Code(s): K59.00 - Constipation, unspecified Status: Acute Assessment and Plan: patient appears to have chronic constipation he was digitally disimpacted in the ER continue laxative (4) UTI (urinary tract infection): Qualifiers: Hematuria presence: without hematuria Urinary tract infection type: acute cystitis Qualified Code(s): N30.00 - Acute cystitis without hematuria Code(s): N39.0 - Urinary tract infection, site not specified Status: Acute Assessment and Plan: see above (5) Chronic osteomyelitis of sacrum: Code(s): M86.68 - Other chronic osteomyelitis, other site Status: Acute Assessment and Plan: see above (6) Pneumonia: Code(s): J18.9 - Pneumonia, unspecified organism Status: Acute Assessment and Plan: see above (7) Dislodged Gardiner catheter: Code(s): T83.021A - Displacement of indwelling urethral catheter, initial encounter Status: Acute Assessment and Plan: CT scan showed the Gardiner catheter balloon was inflated urethra. Gardiner catheter was replaced (8) Tachycardia: Code(s): R00.0 - Tachycardia, unspecified Status: Acute Assessment and Plan: patient presented with narrow complex tachycardia. he was given adenosine and diltiazem and underlying sick rhythm was sinus tach from his sepsis. he has now improved after administration IV fluids and heart rate is 90 sinus tachycardia. Monitor (9) Electrolyte abnormality: Code(s): E87.8 - Other disorders of electrolyte and fluid balance, not elsewhere classified Status: Acute Assessment and Plan: placed low potassium and calcium (10) Metabolic acidosis: Code(s): E87.20 - Acidosis, unspecified Status: Acute Assessment and Plan: bicarb or Plan DVT prophylaxis - Eliquis Stress ulcer prophylaxis - Protonix Nutrition - modified diet is ordered Code Status - patient is DNR DNI as per review in the ER. I called the number listed on the chart for his son with no answer. I left a voicemail I will try again later. Total Critical Care Time - 40 minutes Due to a high probability of clinically significant, life threatening deterioration, the patient required my highest level of preparedness t
[2023-12-08] MEDS: CALCIUM GLUC 2,000 MG/NS 100ML 2,000 MG/100 ML BAG 100 MG IVPB (09:47)
[2023-12-08] MEDS: MEROPENEM 1 GM/NS 100 ML 1 GM/100 ML BAG IVPB ×2 (09:48→20:52)
[2023-12-08] MEDS: POTASSIUM BICARBONATE 25 MEQ TABEF 50 MEQ PO (09:50)
[2023-12-08] MEDS: SENNA/DOCUSATE SODIUM TABLET 1 TAB PO ×2 (09:51→20:52)
[2023-12-08] MEDS: APIXABAN 2.5 MG TABLET PO ×2 (09:51→20:52)
[2023-12-08] MEDS: QUEtiapine FUMARATE 25 MG TABLET PO ×2 (09:51→20:52)
[2023-12-08] MEDS: FERROUS SULFATE 325 MG TABLET DR 324 MG PO (09:51)
[2023-12-08] MEDS: THERAPEUTIC MULTIVITAMINS/MINERALS TAB (*BKC) 1 TABLET PO (09:51)
[2023-12-08] MEDS: PANTOPRAZOLE 40 MG TABLET PO (09:51)
[2023-12-08] MEDS: polyethylene glycoL 3350 17 GM POWD.PACK PO (09:51)
[2023-12-08] MEDS: CLOPIDOGREL BISULFATE 75 MG TABLET PO (09:51)
[2023-12-08] MEDS: SODIUM BICARBONATE TAB 650 MG TABLET PO ×2 (09:51→17:27)
--- NOTE | 2023-12-08 09:51 | P.PCNBED_ITS ---
Procedures Central Line Placement Right Femoral: Central Line Date: 12/08/23 Central Line Time: 09:00 Performed Emergently - Given emergent patient condition, temporal constraints may have precluded informed consent.: Yes Consent: Patient unable to consent as he does not seem to have ability to understand pros and cons. I did discuss with him and he gave a thumbs up to proceed. no family is available I tried to call the number listed in the chart with no response. patient needs central venous catheter for multiple infusion and vasopressors. he has a single-lumen PICC line from retirement which is old and may be infected and needs to be removed. procedure done as medical necessity Time Out Performed: Yes Patient Position: supine Patient placed on monitor/pulse ox: Yes Provider Prep: mask, sterile gown, sterile gloves, Max. sterile barrier precautions, cap and hand hygiene with conventional soap/water or alcohol based hand rub Central line prep: Povidone-Iodine 1% Local anesthesia used: lidocaine 1% Amount of anesthesia used (ml): 5 Sterile US Technique with sterile gel/sterile probe covers: Yes Central line lumen inserted: triple Length (cm): 16 Depth of Insertion (cm): 16 Post Procedure: sutured in place, good blood return, all ports aspirated, flushed, capped, transparent dressing, hemostatic product and aseptic technique maintained throughout procedure Patient tolerated procedure: well Complications: none
[2023-12-08] MEDS: COLLAGENASE OINT 30 GM TUBE 1 APPLIC TOPICAL (09:52)
[2023-12-08] MEDS: FLUTICASONE PROPIONATE 0.05% NA SPR 16 GM BTL (*BKC) 1 SPRAY NASAL ×2 (09:52→20:52)
[2023-12-08] MEDS: ASCORBIC ACID 500 MG TABLET 1000 MG PO (09:52)
[2023-12-08] MEDS: MICONAZOLE NITRATE 2% CREAM 30 GM TUBE 1 APPLIC TOPICAL (09:52)
[2023-12-08] MEDS: HYDROCORTISONE 1% 30 GM CREAM 1 APPLIC TOPICAL (09:52)
[2023-12-08] MEDS: LORATADINE 10 MG TABLET PO (09:53)
[2023-12-08] MEDS: SODIUM BICARBONATE 8.4% 150 MEQ in WATER, STERILE FOR INJECTION 950 ML 100 MEQ IV CONT ×2 (13:17→22:04)
[2023-12-08] MEDS: CENTRAL LINE FLUSH 10 ML IV PUSH ×2 (13:18→21:02)
[2023-12-08] MEDS: oxyCODONE HCL (*CRX) 5 MG TAB IR PO ×2 (13:19→20:53)
[2023-12-08] MEDS: MAG HYDROX/AL HYDROX/SIMETH 30 ML UDC PO (13:23)
--- NOTE | 2023-12-08 15:48 | WPDPN ---
Progress Note: A&P Assessment and Plan (1) Sacral decubitus ulcer: Qualifiers: Pressure injury stage: stage 3 Qualified Code(s): L89.153 - Pressure ulcer of sacral region, stage 3 Code(s): L89.159 - Pressure ulcer of sacral region, unspecified stage Status: Acute (2) Constipation: Qualifiers: Constipation type: unspecified constipation type Qualified Code(s): K59.00 - Constipation, unspecified Code(s): K59.00 - Constipation, unspecified Status: Acute (3) UTI (urinary tract infection): Qualifiers: Hematuria presence: without hematuria Urinary tract infection type: acute cystitis Qualified Code(s): N30.00 - Acute cystitis without hematuria Code(s): N39.0 - Urinary tract infection, site not specified Status: Acute (4) Sacral osteomyelitis: Code(s): M46.28 - Osteomyelitis of vertebra, sacral and sacrococcygeal region Status: Acute Plan 12/08/2023 interval history: patient stats feels better after he had a large BM, patient is getting ready to eat his breakfast, he has no other complaints. discussed with the hand slitter suspect patient is septic 2/2 UTI, sacral decubitus ulcer with concerning for OM, however he was treated for 6 weeks of IV abx, also patient has a single lumen PICC which is been there for sometime and is not removed suspect source of sepsis, hand slitter will remove it, insert new line for IV abx with Vancomycin, meropenem to cover ESBL will monitor and follow the patient with hand slitter. Subjective Date/time seen: 12/08/23 15:48 Interval history: Chief Complaint: Patient sent to the ER for evaluation for abdominal pain and const[facility] Narrative: Very unfortunate 67 years old white male with traumatic brain injury, bilateral lower leg AKAs and chronic medical issues who is well known to our hospital secondary to multiple admissions, was sent to the ER for [facility] with complaints of constipation for the last 5 days and abdominal pain. He was found to have a large baseball sized turd in the anus that he was trying to pass through. Patient was digitally disimpacted in the ER, and after the turd was removed, patient had huge bowel movements and his constipation and abdominal pain got completely resolved. He also has chronic sacral osteomyelitis for which he has completed treatment with IV antibiotics for 6 weeks. On examination in the ER, he had open wound with grade 3 decubitus ulcer in the sacral region for which he was started on IV Zosyn and Vancomycin. While in the patient continued to have increased heart rate in 140s/150s. He had multiple rounds of IV adenosine and diltiazem, his heart rate is slowly improving but blood pressure is persistently with his systolic blood pressure persistently below 100. Cardiology and the hand slitter were consulted and they recommended patient transfer to ICU for IV phenylephrine, close critical care monitoring, further evaluation, workup and management. 12/08/2023 interval history: patient stats feels better after he had a large BM, patient is getting ready to eat his breakfast, he has no other complaints. discussed with the hand slitter suspect patient is septic 2/2 UTI, sacral decubitus ulcer with concerning for OM, however he was treated for 6 weeks of IV abx, also patient has a single lumen PICC which is been there for sometime and is not removed suspect source of sepsis, hand slitter will remove it, insert new line for IV abx with Vancomycin, meropenem to cover ESBL will monitor and follow the patient with hand slitter. Review of Systems Review of Systems: ROS unobtainable: Yes unobtainable due to medical condition and unobtainable due to mental status Exam Narrative: General: Pt is alert awake and in NAD Lungs/Chest: Trachea central Clear BS B/L, No crackles or wheezing. Cardiac: RRR. Normal S1 S2. No murmurs Circulation: bilateral AKA Abdom
[2023-12-08] MEDS: BENZOCAINE/MENTHOL (*BKC) 18 EA LOZENGE 1 LOZENGE PO ×2 (17:28→22:02)
[2023-12-08] MEDS: ACETAMINOPHEN 325 MG TABLET 650 MG PO (17:30)
[2023-12-08] MEDS: MELATONIN 3 MG TABLET PO (20:52)
[2023-12-08] MEDS: SIMVASTATIN 20 MG TABLET PO (20:52)
[2023-12-08] MEDS: VANCOMYCIN 1,500 MG/NS 500 ML 1,500 MG/500 ML BAG 250 MG IVPB (22:04)
[2023-12-09] VITALS (38 sets, daily range): BP systolic 83–126; BP diastolic 46–80; PULSE 79–97; RESP 18–30; TEMP 36.8–37.1; O2SAT 90–98; BMI 62.0
[2023-12-09] MEDS: oxyCODONE HCL (*CRX) 5 MG TAB IR PO ×2 (02:45→08:28)
[2023-12-09] MEDS: MIDODRINE HCL 10 MG TABLET PO ×3 (05:34→20:08)
[2023-12-09] MEDS: CENTRAL LINE FLUSH 10 ML IV PUSH ×3 (05:34→20:09)
[2023-12-09 05:59] LABS: Basophils Absolute Auto 0.1 K/mm3 (0.0-0.1); Basophils Percent Auto 0.2 % (0.2-1.2); Eosinophils Absolute Auto 0.4 K/mm3 (0-0.3); Eosinophils Percent Auto 1.1 % (0-4.4); Hematocrit 29.2 % (42.0-52.0); Hemoglobin 9.4 g/dL (14.0-18.0); Immature Granulocyte Absolute 0.48 K/mm3 (0.00-0.031); Immature Granulocyte Percent A 1.5 % (0-0.5); Lymphocytes Absolute Auto 1.52 K/mm3 (0.9-3.2); Lymphocytes Percent Auto 4.8 % (18.3-44.2); Mean Corpuscular HGB Conc 32.2 g/dl (32-36); Mean Corpuscular Hemoglobin 29.1 pg (26-34); Mean Corpuscular Volume 90.4 fl (80-100); Mean Platelet Volume 9.8 fl (7.4-10.4); Monocytes Absolute Auto 1.6 K/mm3 (0.1-0.6); Monocytes Percent Auto 5.1 % (2.6-8.5); Neutrophils Absolute Auto 27.4 K/mm3 (1.3-6.7); Neutrophils Percent Auto 87.3 % (45.5-73.1); Platelet Count Result 244 k/mm3 (150-375); Red Blood Count 3.23 M/mm3 (4.6-6.20); Red Cell Distribution Width 15.9 % (11.5-14.5); White Blood Count 31.4 K/mm3 (4.5-10.0)
[2023-12-09 06:11] LABS: Anion Gap 6 mmol/L (4-12); Blood Urea Nitrogen 24 mg/dL (9-20); Calcium 7.6 mg/dL (8.4-10.2); Carbon Dioxide 28 mmol/L (22-30); Chloride 100 mmol/L (98-107); Estimated Glomerular Filt Rate 60; Glucose 112 mg/dL (65-110); Potassium 2.9 mmol/L (3.4-5.0); Sodium 134 mmol/L (137-145)
--- NOTE | 2023-12-09 07:27 | PM.IMPN ---
Progress Note: A&P Assessment and Plan (1) Septic shock: Code(s): A41.9 - Sepsis, unspecified organism; R65.21 - Severe sepsis with septic shock Status: Acute Assessment and Plan: Patient presents with abdominal pain and found to have HoTN. 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 Concern for sepsis with shock with fever, elevated WBC and tachycardia; source felt to be multifactorial He has indwelling Gardiner which was replaced. UCx positive Sacral decubitus ulcer with known osteomyelitis and received 6 weeks of treatment with IV Rocephin which finished in October. Wound actually looks good CXR showing no focal airspace disease but bilatearl lower lobe atelectasis by CT Patient has PICC line in place from requiring IV abx so consider bacteremia. PICC removed. Started on vancomycin and Zosyn but changed to Vancomycin and meropenem 12/07 WBC up to 31K today. He has received more than 3 L of IV fluid. Started on Levophed. Midodrine resumed. Nasal MRSA screen is positive UCx growing EColi BCx NGTD Continue Levophed and wean as tolerated. Continue IV abx. (2) Pneumonia: Code(s): J18.9 - Pneumonia, unspecified organism Status: Acute Assessment and Plan: Possible PNA. Imaging as above. Follow (3) UTI (urinary tract infection): Qualifiers: Hematuria presence: without hematuria Urinary tract infection type: acute cystitis Qualified Code(s): N30.00 - Acute cystitis without hematuria Code(s): N39.0 - Urinary tract infection, site not specified Status: Acute Assessment and Plan: UA is consistent with UTI. UCx collected. Abx started. UCx growing EColi. Follow up on UCx results. (4) Sacral decubitus ulcer: Qualifiers: Pressure injury stage: stage 3 Qualified Code(s): L89.153 - Pressure ulcer of sacral region, stage 3 Code(s): L89.159 - Pressure ulcer of sacral region, unspecified stage Status: Acute Assessment and Plan: Wound inspected with construction executive. Wound bed looks mostly clean and dry. [place] less likely as the source of sepsis Continue routine wound care. (5) Constipation: Qualifiers: Constipation type: unspecified constipation type Qualified Code(s): K59.00 - Constipation, unspecified Code(s): K59.00 - Constipation, unspecified Status: Acute Assessment and Plan: CT scan showing fecal impaction of the rectum He is on Senna and Miralax at the facility that were continued. lactulose added. He is having BMs Follows (6) Chronic osteomyelitis of sacrum: Code(s): M86.68 - Other chronic osteomyelitis, other site Status: Acute Assessment and Plan: As above. He completed a course of IV abx and no bone exposed at this time. (7) Dislodged Gardiner catheter: Code(s): T83.021A - Displacement of indwelling urethral catheter, initial encounter Status: Acute Assessment and Plan: CT scan showing Gardiner catheter balloon inflated in the urethea. Gardiner replaced Gardiner draining (8) Tachycardia: Code(s): R00.0 - Tachycardia, unspecified Status: Acute Assessment and Plan: Patient presented with narrow complex tachycardia. He was given adenosine and diltiazem and underlying rhythm was sinus tachycardia from his sepsis. Heart rate improved with fluids. Follow (9) Metabolic acidosis: Code(s): E87.20 - Acidosis, unspecified Status: Acute Assessment and Plan: Patient had bicarb 15 yesterday. he is on oral and IV bicarb Bicarb level normal now Lactic acid level normal. Renal function stable. Defer to environmental coordinator to adjust fluids Plan DVT Prophylaxis - Marinaquis Code status - modified Subjective Date/time seen: 12/09/23 07:27 Interval history: 67yo male with chronic HoTN on midodrine, PAD, schizoaffective disorder, TBI and dCHF here for abdominal pain. Assuming care. Chart reviewed. no CP or SOB.
[2023-12-09] MEDS: THERAPEUTIC MULTIVITAMINS/MINERALS TAB (*BKC) 1 TABLET PO (08:28)
[2023-12-09] MEDS: SODIUM BICARBONATE TAB 650 MG TABLET PO ×2 (08:28→18:19)
[2023-12-09] MEDS: CLOPIDOGREL BISULFATE 75 MG TABLET PO (08:28)
[2023-12-09] MEDS: ASCORBIC ACID 500 MG TABLET 1000 MG PO (08:28)
[2023-12-09] MEDS: PANTOPRAZOLE 40 MG TABLET PO (08:28)
[2023-12-09] MEDS: QUEtiapine FUMARATE 25 MG TABLET PO ×2 (08:28→20:09)
[2023-12-09] MEDS: LORATADINE 10 MG TABLET PO (08:28)
[2023-12-09] MEDS: APIXABAN 2.5 MG TABLET PO ×2 (08:28→20:09)
[2023-12-09] MEDS: SENNA/DOCUSATE SODIUM TABLET 1 TAB PO (08:28)
[2023-12-09] MEDS: POTASSIUM CHLORIDE 20 MEQ PACKET (FOR LIQUID) 40 MEQ PO (08:29)
[2023-12-09] MEDS: KCL 40 MEQ/WATER 100 ML 100 ML 25 ML IVPB (08:29)
[2023-12-09] MEDS: MEROPENEM 1 GM/NS 100 ML 1 GM/100 ML BAG IVPB (08:29)
[2023-12-09] MEDS: polyethylene glycoL 3350 17 GM POWD.PACK PO (08:29)
[2023-12-09] MEDS: HYDROCORTISONE 1% 30 GM CREAM 1 APPLIC TOPICAL (08:30)
[2023-12-09] MEDS: FLUTICASONE PROPIONATE 0.05% NA SPR 16 GM BTL (*BKC) 1 SPRAY NASAL ×2 (08:30→20:09)
[2023-12-09] MEDS: MICONAZOLE NITRATE 2% CREAM 30 GM TUBE 1 APPLIC TOPICAL (08:42)
[2023-12-09] MEDS: SODIUM BICARBONATE 8.4% 150 MEQ in WATER, STERILE FOR INJECTION 950 ML 100 MEQ IV CONT (09:50)
[2023-12-09] MEDS: cefTAZidime 2 GM/NS 50 ML 2 GM/50 ML BAG IVPB ×2 (11:52→22:06)
[2023-12-09] MEDS: LACTULOSE 20 GM/30 ML UDC PO (11:53)
[2023-12-09] MEDS: NOREPINEPHRINE 8 MG/D5W 250 ML 8 MG/250 ML BAG 5.63 MG IV CONT (12:17)
--- NOTE | 2023-12-09 12:21 | WPDINTPN ---
Progress Note: A&P Assessment and Plan (1) Septic shock: Code(s): A41.9 - Sepsis, unspecified organism; R65.21 - Severe sepsis with septic shock Status: Acute Assessment and Plan: Patient presented with septic shock which appears to be multifactorial with multiple possible causes. -indwelling catheter which was replaced in the ER, UA suggestive of UTI -large sacral decubitus ulcer with osteomyelitis and received 6 weeks of treatment with IV Rocephin which finished in October. - Wound Care following the patient -chest x-ray, and CT of the abdomen and pelvis showed infiltrates concerning for atelectasis versus pneumonia. -leukocytosis persists, -elevated procalcitonin 60.5 -12/06: Urine cultures growing E coli -12/06: Blood cultures no growth so far x2 - 12/07: nasal MRSA screen is positive -Patient received adequate IV fluids -discontinue maintenance IV fluids as patient's appetite is good -remains on Levophed infusion, maintain MAP > T5 mmHg -previous single-lumen PICC line was removed on 12/08/2023 -central line was inserted on 12/08/2023 -continue vancomycin, 12/08: meropenem changed to ceftazidime as patient has had history of Pseudomonas in the urine previously which was resistant to meropenem. (2) Sacral decubitus ulcer: Qualifiers: Pressure injury stage: stage 3 Qualified Code(s): L89.153 - Pressure ulcer of sacral region, stage 3 Code(s): L89.159 - Pressure ulcer of sacral region, unspecified stage Status: Acute Assessment and Plan: Wound care following the patient (3) Constipation: Qualifiers: Constipation type: unspecified constipation type Qualified Code(s): K59.00 - Constipation, unspecified Code(s): K59.00 - Constipation, unspecified Status: Acute Assessment and Plan: patient appears to have chronic constipation he was digitally disimpacted in the ER Continue MiraLax, senna S -lactulose (4) UTI (urinary tract infection): Qualifiers: Hematuria presence: without hematuria Urinary tract infection type: acute cystitis Qualified Code(s): N30.00 - Acute cystitis without hematuria Code(s): N39.0 - Urinary tract infection, site not specified Status: Acute Assessment and Plan: see above (5) Chronic osteomyelitis of sacrum: Code(s): M86.68 - Other chronic osteomyelitis, other site Status: Acute Assessment and Plan: see above (6) Pneumonia: Code(s): J18.9 - Pneumonia, unspecified organism Status: Acute Assessment and Plan: see above (7) Dislodged Gardiner catheter: Code(s): T83.021A - Displacement of indwelling urethral catheter, initial encounter Status: Acute Assessment and Plan: CT scan showed the Gardiner catheter balloon was inflated urethra. Gardiner catheter was replaced (8) Tachycardia: Code(s): R00.0 - Tachycardia, unspecified Status: Acute Assessment and Plan: patient presented with narrow complex tachycardia. he was given adenosine and diltiazem and underlying sick rhythm was sinus tach from his sepsis. he has now improved after administration IV fluids and heart rate is 90 sinus tachycardia. -continue to monitor (9) Electrolyte abnormality: Code(s): E87.8 - Other disorders of electrolyte and fluid balance, not elsewhere classified Status: Acute Assessment and Plan: Potassium has been replaced (10) Metabolic acidosis: Code(s): E87.20 - Acidosis, unspecified Status: Acute Assessment and Plan: Improved, will discontinue bicarb infusion, continue bicarb tablets Plan DVT prophylaxis - Eliquis Stress ulcer prophylaxis - Protonix Nutrition - modified diet is ordered Code Status - patient is DNR DNI as per review in the ER. I called the number listed on the chart for his son with no answer. I left a voicemail I will try again later. Total Critical Care Time - 34
[2023-12-09] MEDS: MELATONIN 3 MG TABLET PO (20:08)
[2023-12-09] MEDS: SENNA/DOCUSATE SODIUM TABLET 2 TAB PO (20:09)
[2023-12-09] MEDS: SIMVASTATIN 20 MG TABLET PO (20:09)
[2023-12-09 22:52] LABS: Vancomycin Trough 14.1 ug/mL (10.0-20.0)
[2023-12-09] MEDS: VANCOMYCIN 1,500 MG/NS 500 ML 1,500 MG/500 ML BAG 250 MG IVPB (23:55)
[2023-12-10] VITALS (10 sets, daily range): BP systolic 92–118; BP diastolic 55–79; PULSE 68–90; RESP 19–22; TEMP 36.8–36.9; O2SAT 94–100
[2023-12-10] MEDS: CENTRAL LINE FLUSH 10 ML IV PUSH ×3 (06:18→21:14)
[2023-12-10] MEDS: MIDODRINE HCL 10 MG TABLET PO ×3 (06:18→21:14)
[2023-12-10 06:31] LABS: Basophils Absolute Auto 0.1 K/mm3 (0.0-0.1); Basophils Percent Auto 0.3 % (0.2-1.2); Eosinophils Absolute Auto 1.1 K/mm3 (0-0.3); Eosinophils Percent Auto 5.4 % (0-4.4); Hematocrit 32.6 % (42.0-52.0); Hemoglobin 10.4 g/dL (14.0-18.0); Immature Granulocyte Absolute 0.29 K/mm3 (0.00-0.031); Immature Granulocyte Percent A 1.5 % (0-0.5); Lymphocytes Absolute Auto 1.57 K/mm3 (0.9-3.2); Mean Corpuscular HGB Conc 31.9 g/dl (32-36); Mean Corpuscular Hemoglobin 29.1 pg (26-34); Mean Corpuscular Volume 91.1 fl (80-100); Monocytes Absolute Auto 0.7 K/mm3 (0.1-0.6); Monocytes Percent Auto 3.7 % (2.6-8.5); Neutrophils Percent Auto 81.1 % (45.5-73.1); Platelet Count Result 230 k/mm3 (150-375); Red Blood Count 3.58 M/mm3 (4.6-6.20); Red Cell Distribution Width 15.9 % (11.5-14.5); White Blood Count 19.7 K/mm3 (4.5-10.0)
[2023-12-10 06:51] LABS: Alanine Aminotransferase 19 U/L (6-50); Albumin Level 2.8 g/dL (3.5-5.1); Alkaline Phosphatase 53 U/L (38-126); Anion Gap 3 mmol/L (4-12); Aspartate Amino Transferase 40 U/L (17-59); Bilirubin,Total 0.8 mg/dL (0.2-1.3); Blood Urea Nitrogen 23 mg/dL (9-20); Carbon Dioxide 26 mmol/L (22-30); Chloride 103 mmol/L (98-107); Estimated Glomerular Filt Rate > 60; Glucose 79 mg/dL (65-110); Magnesium 1.8 mg/dL (1.6-2.3); Phosphorus 2.9 mg/dL (2.5-4.5); Potassium 3.9 mmol/L (3.4-5.0); Sodium 132 mmol/L (137-145)
[2023-12-10] MEDS: SENNA/DOCUSATE SODIUM TABLET 2 TAB PO ×2 (08:25→21:13)
[2023-12-10] MEDS: ASCORBIC ACID 500 MG TABLET 1000 MG PO (08:25)
[2023-12-10] MEDS: LACTULOSE 20 GM/30 ML UDC PO (08:25)
[2023-12-10] MEDS: polyethylene glycoL 3350 17 GM POWD.PACK PO (08:25)
[2023-12-10] MEDS: SODIUM BICARBONATE TAB 650 MG TABLET PO (08:26)
[2023-12-10] MEDS: FLUTICASONE PROPIONATE 0.05% NA SPR 16 GM BTL (*BKC) 1 SPRAY NASAL ×2 (08:26→21:14)
[2023-12-10] MEDS: PANTOPRAZOLE 40 MG TABLET PO (08:26)
[2023-12-10] MEDS: APIXABAN 2.5 MG TABLET PO ×2 (08:26→21:13)
[2023-12-10] MEDS: HYDROCORTISONE 1% 30 GM CREAM 1 APPLIC TOPICAL (08:26)
[2023-12-10] MEDS: MICONAZOLE NITRATE 2% CREAM 30 GM TUBE 1 APPLIC TOPICAL (08:26)
[2023-12-10] MEDS: CLOPIDOGREL BISULFATE 75 MG TABLET PO (08:26)
[2023-12-10] MEDS: LORATADINE 10 MG TABLET PO (08:26)
[2023-12-10] MEDS: THERAPEUTIC MULTIVITAMINS/MINERALS TAB (*BKC) 1 TABLET PO (08:26)
[2023-12-10] MEDS: QUEtiapine FUMARATE 25 MG TABLET PO ×2 (08:26→21:14)
--- NOTE | 2023-12-10 09:43 | PM.IMPN ---
Progress Note: A&P Assessment and Plan (1) Septic shock: Code(s): A41.9 - Sepsis, unspecified organism; R65.21 - Severe sepsis with septic shock Status: Acute Assessment and Plan: Patient presents with abdominal pain and found to have HoTN. 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 Concern for sepsis with shock with fever, elevated WBC and tachycardia; source felt to be multifactorial He has indwelling Gardiner which was replaced. UCx positive Sacral decubitus ulcer with known osteomyelitis and received 6 weeks of treatment with IV Rocephin which finished in October. Wound actually looks good CXR showing no focal airspace disease but bilatearl lower lobe atelectasis by CT Patient has PICC line in place from requiring IV abx so consider bacteremia. PICC removed. Started on vancomycin and Zosyn but changed to Vancomycin and meropenem 12/07 then to ceftaz and vancomycin WBC was up to 31K He has received more than 3 L of IV fluid. Started on Levophed. Midodrine resumed. Nasal MRSA screen is positive UCx growing EColi sensitive to meropenem and cetazidine BCx NGTD Weaned off Levophed 12/08. WBC better. Continue IV abx. Okay to move out of ICU (2) Pneumonia: Code(s): J18.9 - Pneumonia, unspecified organism Status: Acute Assessment and Plan: Possible PNA. Imaging as above. Follow (3) UTI (urinary tract infection): Qualifiers: Hematuria presence: without hematuria Urinary tract infection type: acute cystitis Qualified Code(s): N30.00 - Acute cystitis without hematuria Code(s): N39.0 - Urinary tract infection, site not specified Status: Acute Assessment and Plan: UA is consistent with UTI. UCx collected. Abx started. UCx growing EColi. As above (4) Sacral decubitus ulcer: Qualifiers: Pressure injury stage: stage 3 Qualified Code(s): L89.153 - Pressure ulcer of sacral region, stage 3 Code(s): L89.159 - Pressure ulcer of sacral region, unspecified stage Status: Acute Assessment and Plan: Wound inspected with retail delivery driver. Wound bed looks mostly clean and dry. [place] less likely as the source of sepsis Continue routine wound care. (5) Constipation: Qualifiers: Constipation type: unspecified constipation type Qualified Code(s): K59.00 - Constipation, unspecified Code(s): K59.00 - Constipation, unspecified Status: Acute Assessment and Plan: CT scan showing fecal impaction of the rectum He is on Senna and Miralax at the facility that were continued. lactulose added. He is having BMs Follow (6) Chronic osteomyelitis of sacrum: Code(s): M86.68 - Other chronic osteomyelitis, other site Status: Acute Assessment and Plan: As above. He completed a course of IV abx and no bone exposed at this time. Continue routine wound care (7) Dislodged Gardiner catheter: Code(s): T83.021A - Displacement of indwelling urethral catheter, initial encounter Status: Acute Assessment and Plan: CT scan showing Gardiner catheter balloon inflated in the urethea. Gardiner replaced Gardiner draining (8) Tachycardia: Code(s): R00.0 - Tachycardia, unspecified Status: Acute Assessment and Plan: Patient presented with narrow complex tachycardia. He was given adenosine and diltiazem and underlying rhythm was sinus tachycardia from his sepsis. Heart rate improved with fluids. Tele showing brief run of ?AFib. On Eliquis for unclear reasons but maybe for his PAD. Monitor on tele Follow (9) Metabolic acidosis: Code(s): E87.20 - Acidosis, unspecified Status: Acute Assessment and Plan: Patient had bicarb 15. he was on oral and IV bicarb Bicarb level normal now Lactic acid level normal. Renal function stable. Off IV fluids. Stop oral bicarb Plan DVT Prophylaxis - Eliquis Code status - modified Subjective Date/time seen: 12/10/23
[2023-12-10] MEDS: MEROPENEM 1 GM/NS 100 ML 1 GM/100 ML BAG IVPB ×2 (10:42→21:10)
--- NOTE | 2023-12-10 10:51 | WPDINTPN ---
Progress Note: A&P Assessment and Plan (1) Septic shock: Code(s): A41.9 - Sepsis, unspecified organism; R65.21 - Severe sepsis with septic shock Status: Acute Assessment and Plan: Patient presented with septic shock which appears to be multifactorial with multiple possible causes. -indwelling catheter which was replaced in the ER, UA suggestive of UTI -large sacral decubitus ulcer with osteomyelitis and received 6 weeks of treatment with IV Rocephin which finished in October. - Wound Care following the patient -chest x-ray, and CT of the abdomen and pelvis showed infiltrates concerning for atelectasis versus pneumonia. -leukocytosis persists, -elevated procalcitonin 60.5 -12/06: Urine cultures growing ESBL E coli -12/06: Blood cultures no growth so far x2 - 12/07: nasal MRSA screen is positive -Patient received adequate IV fluids -discontinue maintenance IV fluids as patient's appetite is good -remains on Levophed infusion, maintain MAP > T5 mmHg -previous single-lumen PICC line was removed on 12/08/2023 -central line was inserted on 12/08/2023 -continue vancomycin, 12/08: meropenem changed to ceftazidime as patient has had history of Pseudomonas in the urine previously which was resistant to meropenem. 12/09: Switch ceftazidime back to meropenem per ID pharmacy recommendations for a total of 7 days (2) Sacral decubitus ulcer: Qualifiers: Pressure injury stage: stage 3 Qualified Code(s): L89.153 - Pressure ulcer of sacral region, stage 3 Code(s): L89.159 - Pressure ulcer of sacral region, unspecified stage Status: Acute Assessment and Plan: Wound care following the patient (3) Constipation: Qualifiers: Constipation type: unspecified constipation type Qualified Code(s): K59.00 - Constipation, unspecified Code(s): K59.00 - Constipation, unspecified Status: Acute Assessment and Plan: patient appears to have chronic constipation he was digitally disimpacted in the ER Continue MiraLax, senna S -continue lactulose (4) UTI (urinary tract infection): Qualifiers: Hematuria presence: without hematuria Urinary tract infection type: acute cystitis Qualified Code(s): N30.00 - Acute cystitis without hematuria Code(s): N39.0 - Urinary tract infection, site not specified Status: Acute Assessment and Plan: see above (5) Chronic osteomyelitis of sacrum: Code(s): M86.68 - Other chronic osteomyelitis, other site Status: Acute Assessment and Plan: see above (6) Pneumonia: Code(s): J18.9 - Pneumonia, unspecified organism Status: Acute Assessment and Plan: see above (7) Dislodged Gardiner catheter: Code(s): T83.021A - Displacement of indwelling urethral catheter, initial encounter Status: Acute Assessment and Plan: On admission CT scan showed the Gardiner catheter balloon was inflated urethra. Gardiner catheter was replaced (8) Tachycardia: Code(s): R00.0 - Tachycardia, unspecified Status: Acute Assessment and Plan: patient presented with narrow complex tachycardia. he was given adenosine and diltiazem and underlying sick rhythm was sinus tach from his sepsis. he has now improved after administration IV fluids and heart rate is 90 sinus tachycardia. -continue to monitor (9) Electrolyte abnormality: Code(s): E87.8 - Other disorders of electrolyte and fluid balance, not elsewhere classified Status: Acute Assessment and Plan: Potassium is normal after replacement on 12/09/2023 (10) Metabolic acidosis: Code(s): E87.20 - Acidosis, unspecified Status: Acute Assessment and Plan: 12/08: Improved, will discontinue bicarb infusion, continue bicarb tablets Plan DVT prophylaxis - Eliquis Stress ulcer prophylaxis - Protonix Nutrition - modified diet is ordered Code Status - patient is DNR DNI as per ming
--- NOTE | 2023-12-10 11:38 | PCNFU ---
Nutrition Follow-Up Complete: Increased protein energy needs related to wound healing as evidenced by stage 3 pressure injury to sacrum Goal: Adequate PO intake at least 75% meals and supplements to support wound healing Patient is meeting current goal. No new goal. Pt current nutrition is Heart Healthy with [place] BID and Ensure Compact BID. Last recorded weight is 74.9 kg, down from 77.5kg on admit. Bowel Motility: +BM reported 12/08 Labs Reviewed:BUN 23, NA 132, Hct 32.6,Hgb 10.4 Meds Noted:MVI, Protonix,Lactulose. Skin: Stage III-sacrum. Additional Notes: Patient remains on a heart healthy diet. Oral Intake has been good 50-80% of meals. Diet supplements remain of [place] BID providing 90 kcal/7 gm arginine/7 gm glutamine. Ensure compact providing an additional 220 kcal and 9 gm protein. Agree with diet orders. Monitoring intakes, weights, labs, supplement tolerance, wound healing, plan of care Follow up in 5 days. Daily in ICU rounds
[2023-12-10 11:59] LABS: Creatine Kinase 46 U/L (55-170)
[2023-12-10] MEDS: VANCOMYCIN 1,500 MG/NS 500 ML 1,500 MG/500 ML BAG 250 MG IVPB (16:57)
[2023-12-10] MEDS: SIMVASTATIN 20 MG TABLET PO (21:13)
[2023-12-10] MEDS: MELATONIN 3 MG TABLET PO (21:13)
[2023-12-11] VITALS (10 sets, daily range): BP systolic 92–116; BP diastolic 61–76; PULSE 72–83; RESP 16–24; TEMP 35.8–36.7; O2SAT 94–100
[2023-12-11] MEDS: MIDODRINE HCL 10 MG TABLET PO ×3 (05:26→20:13)
[2023-12-11] MEDS: MEROPENEM 1 GM/NS 100 ML 1 GM/100 ML BAG IVPB ×3 (05:29→20:18)
[2023-12-11] MEDS: CENTRAL LINE FLUSH 10 ML IV PUSH ×3 (05:29→22:00)
[2023-12-11 05:38] LABS: Basophils Percent Auto 0.4 % (0.2-1.2); Eosinophils Absolute Auto 0.9 K/mm3 (0-0.3); Eosinophils Percent Auto 8.9 % (0-4.4); Hematocrit 33.4 % (42.0-52.0); Hemoglobin 10.6 g/dL (14.0-18.0); Immature Granulocyte Absolute 0.04 K/mm3 (0.00-0.031); Immature Granulocyte Percent A 0.4 % (0-0.5); Lymphocytes Absolute Auto 1.56 K/mm3 (0.9-3.2); Lymphocytes Percent Auto 15.4 % (18.3-44.2); Mean Corpuscular HGB Conc 31.7 g/dl (32-36); Mean Corpuscular Hemoglobin 28.6 pg (26-34); Mean Corpuscular Volume 90.3 fl (80-100); Mean Platelet Volume 10.3 fl (7.4-10.4); Monocytes Absolute Auto 0.6 K/mm3 (0.1-0.6); Monocytes Percent Auto 5.5 % (2.6-8.5); Neutrophils Percent Auto 69.4 % (45.5-73.1); Platelet Count Result 240 k/mm3 (150-375); Red Cell Distribution Width 15.7 % (11.5-14.5); White Blood Count 10.1 K/mm3 (4.5-10.0)
[2023-12-11 05:48] LABS: Anion Gap 6 mmol/L (4-12); Blood Urea Nitrogen 21 mg/dL (9-20); Calcium 8.4 mg/dL (8.4-10.2); Carbon Dioxide 25 mmol/L (22-30); Chloride 103 mmol/L (98-107); Estimated Glomerular Filt Rate > 60; Glucose 79 mg/dL (65-110); Potassium 3.8 mmol/L (3.4-5.0); Sodium 134 mmol/L (137-145)
[2023-12-11] MEDS: oxyCODONE HCL (*CRX) 5 MG TAB IR PO ×3 (06:12→20:13)
[2023-12-11] MEDS: polyethylene glycoL 3350 17 GM POWD.PACK PO (08:56)
[2023-12-11] MEDS: THERAPEUTIC MULTIVITAMINS/MINERALS TAB (*BKC) 1 TABLET PO (08:56)
[2023-12-11] MEDS: SENNA/DOCUSATE SODIUM TABLET 2 TAB PO ×2 (08:56→20:14)
[2023-12-11] MEDS: ASCORBIC ACID 500 MG TABLET 1000 MG PO (08:57)
[2023-12-11] MEDS: LORATADINE 10 MG TABLET PO (08:57)
[2023-12-11] MEDS: APIXABAN 2.5 MG TABLET PO ×2 (08:57→20:13)
[2023-12-11] MEDS: QUEtiapine FUMARATE 25 MG TABLET PO ×2 (08:57→20:14)
[2023-12-11] MEDS: CLOPIDOGREL BISULFATE 75 MG TABLET PO (08:57)
[2023-12-11] MEDS: PANTOPRAZOLE 40 MG TABLET PO (08:57)
[2023-12-11] MEDS: HYDROCORTISONE 1% 30 GM CREAM 1 APPLIC TOPICAL (08:58)
[2023-12-11] MEDS: MICONAZOLE NITRATE 2% CREAM 30 GM TUBE 1 APPLIC TOPICAL (08:58)
[2023-12-11] MEDS: FLUTICASONE PROPIONATE 0.05% NA SPR 16 GM BTL (*BKC) 1 SPRAY NASAL ×2 (08:58→20:14)
[2023-12-11] MEDS: LACTULOSE 20 GM/30 ML UDC PO (08:59)
--- NOTE | 2023-12-11 11:14 | PM.IMPN ---
Progress Note: A&P Assessment and Plan (1) Septic shock: Code(s): A41.9 - Sepsis, unspecified organism; R65.21 - Severe sepsis with septic shock Status: Acute (2) Metabolic acidosis: Code(s): E87.20 - Acidosis, unspecified Status: Acute (3) Pneumonia: Code(s): J18.9 - Pneumonia, unspecified organism Status: Acute (4) Constipation: Qualifiers: Constipation type: unspecified constipation type Qualified Code(s): K59.00 - Constipation, unspecified Code(s): K59.00 - Constipation, unspecified Status: Acute (5) UTI (urinary tract infection): Qualifiers: Hematuria presence: without hematuria Urinary tract infection type: acute cystitis Qualified Code(s): N30.00 - Acute cystitis without hematuria Code(s): N39.0 - Urinary tract infection, site not specified Status: Acute Plan Sepsis/ESBL E coli/decubitus ulcer stage III IV fluid resuscitation Monitor lactic acid levels Repeat CBC CMP WBC 19 0.7/10 Two sets of Blood cultures urine cultures ESBL E coli Metabolic acidosis due to infection CXR possible infiltrate suggesting Pneumonia Monitor albumin' Monitoring of mental status. Steroids suggested if septic shock on his positive fluid resuscitation and vasopressors. IV antibiotics meropenem History of constipation and continue lactulose MiraLax senna History of tachycardia narrow complex was given adenosine and diltiazem currently in sinus rhythm Subjective Date/time seen: 12/11/23 11:14 Interval history: Patient complains of constipation denies any fever or chills Review of Systems Review of Systems: All systems reviewed & are unremarkable except as noted in HPI and below Exam Narrative: General: Pt is alert awake and in NAD Lungs/Chest: Trachea central Clear BS B/L, No crackles or wheezing. Cardiac: RRR. Normal S1 S2. No murmurs Circulation: bilateral AKA Abdomen: Normoactive bowel sounds.. Soft. NT. ND. Extremities: bilateral AKA, his stumps bilaterally do not look infected : Gardiner in place which was replaced in the ER Neurologic: Follows commands. Moves all 4 extremities PERRL AO x2 Skin: large decubitus wound and the sacral area Objective Data Vital Signs Vital Signs: Vital Signs - 24 hr 12/10/23 12:00 12/10/23 16:00 12/10/23 16:00 Temperature Pulse Rate 73 68 70 Respiratory Rate 19 Blood Pressure 102/64 Pulse Oximetry 95 Oxygen Delivery 12/10/23 20:00 12/10/23 20:00 12/11/23 00:00 Temperature Pulse Rate 70 80 73 Respiratory Rate 19 Blood Pressure Pulse Oximetry 95 Oxygen Delivery Room Air 12/11/23 04:00 12/11/23 05:05 12/11/23 08:56 Temperature 35.8 C L Pulse Rate 72 72 76 Respiratory Rate 24 H Blood Pressure 92/61 L Pulse Oximetry 94 96 Oxygen Delivery Room Air Intake/Output Intake/Output: Intake & Output 12/08/23 12/09/23 12/10/23 12/11/23 23:59 23:59 23:59 23:59 Intake Total 5335.6 5042.5 1600 662 Output Total 905 2939 3650 1475 Balance 4430.6 2542.5 -2050 -813 Meds/Results Medications: Active Medications Generic Name Dose Route Start Last Admin Trade Name Freq PRN Reason Stop Dose Admin Acetaminophen 650 mg 12/08/23 01:08 12/08/23 17:30 Acetaminophen 325 Mg Tablet PO 650 mg Q4H PRN Administration Mild Pain (1-3) or Fever Al Hydrox/Mg Hydrox/Simethicone 30 ml 12/08/23 01:52 12/08/23 13:23 Mag Hydrox/Al Hydrox/Simeth 30 Ml Udc PO 30 ml QID PRN Administration Dyspepsia Albuterol 2.5 mg 12/08/23 03:45 Albuterol Sulfate Neb 2.5 Mg/3 Ml Inh INHALATION Q6HRT PRN sob Apixaban 2.5 mg 12/08/23 09:00 12/11/23 08:57 Apixaban 2.5 Mg Tablet PO 2.5 mg Q12HR BAKARI Administration Ascorbic Acid 1,000 mg 12/08/23 09:00 12/11/23 08:57 Ascorbic Acid 500 Mg Tablet PO 1,000 mg DAILY BAKARI Administration Benzocaine 1 lozenge 12/08/23 14:05 12/08/23 22:02 Benzocaine/Men
[2023-12-11 11:37] LABS: Vancomycin Trough 22.4 ug/mL (10.0-20.0)
[2023-12-11] MEDS: ACETAMINOPHEN 325 MG TABLET 650 MG PO (20:13)
[2023-12-11] MEDS: MELATONIN 3 MG TABLET PO (20:14)
[2023-12-11] MEDS: SODIUM CHLORIDE 0.9% IV 250 ML (20:15)
[2023-12-11] MEDS: SIMVASTATIN 20 MG TABLET PO (20:17)
[2023-12-12] VITALS (10 sets, daily range): BP systolic 119–138; BP diastolic 78–86; PULSE 70–87; RESP 16–18; TEMP 36.6–36.7; O2SAT 96–100
[2023-12-12] MEDS: oxyCODONE HCL (*CRX) 5 MG TAB IR PO ×2 (06:34→19:26)
[2023-12-12] MEDS: MEROPENEM 1 GM/NS 100 ML 1 GM/100 ML BAG IVPB ×3 (06:34→23:40)
[2023-12-12] MEDS: MIDODRINE HCL 10 MG TABLET PO ×3 (06:34→20:42)
[2023-12-12] MEDS: CENTRAL LINE FLUSH 10 ML IV PUSH ×2 (06:35→23:39)
[2023-12-12 07:48] LABS: Basophils Percent Auto 0.5 % (0.2-1.2); Eosinophils Absolute Auto 0.9 K/mm3 (0-0.3); Eosinophils Percent Auto 10.1 % (0-4.4); Hemoglobin 11.1 g/dL (14.0-18.0); Immature Granulocyte Absolute 0.02 K/mm3 (0.00-0.031); Immature Granulocyte Percent A 0.2 % (0-0.5); Lymphocytes Absolute Auto 1.65 K/mm3 (0.9-3.2); Lymphocytes Percent Auto 18.9 % (18.3-44.2); Mean Corpuscular HGB Conc 31.7 g/dl (32-36); Mean Corpuscular Hemoglobin 28.4 pg (26-34); Mean Corpuscular Volume 89.5 fl (80-100); Mean Platelet Volume 10.2 fl (7.4-10.4); Monocytes Absolute Auto 0.6 K/mm3 (0.1-0.6); Neutrophils Absolute Auto 5.5 K/mm3 (1.3-6.7); Neutrophils Percent Auto 63.3 % (45.5-73.1); Platelet Count Result 249 k/mm3 (150-375); Red Blood Count 3.91 M/mm3 (4.6-6.20); Red Cell Distribution Width 15.6 % (11.5-14.5); White Blood Count 8.7 K/mm3 (4.5-10.0)
[2023-12-12 08:02] LABS: Anion Gap 2 mmol/L (4-12); Blood Urea Nitrogen 15 mg/dL (9-20); Carbon Dioxide 27 mmol/L (22-30); Chloride 107 mmol/L (98-107); Estimated Glomerular Filt Rate > 60; Glucose 75 mg/dL (65-110); Potassium 3.4 mmol/L (3.4-5.0); Sodium 136 mmol/L (137-145)
[2023-12-12] MEDS: polyethylene glycoL 3350 17 GM POWD.PACK PO (10:02)
[2023-12-12] MEDS: CLOPIDOGREL BISULFATE 75 MG TABLET PO (10:02)
[2023-12-12] MEDS: SENNA/DOCUSATE SODIUM TABLET 2 TAB PO ×2 (10:02→20:42)
[2023-12-12] MEDS: THERAPEUTIC MULTIVITAMINS/MINERALS TAB (*BKC) 1 TABLET PO (10:03)
[2023-12-12] MEDS: LORATADINE 10 MG TABLET PO (10:03)
[2023-12-12] MEDS: PANTOPRAZOLE 40 MG TABLET PO (10:03)
[2023-12-12] MEDS: APIXABAN 2.5 MG TABLET PO ×2 (10:03→20:42)
[2023-12-12] MEDS: ASCORBIC ACID 500 MG TABLET 1000 MG PO (10:03)
[2023-12-12] MEDS: LACTULOSE 20 GM/30 ML UDC PO (10:04)
[2023-12-12] MEDS: HYDROCORTISONE 1% 30 GM CREAM 1 APPLIC TOPICAL (10:04)
[2023-12-12] MEDS: FLUTICASONE PROPIONATE 0.05% NA SPR 16 GM BTL (*BKC) 1 SPRAY NASAL ×2 (10:04→23:40)
[2023-12-12] MEDS: MICONAZOLE NITRATE 2% CREAM 30 GM TUBE 1 APPLIC TOPICAL (10:04)
[2023-12-12] MEDS: QUEtiapine FUMARATE 25 MG TABLET PO ×2 (10:04→20:42)
--- NOTE | 2023-12-12 11:04 | PM.IMPN ---
Progress Note: A&P Assessment and Plan (1) Septic shock: Code(s): A41.9 - Sepsis, unspecified organism; R65.21 - Severe sepsis with septic shock Status: Acute (2) Metabolic acidosis: Code(s): E87.20 - Acidosis, unspecified Status: Acute (3) Pneumonia: Code(s): J18.9 - Pneumonia, unspecified organism Status: Acute (4) Constipation: Qualifiers: Constipation type: unspecified constipation type Qualified Code(s): K59.00 - Constipation, unspecified Code(s): K59.00 - Constipation, unspecified Status: Acute (5) UTI (urinary tract infection): Qualifiers: Hematuria presence: without hematuria Urinary tract infection type: acute cystitis Qualified Code(s): N30.00 - Acute cystitis without hematuria Code(s): N39.0 - Urinary tract infection, site not specified Status: Acute Plan Sepsis/ESBL E coli/decubitus ulcer stage III IV fluid resuscitation Monitor lactic acid levels Repeat CBC CMP WBC 19 /10/8.7 Two sets of Blood cultures urine cultures ESBL E coli Metabolic acidosis due to infection CXR possible infiltrate suggesting Pneumonia Will repeat chest x-ray in a.m. Monitor albumin' Monitoring of mental status. Steroids suggested if septic shock on his positive fluid resuscitation and vasopressors. IV antibiotics meropenem Continue wound care consult for pressure sores and also management History of constipation and continue lactulose MiraLax senna History of tachycardia narrow complex was given adenosine and diltiazem currently in sinus rhythm Subjective Date/time seen: 12/12/23 11:04 Interval history: Doing well denies any chest pain or shortness of breath still complains of some constipation Review of Systems Review of Systems: All systems reviewed & are unremarkable except as noted in HPI and below Exam Narrative: General: Pt is alert awake and in NAD Lungs/Chest: Trachea central Clear BS B/L, No crackles or wheezing. Cardiac: RRR. Normal S1 S2. No murmurs Circulation: bilateral AKA Abdomen: Normoactive bowel sounds.. Soft. NT. ND. Extremities: bilateral AKA, his stumps bilaterally do not look infected : Gardiner in place which was replaced in the ER Neurologic: Follows commands. Moves all 4 extremities PERRL AO x2 Skin: large decubitus wound and the sacral area Objective Data Vital Signs Vital Signs: Vital Signs - 24 hr 12/11/23 12:00 12/11/23 14:01 12/11/23 16:00 Temperature 36.7 C Pulse Rate 72 75 78 Respiratory Rate 18 Blood Pressure 115/76 Pulse Oximetry 99 Oxygen Delivery 12/11/23 21:14 12/11/23 20:00 12/12/23 06:00 Temperature 36.6 C 36.6 C Pulse Rate 80 76 Respiratory Rate 16 16 Blood Pressure 116/72 120/78 Pulse Oximetry 100 96 Oxygen Delivery Room Air 12/11/23 20:00 12/12/23 00:00 12/12/23 04:00 Temperature Pulse Rate 83 70 77 Respiratory Rate Blood Pressure Pulse Oximetry Oxygen Delivery 12/12/23 10:45 Temperature Pulse Rate Respiratory Rate Blood Pressure Pulse Oximetry 97 Oxygen Delivery Room Air Intake/Output Intake/Output: Intake & Output 12/09/23 12/10/23 12/11/23 12/12/23 23:59 23:59 23:59 23:59 Intake Total 5042.5 1600 2266 100 Output Total 2500 3650 2825 Balance 2542.5 -2982 -182 100 Meds/Results Medications: Active Medications Generic Name Dose Route Start Last Admin Trade Name Freq PRN Reason Stop Dose Admin Acetaminophen 650 mg 12/08/23 01:08 12/11/23 20:13 Acetaminophen 325 Mg Tablet PO 650 mg Q4H PRN Administration Mild Pain (1-3) or Fever Al Hydrox/Mg Hydrox/Simethicone 30 ml 12/08/23 01:52 12/08/23 13:23 Mag Hydrox/Al Hydrox/Simeth 30 Ml Udc PO 30 ml QID PRN Administration Dyspepsia Albuterol 2.5 mg 12/08/23 03:45 Albuterol Sulfate Neb 2.5 Mg/3 Ml Inh INHALATION Q6HRT PRN sob Apixaban 2.5 mg 12/08/23 09:00 12/12/23 10:03 Apixaban 2.5 Mg
[2023-12-12] MEDS: ACETAMINOPHEN 325 MG TABLET 650 MG PO (20:41)
[2023-12-12] MEDS: SIMVASTATIN 20 MG TABLET PO (20:42)
[2023-12-12] MEDS: MELATONIN 3 MG TABLET PO (20:42)
[2023-12-12 22:04] LABS: Glucose Point of Care 73 mg/dl (65-105)
[2023-12-13] VITALS (9 sets, daily range): BP systolic 105–139; BP diastolic 68–83; PULSE 63–93; RESP 12–20; TEMP 35.9–36.4; O2SAT 96–98
[2023-12-13] MEDS: MEROPENEM 1 GM/NS 100 ML 1 GM/100 ML BAG IVPB ×3 (06:49→21:36)
[2023-12-13] MEDS: MIDODRINE HCL 10 MG TABLET PO ×3 (06:49→21:30)
[2023-12-13] MEDS: CENTRAL LINE FLUSH 10 ML IV PUSH ×3 (06:49→21:30)
[2023-12-13 07:04] LABS: Basophils Percent Auto 0.4 % (0.2-1.2); Eosinophils Absolute Auto 0.9 K/mm3 (0-0.3); Eosinophils Percent Auto 11.6 % (0-4.4); Hematocrit 34.5 % (42.0-52.0); Hemoglobin 11.1 g/dL (14.0-18.0); Immature Granulocyte Absolute 0.04 K/mm3 (0.00-0.031); Immature Granulocyte Percent A 0.5 % (0-0.5); Lymphocytes Absolute Auto 1.95 K/mm3 (0.9-3.2); Lymphocytes Percent Auto 25.5 % (18.3-44.2); Mean Corpuscular HGB Conc 32.2 g/dl (32-36); Mean Corpuscular Hemoglobin 28.7 pg (26-34); Mean Corpuscular Volume 89.1 fl (80-100); Mean Platelet Volume 10.5 fl (7.4-10.4); Monocytes Absolute Auto 0.7 K/mm3 (0.1-0.6); Monocytes Percent Auto 9.3 % (2.6-8.5); Neutrophils Percent Auto 52.7 % (45.5-73.1); Platelet Count Result 246 k/mm3 (150-375); Red Blood Count 3.87 M/mm3 (4.6-6.20); Red Cell Distribution Width 15.6 % (11.5-14.5); White Blood Count 7.7 K/mm3 (4.5-10.0)
[2023-12-13 07:18] LABS: Anion Gap 6 mmol/L (4-12); Blood Urea Nitrogen 14 mg/dL (9-20); Calcium 8.2 mg/dL (8.4-10.2); Carbon Dioxide 25 mmol/L (22-30); Chloride 104 mmol/L (98-107); Estimated Glomerular Filt Rate > 60; Glucose 71 mg/dL (65-110); Potassium 3.7 mmol/L (3.4-5.0); Sodium 135 mmol/L (137-145)
[2023-12-13] MEDS: APIXABAN 2.5 MG TABLET PO ×2 (09:30→20:36)
[2023-12-13] MEDS: PANTOPRAZOLE 40 MG TABLET PO (09:30)
[2023-12-13] MEDS: ASCORBIC ACID 500 MG TABLET 1000 MG PO (09:30)
[2023-12-13] MEDS: LORATADINE 10 MG TABLET PO (09:30)
[2023-12-13] MEDS: SENNA/DOCUSATE SODIUM TABLET 2 TAB PO ×2 (09:30→20:36)
[2023-12-13] MEDS: CLOPIDOGREL BISULFATE 75 MG TABLET PO (09:30)
[2023-12-13] MEDS: THERAPEUTIC MULTIVITAMINS/MINERALS TAB (*BKC) 1 TABLET PO (09:30)
[2023-12-13] MEDS: HYDROCORTISONE 1% 30 GM CREAM 1 APPLIC TOPICAL (09:31)
[2023-12-13] MEDS: LACTULOSE 20 GM/30 ML UDC PO (09:31)
[2023-12-13] MEDS: MICONAZOLE NITRATE 2% CREAM 30 GM TUBE 1 APPLIC TOPICAL (09:31)
[2023-12-13] MEDS: QUEtiapine FUMARATE 25 MG TABLET PO ×2 (09:31→20:35)
[2023-12-13] MEDS: polyethylene glycoL 3350 17 GM POWD.PACK PO (09:31)
--- NOTE | 2023-12-13 10:39 | PM.IMPN ---
Progress Note: A&P Assessment and Plan (1) Septic shock: Code(s): A41.9 - Sepsis, unspecified organism; R65.21 - Severe sepsis with septic shock Status: Acute (2) Metabolic acidosis: Code(s): E87.20 - Acidosis, unspecified Status: Acute (3) Pneumonia: Code(s): J18.9 - Pneumonia, unspecified organism Status: Acute (4) Constipation: Qualifiers: Constipation type: unspecified constipation type Qualified Code(s): K59.00 - Constipation, unspecified Code(s): K59.00 - Constipation, unspecified Status: Acute (5) UTI (urinary tract infection): Qualifiers: Hematuria presence: without hematuria Urinary tract infection type: acute cystitis Qualified Code(s): N30.00 - Acute cystitis without hematuria Code(s): N39.0 - Urinary tract infection, site not specified Status: Acute Plan Sepsis/ESBL E coli/decubitus ulcer stage III IV fluid resuscitation Repeat CBC CMP WBC 19 /10/8.7/7.7 Two sets of Blood cultures negative urine cultures ESBL E coli Metabolic acidosis due to infection repeat chest x-ray still shows left basal infiltrate/pneumonia Monitor albumin' Monitoring of mental status. Steroids suggested if septic shock on his positive fluid resuscitation and vasopressors. IV antibiotics meropenem Continue wound care consult for pressure sores and also management History of constipation and continue lactulose MiraLax senna History of tachycardia narrow complex was given adenosine and diltiazem currently in sinus rhythm History of chronic pain continue oxycodone and Tylenol. History of CAD continue Plavix and Eliquis History of atrial fibrillation continue as above History of COPD continue nebulizer treatment The patient is chronically ill on multiple medications with multiple medical conditions will need long-term care Subjective Date/time seen: 12/13/23 10:39 Interval history: Still complains of difficulty sleeping at night eating sleeping pill tonight chest pain shortness are breath Review of Systems Review of Systems: All systems reviewed & are unremarkable except as noted in HPI and below Exam Narrative: General: Pt is alert awake and in NAD Lungs/Chest: Trachea central Clear BS B/L, No crackles or wheezing. Cardiac: RRR. Normal S1 S2. No murmurs Circulation: bilateral AKA Abdomen: Normoactive bowel sounds.. Soft. NT. ND. Extremities: bilateral AKA, his stumps bilaterally do not look infected : Gardiner in place which was replaced in the ER Neurologic: Follows commands. Moves all 4 extremities PERRL AO x2 Skin: large decubitus wound and the sacral area Objective Data Vital Signs Vital Signs: Vital Signs - 24 hr 12/12/23 10:45 12/12/23 14:00 12/12/23 12:00 Temperature 36.7 C Pulse Rate 81 87 Respiratory Rate 18 Blood Pressure 119/85 Pulse Oximetry 97 97 Oxygen Delivery Room Air 12/12/23 16:00 12/12/23 20:00 12/12/23 20:00 Temperature 36.6 C Pulse Rate 75 74 75 Respiratory Rate 18 Blood Pressure 138/86 Pulse Oximetry 100 Oxygen Delivery 12/13/23 00:00 12/13/23 04:00 12/13/23 04:00 Temperature 35.9 C L Pulse Rate 82 70 68 Respiratory Rate 20 Blood Pressure 105/70 Pulse Oximetry 96 Oxygen Delivery Intake/Output Intake/Output: Intake & Output 12/10/23 12/11/23 12/12/23 12/13/23 23:59 23:59 23:59 23:59 Intake Total 1600 2266 866 544 Output Total 3650 4855 700 1550 Balance -[facility] 166 1006 Meds/Results Medications: Active Medications Generic Name Dose Route Start Last Admin Trade Name Freq PRN Reason Stop Dose Admin Acetaminophen 650 mg 12/08/23 01:08 12/12/23 20:41 Acetaminophen 325 Mg Tablet PO 650 mg Q4H PRN Administration Mild Pain (1-3) or Fever Al Hydrox/Mg Hydrox/Simethicone 30 ml 12/08/23 01:52 12/08/23 13:23 Mag Hydrox/Al Hydrox/Simeth 30 Ml Udc PO 30 ml QID PRN Administration Dyspepsia Albut
[2023-12-13] MEDS: MELATONIN 3 MG TABLET PO (20:35)
[2023-12-13] MEDS: FLUTICASONE PROPIONATE 0.05% NA SPR 16 GM BTL (*BKC) 1 SPRAY NASAL (20:36)
[2023-12-13] MEDS: SIMVASTATIN 20 MG TABLET PO (20:36)
[2023-12-13] MEDS: oxyCODONE HCL (*CRX) 5 MG TAB IR PO (20:48)
[2023-12-14] VITALS (9 sets, daily range): BP systolic 113–119; BP diastolic 69–75; PULSE 67–91; RESP 12–18; TEMP 36.4–36.9; O2SAT 97–100
[2023-12-14] MEDS: MIDODRINE HCL 10 MG TABLET PO ×3 (05:09→21:12)
[2023-12-14] MEDS: MEROPENEM 1 GM/NS 100 ML 1 GM/100 ML BAG IVPB ×3 (05:09→21:12)
[2023-12-14] MEDS: CENTRAL LINE FLUSH 10 ML IV PUSH ×3 (05:09→21:13)
[2023-12-14] MEDS: polyethylene glycoL 3350 17 GM POWD.PACK PO (09:11)
[2023-12-14] MEDS: APIXABAN 2.5 MG TABLET PO ×2 (09:11→21:12)
[2023-12-14] MEDS: LACTULOSE 20 GM/30 ML UDC PO (09:11)
[2023-12-14] MEDS: LORATADINE 10 MG TABLET PO (09:11)
[2023-12-14] MEDS: CLOPIDOGREL BISULFATE 75 MG TABLET PO (09:11)
[2023-12-14] MEDS: PANTOPRAZOLE 40 MG TABLET PO (09:11)
[2023-12-14] MEDS: ACETAMINOPHEN 325 MG TABLET 650 MG PO (09:12)
[2023-12-14] MEDS: THERAPEUTIC MULTIVITAMINS/MINERALS TAB (*BKC) 1 TABLET PO (09:12)
[2023-12-14] MEDS: SENNA/DOCUSATE SODIUM TABLET 2 TAB PO ×2 (09:12→21:12)
[2023-12-14] MEDS: QUEtiapine FUMARATE 25 MG TABLET PO ×2 (09:12→21:12)
[2023-12-14] MEDS: ASCORBIC ACID 500 MG TABLET 1000 MG PO (09:12)
[2023-12-14] MEDS: MICONAZOLE NITRATE 2% CREAM 30 GM TUBE 1 APPLIC TOPICAL (09:14)
[2023-12-14] MEDS: HYDROCORTISONE 1% 30 GM CREAM 1 APPLIC TOPICAL (09:14)
[2023-12-14] MEDS: FLUTICASONE PROPIONATE 0.05% NA SPR 16 GM BTL (*BKC) 1 SPRAY NASAL ×2 (09:14→21:13)
[2023-12-14] MEDS: NEOMYCIN/POLYMYXIN/BACITRACIN OINTMENT PACKET 1 PACKET (14:04)
[2023-12-14] MEDS: SALINE LOCK FLUSH 10 ML IV PUSH ×2 (14:04→21:13)
--- NOTE | 2023-12-14 15:55 | PM.IMPN ---
Progress Note: A&P Assessment and Plan (1) Septic shock: Code(s): A41.9 - Sepsis, unspecified organism; R65.21 - Severe sepsis with septic shock Status: Acute (2) Metabolic acidosis: Code(s): E87.20 - Acidosis, unspecified Status: Acute (3) Pneumonia: Code(s): J18.9 - Pneumonia, unspecified organism Status: Acute (4) Sacral decubitus ulcer: Qualifiers: Pressure injury stage: stage 3 Qualified Code(s): L89.153 - Pressure ulcer of sacral region, stage 3 Code(s): L89.159 - Pressure ulcer of sacral region, unspecified stage Status: Acute (5) Constipation: Qualifiers: Constipation type: unspecified constipation type Qualified Code(s): K59.00 - Constipation, unspecified Code(s): K59.00 - Constipation, unspecified Status: Acute (6) UTI (urinary tract infection): Qualifiers: Hematuria presence: without hematuria Urinary tract infection type: acute cystitis Qualified Code(s): N30.00 - Acute cystitis without hematuria Code(s): N39.0 - Urinary tract infection, site not specified Status: Acute (7) Sinus tachycardia: Code(s): R00.0 - Tachycardia, unspecified Status: Acute Plan 67-year-old male with a H sacral osteomyelitis, bilateral lower extremity osteomyelitis status post [place] in 01/2023, cognitive impairment status post TBI, chronic indwelling Gardiner catheter, schizoaffective disorder, anxiety, chronic hypotension, heart failure preserved ejection fraction, peripheral artery disease, gastritis/peptic ulcer disease, who is a long-term resident of [facility]. He was recently treated at [facility] for sacral osteomyelitis discharged on Rocephin for 6 weeks to end on November 03. He is readmitted on December 07 with a complaint of abdominal pain and constipation. Found to be impacted in the ER and was digitally disimpacted the large BM. Found to be in septic shock likely secondary to complicated UTI with chronic indwelling Gardiner catheter. Transferred out of ICU on 12/14/2023. # septic shock -resolved, transferred out of ICU on 12/14/2023. Present on admission. Received large volume fluid resuscitation and Levophed. -leukocytosis resolved -possible pneumonia. Although denies cough. On meropenem -sacral decubital ulcer with osteomyelitis receive 6 weeks of IV Rocephin which finished in October -complicated UTI with indwelling Gardiner catheter. Gardiner catheter replaced. Urine culture demonstrating ESBL E coli. Meropenem 1 g t.i.d. started on 12/10. Needs total 7 day course. Midline placed on 12/13. - blood culture 12/06: Final result no growth # metabolic acidosis -improved. Bicarb infusion discontinued. # sacral decubitus ulcer -wound care following # constipation -status post digital disimpaction in the ER -continue MiraLax daily, lactulose 20 g p.o. daily, Senokot S 2 tabs p.o. b.i.d. # narrow complex tachycardia -status post adenosine and diltiazem. Now improved. 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 b.i.d. -COPD: Not acute -chronic pain with chronic opioid use -schizoaffective disorder: Continue ARMORING MACHINE OPERATOR Seroquel -GERD/peptic ulcer disease: Continue ARMORING MACHINE OPERATOR Protonix -heart failure preserved ejection fraction: Compensated F/E/N: saline lock IV, replace lytes as needed, heart healthy diet GI prophylaxis: Continue ARMORING MACHINE OPERATOR Protonix DVT prophylaxis: Eliquis Lines: Femoral triple-lumen catheter placed in ICU switched out for midline on 12/14/2023, chronic wound only Gardiner catheter replaced this admission Code Status: The patient wishes to be DNR/DNI Dispo: Stable, receiving meropenem IV 3 times daily. Pending discharge to [facility] Heart Failure MIPS: Has heart failure unspecified type. cannot start ARNI due to low blood pressure. Note to lakhwinder
[2023-12-14] MEDS: SIMVASTATIN 20 MG TABLET PO (21:12)
[2023-12-14] MEDS: MELATONIN 3 MG TABLET PO (21:12)
[2023-12-14] MEDS: BENZOCAINE/MENTHOL (*BKC) 18 EA LOZENGE 1 LOZENGE PO (22:12)
[2023-12-15] VITALS: PULSE 86
[2023-12-15 04:00] VITALS: PULSE 68
[2023-12-15] MEDS: MIDODRINE HCL 10 MG TABLET PO ×3 (05:28→20:39)
[2023-12-15] MEDS: CENTRAL LINE FLUSH 10 ML IV PUSH ×2 (05:28→15:10)
[2023-12-15] MEDS: SALINE LOCK FLUSH 10 ML IV PUSH ×2 (05:28→20:39)
[2023-12-15] MEDS: MEROPENEM 1 GM/NS 100 ML 1 GM/100 ML BAG IVPB ×3 (05:28→20:39)
[2023-12-15 06:00] VITALS: BP 111/72; PULSE 81; RESP 16; TEMP 37; O2SAT 98
[2023-12-15 08:00] VITALS: PULSE 75
--- NOTE | 2023-12-15 08:54 | PM.IMPN ---
Progress Note: A&P Assessment and Plan (1) Septic shock: Code(s): A41.9 - Sepsis, unspecified organism; R65.21 - Severe sepsis with septic shock Status: Acute (2) Metabolic acidosis: Code(s): E87.20 - Acidosis, unspecified Status: Acute (3) Pneumonia: Code(s): J18.9 - Pneumonia, unspecified organism Status: Acute (4) Sacral decubitus ulcer: Qualifiers: Pressure injury stage: stage 3 Qualified Code(s): L89.153 - Pressure ulcer of sacral region, stage 3 Code(s): L89.159 - Pressure ulcer of sacral region, unspecified stage Status: Acute (5) Constipation: Qualifiers: Constipation type: unspecified constipation type Qualified Code(s): K59.00 - Constipation, unspecified Code(s): K59.00 - Constipation, unspecified Status: Acute (6) UTI (urinary tract infection): Qualifiers: Hematuria presence: without hematuria Urinary tract infection type: acute cystitis Qualified Code(s): N30.00 - Acute cystitis without hematuria Code(s): N39.0 - Urinary tract infection, site not specified Status: Acute (7) Sinus tachycardia: Code(s): R00.0 - Tachycardia, unspecified Status: Acute Plan 67-year-old male with a H sacral osteomyelitis, bilateral lower extremity osteomyelitis status post [place] in 01/2023, cognitive impairment status post TBI, chronic indwelling Gardiner catheter, schizoaffective disorder, anxiety, chronic hypotension, heart failure preserved ejection fraction, peripheral artery disease, gastritis/peptic ulcer disease, who is a long-term resident of [facility]. He was recently treated at [facility] for sacral osteomyelitis discharged on Rocephin for 6 weeks to end on November 03. He is readmitted on December 07 with a complaint of abdominal pain and constipation. Found to be impacted in the ER and was digitally disimpacted the large BM. Found to be in septic shock likely secondary to complicated UTI with chronic indwelling Gardiner catheter. Transferred out of ICU on 12/14/2023. # septic shock -POA, now resolved, transferred out of ICU on 12/14/2023. Received large volume fluid resuscitation and Levophed. -leukocytosis resolved -possible pneumonia. Although denies cough. On meropenem -sacral decubital ulcer with osteomyelitis receive 6 weeks of IV Rocephin which finished in October -complicated UTI with indwelling Gardiner catheter. Gardiner catheter replaced. Urine culture demonstrating ESBL E coli. Meropenem 1 g t.i.d. started on 12/10. Needs total 7 day course. Midline placed on 12/13. - blood culture 12/06: Final result no growth # metabolic acidosis -improved. Bicarb infusion discontinued. # sacral decubitus ulcer -wound care following # constipation -status post digital disimpaction in the ER -continue MiraLax daily, lactulose 20 g p.o. daily, Senokot S 2 tabs p.o. b.i.d. # narrow complex tachycardia -status post adenosine and diltiazem. Now improved. Chronic Conditions -CAD/PAD: Continue [employer] TECHNOLOGIST Plavix -AFib on Eliquis: Continue [employer] TECHNOLOGIST Eliquis 2.5 mg p.o. b.i.d. -COPD: Not acute -chronic pain with chronic opioid use -schizoaffective disorder: Continue [employer] TECHNOLOGIST Seroquel -GERD/peptic ulcer disease: Continue [employer] TECHNOLOGIST Protonix -heart failure unspecified type: Compensated F/E/N: saline lock IV, replace lytes as needed, heart healthy diet GI prophylaxis: Continue [employer] TECHNOLOGIST Protonix DVT prophylaxis: Eliquis Lines: Femoral triple-lumen catheter placed in ICU switched out for midline on 12/14/2023, chronic wound only Gardiner catheter replaced this admission Code Status: The patient wishes to be DNR/DNI Dispo: Stable, receiving meropenem IV 3 times daily. Pending discharge to [facility], his usual residence. Heart Failure MIPS: Has heart failure unspecified type. cannot start ARNI due to low blood pressure. Note to the
[2023-12-15] MEDS: HYDROCORTISONE 1% 30 GM CREAM 1 APPLIC TOPICAL (09:40)
[2023-12-15] MEDS: FLUTICASONE PROPIONATE 0.05% NA SPR 16 GM BTL (*BKC) 1 SPRAY NASAL ×2 (09:40→20:38)
[2023-12-15] MEDS: CLOPIDOGREL BISULFATE 75 MG TABLET PO (09:54)
[2023-12-15] MEDS: QUEtiapine FUMARATE 25 MG TABLET PO ×2 (09:54→20:34)
[2023-12-15] MEDS: LORATADINE 10 MG TABLET PO (09:54)
[2023-12-15] MEDS: LACTULOSE 20 GM/30 ML UDC PO (09:54)
[2023-12-15] MEDS: APIXABAN 2.5 MG TABLET PO ×2 (09:54→20:34)
[2023-12-15] MEDS: SENNA/DOCUSATE SODIUM TABLET 2 TAB PO (09:54)
[2023-12-15] MEDS: ASCORBIC ACID 500 MG TABLET 1000 MG PO (09:54)
[2023-12-15] MEDS: polyethylene glycoL 3350 17 GM POWD.PACK PO (09:54)
[2023-12-15] MEDS: PANTOPRAZOLE 40 MG TABLET PO (09:54)
[2023-12-15] MEDS: THERAPEUTIC MULTIVITAMINS/MINERALS TAB (*BKC) 1 TABLET PO (09:54)
[2023-12-15] MEDS: MICONAZOLE NITRATE 2% CREAM 30 GM TUBE 1 APPLIC TOPICAL (09:54)
[2023-12-15 14:00] VITALS: BP 112/74; PULSE 83; RESP 18; TEMP 36.8; O2SAT 98
[2023-12-15] MEDS: MELATONIN 3 MG TABLET PO (20:34)
[2023-12-15] MEDS: SIMVASTATIN 20 MG TABLET PO (20:34)
[2023-12-15 21:51] VITALS: BP 102/79; PULSE 77; RESP 16; TEMP 36.4; O2SAT 100
[2023-12-15] MEDS: oxyCODONE HCL (*CRX) 5 MG TAB IR PO (22:14)
[2023-12-16 05:43] VITALS: BP 106/58; PULSE 89; RESP 16; TEMP 36.3; O2SAT 100
[2023-12-16] MEDS: MEROPENEM 1 GM/NS 100 ML 1 GM/100 ML BAG IVPB (05:45)
[2023-12-16] MEDS: MIDODRINE HCL 10 MG TABLET PO ×2 (05:46→11:47)
[2023-12-16] MEDS: SALINE LOCK FLUSH 10 ML IV PUSH (05:46)
[2023-12-16 06:30] LABS: Basophils Percent Auto 0.4 % (0.2-1.2); Eosinophils Absolute Auto 0.9 K/mm3 (0-0.3); Eosinophils Percent Auto 13.2 % (0-4.4); Hematocrit 35.1 % (42.0-52.0); Immature Granulocyte Absolute 0.03 K/mm3 (0.00-0.031); Immature Granulocyte Percent A 0.4 % (0-0.5); Lymphocytes Absolute Auto 1.68 K/mm3 (0.9-3.2); Lymphocytes Percent Auto 23.8 % (18.3-44.2); Mean Corpuscular HGB Conc 31.3 g/dl (32-36); Mean Corpuscular Hemoglobin 28.1 pg (26-34); Mean Corpuscular Volume 89.8 fl (80-100); Mean Platelet Volume 10.8 fl (7.4-10.4); Monocytes Percent Auto 14.2 % (2.6-8.5); Neutrophils Absolute Auto 3.4 K/mm3 (1.3-6.7); Platelet Count Result 283 k/mm3 (150-375); Red Blood Count 3.91 M/mm3 (4.6-6.20); Red Cell Distribution Width 15.9 % (11.5-14.5); White Blood Count 7.1 K/mm3 (4.5-10.0)
[2023-12-16 06:50] LABS: Anion Gap 6 mmol/L (4-12); Blood Urea Nitrogen 13 mg/dL (9-20); Calcium 8.2 mg/dL (8.4-10.2); Carbon Dioxide 22 mmol/L (22-30); Chloride 106 mmol/L (98-107); Estimated Glomerular Filt Rate > 60; Glucose 104 mg/dL (65-110); Magnesium 2.2 mg/dL (1.6-2.3); Potassium 3.4 mmol/L (3.4-5.0); Sodium 134 mmol/L (137-145)
[2023-12-16 08:00] VITALS: PULSE 80
[2023-12-16] MEDS: THERAPEUTIC MULTIVITAMINS/MINERALS TAB (*BKC) 1 TABLET PO (08:25)
[2023-12-16] MEDS: SENNA/DOCUSATE SODIUM TABLET 2 TAB PO (08:25)
[2023-12-16] MEDS: APIXABAN 2.5 MG TABLET PO (08:26)
[2023-12-16] MEDS: ASCORBIC ACID 500 MG TABLET 1000 MG PO (08:26)
[2023-12-16] MEDS: CLOPIDOGREL BISULFATE 75 MG TABLET PO (08:26)
[2023-12-16] MEDS: FLUTICASONE PROPIONATE 0.05% NA SPR 16 GM BTL (*BKC) 1 SPRAY NASAL (08:26)
[2023-12-16] MEDS: QUEtiapine FUMARATE 25 MG TABLET PO (08:26)
[2023-12-16] MEDS: LORATADINE 10 MG TABLET PO (08:26)
[2023-12-16] MEDS: PANTOPRAZOLE 40 MG TABLET PO (08:26)
--- NOTE | 2023-12-16 10:19 | PCNFU ---
Nutrition Follow-Up Complete: Increased protein energy needs related to wound healing as evidenced by stage 3 pressure injury to sacrum Goal:Adequate PO intake at least 75% meals and supplements to support wound healing Pt is meeting goal, continue with plan of care. Pt current nutrition is heart healthy, Ensure compact BID, STACI BID. Nutrition recommendation: Continue with current plan of care Last recorded weight is 73.1 kg. Bowel Motility: +BM 12/14 Labs Reviewed: Meds Noted: eliquis, lactulose, zofran Skin: Stage 3 to sacrum Additional Notes: Pt continues on a heart healthy diet, 50-100% intake of meals. Ensure compact and STACI BID in place for additional protein and calories for wound healing. Agree with diet orders. Encourage good intake to continue. Monitoring intakes, weights, labs, supplement tolerance, wound healing, plan of care Follow up in 7 days.
[2023-12-16 11:18] LABS: SARS-CoV-2 RNA PCR Negative (Negative)
[2023-12-16] MEDS: MICONAZOLE NITRATE 2% CREAM 30 GM TUBE 1 APPLIC TOPICAL (11:30)
[2023-12-16] MEDS: HYDROCORTISONE 1% 30 GM CREAM 1 APPLIC TOPICAL (11:30)
[2023-12-16] MEDS: NEOMYCIN/POLYMYXIN/BACITRACIN OINTMENT PACKET 1 PACKET (13:45)
--- NOTE | 2023-12-16 13:50 | PM.DS ---
DS: Admitting Diagnosis Discharge Date December 16, 2023 Admitting Diagnosis Sepsis DS: Discharge Diagnosis Discharge Diagnosis (1) Septic shock: Code(s): A41.9 - Sepsis, unspecified organism; R65.21 - Severe sepsis with septic shock Status: Acute (2) Metabolic acidosis: Code(s): E87.20 - Acidosis, unspecified Status: Acute (3) Electrolyte abnormality: Code(s): E87.8 - Other disorders of electrolyte and fluid balance, not elsewhere classified Status: Acute (4) Dislodged Gardiner catheter: Code(s): T83.021A - Displacement of indwelling urethral catheter, initial encounter Status: Acute (5) Sacral decubitus ulcer: Qualifiers: Pressure injury stage: stage 3 Qualified Code(s): L89.153 - Pressure ulcer of sacral region, stage 3 Code(s): L89.159 - Pressure ulcer of sacral region, unspecified stage Status: Acute (6) Complicated urinary tract infection: Code(s): N39.0 - Urinary tract infection, site not specified Status: Acute (7) Constipation: Qualifiers: Constipation type: unspecified constipation type Qualified Code(s): K59.00 - Constipation, unspecified Code(s): K59.00 - Constipation, unspecified Status: Acute DS: Summary Hospital Course Hospital Course: 67-year-old male with a H sacral osteomyelitis, bilateral lower extremity osteomyelitis status post [place] in 01/2023, cognitive impairment status post TBI, chronic indwelling Gardiner catheter, schizoaffective disorder, anxiety, chronic hypotension, heart failure preserved ejection fraction, peripheral artery disease, gastritis/peptic ulcer disease, who is a long-term resident of [facility]. He was recently treated at [facility] for sacral osteomyelitis discharged on Rocephin for 6 weeks to end on November 03. He is readmitted on December 07 with a complaint of abdominal pain and constipation. Found to be impacted in the ER and was digitally disimpacted the large BM. Found to be in septic shock likely secondary to complicated UTI with chronic indwelling Gardiner catheter. Transferred out of ICU on 12/14/2023. The patient did well subsequently he received at least 7 days of meropenem to which his urine culture ESBL E coli was sensitive. He had no further medications for clinical sepsis. His Gardiner catheter was changed during admission. Blood cultures negative. Metabolic acidosis was treated with bicarb infusion which improved and bicarb was discontinued For constipation he was digitally disimpacted in the ER. His Senokot as has been increased 1-2 tabs. Continue MiraLax daily and lactulose has been added as well. Patient had transient narrow complex tachycardia to which adenosine and diltiazem were used. This resolved. Therefore, on 12/15 the patient is stable for discharge to his regular nursing facility. He was DNR/DNI. Heart Failure MIPS: Has heart failure unspecified type. cannot start ARNI due to low blood pressure. Note to the patient: The Century Cures Act makes medical notes like these available to patients in the interest of transparency. Please be advised this is a medical document. It is intended for [id number] communication. It is written in medical language and may contain unfamiliar abbreviations or verbiage. Components may appear blunt or direct. Medical documents are intended to carry relevant information, facts as evident, and the clinical opinion of the practitioner at the time of the encounter. This note was generated by a speech recognition system and may contain inherent errors or omissions not intended by the user. Grammatical errors, random word insertions, deletions, pronoun errors and incomplete sentences are occasional consequences of this technology due to software limitations. Not all errors are caught or corrected. If there are questions or concerns abou
== END 2023-12-16 15:05 | disposition home or self-care (01) | DRG 698 ==
LOC: ANHED 20:09 → ANHICU 12-08 01:51 → ANH3MEDSUR 12-10 23:17
PROVIDERS: Emergency Medicine; Internal Medicine; Admitting Provider Family Medicine; Emergency Provider Physician Assistant; Visit Provider General Practice
DX: T83.511A Infection and inflammatory reaction due to indwelling urethral catheter, initial encounter (principal); A41.9 Sepsis, unspecified organism; J18.9 Pneumonia, unspecified organism; L89.153 Pressure ulcer of sacral region, stage 3; R65.21 Severe sepsis with septic shock; I50.32 Chronic diastolic (congestive) heart failure; E87.20 Acidosis, unspecified; N39.0 Urinary tract infection, site not specified; E87.6 Hypokalemia; I95.9 Hypotension, unspecified; I73.9 Peripheral vascular disease, unspecified; R00.0 Tachycardia, unspecified; K59.00 Constipation, unspecified; K21.9 Gastro-esophageal reflux disease without esophagitis; G31.84 Mild cognitive impairment of uncertain or unknown etiology; T83.021A Displacement of indwelling urethral catheter, initial encounter; B96.20 Unspecified Escherichia coli [E. coli] as the cause of diseases classified elsewhere; F41.9 Anxiety disorder, unspecified; F25.9 Schizoaffective disorder, unspecified; Z20.822 Contact with and (suspected) exposure to COVID-19; Z87.820 Personal history of traumatic brain injury; Z79.01 Long term (current) use of anticoagulants; Z79.02 Long term (current) use of antithrombotics/antiplatelets; Z89.511 Acquired absence of right leg below knee; Z89.512 Acquired absence of left leg below knee
CPT/HCPCS: 36415; 36569; 71045; 71046; 74176; 74177; 80048; 80053; 80076; 80202; 81001; 82550; 82948; 83605; 83735; 84100; 84145; 85025; 85652; 86140; 87040; 87077; 87086; 87088; 87186; 87635; 87641; 93005; 99285; A9270; C1751; G0378; J0153; J0613; J0713; J2185; J2371; J2543; J3370; J3480; J7030; J7050; J7060; P9045; Q9967

== ENCOUNTER 2024-02-04 23:27 | Observation (INO) | payer OTHER, SELFPAY ==
--- NOTE | ~2024-02-04 | XR_ITS ---
Portable chest x-ray Comparison: 12/12/2023 Clinical History: Fever Findings: Lungs are clear, without focal consolidation or pleural effusion. Cardiomediastinal silho uette is stable. Cervicothoracic spinal fixation hardware present. Impression: Clear lungs. Stable probable cardiomegaly. Reviewed, dictated and finalized at location . Impression: Clear lungs. Stable probable cardiomegaly.
--- NOTE | ~2024-02-04 | CT_ITS ---
CT of the Abdomen and Pelvis: Indication: Abdominal pain Technique: 2.5 mm axial scans were obtained through the abdomen and pelvis following intravenous adm inistration of 100 cc of Omnipaque 350. Dose reduction technique was used on this scan by utilizing a utomated exposure control and iterative reconstruction technique. The dose-length product (DLP) was 1 870.90 mGy-cm. COMPARISON: 12/08/2023 Findings: Scans through the lung bases demonstrate mild bibasilar atelectatic changes.. There is mild periportal edema, nonspecific. The liver is otherwise unremarkable. Calcified splenic g ranulomas are present. Tiny gallstones present. The pancreas, adrenals and left kidney are within nor mal limits. 5 mm nonobstructing right renal stone noted. There are atherosclerotic calcifications of the aorta. No lymphadenopathy. No bowel obstruction or bowel wall thickening. There is no evidence to suggest acute appendicitis. Images through the pelvis were performed. Urinary bladder collapsed around a Gardiner catheter. Possible wall thickening despite this, versus underdistention. There is a probable sacral decubitus ulcer, ex tending down to the level of the coccyx. Possible chronic osteomyelitis of the distal sacrum/coccyx. Stable mild compression deformities in the spine. Impression: Suspected urinary bladder wall thickening despite decompression a Gardiner catheter. Clear for cystitis/ UGI versus underdistention. Sacral decubitus ulcer extending down to the level of the bone. Possible chronic osteomyelitis of the distal sacrum/coccyx, though the osseous appearance is similar to prior exam. Mild periportal edema, nonspecific. Cholelithiasis and nonobstructing right renal stone, as detailed above. Reviewed, dictated and finalized at [facility]. Impression: Suspected urinary bladder wall thickening despite decompression a Gardiner cathete r. Clear for cystitis/UGI versus underdistention. Sacral decubitus ulcer extending down to the level of the bone. Possible chroni c osteomyelitis of the distal sacrum/coccyx, though the osseous appearance is s imilar to prior exam. Mild periportal edema, nonspecific. Cholelithiasis and nonobstructing right renal stone, as detailed above.
[2024-02-04 23:24] VITALS: BP 72/57; PULSE 130; RESP 22; TEMP 38.3; O2SAT 95
--- NOTE | 2024-02-04 23:38 | ECG_ITS ---
Test Date: 2024-02-04 23:28:18 Measurements Intervals [place] Rate: 128 P: 58 [place]: 159 QRS: 52 QRSD: 102 T: 81 QT: 308 QTc: 451 Interpretive Statements SINUS TACHYCARDIA ANTEROSEPTAL MYOCARDIAL INFARCTION , OF INDETERMINATE AGE [40+ ms Q WAVE IN V1-V4] Compared to ECG 12/07/2023 23:55:45 No significant changes Electronically Signed On 02-05-2024 17:09:42 CDT by Alexander Duvall M.D.
--- NOTE | 2024-02-04 23:41 | PC.NURSE ---
pt received 1 l LR via ems en route
[2024-02-04 23:47] LABS: Basophils Percent Auto 0.3 % (0.2-1.2); Eosinophils Percent Auto 0.4 % (0-4.4); Hematocrit 39.4 % (42.0-52.0); Hemoglobin 12.7 g/dL (14.0-18.0); Immature Granulocyte Absolute 0.05 K/mm3 (0.00-0.031); Immature Granulocyte Percent A 0.5 % (0-0.5); Lymphocytes Absolute Auto 0.61 K/mm3 (0.9-3.2); Lymphocytes Percent Auto 5.7 % (18.3-44.2); Mean Corpuscular HGB Conc 32.2 g/dl (32-36); Mean Corpuscular Hemoglobin 29.5 pg (26-34); Mean Corpuscular Volume 91.6 fl (80-100); Monocytes Absolute Auto 0.5 K/mm3 (0.1-0.6); Monocytes Percent Auto 4.4 % (2.6-8.5); Neutrophils Absolute Auto 9.5 K/mm3 (1.3-6.7); Neutrophils Percent Auto 88.7 % (45.5-73.1); Platelet Count Result 219 k/mm3 (150-375); Red Cell Distribution Width 14.8 % (11.5-14.5); White Blood Count 10.7 K/mm3 (4.5-10.0)
[2024-02-04] MEDS: SODIUM CHLORIDE 0.9% IV 1,000 ML 999 ML IV CONT (23:53)
--- NOTE | 2024-02-04 23:56 | ED.GENADULT ---
HPI - General Adult General Chief complaint: Fever Stated complaint: CODE SEPSIS Time Seen by Provider: 02/04/24 23:32 History of Present Illness HPI narrative: Patient is a 68-year-old gentleman who presents emergency department from [facility] with reported fever and possible UTI the patient had a temperature of a 104? this morning given a g of Tylenol patient reports that he has abdominal discomfort does not feel well the patient does report that he is DNR does not want CPR does not want aggressive interventions. Related Data Home Medications Medication Instructions Recorded Confirmed acetaminophen 325 mg tablet 650 mg PO Q4H PRN Pain (Scale 02/15/23 12/08/23 Score 1-3) albuterol sulfate 2.5 mg/3 mL 2.5 mg inhalation Q6H PRN sob 02/15/23 12/08/23 (0.083 %) solution for nebulization ascorbic acid (vitamin C) 1,000 mg 1 g PO DAILY 02/15/23 12/08/23 tablet clopidogrel 75 mg tablet 75 mg PO DAILY 02/15/23 12/08/23 fluticasone propionate 50 1 spray intranasal Q12H 02/15/23 12/08/23 mcg/actuation nasal spray,suspension gabapentin 100 mg capsule 200 mg PO TID 02/15/23 12/08/23 loratadine 10 mg tablet (Claritin) 10 mg PO DAILY 02/15/23 12/08/23 melatonin 3 mg tablet 3 mg PO HS Sleep 02/15/23 12/08/23 effmvtkj-vyo-DP 200 mcg-vit K 100 1 cap PO DAILY 02/15/23 12/08/23 mcg-lycop 500 [id number] capsule (Daily Multivitamin) ondansetron 4 mg disintegrating 4 mg PO Q4H PRN Nausea 02/15/23 12/08/23 tablet oxycodone 5 mg tablet 5 mg PO Q4H PRN Pain (Scale Score 02/15/23 12/08/23 4-6) polyethylene glycol 3350 17 gram 17 g PO DAILY 02/15/23 12/08/23 oral powder packet (Miralax) quetiapine 25 mg tablet 25 mg PO BID 02/15/23 12/08/23 simvastatin 20 mg tablet 20 mg PO QHS 02/15/23 12/08/23 zinc gluconate 50 mg tablet 50 mg PO DAILY 02/15/23 12/08/23 Silver Alginate 1 applic topical DAILY 08/01/23 12/08/23 collagenase clostridium histo. 250 1 applic topical DAILY 08/01/23 12/08/23 unit/gram topical ointment (Santyl) midodrine 10 mg tablet 10 mg PO Q8H 09/20/23 12/08/23 apixaban 2.5 mg tablet (Eliquis) 2.5 mg PO BID 12/08/23 12/08/23 hydrocortisone 1 % lotion 1 applic topical DAILY 12/08/23 12/08/23 miconazole nitrate 2 % topical 1 applic topical DAILY 12/08/23 12/08/23 cream Allergies Allergy/AdvReac Type Severity Reaction Status Date / Time codeine Allergy Unknown Verified 09/20/23 16:23 lidocaine Allergy Unknown Verified 09/20/23 16:23 Review of Systems Review of Systems: A 10 system review of systems was completed on the patient and is negative except for what is stated in the HPI. Nursing and ancillary documentation was reviewed. [facility] Past Medical History Medical History Anxiety Chronic anemia Chronic indwelling Gardiner catheter Chronic osteomyelitis of sacrum Coffee ground emesis Gastric ulcer Gastritis Gastroesophageal reflux disease Heart failure with preserved ejection fraction Echo 12/19 showed an EF of 55 to 65%. Hypotension On midodrine. Mild cognitive impairment Osteomyelitis Peripheral arterial disease CT angiogram for 11/17/2022 showed occlusion of anterior tibial arteries bilaterally. 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 Family History Family History Other Family history unknown Social History Social History Social History: Recently moved to the area from a long-time care facility in [place]. Served in the during [place]. Denies alcohol, tobacco, illicit substance use. Healthcare power of deputy prosecuting attorney: Jose Enrique Barba, son. Code status: Full code. Jaime
[2024-02-05] VITALS (62 sets, daily range): BP systolic 71–104; BP diastolic 56–93; PULSE 76–126; RESP 10–28; TEMP 36.6–38.8; O2SAT 91–100
[2024-02-05 00:02] LABS: INR 1.4; Partial Thromboplastin Time 31.2 Seconds (22.3-36.8); Prothrombin Time 17.3 Seconds (11.1-14.7)
[2024-02-05 00:08] LABS: Alanine Aminotransferase 19 U/L (6-50); Albumin Level 3.7 g/dL (3.5-5.1); Alkaline Phosphatase 54 U/L (38-126); Anion Gap 15 mmol/L (4-12); Aspartate Amino Transferase 30 U/L (17-59); Blood Urea Nitrogen 31 mg/dL (9-20); Calcium 8.4 mg/dL (8.4-10.2); Carbon Dioxide 17 mmol/L (22-30); Chloride 102 mmol/L (98-107); Estimated CRCL calculation 55 ml/min; Estimated Glomerular Filt Rate 60; Glucose 102 mg/dL (65-110); Potassium 4.1 mmol/L (3.4-5.0); Sodium 134 mmol/L (137-145)
[2024-02-05] MEDS: CEFEPIME 2 GM/NS 50 ML 2 GM/50 ML BAG IVPB (00:26)
[2024-02-05 00:32] LABS: Lactic Acid Reflex 1.8 mmol/L (0.7-2.0)
[2024-02-05 00:36] LABS: Add Urine Microscopic? YES; Appearance Urine Turbid (Clear); Bacteria Urine 4+ /hpf; Bilirubin Urine Negative (Negative); Blood Urine 3+ (Negative); Color Urine Dark Yellow (Yellow); Glucose Urine UA Negative (Negative); Ketones Urine Trace mg/dL (Negative); Leukocyte Esterase Ur 3+ LEU/UL (Negative); Need Manual Microscopic Reviewed; Nitrate Urine Negative (Negative); Non Pathogenic Casts >20; Protein Urine 2+ mg/dL (Negative); RBC Urine >100 /hpf (0-2); Specific Grav Ur 1.016 (1.001-1.035); Squamous Epithelial Cell Urine Occasional /hpf (Few); WBC Urine >100 /hpf (0-3); pH Urine 5.5 (5.0-9.0)
[2024-02-05] MEDS: ACETAMINOPHEN 500 MG TABLET 1000 MG PO (00:45)
[2024-02-05] MEDS: SODIUM CHLORIDE 0.9% IV 1,000 ML 999 ML IV CONT (00:45)
[2024-02-05 00:51] LABS: Influenza A QL RT-PCR Negative (Negative); Influenza B QL RT-PCR Negative (Negative); RSV RNA, RT-PCR Negative (Negative); SARS-CoV-2 RNA PCR Negative (Negative)
[2024-02-05 00:57] LABS: Procalcitonin 19.5 ng/mL
[2024-02-05] MEDS: VANCOMYCIN 2,000 MG/NS 500 ML 2,000 MG/500 ML BAG 250 MG IVPB (01:07)
[2024-02-05] MEDS: SODIUM CHLORIDE 0.9% IV 1,000 ML 500 ML IV CONT (02:17)
--- NOTE | 2024-02-05 04:21 | PM.IMHP ---
H&P: HPI History of Present Illness Date/Time: 02/05/24 04:21 Chief Complaint: Fever Narrative: Patient is a 68-year-old male from [facility] with past medical history of TBI, bilateral lower extremity BKA, anxiety, GERD, heart failure with preserved ejection fraction, schizoaffective disorder, chronic stage III sacral decubitus ulcer presents with fever and abdominal discomfort. Patient was seen here November 2023 and at that time was found to persistent hypotension requiring vasopressors including IV phenylephrine drip. He had multiple episodes of SVT treated with IV adenosine and diltiazem. During that hospitalization he had a fecal impaction. At that hospitalization he had septic shock concerning for UTI, ESBL E coli treated with meropenem. Patient now has similar presentation. This would be patient's 2nd episode UTI in 2 months. Patient is not alert to talk about hospice, he has previously established DNR/DNI. In the ED: Gardiner catheter placed, UA concerning for UTI. Patient started on vancomycin and cefepime. Will be admitted for further management of UTI. Patient was slightly hypertensive in the ED, started on IV fluids, is DNR and does not want any aggressive treatments. Review of Systems Review of Systems: Unable to obtain due to mental status and medical condition [facility] Past Medical History Medical History Anxiety Chronic anemia Chronic indwelling Gardiner catheter Chronic osteomyelitis of sacrum Coffee ground emesis Gastric ulcer Gastritis Gastroesophageal reflux disease Heart failure with preserved ejection fraction Echo 12/19 showed an EF of 55 to 65%. Hypotension On midodrine. Mild cognitive impairment Osteomyelitis Peripheral arterial disease CT angiogram for 11/17/2022 showed occlusion of anterior tibial arteries bilaterally. 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 Family History Family History Other Family history unknown Social History Social History Social History: Recently moved to the area from a long-time care facility in [place]. Served in the during [place]. Denies alcohol, tobacco, illicit substance use. Healthcare power of tax associate attorney: Jose Enrique Barba, son. Code status: Full code. Smoking status: Never smoker Alcohol intake: former Substance use: unknown Substance use type: does not use Do You Feel Safe in your Home?: Yes Lack of Transportation: No Lack of Food: Never True Current Housing: I Do Not Have Housing Concerned About Future Housing: No Difficulty Paying Gas/Electric Bills: No Difficulty Paying for Meds: No Currently Unemployed: No Education: Master's Degree or Higher Difficulty w/ Childcare or Family Care: No Spiritual care concerns: No Meds Home Medications and Allergies Home Medications Medication Instructions Recorded Confirmed Type acetaminophen 325 mg tablet 650 mg PO Q4H PRN Pain (Scale 02/15/23 12/08/23 History Score 1-3) albuterol sulfate 2.5 mg/3 mL 2.5 mg inhalation Q6H PRN sob 02/15/23 12/08/23 History (0.083 %) solution for nebulization ascorbic acid (vitamin C) 1,000 mg 1 g PO DAILY 02/15/23 12/08/23 History tablet clopidogrel 75 mg tablet 75 mg PO DAILY 02/15/23 12/08/23 History fluticasone propionate 50 1 spray intranasal Q12H 02/15/23 12/08/23 History mcg/actuation nasal spray,suspension gabapentin 100 mg capsule 200 mg PO TID 02/15/23 12/08/23 History loratadine 10 mg tablet (Claritin) 10 mg PO DAILY 02/15/23 12/08/23 History melatonin 3 mg tablet 3 mg PO HS Sleep 02/15/23 12/08/23 History multi
[2024-02-05] MEDS: MEROPENEM 1 GM/NS 100 ML 1 GM/100 ML BAG IVPB (05:58)
[2024-02-05] MEDS: SODIUM CHLORIDE 0.9% IV 1,000 ML 125 ML IV CONT (05:58)
[2024-02-05] MEDS: MIDODRINE HCL 10 MG TABLET PO (08:07)
--- NOTE | 2024-02-05 08:47 | PM.IMPN ---
Progress Note: A&P Assessment and Plan (1) Comfort measures only status: Code(s): Z51.5 - Encounter for palliative care Status: Acute Assessment and Plan: P.r.n. vital signs, I&Os, neuro status per family request, the patient is a fall risk bleeding risk May suction as needed for increased secretions and patient comfort Morphine sulfate 4 hours p.r.n. Atropine sulfate as needed every 3 hours for oral secretions Acetaminophen 650 mg every 6 hours as needed Lorazepam every 4 hours as needed for restlessness Activities: Up with assistance Vital signs Q shift p.r.n. family request Plan oxygen per nasal cannula as needed for patient comfort Frank catheter in place Care coordination consulted for hospice Discussed patient with his son/POA and he is in agreement with comfort care measures/hospice. (2) Septic shock: Code(s): A41.9 - Sepsis, unspecified organism; R65.21 - Severe sepsis with septic shock Status: Acute Assessment and Plan: Meets SIRS criteria: Febrile, tachycardic, hypotensive, leukocytosis, source of infection - lactic acid: 1.8 - Sepsis bolus given in the ED - suspected source: UTI with chronic indwelling frank catheter - blood cultures drawn on 02/04: pending - UA: turbid appearance with 2+ protein, trace ketones, 3+ blood, 3+ leukocytes, >100 RBC, > 100 WBC, 4+ bacteria - UC obtained on 02/04: pending - CXR: Clear lungs, cardiomediastinal silhouette is stable. - Abdomen/pelvis CT: Suspected urinary bladder wall thickening despite decompression a Frank catheter. Clear for cystitis/UGI versus underdistention. Sacral decubitus ulcer extending down to the level of the bone. Possible chronic osteomyelitis of the distal sacrum/coccyx, though the osseous appearance is similar to prior exam. Mild periportal edema, nonspecific.Cholelithiasis and nonobstructing right renal stone, as detailed above. - Flu negative, RSV negative, COVID negative -Antibiotics: Macrobid per ID to avoid long term care pharmacist IV antibiotics -IV fluids normal saline 125 cc/hour -Frank catheter exchanged in the ED - Persistent hypotension likely secondary to septic shock however he has chronic hypotension on midodrine. patient does not want central line in discussion with ED provider. He had a central line in November of this year. (3) Acute UTI: Code(s): N39.0 - Urinary tract infection, site not specified Status: Acute Assessment and Plan: - UA: turbid appearance with 2+ protein, trace ketones, 3+ blood, 3+ leukocytes, >100 RBC, > 100 WBC, 4+ bacteria - UC obtained on 02/04: pending - previous micro reviewed 12/07/23: E coli ESBL resistance 02/15/23: Pseudomonas aeruginosa and MRSA - started on Macrobid (4) Decubitus ulcer of sacral area: Code(s): L89.159 - Pressure ulcer of sacral region, unspecified stage Status: Acute Assessment and Plan: Abdomen/pelvis CT: Sacral decubitus ulcer extending down to the level of the bone. Possible chronic osteomyelitis of the distal sacrum/coccyx, though the osseous appearance is similar to prior exam. - Wound care consulted, appreciate recommendations Plan # chronic conditions- awaiting med rec -schizoaffective disorder -h/o TBI -chronic hypotension, adrenal insufficiency? : Continue home midodrine -HFpEF: EF 55-65% on 12/19 -cognitive impairment -chronic constipation: On lactulose, senna, docusate, MiraLax -supplements: Vitamin-C, iron supplement -allergies: Claritin, Flonase -peripheral neuropathy: Gabapentin -insomnia: Melatonin -hyperlipidemia: Simvastatin -stage IV sacral decubitus ulcer: Chronic stable, with zinc gluconate, Santyl, silver alginate. Wound care consult to follow -GERD: Protonix Diet: Heart healthy DVT prophylaxis: On Eliquis Code status: DNR (with recurrent UTIs patient may need discussion with hospice) Disposition: Back to [facility] Date of service 02/05/2024 Time Spent With Patient Time with patient: 25 - 35 mi
--- NOTE | 2024-02-05 09:05 | PC.NURSE ---
Notified MD Sarkar about patient being hypotensive. patient is alert and oriented to baseline. MD states he is going to come see patient at this time.
--- NOTE | 2024-02-05 09:13 | PC.NURSE ---
MD Puentes to bedside to assess patient at this time.
[2024-02-05] MEDS: TOLNAFTATE 1% POWDER 45 GM BTL 1 APPLIC TOPICAL (09:16)
[2024-02-05] MEDS: NOREPINEPHRINE 8 MG/D5W 250 ML 8 MG/250 ML BAG 9.38 MG IV CONT (09:28)
--- NOTE | 2024-02-05 09:32 | PC.NURSE ---
MD Peuntes states peripheral pressures at this time.
--- NOTE | 2024-02-05 10:27 | PC.NURSE ---
patient refusing to be turned for wound care on buttocks at this time.
--- NOTE | 2024-02-05 11:35 | PC.NURSE ---
Called [facility] in attempt to get ahold of NELDA Long.
--- NOTE | 2024-02-05 11:51 | PC.NURSE ---
Care Coordination, Suma RN on the phone talking to son about pt's decision at this time.
--- NOTE | 2024-02-05 13:12 | PC.NURSE ---
Son at bedside talking to Suma, RN and Brielle RN regarding pt transitioning to Hospice care. Pt is requesting pain medication for severe abdominal pain and wholesale parts salesperson to be brought to the bedside. Son asking if pts conditon would improve if pt he took his antibiotics, this RN informed pt that he had 3 different IV antibiotics over the night.
--- NOTE | 2024-02-05 14:08 | PCCCNOTE ---
1100: BREANNA called to the ED regarding pt wanting to go on hospice care. Spoke with patient who is alert and oriented times 4, who said he does want to be placed on hospice. I discussed what the program is about and the different facilities. He choose to use [facility]. Pt son, Michael(also his POA), was contacted([phone]) regarding the request from his father to go on hospice care. Michael was also agreeable with this plan. León was called, I spoke with Patsy, faxed the orders, facesheet, and H&P. Brielle, the [facility] nurse came to evaluate the pt for GIP admission. After speaking with Dr. Henderson, pt will be admitted GIP. Nathalia at [facility] notified of pt being admitted GIP.
--- NOTE | 2024-02-05 14:43 | PC.NURSE ---
Son requested pt does not get morphine at this time until grandchildren get a chance to see pt upstairs in the room. Pt agreed to wait until grandchildren have arrived.
--- NOTE | 2024-02-05 16:20 | PM.IMHP ---
H&P: HPI History of Present Illness Date/Time: 02/05/24 16:20 Chief Complaint: uncontrolled pain Narrative: 68-year-old male with a PMH sacral osteomyelitis, bilateral lower extremity osteomyelitis status post LONDON in 01/2023, cognitive impairment status post TBI, chronic indwelling Gardiner catheter, schizoaffective disorder, anxiety, chronic hypotension, heart failure preserved ejection fraction, peripheral artery disease, gastritis/peptic ulcer disease, who is a long-term resident of [facility]. He was recently treated at [facility] for sacral osteomyelitis discharged on Rocephin for 6 weeks to end on November 03. He was readmitted on December 07 with a complaint of abdominal pain and constipation. Found to be impacted in the ER and was digitally disimpacted the large BM. Found to be in septic shock likely secondary to complicated UTI with chronic indwelling Gardiner catheter. Culture grew resistant e coli. Last night he was transferred from his [facility] to the emergency department [facility] due to fever of 140? and abdominal discomfort. He was found to have abnormal urinalysis and received IV vancomycin and meropenem as well as Levophed for hypotension. He was admitted to acute care but after discussion with his family opted for comfort care only. He was having 9/10 pain that was generalized but worsened his sacral region. He had already chosen DNR status. He notes that after IV analgesics his pain is only mild. Denied shortness of breath or chest pain. Abdominal pain is minimal. Sacral pain mild. Does have chronic constipation. Review of Systems Review of Systems: All systems reviewed & are unremarkable except as noted in HPI and below PMFSH Past Medical History Medical History Anxiety Chronic anemia Chronic indwelling Gardiner catheter Chronic osteomyelitis of sacrum Coffee ground emesis Gastric ulcer Gastritis Gastroesophageal reflux disease Heart failure with preserved ejection fraction Echo 12/19 showed an EF of 55 to 65%. Hypotension On midodrine. Mild cognitive impairment Osteomyelitis Peripheral arterial disease CT angiogram for 11/17/2022 showed occlusion of anterior tibial arteries bilaterally. 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 Family History Family History (Updated 02/05/24 @ 16:32 by Yahir Sanchez MD) Father No problems noted. Mother No problems noted. Social History Social History (Updated 02/05/24 @ 16:33 by Yahir Sanchez MD) Social History: Recently moved to the area from a long-time care facility in [place]. Served in the during [place]. Denies alcohol, tobacco, illicit substance use. Healthcare power of attorney law clerk: Jose Enrique Barba, son. Code status: DNR. Smoking status: Never smoker Alcohol intake: former Substance use type: does not use Do You Feel Safe in your Home?: Yes Lack of Transportation: No Lack of Food: Never True Current Housing: I Do Not Have Housing Concerned About Future Housing: No Difficulty Paying Gas/Electric Bills: No Difficulty Paying for Meds: No Currently Unemployed: No Education: Master's Degree or Higher Difficulty w/ Childcare or Family Care: No Living arrangements: fpc Occupation/Education: retired Spiritual care concerns: No Meds Home Medications and Allergies Home Medications Medication Instructions Recorded Confirmed Type acetaminophen 325 mg tablet 650 mg PO Q4H PRN Pain (Scale 02/15/23 12/08/23 History Score 1-3) albuterol sulfate 2.5 mg/3 mL 2.5 mg inhalation Q6H PRN sob 02/15/23 12/08/23 History (0.083 %) solution for nebulization ascorbic acid (vitamin C) 1,000
--- NOTE | 2024-02-05 16:29 | PM.DS ---
DS: Admitting Diagnosis Discharge Date 02/05/24 Admitting Diagnosis Comfort measures only status septic shock acute UTI decubitus ulcer of sacral area DS: Discharge Diagnosis Discharge Diagnosis (1) Comfort measures only status: Code(s): Z51.5 - Encounter for palliative care Status: Acute (2) Septic shock: Code(s): A41.9 - Sepsis, unspecified organism; R65.21 - Severe sepsis with septic shock Status: Acute (3) Acute UTI: Code(s): N39.0 - Urinary tract infection, site not specified Status: Acute (4) Decubitus ulcer of sacral area: Code(s): L89.159 - Pressure ulcer of sacral region, unspecified stage Status: Acute DS: Summary Hospital Course Reason for hospitalization: Comfort measures only status septic shock acute UTI decubitus ulcer of sacral area Hospital Course: 68-year-old male from [facility] with past medical history of TBI, bilateral lower extremity BKA, anxiety, GERD, heart failure with preserved ejection fraction, schizoaffective disorder, chronic stage III sacral decubitus ulcer presents with fever and abdominal discomfort. Patient was noted to be in septic shock. Meeting SIRs criteria as he was febrile, tachycardic, hypotensive, leukocytosis, with a known source of infection. He was given a sepsis bolus in the ED. A urinalysis was concerning for a UTI. His chronic frank catheter was exchanged in the ED. Patient was started on vanc and cefepime, however was changed to meropenem given prior ESBL resistance. Urine culture pending. Abdomen/pelvis CT showed urinary bladder wall thickening despite decompression a Frank catheter. Clear for cystitis/UGI versus underdistention. Sacral decubitus ulcer extending down to the level of the bone. Possible chronic osteomyelitis of the distal sacrum/coccyx, though the osseous appearance is similar to prior exam. Mild periportal edema, nonspecific.Cholelithiasis and nonobstructing right renal stone. Chest XR was unremarkable. Despite continuous fluids patient remained hypotensive. He was started on pressors in the ED. Discussed with patient that he is requiring pressors for his blood pressure to remain stable and that he will likely require a central line in order to continue treatment. Patient then stated that he does not want any measures done that would prolong his life. At that point I discussed comfort care/hospice with the patient and he wished to proceed with comfort care/hospice. Care coordination was consulted at that time. I made a call to the patients son/POZen Quispe and he states that if the patient wishes to be made comfort care and start hospice he agrees with patient. Patient was evaluated by León and made [facility] hospice. Patient discharged in terminal condition on [facility]. Care taken over by hospice team. Status at Discharge Functional status at discharge: bed bound Time Spent with Patient Time attestation: Total time spent providing and/or coordinating discharge services: Time spent: Greater than 30 minutes Exam Narrative: AF HR 88 RR 21 SpO2 99 BP 71/59 General: male in no acute respiratory distress who is nontoxic appearing, lying semi recumbent in bed. HEENT: Normocephalic. Atraumatic. Extraocular movement intact. Sclera clear and anicteric. No facial asymmetry. Chest: Lungs are clear to auscultation bilaterally. No wheezes or crackles. CV: Heart was regular rate and rhythm. S1/S2. No murmurs, gallops, or rubs. Abd: Abdomen was soft. Mild general abdominal tenderness. Nondistended. Positive bowel sounds. No organomegaly or masses. Ext: Bilateral AKA. Neuro: Patient is alert and oriented x4. Speech is clear. Psych: Normal mood and affect. Patient is pleasant and cooperative. Skin: Large sacral decubitus ulcer without s/s of infection. DS: Data Data Completed and Pending Completed studies during hospitalization: chest XR abdomen/pelvis CT Labs on day of discharge: Labs from last 24
== END 2024-02-05 17:27 | disposition hospice, inpatient (51) ==
LOC: ANHED 02-05 03:11 → ANH3MEDSUR 02-05 06:46
PROVIDERS: Admitting Provider Student in an Organized Health Care Education/Training Program; Emergency Provider Emergency Medicine; Visit Provider Student in an Organized Health Care Education/Training Program
DX: A41.9 Sepsis, unspecified organism (principal); R65.21 Severe sepsis with septic shock; T83.511A Infection and inflammatory reaction due to indwelling urethral catheter, initial encounter; L89.153 Pressure ulcer of sacral region, stage 3; I50.9 Heart failure, unspecified; I73.9 Peripheral vascular disease, unspecified; K21.9 Gastro-esophageal reflux disease without esophagitis; F25.9 Schizoaffective disorder, unspecified; F41.9 Anxiety disorder, unspecified; K59.09 Other constipation; G47.00 Insomnia, unspecified; D64.9 Anemia, unspecified; Y84.6 Urinary catheterization as the cause of abnormal reaction of the patient, or of later complication, without mention of misadventure at the time of the procedure; Z20.822 Contact with and (suspected) exposure to COVID-19; Z89.612 Acquired absence of left leg above knee; Z89.611 Acquired absence of right leg above knee; Z87.820 Personal history of traumatic brain injury; Z66 Do not resuscitate; Z79.51 Long term (current) use of inhaled steroids; Z79.02 Long term (current) use of antithrombotics/antiplatelets; Z79.891 Long term (current) use of opiate analgesic; Z79.01 Long term (current) use of anticoagulants
CPT/HCPCS: 36415; 71045; 74177; 80053; 81001; 83605; 84145; 85025; 85610; 85730; 87040; 87077; 87086; 87088; 87186; 87637; 93005; 96361; 96365; 96367; 99285; A9270; G0378; J0692; J2185; J3370; J7030; Q9967

== ENCOUNTER 2024-02-05 17:28 | HOS | payer OTHER, MEDICARE, MEDICAID, SELFPAY ==
--- NOTE | 2024-02-05 16:20 | HP_ITS ---
This report was moved to the correct visit, [id number] on 02/06/2024. Original report was signed by Yahir Sanchez MD 02/05/2024 [id number]. H&P: HPI History of Present Illness Date/Time: 02/05/24 16:20 Chief Complaint: uncontrolled pain Narrative: 68-year-old male with a PMH sacral osteomyelitis, bilateral lower extremity osteomyelitis status post LONDON in 01/2023, cognitive impairment status post TBI, chronic indwelling Gardiner catheter, schizoaffective disorder, anxiety, chronic hypotension, heart failure preserved ejection fraction, peripheral artery disease, gastritis/peptic ulcer disease, who is a long-term resident of [facility]. He was recently treated at [facility] for sacral osteomyelitis discharged on Rocephin for 6 weeks to end on November 03. He was readmitted on December 07 with a complaint of abdominal pain and constipation. Found to be impacted in the ER and was digitally disimpacted the large BM. Found to be in septic shock likely secondary to complicated UTI with chronic indwelling Gardiner catheter. Culture grew resistant e coli. Last night he was transferred from his [facility] to the emergency department [facility] due to fever of 140? and abdominal discomfort. He was found to have abnormal urinalysis and received IV vancomycin and meropenem as well as Levophed for hypotension. He was admitted to acute care but after discussion with his family opted for comfort care only. He was having 9/10 pain that was generalized but worsened his sacral region. He had already chosen DNR status. He notes that after IV analgesics his pain is only mild. Denied shortness of breath or chest pain. Abdominal pain is minimal. Sacral pain mild. Does have chronic constipation. Review of Systems Review of Systems: All systems reviewed & are unremarkable except as noted in HPI and below PMFSH Past Medical History Medical History Anxiety Chronic anemia Chronic indwelling Gardiner catheter Chronic osteomyelitis of sacrum Coffee ground emesis Gastric ulcer Gastritis Gastroesophageal reflux disease Heart failure with preserved ejection fraction Echo 12/19 showed an EF of 55 to 65%. Hypotension On midodrine. Mild cognitive impairment Osteomyelitis Peripheral arterial disease CT angiogram for 11/17/2022 showed occlusion of anterior tibial arteries bilaterally. 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 Family History Family History (Updated 02/05/24 @ 16:32 by Yahir Sanchez MD) Father No problems noted. Mother No problems noted. Social History Social History (Updated 02/05/24 @ 16:33 by Yahir Sanchez MD) Social History: Recently moved to the area from a long-time care facility in [place]. Served in the during [place]. Denies alcohol, tobacco, illicit substance use. Healthcare power of personal injury attorney: Jose Enrique Barba, ken. Code status: DNR. Smoking status: Never smoker Alcohol intake: former Substance use type: does not use Do You Feel Safe in your Home?: Yes Lack of Transportation: No Lack of Food: Never True Current Housing: I Do Not Have Housing Concerned About Future Housing: No Difficulty Paying Gas/Electric Bills: No Difficulty Paying for Meds: No Currently Unemployed: No Education: Master's Degree or Higher Difficulty w/ Childcare or Family Care: No Living arrangements: fci Occupation/Education: retired Spiritual care concerns: No
[2024-02-05 18:45] VITALS: PULSE 64; RESP 14
[2024-02-05] MEDS: HYDROmorphone HCL/PF (*CRX) 50 MG in SODIUM CHLORIDE 0.9% IV 95 ML IV CONT (18:45)
[2024-02-05 18:56] VITALS: BMI 60.3
[2024-02-05 20:00] VITALS: PULSE 64; RESP 14
[2024-02-05] MEDS: diazePAM INJ (*CRX) 10 MG/2 ML SYRINGE 5 MG IV PUSH (20:34)
[2024-02-05] MEDS: HYDROmorphone HCL INJ (*CRX) 1 MG/ML SYR IV PUSH (22:09)
[2024-02-06 01:17] VITALS: PULSE 66; RESP 14; TEMP 36.6; O2SAT 93
[2024-02-06] MEDS: diazePAM INJ (*CRX) 10 MG/2 ML SYRINGE 5 MG IV PUSH (02:12)
[2024-02-06] MEDS: HYDROmorphone HCL INJ (*CRX) 1 MG/ML SYR IV PUSH (04:36)
--- NOTE | 2024-02-06 10:10 | WPDPN ---
Progress Note: A&P Assessment and Plan (1) Hospice care: Code(s): Z51.5 - Encounter for palliative care Status: Acute Assessment and Plan: Due to restlessness and c/o pain overnight, Dialudid gtts increased to 0.5 mg/hr with 1 mg IVP q2h and Valium scheduled 5 mg q8h and q4h PRN. Will continue to monitor for comfort Plan Due to restlessness and c/o pain overnight, Dialudid gtts increased to 0.5 mg/hr with 1 mg IVP q2h and Valium scheduled 5 mg q8h and q4h PRN. Will continue to monitor for comfort. Time Spent With Patient Time: 30 minutes Time with patient: 25 - 35 minutes Subjective Date/time seen: 02/06/24 10:10 Interval history: 68 yo males seen today for continued follow up post hospice admission. Staff states patient was restless all night. Yelling out at times. Stating he was hurting with any touch or slight movement staff did during personal care. GIP RN using mulitple PRN doses of dialudid and Valium to help help symptom management. Pt is tolerating PO fluids at this time. Eventual decompensation likely due to sepsis and pt being in septic shock in ER just a few days ago. VSS at visit. Pt alert, able to voice needs, and follow commands. No SOB. No complain of pain at rest, but did grimace when his gown was moved. Refused breakfast. Catheter patent. No edema. Review of Systems Review of Systems: All systems reviewed & are unremarkable except as noted in HPI and below Constitutional: Constitutional: Reports as per HPI Cardiovascular: Cardiovascular: Reports as per HPI Respiratory: Respiratory: Reports as per HPI Gastrointestinal: Gastrointestinal: Reports as per HPI Genitourinary: Genitourinary: Reports as per HPI Musculoskeletal: Musculoskeletal: Reports as per HPI Integumentary/Breasts: Skin/Breast: Reports as per HPI Neurologic: Reports as per HPI Exam Const: General: comfortable and no acute distress Limitations: altered mental status HENMT: Head: normal to inspection Neck: Neck: normal visual inspection Chest: Chest palpation & inspection: normal inspection of the chest Resp: Effort & Inspection: normal respiratory effort Auscultation: clear to auscultation bilaterally Cardio: Rate: regular rate Rhythm: regular rhythm Heart sounds: S1 normal heart sound present and S2 normal heart sound present Peripheral pulses: Peripheral pulses 2+ throughout and radial pulses present GI: Inspection: normal to inspection GI Palp: Yes Soft to palpation Auscultation: normal bowel sounds Rectal Exam: deferred : Other: catheter patent. Dried sanguenous d/c Urinary Catheter: Urinary Catheter: patent and draining and urine cloudy Skin: General skin exam: normal color Wounds: wounds noted Other: sacral wound not visualied Neuro: Speech: normal speech Other: hypersensation Extrem: Other: bilat AKA Psych: Affect: normal affect Other: Pt calm and cooperative during visit. Staff reports verbal aggression overnight. Objective Data Vital Signs Vital Signs: Vital Signs - 24 hr 02/05/24 18:45 02/05/24 20:00 02/06/24 01:17 Temperature 36.6 C Pulse Rate 64 64 66 Respiratory Rate 14 14 14 Pulse Oximetry 93 Oxygen Delivery Room Air Intake/Output Intake/Output: Intake & Output 02/03/24 02/04/24 02/05/24 02/06/24 23:59 23:59 23:59 23:59 Intake Total 500 Output Total 1400 Balance -900 Meds/Results Medications: Active Medications Generic Name Dose Route Start Last Admin Trade Name Freq PRN Reason Stop Dose Admin Artificial Tears 0 drop 02/05/24 18:15 Artificial Tears Ophth Soln 15 Ml Bottle EACH EYE Q12HR PRN Dry Eye(s) Bisacodyl 10 mg 02/05/24 18:15 Bisacodyl 10 Mg Suppository RECTAL QAM PRN Constipation Diazepam 5 mg 02/05/24 18:12 02/06/24 02:12 Diazepam Inj (*Crx) 10 Mg/2 Ml Syringe IV PUSH 5 mg Q6H PRN Administration RESTLESSNESS Glycopyr
[2024-02-06] MEDS: HYDROmorphone HCL (*CRX) 4 MG TABLET PO ×3 (12:52→20:53)
[2024-02-06] MEDS: diazePAM (*CRX) 5 MG TABLET PO ×3 (12:53→20:53)
--- NOTE | 2024-02-06 16:17 | PC.NURSE ---
Pt was talking with [facility] criminal justice social worker when loud shouting was heard down the hallway. This RN was in another pt room providing pt education for discharge. criminal justice social worker came to this RN stating pt stated, God I can't even kill myself because I don't have a gun. Ma'am do you have a gun? I want to inclusion teacher front of a train. This RN notified cupola charger and house sup. Manor suicide score obtained; pt scored moderate at 1505. Call made to [facility] requesting provider to come evaluate pt within 30 mins d/t nature of complaint. Reza Garcia REGULATORY AUDITOR to bedside who questioned pt. He does not feel pt will truly harm himself, but given his mental status and nature of complaint, provider feels pt needs to be on SI precautions. Provider intends on returning tomorrow morning to reevaluate pt. continuity tester working on obtaining a sitter. REGULATORY AUDITOR staying room at this time. This RN requesting PRN valium to treat anxiety. Orders received and faxed to pharmacy.
[2024-02-06] MEDS: SENNOSIDES 8.6 MG TABLET 17.2 MG PO (18:09)
--- NOTE | 2024-02-06 19:13 | WPDPN ---
Progress Note: A&P Assessment and Plan (1) Hospice care: Code(s): Z51.5 - Encounter for palliative care Status: Acute Assessment and Plan: Pt transitioned to PO meds. Pain well controlled. Continue current dilaudid dose. Pt continues to be anxious, restless, and impulsive. Inc Valium to q6h and add q3h PRN dose. Restart previous Seroquel dose. Reval in the morning. (2) Psychiatric illness: Code(s): F99 - Mental disorder, not otherwise specified Status: Chronic Assessment and Plan: Pt with suicidial ideation accoring to PRESLEY RN this afternoon. None during my assessment. We will adjust valium and restart previous Seroquel. Initiate suicide precautions and reval in morning. Plan Adjust Valium order and restart Seroquel. Initiate suicide precautions. Time Spent With Patient Time with patient: Greater than 35 minutes Subjective Date/time seen: 02/06/24 19:13 Interval history: Pt being seen for f/u regarding suicidal ideation. Pt told PRESLEY RN that he wanted to kill himself after being told the plan of care was to go back to the [facility] that he was living in before his hospital admission. He scored a moderate suicide risk on the [place] Suicide Scale. When this provider met with pt, pt reassured me he does not intend on committing suicide and has no plan. Citing his enoc and that God would believe this to be a sin. I had him make a verbal contract ensuring he would not do this. Pt was laughing and joking at the end of the visit. Review of Systems Review of Systems: All systems reviewed & are unremarkable except as noted in HPI and below Constitutional: Constitutional: Reports as per HPI Cardiovascular: Cardiovascular: Reports as per HPI Respiratory: Respiratory: Reports as per HPI Gastrointestinal: Gastrointestinal: Reports as per HPI Genitourinary: Genitourinary: Reports as per HPI Musculoskeletal: Musculoskeletal: Reports as per HPI Integumentary/Breasts: Skin/Breast: Reports as per HPI Neurologic: Reports as per HPI Psychiatric: Psychiatric: Reports as per HPI Exam Const: General: comfortable and no acute distress Limitations: altered mental status HENMT: Head: normal to inspection Neck: Neck: normal visual inspection Chest: Chest palpation & inspection: normal inspection of the chest Resp: Effort & Inspection: normal respiratory effort Auscultation: clear to auscultation bilaterally Cardio: Rate: regular rate Rhythm: regular rhythm Heart sounds: S1 normal heart sound present and S2 normal heart sound present Peripheral pulses: Peripheral pulses 2+ throughout and radial pulses present GI: Inspection: normal to inspection GI Palp: Yes Soft to palpation Auscultation: normal bowel sounds Rectal Exam: deferred : Other: catheter patent. Dried sanguenous d/c Urinary Catheter: Urinary Catheter: patent and draining and urine cloudy Skin: General skin exam: normal color Wounds: wounds noted Other: sacral wound not visualied Neuro: Speech: normal speech Other: hypersensation Extrem: Other: bilat AKA Psych: Affect: normal affect Other: Moderate suicide risk according to [place] suicide scale. Denies ideation or plan during my assessment. Objective Data Vital Signs Vital Signs: Vital Signs - 24 hr 02/05/24 20:00 02/06/24 01:17 Temperature 36.6 C Pulse Rate 64 66 Respiratory Rate 14 14 Pulse Oximetry 93 Oxygen Delivery Room Air Intake/Output Intake/Output: Intake & Output 02/03/24 02/04/24 02/05/24 02/06/24 23:59 23:59 23:59 23:59 Intake Total 2276 Output Total 1400 Balance 876 Meds/Results Medications: Active Medications Generic Name Dose Route Start Last Admin Trade Name Freq PRN Reason Stop Dose Admin Artificial Tears 0 drop 02/05/24 18:15 Artificial Tears Ophth Soln 15 Ml Bottle EACH EYE Q12HR PRN Dry Eye(s) Bisacodyl 10 mg 02/05/24 18:15 Bisaco
[2024-02-06 20:00] VITALS: BP 123/74; PULSE 94; RESP 18; TEMP 36.7; O2SAT 97
[2024-02-06] MEDS: QUEtiapine FUMARATE 25 MG TABLET PO (20:52)
[2024-02-07] MEDS: HYDROmorphone HCL (*CRX) 4 MG TABLET PO ×2 (05:22→11:34)
[2024-02-07] MEDS: diazePAM (*CRX) 5 MG TABLET PO ×2 (05:22→11:34)
[2024-02-07] MEDS: polyethylene glycoL 3350 17 GM POWD.PACK PO (08:27)
[2024-02-07] MEDS: SENNOSIDES 8.6 MG TABLET 17.2 MG PO (08:27)
[2024-02-07] MEDS: QUEtiapine FUMARATE 25 MG TABLET PO (08:27)
--- NOTE | 2024-02-07 13:40 | PM.DS ---
DS: Admitting Diagnosis Discharge Date 02-07-2024 Admitting Diagnosis sepsis of urinary origin DS: Discharge Diagnosis Discharge Diagnosis (1) Hospice care: Code(s): Z51.5 - Encounter for palliative care Status: Acute Plan sepsis of urinary origin DS: Summary Hospital Course Reason for hospitalization: This 68 year old group home resident was readmitted to [facility] 02-05-2024 with sepsis of urinary origin, presenting with fever, chills and shock. Hospital Course: Initial ED management included IV fluids, pressor and antibiotic administration, however the patient indicated he wanted no further aggressive treatment, wished to keep his Do Not Resuscitate status, and to be referred to hospice for end of life support. Although the patient's son was initially not in agreement with this decision, subsequent conversation with Dr. Sanchez indicated that he did finally agree. The patient's abdominal pain was treated with IV Dilaudid and restlessness/anxiety with po Valium. By 02-06-2024 the patient's pain was better controlled and he was conversant and able to take by mouth. IV Dilaudid was transitioned to po Dilaudid which controlled the patient's pain well at 4 mg po q 6h. The patient spoke of suicidal ideation 02-06-2024 afternoon and the [facility] AN[facility] reevaluated the patient. His risk was judged moderate, and baseline Seroquel was resumed. Suicide precautions were implemented. By 02-07-2024 the patient was no longer suicidal. Pain and anxiety were assessed and patient was calm and ready for discharge back to [facility] 02-07-2024. Status at Discharge Cognitive/behavioral status at discharge: calm, not suicidal Functional status at discharge: bed bound Overall status at discharge: other (calm and comfortable with new end of life opioid, benzodiazepine regimen to be managed by hospice as outpatient) Time Spent with Patient Time attestation: Total time spent providing and/or coordinating discharge services: Time spent: Greater than 30 minutes Specific discharge activities: med reconciliation, care coordination, documentation Exam Narrative: sleeping Const: General: comfortable and no acute distress HENMT: Face/Nose/Sinus: Normal nares present Mouth: Yes moist mucous membranes Eyes: General: appearance normal, both eyes and all related structures Neck: Neck: supple Resp: Effort & Inspection: normal respiratory effort Auscultation: clear to auscultation bilaterally Cardio: Rate: regular rate Rhythm: regular rhythm GI: Inspection: distended GI Palp: Yes Soft to palpation and Yes Tenderness to palpation present (GI) (mild bilat LQ's) Auscultation: normal bowel sounds Urinary Catheter: Urinary Catheter: patent and draining and urine clear Skin: General skin exam: normal color Extrem: Other: bilateral above knee amputations Psych: Affect: No Anxious affect present and No Hostile affect present Attitude: not belligerent Other: sleepy, answered questions Discharge Plan Discharge Discharging Clinician: Israel Pack Patient Disposition: Hospice - Medical Facility Activity: may shower Diet: as tolerated and regular Wound Care Instructions: other - see discharge instructions Discharge Instructions: Patient will be followed by [facility] as an outpatient at the group home. Wound care will be reevaluated at group home and supported by hospice staff ongoing. Patient Language: Maltese Stand Alone Forms: General Discharge Information Discharge Medications: New quetiapine [Seroquel] 25 mg Tablet 25 mg PO Q12HR 0RF sennosides [Senokot] 8.6 mg Tablet 17.2 mg PO BID 0RF polyethylene glycol 3350 [Miralax] 17 gram Powder In Packet 17 g PO DAILY 0RF diazepam 5 mg Tablet 5 mg PO Q6HR 0RF Continued acetaminophen 325 mg Tablet 650 mg PO Q4H PRN (Reason: Pain (Scale Score 1-3)) albuterol sulfate 2.5 mg /3 mL (0.083 %) Solution F
--- NOTE | 2024-02-07 14:50 | WPDPN ---
Progress Note: A&P Assessment and Plan (1) Hospice care: Code(s): Z51.5 - Encounter for palliative care Status: Acute Assessment and Plan: Continue current PO meds regimen upon d/c (2) Psychiatric illness: Code(s): F99 - Mental disorder, not otherwise specified Status: Chronic Assessment and Plan: Pt AOx3. Denies SI. To lift SI precautions this AM. Plan Continue current meds and lift SI precautions. Pt to d/c back to [facility] today. Time Spent With Patient Time with patient: 15 - 25 minutes Subjective Date/time seen: 02/07/24 14:50 Interval history: Pt was seen this morning for f/u related to suicidal ideation and symptom management since stopping IV meds and starting PO meds. Pt alert. Answering questions appropriatley. AOx3. Denies SI. Denies a plan to harm self. States feeling better this AM. SI precautions will be lifted and pt to transfer back to [facility] today. Pts symptoms well controlled with PO meds. Denies pain except for sacral area r/t wound. Review of Systems Review of Systems: All systems reviewed & are unremarkable except as noted in HPI and below Constitutional: Constitutional: Reports as per HPI Cardiovascular: Cardiovascular: Reports as per HPI Respiratory: Respiratory: Reports as per HPI Gastrointestinal: Gastrointestinal: Reports as per HPI Genitourinary: Genitourinary: Reports as per HPI Musculoskeletal: Musculoskeletal: Reports as per HPI Integumentary/Breasts: Skin/Breast: Reports as per HPI Neurologic: Reports as per HPI Psychiatric: Psychiatric: Reports as per HPI Exam Narrative: sleeping Const: General: comfortable and no acute distress Resp: Effort & Inspection: normal respiratory effort Auscultation: clear to auscultation bilaterally Cardio: Rate: regular rate Rhythm: regular rhythm GI: Inspection: distended GI Palp: Yes Soft to palpation and Yes Tenderness to palpation present (GI) (mild bilat LQ's) Auscultation: normal bowel sounds Urinary Catheter: Urinary Catheter: patent and draining and urine clear Skin: General skin exam: normal color Neuro: Other: AOx3 Extrem: Other: bilateral above knee amputations Psych: Affect: No Anxious affect present and No Hostile affect present Attitude: not belligerent Other: sleepy, answered questions Objective Data Vital Signs Vital Signs: Vital Signs - 24 hr 02/06/24 20:00 02/07/24 08:27 Temperature 36.7 C Pulse Rate 94 Respiratory Rate 18 Blood Pressure 123/74 Pulse Oximetry 97 Oxygen Delivery Room Air Intake/Output Intake/Output: Intake & Output 02/04/24 02/05/24 02/06/24 02/07/24 23:59 23:59 23:59 23:59 Intake Total 2276 Output Total 2400 1350 Balance -124 -1350 Meds/Results Medications: Active Medications Generic Name Dose Route Start Last Admin Trade Name Freq PRN Reason Stop Dose Admin Artificial Tears 0 drop 02/05/24 18:15 Artificial Tears Ophth Soln 15 Ml Bottle EACH EYE Q12HR PRN Dry Eye(s) Bisacodyl 10 mg 02/05/24 18:15 Bisacodyl 10 Mg Suppository RECTAL QAM PRN Constipation Diazepam 5 mg 02/06/24 16:58 02/06/24 20:53 Diazepam (*Crx) 5 Mg Tablet PO 5 mg Q3H PRN Administration Anxiety Diazepam 5 mg 02/06/24 18:00 02/07/24 11:34 Diazepam (*Crx) 5 Mg Tablet PO 5 mg Q6HR BAKARI Administration Hydromorphone HCl 4 mg 02/06/24 11:00 02/07/24 11:34 Hydromorphone Hcl (*Crx) 4 Mg Tablet PO 4 mg Q6H BAKARI Administration Hydromorphone HCl 4 mg 02/06/24 10:34 02/06/24 20:53 Hydromorphone Hcl (*Crx) 4 Mg Tablet PO 4 mg Q2H PRN Administration Pain/DYSPNEA Polyethylene Glycol 17 gm 02/07/24 09:00 02/07/24 08:27 Polyethylene Glycol 3350 17 Gm Powd.Pack PO 17 gm DAILY BAKARI Administration Quetiapine Fumarate 25 mg 02/06/24 21:00 02/07/24 08:27 Quetiapine Fumarate 25 Mg Tablet PO 25 mg Q12HR BAKARI Administration
== END 2024-02-07 15:04 | disposition hospice, inpatient (51) | DRG 951 ==
PROVIDERS: Admitting Provider Internal Medicine; Visit Provider Internal Medicine Nephrology
DX: Z51.5 Encounter for palliative care (principal); A41.9 Sepsis, unspecified organism; R65.21 Severe sepsis with septic shock; M46.28 Osteomyelitis of vertebra, sacral and sacrococcygeal region; I50.32 Chronic diastolic (congestive) heart failure; E87.20 Acidosis, unspecified; R45.851 Suicidal ideations; I95.89 Other hypotension; I73.9 Peripheral vascular disease, unspecified; L89.159 Pressure ulcer of sacral region, unspecified stage; F25.9 Schizoaffective disorder, unspecified; F41.9 Anxiety disorder, unspecified; G31.84 Mild cognitive impairment of uncertain or unknown etiology; Z87.820 Personal history of traumatic brain injury; Z89.611 Acquired absence of right leg above knee; Z89.612 Acquired absence of left leg above knee; Z74.01 Bed confinement status
CPT/HCPCS: A9270; J1170; J3360